=== PATIENT | male | born 1940 | race Caucasian/White ===

== ENCOUNTER → 2017-10-17 09:31 | Outpatient (CLI) | payer MEDICARE, SELFPAY ==
[2017-10-17 10:59] LABS: PSA,Total- Diagnostic < 0.01 ng/mL (0.0-4.0)
== END ==
PROVIDERS: Family Provider Family Medicine; PCP Family Medicine; Visit Provider Urology
DX: C61 Malignant neoplasm of prostate (principal)
CPT/HCPCS: 36415; 84153

== ENCOUNTER → 2018-04-24 07:38 | Outpatient (CLI) | payer MEDICARE, SELFPAY ==
[2018-04-24 09:30] LABS: AST(SGOT) 24 U/L (15-37); Alanine Aminotransfer ALT/SGPT 26 U/L (16-61); Albumin, Serum 3.5 g/dL (3.2-5.0); Alkaline Phosphatase 85 U/L (45-117); Anion Gap 9 (5-15); BUN 26 mg/dL (7-18); BUN/Creat Ratio 25.5 RATIO (10-20); Chloride 102 mmol/L (98-107); Cholesterol 161 mg/dL (200); Creatinine, Serum 1.02 mg/dL (0.70-1.30); EST Glomerular Filtration Rate 75 mL/min (>60); Est Glom Filt Rate - Afr Amer 91 mL/min (>60); Globulin 3.6 g/dL (2.2-4.2); Glucose 101 mg/dL (74-106); High Density Lipoprotein 37 mg/dL; PSA,Total- Diagnostic < 0.01 ng/mL (0.0-4.0); Potassium 3.7 mmol/L (3.5-5.1); Protein, Total 7.1 g/dL (6.4-8.2); Sodium Level 139 mmol/L (136-145); Triglycerides 134 mg/dL; Very Low Density Lipoprotein 27 mg/dL (5-40)
== END ==
PROVIDERS: Family Provider Family Medicine; PCP Family Medicine; Referring Provider Nurse Practitioner Adult Health; Visit Provider Nurse Practitioner Adult Health
DX: Z13.6 Encounter for screening for cardiovascular disorders (principal); Z13.220 Encounter for screening for lipoid disorders; I10 Essential (primary) hypertension; C61 Malignant neoplasm of prostate
CPT/HCPCS: 36415; 80053; 80061; 84153

== ENCOUNTER → 2018-10-31 09:01 | Outpatient (CLI) | payer MEDICARE, SELFPAY ==
[2017-07-24 00:41] VITALS: BMI 31.9
[2018-10-31 11:20] LABS: PSA,Total- Diagnostic < 0.01 ng/mL (0.0-4.0)
== END ==
PROVIDERS: Family Provider Family Medicine; PCP Family Medicine; Referring Provider Nurse Practitioner Adult Health; Visit Provider Nurse Practitioner Adult Health
DX: Z85.46 Personal history of malignant neoplasm of prostate (principal)
CPT/HCPCS: 36415; 84153

== ENCOUNTER → 2019-05-14 08:41 | Outpatient (CLI) | payer MEDICARE, SELFPAY ==
[2017-07-24 00:41] VITALS: BMI 31.9
[2019-05-14 09:33] LABS: PSA,Total- Diagnostic < 0.01 ng/mL (0.0-4.0)
== END ==
LOC: LAB.FUTURE 08:43 → LAB 08:49
PROVIDERS: Family Provider Family Medicine; PCP Family Medicine; Visit Provider Nurse Practitioner Adult Health
DX: Z85.46 Personal history of malignant neoplasm of prostate (principal)
CPT/HCPCS: 36415; 84153

== ENCOUNTER → 2019-12-17 07:39 | Outpatient (CLI) | payer MEDICARE, SELFPAY ==
[2017-07-24 00:41] VITALS: BMI 31.9
[2019-12-17 09:39] LABS: Vitamin B12 270 pg/mL (211-911)
[2019-12-17 09:41] LABS: AST(SGOT) 22 U/L (15-37); Alanine Aminotransfer ALT/SGPT 23 U/L (16-61); Albumin, Serum 3.5 g/dL (3.2-5.0); Alkaline Phosphatase 93 U/L (45-117); Anion Gap 7 (5-15); BUN 26 mg/dL (7-18); BUN/Creat Ratio 24.8 RATIO (10-20); Chloride 105 mmol/L (98-107); Cholesterol 177 mg/dL (200); Creatinine, Serum 1.05 mg/dL (0.70-1.30); EST Glomerular Filtration Rate 72 mL/min (>60); Est Glom Filt Rate - Afr Amer 88 mL/min (>60); Globulin 3.6 g/dL (2.2-4.2); Glucose 105 mg/dL (74-106); High Density Lipoprotein 40 mg/dL; PSA,Total- Diagnostic < 0.01 ng/mL (0.0-4.0); Potassium 3.6 mmol/L (3.5-5.1); Protein, Total 7.1 g/dL (6.4-8.2); Sodium Level 140 mmol/L (136-145); Triglycerides 180 mg/dL; Very Low Density Lipoprotein 36 mg/dL (5-40)
== END ==
PROVIDERS: PCP Family Medicine; Referring Provider Nurse Practitioner Adult Health; Visit Provider Nurse Practitioner Adult Health
DX: Z13.6 Encounter for screening for cardiovascular disorders (principal); I10 Essential (primary) hypertension; C61 Malignant neoplasm of prostate; Z79.899 Other long term (current) drug therapy
CPT/HCPCS: 36415; 80053; 80061; 82607; 84153

== ENCOUNTER → 2020-06-04 | Outpatient (CLI) | payer MEDICARE, SELFPAY ==
[2017-07-24 00:41] VITALS: BMI 31.9
== END | disposition home or self-care (01) ==
LOC: LABSPEC 10:46
PROVIDERS: PCP Family Medicine; Referring Provider Family Medicine; Visit Provider Family Medicine
DX: Z00.00 Encounter for general adult medical examination without abnormal findings (principal)
CPT/HCPCS: 80048

== ENCOUNTER → 2020-06-05 08:18 | Outpatient (CLI) | payer MEDICARE, SELFPAY ==
[2017-07-24 00:41] VITALS: BMI 31.9
[2020-06-05 09:31] LABS: Anion Gap 4 (5-15); BUN 21 mg/dL (7-18); BUN/Creat Ratio 18.8 RATIO (10-20); Calcium,Total 9.2 mg/dL (8.5-10.1); Chloride 106 mmol/L (98-107); Creatinine, Serum 1.12 mg/dL (0.70-1.30); EST Glomerular Filtration Rate 67 mL/min (>60); Est Glom Filt Rate - Afr Amer 81 mL/min (>60); Glucose 109 mg/dL (74-106); Sodium Level 139 mmol/L (136-145)
== END ==
PROVIDERS: PCP Family Medicine; Referring Provider Family Medicine; Visit Provider Family Medicine
DX: I10 Essential (primary) hypertension (principal)
CPT/HCPCS: 36415; 80048

== ENCOUNTER → 2020-12-14 08:41 | Outpatient (CLI) | payer MEDICARE, SELFPAY ==
[2020-12-14 09:45] LABS: ALB/GLOB Ratio 0.9 RATIO (0.9-2.4); AST(SGOT) 26 U/L (15-37); Alanine Aminotransfer ALT/SGPT 25 U/L (16-61); Albumin, Serum 3.4 g/dL (3.2-5.0); Alkaline Phosphatase 90 U/L (45-117); Anion Gap 8 (5-15); BUN 24 mg/dL (7-18); Calcium,Total 9.1 mg/dL (8.5-10.1); Chloride 104 mmol/L (98-107); Cholesterol 173 mg/dL (200); EST Glomerular Filtration Rate 62 mL/min (>60); Est Glom Filt Rate - Afr Amer 75 mL/min (>60); Globulin 3.8 g/dL (2.2-4.2); Glucose 117 mg/dL (74-106); High Density Lipoprotein 39 mg/dL; PSA,Total- Diagnostic < 0.01 ng/mL (0.0-4.0); Potassium 3.6 mmol/L (3.5-5.1); Protein, Total 7.2 g/dL (6.4-8.2); Sodium Level 137 mmol/L (136-145); Triglycerides 177 mg/dL; Very Low Density Lipoprotein 35 mg/dL (5-40)
== END ==
PROVIDERS: PCP Family Medicine; Referring Provider Family Medicine; Visit Provider Family Medicine
DX: Z13.6 Encounter for screening for cardiovascular disorders (principal); I10 Essential (primary) hypertension; C61 Malignant neoplasm of prostate
CPT/HCPCS: 36415; 80053; 80061; 84153

== ENCOUNTER → 2020-12-22 | Outpatient (CLI) | payer MEDICARE, SELFPAY ==
[2017-07-24 00:41] VITALS: BMI 31.9
[2020-12-22 10:59] LABS: Bacteria 0 SEEN /hpf (None Seen); Mucous, Urine 0 SEEN /hpf (<or=2+); Squamous Epithelial Cells - UA 0 SEEN /hpf (0-5); White Blood Cells 0 SEEN /hpf (0-5)
[2020-12-22 11:30] LABS: Color, Urine Yellow (Yellow); Glucose, Dipstick Normal (Normal); Ketone-Dipstick Negative (Negative); Leukocyte Esterase-Dipstick Negative /ul (Negative); Nitrite-Dipstick Negative (Negative); Occult Blood-Urine 10 /ul (Negative); Protein-Dipstick 15 mg/dl (Negative); Urine Bilirubin Dipstick Negative (Negative); Urine Clarity Clear (Clear); Urine Urobilinogen Normal (Normal)
[2020-12-22 11:44] LABS: Red Blood Cells-Urine 0-5 SEEN /hpf (0-5)
== END | disposition home or self-care (01) ==
LOC: LABSPEC 10:53
PROVIDERS: PCP Family Medicine
DX: R31.29 Other microscopic hematuria (principal)
CPT/HCPCS: 81001

== ENCOUNTER → 2021-05-05 08:46 | Outpatient (CLI) | payer MEDICARE, SELFPAY ==
[2021-05-05 10:12] LABS: ALB/GLOB Ratio 0.8 RATIO (0.9-2.4); AST(SGOT) 18 U/L (15-37); Alanine Aminotransfer ALT/SGPT 23 U/L (16-61); Albumin, Serum 3.2 g/dL (3.2-5.0); Alkaline Phosphatase 82 U/L (45-117); Anion Gap 9 (5-15); BUN 23 mg/dL (7-18); BUN/Creat Ratio 18.5 RATIO (10-20); Calcium,Total 9.1 mg/dL (8.5-10.1); Chloride 101 mmol/L (98-107); Cholesterol 179 mg/dL (200); Creatinine, Serum 1.24 mg/dL (0.70-1.30); EST Glomerular Filtration Rate 60 mL/min (>60); Est Glom Filt Rate - Afr Amer 72 mL/min (>60); Glucose 112 mg/dL (74-106); High Density Lipoprotein 38 mg/dL; Potassium 3.8 mmol/L (3.5-5.1); Protein, Total 7.2 g/dL (6.4-8.2); Sodium Level 138 mmol/L (136-145); Triglycerides 189 mg/dL; Very Low Density Lipoprotein 38 mg/dL (5-40)
[2021-05-05 10:13] LABS: Vitamin D,25 Hydroxy 44.7 ng/mL
== END ==
PROVIDERS: PCP Family Medicine; Referring Provider Family Medicine; Visit Provider Family Medicine
DX: I10 Essential (primary) hypertension (principal); E55.9 Vitamin D deficiency, unspecified
CPT/HCPCS: 36415; 80053; 80061; 82306

== ENCOUNTER 2021-05-17 09:48 | Inpatient (IN) | payer MEDICARE, SELFPAY ==
[2021-05-17] VITALS (12 sets, daily range): BP systolic 142–184; BP diastolic 70–87; PULSE 64–98; RESP 16–34; TEMP 36.4–36.8; O2SAT 95–96; BMI 33.1; BMI 32.7
--- NOTE | 2021-05-17 09:56 | EKG12_ITS ---
Test Reason : CP Blood Pressure : / mmHG Vent. Rate : 092 BPM Atrial Rate : 092 BPM P-R Int : 236 ms QRS Dur : 134 ms QT Int : 406 ms P-R-T Axes : 022 -52 051 degrees QTc Int : 502 ms Sinus rhythm with 1st degree A-V block Right bundle branch block Left anterior fascicular block Bifascicular block Consider Left ventricular hypertrophy with repolarization abnormality Abnormal ECG Confirmed by VENKATESH CARMONA, MILLIE ([id number]), art editor CHAYO HIGHTOWER ([id number]) on 05/19/2021 9:01:05 AM Referred By: ANH Confirmed By:MILLIE RIDDLE MD
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
[2021-05-17 10:11] LABS: Absolute Lymphocyte Count 0.97 X10^3/uL (0.83-4.51); Absolute Neutrophil Count 5.1 X10^3/uL (2.0-7.7); Basophil# 0.03 X10^3/uL; Basophil% 0.4 % (0-1); Eosinophil# 0.09 X10^3/uL; Eosinophils% 1.3 % (0-5); Hematocrit 40.1 % (40-54); Hemoglobin 13.4 g/dL (13.0-16.5); Lymphocyte # 0.97 X10^3/ul (0.83-4.51); Lymphocyte % 14.1 % (19-41); Mean Corp Hgb Conc 33.4 g/dL (32-36); Mean Corpuscular Hgb 33.6 pg (27.0-32.0); Mean Corpuscular Volume 100.5 fL (80-94); Mean Platelet Vol. 8.5 fl (6.2-12.0); Monocyte# 0.67 X10^3/uL; Monocyte% 9.7 % (0-10); NRBC Flagged by Analyzer 0 % (0-5); Neutrophil # 5.08 X10^3/uL (2.7-7.7); Neutrophil % 73.9 % (47-70); Platelet Count 229 K/mm3 (150-450); RBC Distribution Width SD 44.1 fl (35.1-43.9); Red Blood Count 3.99 M/mm3 (4.6-6.2); White Blood Count 6.9 K/mm3 (4.4-11.0)
--- NOTE | 2021-05-17 10:18 | RAD_ITS ---
STUDY: X-RAY CHEST REASON FOR EXAM: Male, 80 years old. Chest pain and back pain. TECHNIQUE: Single AP portable view of the chest. COMPARISON: Comparison is made with prior study dated 03/22/2017. FINDINGS: EKG electrodes are seen. The lungs are clear and expanded. There is no demonstrated pleural abnormality. There is borderline cardiomegaly. Normal mediastinum and david. Normal visualized pulmonary arteries. There is atherosclerotic calcification of the aortic arch with tortuosity. There are diffuse degenerative changes of the visualized thoracic spine. Normal visualized ribs, clavicles, and shoulders. There is no demonstrated abnormality of the visualized soft tissue structures of the upper abdomen. RAD/Chest 1 View (Portable) IMPRESSION: Borderline cardiomegaly. Electronically Signed: Rickie Sweet MD at 10:43 EDT , Service support ,
[2021-05-17] MEDS: Aspirin 81 MG TAB.CHEW 324 MG PO (10:28)
[2021-05-17 10:32] LABS: Anion Gap 7 (5-15); BUN 20 mg/dL (7-18); BUN/Creat Ratio 16.9 RATIO (10-20); Calcium,Total 9.4 mg/dL (8.5-10.1); Chloride 100 mmol/L (98-107); Creatinine, Serum 1.18 mg/dL (0.70-1.30); EST Glomerular Filtration Rate 63 mL/min (>60); Est Glom Filt Rate - Afr Amer 76 mL/min (>60); Estimated Creatinine Clearance 48.31 ml/min; Glucose 131 mg/dL (74-106); Potassium 3.9 mmol/L (3.5-5.1); Sodium Level 135 mmol/L (136-145); Troponin-I HS 2658 pg/mL (3.0-78.0)
[2021-05-17] MEDS: Nitroglycerin SL (ED/IMG/CATH) 0.4 MG TABLET SL ×2 (10:35→10:40)
--- NOTE | 2021-05-17 10:51 | HP.PCM.HOS_ITS ---
HPI - General General Date of Admission: 05/17/21 HPI Narrative Hilario BATISTA, is a 80 M with a PMH as outlined who presents via the ED on 05/17/2021 with a complaint of chest pain. Chest pain started 4 hours prior to admission, and was sharp, and radiated to his back. He had similar pain the day before admission and lasted ~ 1 hour. HE had no associated shortness of breath, palpitations, dizziness, nausea or vomiting. Review of systems is otherwise negative. Vitals were temp of 98F, with BP of 165/84, RR of 34 and he was saturating at 96% on room air. CBC showed Hb of 13.4, with wbc of 6.9 and platelets of 229. Chemistry showed sodium of 135, Cr of 1.18 and potassium of 3.9. Initial troponin was 2658. CXR showed borderline cardiomegaly. EKG showed some ST depressions in V2-V5. He is being admitted to be managed for nonstemi. [facility] Medical History Hypertension Home Medications cholecalciferol (vitamin D3) 5,000 unit PO DAILY 12/16/16 [History Last Taken 05/17/21 08:00] docusate sodium [Colace] 100 mg PO DAILY 12/16/16 [History Last Taken 05/17/21 08:00] esomeprazole magnesium [Nexium] 40 mg PO QHS 12/16/16 [History Last Taken 05/16/21 21:00] hydrochlorothiazide 12.5 mg PO DAILY 12/16/16 [History Last Taken Unknown] oxycodone-acetaminophen 1 - 2 tab PO Q6H PRN PRN 12/16/16 [History Last Taken 05/16/21 21:00] meloxicam 7.5 mg PO DAILY 05/17/21 [History Last Taken 05/17/21 08:00] Allergy/AdvReac Type Severity Reaction Status Date / Time amoxicillin [From Augmentin] Allergy Hives Verified 05/17/21 09:52 clavulanic acid Allergy Hives Verified 05/17/21 09:52 [From Augmentin] Social History Smoking Status: Never smoker ROS Constitutional Constitutional: Denies anorexia, chills, fatigue, fever(s) or weakness Eyes Eyes: Denies change in vision ENT HEENT: Reports headache(s); Denies ear pain Cardiovascular Cardiovascular: Reports chest pain; Denies dyspnea on exertion, edema, lightheadedness, orthopnea, palpitations, paroxysmal nocturnal dyspnea, rapid heart rate or syncope Respiratory/Chest Respiratory/Chest: Denies cough, dyspnea, productive cough, shortness of breath at rest or shortness of breath with exertion Gastrointestinal Gastrointestinal: Denies abdominal pain or constipation Musculoskeletal Musculoskeletal: Denies back pain Neurologic Neurologic: Denies confusion, dizziness or focal weakness Psychiatric Psychiatric: Denies anxiety Endocrine Endocrinology: Denies change in body appearance Hematologic/Lymphatic Hematologic/Lymphatic: Denies anemia Vital Signs Vital Signs Vital Signs: 05/17/21 09:49 05/17/21 09:54 05/17/21 10:07 Temperature 98.0 F Temperature Source Temporal Pulse Rate 98 Respiratory Rate 34 H Respiratory Effort Normal Non-Labored Blood Pressure 184/86 H Blood Pressure Mean 118 Pulse Ox 96 Oxygen Delivery Method Room Air Room Air 05/17/21 10:35 Temperature Temperature Source Pulse Rate 80 Respiratory Rate Respiratory Effort Blood Pressure 165/84 H Blood Pressure Mean Pulse Ox Oxygen Delivery Method Weight Weight: 218 lb Body Mass Index (BMI) 33.1 Physical Exam Const alert, oriented x3 and healthy appearing General Appearance: cooperative HEENT normocephalic, head/scalp atraumatic, hearing grossly normal bilaterally and mo ist oral mucous membranes Eyes PERRL, EOMs intact bilaterally and conjunctivae normal Neck no lymphadenopathy Resp normal respiratory effort, no retractions, no use of accessory muscles and clear to auscultation bilaterally Cardio regular rate, regular rhythm, S1 normal heart sound, S2 normal heart sound and no murmurs GI normal to inspection, nondistended, normoactive bowel sounds, soft to palpation, non-tender and non-distended Extremity normal to inspection, full ROM and no clubbing, cyanosis or edema Peripheral Pulses: Yes pulses 2+ throughout Skin no rashes or lesions noted Neuro oriented x3, CN's II-XII intact bilaterally and moves all extremities Sensorium / Orientation: alert Psych affect normal Results Lab / Micro Data Result Diagrams: 05/17/21 10:00 05/17/21 10:00 Labs: Laboratory Results - last 24 hr 05/17/21 10:00: WBC 6.9, RBC 3.99 L, Hgb 13.4, Hct 40.1, MCV 100.5 H, MCH 33.6 H , MCHC 33.4, RDW Std Deviation 44.1 H, RDW Coeff of Sinan 12.0, Plt Count 229, MPV 8.5, Immature Gran % (Auto) 0.600, Neut % (Auto) 73.9 H, Lymph % (Auto) 14.1 L, Clay % (Auto) 9.7, Eos % (Auto) 1.3, Baso % (Auto) 0.4, Absolute Neuts (auto) 5.1, Absolute Lymphs (auto) 0.97, Nucleated RBC % 0 05/17/21 10:00: Sodium 135 L, Potassium 3.9, Chloride 100, Carbon Dioxide 28.0, Anion Gap 7, BUN 20 H, Creatinine 1.18, Estim Creat Clear Calc 48.31, Est GFR (MDRD) Af Amer 76, Est GFR (MDRD) Non-Af 63, BUN/Creatinine Ratio 16.9, Glucose 131 H, Calcium 9.4, Troponin I High Sens 2658 H* Radiology Impression Chest X-Ray 05/17/21 10:18 IMPRESSION: Borderline cardiomegaly. Electronically Signed: Rickie Sweet MD at 10:43 EDT , Service support , Assessment & Plan Assessment/Plan (1) Non-STEMI (non-ST elevated myocardial infarction): PLAN: #Nonstemi * admit to PCU * initial troponin >2600 * cycle troponin * 2D echo * SL nitroglycerin prn, PO aspirin 81mg daily * start on therapeutic lovenox * consult cardiology * #History of prostate cancer; on bicalutamide. #Hypertension: on HCTZ DVT prophylaxis: lovenox Code status: full code * Patient and counseled extensively about different types of CODE STATUS including full code, DNR CCA and DNR CCA. Patient elects to be full code. * Total qizw-ht-tuoi time 16 minutes. Charges/Coding Visit Charges Inpatient E&M: 55720 Init Hosp L3 Procedures Hospitalists Procedures: 32555 Advncd Care Plan 30 Min
[2021-05-17 12:35] LABS: Troponin-I HS 3449 pg/mL (3.0-78.0)
--- NOTE | 2021-05-17 12:43 | ECHOCS_ITS ---
Reason For Study: Chest Pain Procedure This was a 2D Doppler, Color Flow transthoracic echocardiogram. The study was technically difficult. Contrast injection was performed. Exam performed portable in patient room. Left Ventricle Normal LV size. Left ventricular systolic function is normal. The estimated ejection fraction is 60 %. Stage 2 diastolic dysfunction. No regional wall motion abnormalities noted. Right Ventricle Normal RV size. Normal systolic function. Atria Normal left atrium. Normal right atrium. Mitral Valve Normal mitral valve. Tricuspid Valve Normal tricuspid valve. Mild (1+) tricuspid valve insufficiency. Pulmonary artery systolic pressure is 38 mmHg. Aortic Valve Trisinus/trileaflet aortic valve. Mild focal aortic valve calcification. Peak aortic valve gradient 31 mmHg. Mean aortic valve gradient 15 mmHg. Mild to moderate aortic stenosis. Mild (1+) eccentric aortic valve insufficiency. Pulmonic Valve Normal pulmonic valve. Great Vessels Normal aortic root. The pulmonary artery is normal size. Normal inferior vena cava. Pericardium/Pleural No pericardial effusion. Medication Diluted definity 2ml given slow IV push to enhance endocardial definition. MMode/2D Measurements & Calculations LVIDd: 5.2 cm IVSd: 1.3 cm LVOT diam: 2.1 cm LVIDs: 3.9 cm LVPWd: 1.1 cm FS: 25.5 % LVOT area: 3.4 cm2 LAV(MOD-bp): 65.5 ml LA A4 area: 19.2 cm2 RA A4 area: 18.3 cm2 LAV(MOD-bp) Indexed: 30.9 ml/m2 LAV(MOD-sp2): 63.3 ml LAV(MOD-sp4): 56.8 ml Time Measurements MV dec time: 0.24 sec Doppler Measurements & Calculations MV E max percy: 107.2 cm/sec Lat Peak E' Percy: 6.5 cm/sec Med Peak E' Percy: 4.1 cm/sec MV A max percy: 101.3 cm/sec E/E' lat: 16.6 E/E' med: 26.4 MV E/A: 1.1 MV V2 max: 119.4 cm/sec MV P1/2t max percy: 89.6 cm/sec Ao V2 max: 280.5 cm/sec MV max P.7 mmHg MV P1/2t: 79.2 msec Ao max P.5 mmHg MV V2 mean: 70.1 cm/sec MV dec slope: 331.4 cm/sec2 Ao V2 mean: 181.4 cm/sec MV mean P.2 mmHg Ao mean P.4 mmHg MV V2 VTI: 35.0 cm MVA(P1/2t): 2.8 cm2 Ao V2 VTI: 63.2 cm MVA(VTI): 1.8 cm2 YESENIA(I,D): 0.99 cm2 YESENIA(V,D): 1.1 cm2 AI max percy: 333.2 cm/sec LV V1 max: 87.0 cm/sec SV(LVOT): 62.6 ml AI max P.4 mmHg LV V1 max P.0 mmHg LV V1 mean P.4 mmHg AI dec slope: 175.2 cm/sec2 LV V1 mean: 53.9 cm/sec AI P1/2t: 557.1 msec LV V1 VTI: 18.3 cm PA V2 max: 84.7 cm/sec TR max percy: 289.4 cm/sec TR max P.5 mmHg ECHO/Echo Complete W/ Contrast Interpretation Summary Normal LV size. Left ventricular systolic function is normal. The estimated ejection fraction is 60 %. Mild to moderate aortic stenosis. Mild (1+) eccentric aortic valve insufficiency. Stage 2 diastolic dysfunction. Pulmonary artery systolic pressure is 38 mmHg. Ordering Physician: Radha Bellamy Referring Physician: Rodolfo Gamboa Performed By: Ab Ortiz RCS
[2021-05-17] MEDS: Enoxaparin 100 MG/ML Syringe SC ×2 (13:25→21:29)
[2021-05-17] MEDS: Clopidogrel Bisulfate 300 MG Tablet PO (13:25)
--- NOTE | 2021-05-17 14:57 | PCS.PANDOC ---
PANDEMIC DOCUMENTATION INITIATED: Date: 05/17/2021 Time: 1230
[2021-05-17] MEDS: Acetaminophen 325 MG Tablet 650 MG PO (15:35)
[2021-05-17 16:39] LABS: Troponin-I HS 6212 pg/mL (3.0-78.0)
--- NOTE | 2021-05-17 17:10 | CON.PCM.CA_ITS ---
Assessment & Plan Assessment/Plan (1) Non-STEMI (non-ST elevated myocardial infarction): PLAN: He presents with non-ST elevation myocardial infarction which is likely secondary to obstructive coronary disease. Would recommend aspirin We will start beta-anshul High intensity statin Lovenox 1 mg/kg twice daily We will schedule cardiac catheterization in a.m. The risk benefits alternatives have been explained to him he understands and agrees to proceed. (2) Hypertension: QUALIFIERS: Hypertension type: essential hypertension Qualified Code(s): I10 - Essential (primary) hypertension PLAN: His blood pressure at this time appears to be stable and I would not make any changes other than the addition of the beta-anshul. Depending on the findings from a.m. further recommendations will be made. Thank you for allowing me to participate in the care of your patient. Please don't hesitate to call if any issues arise. HPI Consult Data Date of Consult: 05/17/21 HPI Narrative HPI Narrative: Hilario BATISTA, is a 80 M who presents with chest discomfort as well as left arm heaviness and shoulder discomfort. He describes this as a pressure se nsation as well as some sharp discomfort. He said that this started approximately a day or 2 ago. There was no associated nausea diaphoresis dizziness near syncope or syncope. His brought him to the emergency room and he was noted to have some EKG changes as well as abnormal cardiac enzymes. [facility] Medical History Hypertension Home Medications cholecalciferol (vitamin D3) 5,000 unit PO DAILY 12/16/16 [History Last Taken 05/17/21 08:00] docusate sodium [Colace] 100 mg PO DAILY 12/16/16 [History Last Taken 05/17/21 08:00] esomeprazole magnesium [Nexium] 40 mg PO QHS 12/16/16 [History Last Taken 05/16/21 21:00] hydrochlorothiazide 12.5 mg PO DAILY 12/16/16 [History Last Taken Unknown] oxycodone-acetaminophen 1 - 2 tab PO Q6H PRN PRN 12/16/16 [History Last Taken 05/16/21 21:00] meloxicam 7.5 mg PO DAILY 05/17/21 [History Last Taken 05/17/21 08:00] Allergy/AdvReac Type Severity Reaction Status Date / Time amoxicillin [From Augmentin] Allergy Hives Verified 05/17/21 09:52 clavulanic acid Allergy Hives Verified 05/17/21 09:52 [From Augmentin] Social History Smoking Status: Never smoker ROS Constitutional Constitutional: Denies fever(s) or weight loss Eyes Eyes: Reports systems reviewed and no addt'l complaints, except as documented ENT HEENT: Reports systems reviewed and no addt'l complaints, except as documented Cardiovascular Cardiovascular: Reports chest pain at rest and chest pain with activity; Denies dyspnea at rest, dyspnea on exertion, edema, palpitations or paroxysmal nocturnal dyspnea Respiratory/Chest Respiratory/Chest: Denies dyspnea on exertion, productive cough, shortness of breath at rest or shortness of breath with exertion Gastrointestinal Gastrointestinal: Denies change in bowel habits, nausea, vomiting or weight changes Genitourinary Genitourinary: Denies difficulty urinating Musculoskeletal Musculoskeletal: Denies joint stiffness or muscle weakness Integumentary Integumentary: Denies lesions Neurologic Neurologic: Denies dizziness or syncope Psychiatric Psychiatric: Denies anxiety Endocrine Endocrinology: Denies excessive sweating or fatigue Hematologic/Lymphatic Hematologic/Lymphatic: Denies anemia Allergic/Immunologic Allergic/Immunologic: Denies seasonal rhinorrhea Physical Exam Const alert, oriented x3 and no apparent distress General Appearance: cooperative HEENT hearing grossly normal bilaterally Head and Scalp: atraumatic Eyes EOMs intact bilaterally Neck General: normal visual inspection Chest inspection of chest normal and palpation of chest normal Resp normal respiratory effort Auscultation: clear to auscultation bilaterally Cardio regular rate, regular rhythm, S1 normal heart sound and S2 normal heart sound Jugular Venous Distention: JVD GI normal to inspection, nondistended, normoactive bowel sounds Extremity normal capillary refill and no pedal edema Peripheral Pulses: Yes pulses 2+ throughout and femoral pulses present Skin no rashes or lesions noted Neuro oriented x3 and CN's II-XII intact bilaterally Psych Appearance: grossly normal and appropriate Risk Stratification Risk Stratification Applicable: Yes Age >/= 65: Yes >/= 3 CAD Risk Factors (HTN, HLD, DM, family hx of CAD, or current smoker): No Aspirin Use in the Past 7 Days: No Severe Angina (>/= episodes in 24 hours): Yes EKG ST Changes >/= 0.5mm: Yes Positive Cardiac Marker: Yes DOMINGA Risk Stratification Score: 4 DOMINGA % Risk: 20% Risk Objective Data Vital Signs: Vital Signs Temp Pulse Resp BP Pulse Ox 97.9 F 67 18 153/86 H 96 05/17/21 12:40 05/17/21 15:00 05/17/21 12:40 05/17/21 12:40 05/17/21 13:00 Oxygen Delivery Method Room Air Weight: 215 lb 2.738 oz Body Mass Index (BMI) 32.7 Lab / Micro Data Result Diagrams: 05/17/21 10:00 05/17/21 10:00 Labs: Laboratory Results - last 24 hr 05/17/21 10:00: WBC 6.9, RBC 3.99 L, Hgb 13.4, Hct 40.1, MCV 100.5 H, MCH 33.6 H , MCHC 33.4, RDW Std Deviation 44.1 H, RDW Coeff of Sinan 12.0, Plt Count 229, MPV 8.5, Immature Gran % (Auto) 0.600, Neut % (Auto) 73.9 H, Lymph % (Auto) 14.1 L, [place] % (Auto) 9.7, Eos % (Auto) 1.3, Baso % (Auto) 0.4, Absolute Neuts (auto) 5.1, Absolute Lymphs (auto) 0.97, Nucleated RBC % 0 05/17/21 10:00: Sodium 135 L, Potassium 3.9, Chloride 100, Carbon Dioxide 28.0, Anion Gap 7, BUN 20 H, Creatinine 1.18, Estim Creat Clear Calc 48.31, Est GFR (MDRD) Af Amer 76, Est GFR (MDRD) Non-Af 63, BUN/Creatinine Ratio 16.9, Glucose 131 H, Calcium 9.4, Troponin I High Sens 2658 H* 05/17/21 12:00: Troponin I High Sens 3449 H* 05/17/21 15:55: Troponin I High Sens 6212 H* Cardiology Labs/Tests 05/17/21 10:00: WBC 6.9, RBC 3.99 L, Hgb 13.4, Hct 40.1, MCV 100.5 H, MCH 33.6 H , MCHC 33.4, Plt Count 229, MPV 8.5, Immature Gran % (Auto) 0.600, Neut % (Auto) 73.9 H, Lymph % (Auto) 14.1 L, [place] % (Auto) 9.7, Eos % (Auto) 1.3, Baso % (Auto) 0.4, Absolute Neuts (auto) 5.1, Nucleated RBC % 0 05/17/21 10:00: Sodium 135 L, Potassium 3.9, Chloride 100, Carbon Dioxide 28.0, Anion Gap 7, BUN 20 H, Creatinine 1.18, Est GFR (MDRD) Af Amer 76, Est GFR (MDRD) Non-Af 63, BUN/Creatinine Ratio 16.9, Glucose 131 H, Calcium 9.4 Rhythm: EKG: ECHO: Stress Test: Cardiac Cath: PCI: CT Surgery: Holter monitor: EPS: PPM: CXR: Chest CT Scan: Radiography Diagnostic Testing: Radiology Impression Chest X-Ray 05/17/21 10:18 IMPRESSION: Borderline cardiomegaly. Electronically Signed: Rickie Sweet MD at 10:43 EDT , Service support , Echocardiogram 05/17/21 12:43 Interpretation Summary Normal LV size. Left ventricular systolic function is normal. The estimated ejection fraction is 60 %. Mild to moderate aortic stenosis. Mild (1+) eccentric aortic valve insufficiency. Stage 2 diastolic dysfunction. Pulmonary artery systolic pressure is 38 mmHg. Ordering Physician: Radha Bellamy Referring Physician: Rodolfo Gamboa Performed By: Ab Ortiz RCS
[2021-05-17] MEDS: Zolpidem Tartrate 5 MG Tablet PO (21:26)
[2021-05-17] MEDS: Pantoprazole Sodium 20 MG Tablet PO (21:29)
[2021-05-17] MEDS: Atorvastatin Calcium 80 MG Tablet PO (21:29)
[2021-05-17] MEDS: Metoprolol Tartrate 25 MG Tablet PO (21:29)
[2021-05-17] MEDS: 0.9% Normal Saline 1,000 ML 15 ML IV (21:30)
[2021-05-18] VITALS (16 sets, daily range): BP systolic 107–151; BP diastolic 45–95; PULSE 55–92; RESP 14–18; TEMP 36.5–37.2; O2SAT 94–99
[2021-05-18] MEDS: Metoprolol Tartrate 25 MG Tablet PO ×2 (04:55→21:00)
[2021-05-18] MEDS: Aspirin E.C. 81 MG Tablet PO (04:55)
[2021-05-18] MEDS: 0.9% Saline Lock 10 ML Syringe IV (04:55)
--- NOTE | 2021-05-18 05:55 | EKG12_ITS ---
Test Reason : AM Blood Pressure : / mmHG Vent. Rate : 060 BPM Atrial Rate : 060 BPM P-R Int : 204 ms QRS Dur : 136 ms QT Int : 462 ms P-R-T Axes : 011 -55 016 degrees QTc Int : 462 ms Normal sinus rhythm Right bundle branch block Left anterior fascicular block Bifascicular block Abnormal ECG Confirmed by VENKATESH CARMONA, MILLIE ([id number]), editor farm journal CHAYO HIGHTOWER ([id number]) on 05/19/2021 9:31:46 AM Referred By: DAVIDSON Confirmed By:MILLIE RIDDLE MD
[2021-05-18 06:54] LABS: Absolute Lymphocyte Count 1.51 X10^3/uL (0.83-4.51); Absolute Neutrophil Count 5.7 X10^3/uL (2.0-7.7); Basophil# 0.05 X10^3/uL; Basophil% 0.6 % (0-1); Eosinophil# 0.12 X10^3/uL; Eosinophils% 1.5 % (0-5); Hematocrit 37.7 % (40-54); Hemoglobin 13.2 g/dL (13.0-16.5); Lymphocyte # 1.51 X10^3/ul (0.83-4.51); Lymphocyte % 18.3 % (19-41); Mean Corpuscular Volume 97.2 fL (80-94); Mean Platelet Vol. 8.8 fl (6.2-12.0); Monocyte# 0.88 X10^3/uL; Monocyte% 10.6 % (0-10); NRBC Flagged by Analyzer 0 % (0-5); Neutrophil # 5.68 X10^3/uL (2.7-7.7); Neutrophil % 68.6 % (47-70); Platelet Count 237 K/mm3 (150-450); RBC Distribution Width CV 12.1 % (11.6-14.6); RBC Distribution Width SD 43.3 fl (35.1-43.9); Red Blood Count 3.88 M/mm3 (4.6-6.2); White Blood Count 8.3 K/mm3 (4.4-11.0)
[2021-05-18 07:19] LABS: Anion Gap 9 (5-15); BUN 24 mg/dL (7-18); BUN/Creat Ratio 18.5 RATIO (10-20); Calcium,Total 9.1 mg/dL (8.5-10.1); Chloride 100 mmol/L (98-107); Cholesterol 162 mg/dL (200); EST Glomerular Filtration Rate 56 mL/min (>60); Est Glom Filt Rate - Afr Amer 68 mL/min (>60); Estimated Creatinine Clearance 43.85 ml/min; Glucose 111 mg/dL (74-106); High Density Lipoprotein 37 mg/dL; Potassium 4.1 mmol/L (3.5-5.1); Sodium Level 136 mmol/L (136-145); Triglycerides 163 mg/dL; Very Low Density Lipoprotein 33 mg/dL (5-40)
--- NOTE | 2021-05-18 07:28 | NURSING ---
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
--- NOTE | 2021-05-18 08:32 | PCM.PN.CARD ---
Subjective Subjective Patient seen and evaluated. Underwent cardiac catheterization today Objective Data Vital Signs: Vital Signs Temp Pulse Resp BP Pulse Ox 97.7 F L 77 18 150/67 H 94 05/18/21 05:00 05/18/21 07:00 05/18/21 05:00 05/18/21 05:00 05/18/21 05:00 Oxygen Delivery Method Room Air Weight: 215 lb 2.738 oz Body Mass Index (BMI) 32.7 Intake & Output: Intake and Output for Last 24 Hours 05/16/21 05/17/21 05/18/21 23:59 23:59 23:59 Intake Total 770.25 / 770.25 0 / 0 Balance 770.25 / 770.25 0 / 0 Lab / Micro Data Result Diagrams: 05/18/21 06:38 05/18/21 06:38 Labs: Laboratory Results - last 24 hr 05/17/21 10:00: WBC 6.9, RBC 3.99 L, Hgb 13.4, Hct 40.1, MCV 100.5 H, MCH 33.6 H, MCHC 33.4, RDW Std Deviation 44.1 H, RDW Coeff of Sinan 12.0, Plt Count 229, MPV 8.5, Immature Gran % (Auto) 0.600, Neut % (Auto) 73.9 H, Lymph % (Auto) 14.1 L, [place] % (Auto) 9.7, Eos % (Auto) 1.3, Baso % (Auto) 0.4, Absolute Neuts (auto) 5.1, Absolute Lymphs (auto) 0.97, Nucleated RBC % 0 05/17/21 10:00: Sodium 135 L, Potassium 3.9, Chloride 100, Carbon Dioxide 28.0, Anion Gap 7, BUN 20 H, Creatinine 1.18, Estim Creat Clear Calc 48.31, Est GFR (MDRD) Af Amer 76, Est GFR (MDRD) Non-Af 63, BUN/Creatinine Ratio 16.9, Glucose 131 H, Calcium 9.4, Troponin I High Sens 2658 H* 05/17/21 12:00: Troponin I High Sens 3449 H* 05/17/21 15:55: Troponin I High Sens 6212 H* 05/18/21 06:38: WBC 8.3, RBC 3.88 L, Hgb 13.2, Hct 37.7 L, MCV 97.2 H, MCH 34.0 H, MCHC 35.0, RDW Std Deviation 43.3, RDW Coeff of Sinan 12.1, Plt Count 237, MPV 8.8, Immature Gran % (Auto) 0.400, Neut % (Auto) 68.6, Lymph % (Auto) 18.3 L, [place] % (Auto) 10.6 H, Eos % (Auto) 1.5, Baso % (Auto) 0.6, Absolute Neuts (auto) 5.7, Absolute Lymphs (auto) 1.51, Nucleated RBC % 0 05/18/21 06:38: Sodium 136, Potassium 4.1, Chloride 100, Carbon Dioxide 27.0, Anion Gap 9, BUN 24 H, Creatinine 1.30, Estim Creat Clear Calc 43.85, Est GFR (MDRD) Af Amer 68, Est GFR (MDRD) Non-Af 56 L, BUN/Creatinine Ratio 18.5, Glucose 111 H, Calcium 9.1, Triglycerides 163, Cholesterol 162, LDL Cholesterol 92, VLDL Cholesterol 33, HDL Cholesterol 37 L Cardiology Labs/Tests 05/17/21 10:00: WBC 6.9, RBC 3.99 L, Hgb 13.4, Hct 40.1, MCV 100.5 H, MCH 33.6 H, MCHC 33.4, Plt Count 229, MPV 8.5, Immature Gran % (Auto) 0.600, Neut % (Auto) 73.9 H, Lymph % (Auto) 14.1 L, [place] % (Auto) 9.7, Eos % (Auto) 1.3, Baso % (Auto) 0.4, Absolute Neuts (auto) 5.1, Nucleated RBC % 0 05/17/21 10:00: Sodium 135 L, Potassium 3.9, Chloride 100, Carbon Dioxide 28.0, Anion Gap 7, BUN 20 H, Creatinine 1.18, Est GFR (MDRD) Af Amer 76, Est GFR (MDRD) Non-Af 63, BUN/Creatinine Ratio 16.9, Glucose 131 H, Calcium 9.4 05/18/21 06:38: WBC 8.3, RBC 3.88 L, Hgb 13.2, Hct 37.7 L, MCV 97.2 H, MCH 34.0 H, MCHC 35.0, Plt Count 237, MPV 8.8, Immature Gran % (Auto) 0.400, Neut % (Auto) 68.6, Lymph % (Auto) 18.3 L, [place] % (Auto) 10.6 H, Eos % (Auto) 1.5, Baso % (Auto) 0.6, Absolute Neuts (auto) 5.7, Nucleated RBC % 0 05/18/21 06:38: Sodium 136, Potassium 4.1, Chloride 100, Carbon Dioxide 27.0, Anion Gap 9, BUN 24 H, Creatinine 1.30, Est GFR (MDRD) Af Amer 68, Est GFR (MDRD) Non-Af 56 L, BUN/Creatinine Ratio 18.5, Glucose 111 H, Calcium 9.1, Triglycerides 163, Cholesterol 162, LDL Cholesterol 92, VLDL Cholesterol 33, HDL Cholesterol 37 L Rhythm: EKG: ECHO: Stress Test: Cardiac Cath: PCI: CT Surgery: Holter monitor: EPS: PPM: CXR: Chest CT Scan: Radiography Diagnostic Testing: Radiology Impression Chest X-Ray 05/17/21 10:18 IMPRESSION: Borderline cardiomegaly. Electronically Signed: Rickie Sweet MD at 10:43 EDT , Service support , Echocardiogram 05/17/21 12:43 Interpretation Summary Normal LV size. Left ventricular systolic function is normal. The estimated ejection fraction is 60 %. Mild to moderate aortic stenosis. Mild (1+) eccentric aortic valve insufficiency. Stage 2 diastolic dysfunction. Pulmonary artery systolic pressure is 38 mmHg. Ordering Physician: Radha Bellamy Referring Physician: Rodolfo Gamboa Performed By: Ab Ortiz RCS Physical Exam Const alert, oriented x3 and no apparent distress General Appearance: cooperative HEENT hearing grossly normal bilaterally Head and Scalp: atraumatic Eyes EOMs intact bilaterally Neck General: normal visual inspection Chest inspection of chest normal and palpation of chest normal Resp normal respiratory effort Auscultation: clear to auscultation bilaterally Cardio regular rate, regular rhythm, S1 normal heart sound and S2 normal heart sound Jugular Venous Distention: JVD GI normal to inspection, nondistended, normoactive bowel sounds Extremity normal capillary refill and no pedal edema Peripheral Pulses: Yes pulses 2+ throughout and femoral pulses present Skin no rashes or lesions noted Neuro oriented x3 and CN's II-XII intact bilaterally Psych Appearance: grossly normal and appropriate Assessment & Plan Assessment/Plan (1) Non-STEMI (non-ST elevated myocardial infarction): PLAN: He presents with non-ST elevation myocardial infarction which is likely secondary to obstructive coronary disease. Would recommend aspirin We will start beta-anshul High intensity statin Cardiac catheterization demonstrated normal left main coronary artery, left anterior descending artery with moderate mid segment disease, left circumflex artery with mid segment 90% stenosis involving the second obtuse marginal branch as well; and dominant large right coronary artery with distal 90% stenosis. Will recommend multivessel PCI as a staged procedure. Discussed with interventionalist and patient were agreeable. (2) Hypertension: QUALIFIERS: Hypertension type: essential hypertension Qualified Code(s): I10 - Essential (primary) hypertension PLAN: His blood pressure at this time appears to be stable and I would not make any changes other than the addition of the beta-anshul. Depending on the findings from a.m. further recommendations will be made. Thank you for allowing me to participate in the care of your patient. Please don't hesitate to call if any issues arise.
--- NOTE | 2021-05-18 08:44 | CL.D_ITS ---
Patient Name: Hilario BATISTA Study Date: 05/18/2021 Performing: Hair Sinha MD Ht: 68.11 inches 173 cm : 1940 Wt: 216.05 lbs 98 kg Age: 80 Gender: male BSA: 2.11 PROCEDURE(S) PERFORMED BI99-FRH/COR/LV CLINICAL PROFILE AND INDICATIONS Indications: New Onset Angina <= 2 months Heart Failure: None Stress/Imaging Stress/Image Study Performed: No CAD Presentations: Unstable angina. CONCLUSIONS Diffuse triple-vessel disease with moderate disease noted in the left anterior descending artery Severe disease involving the mid circumflex artery Severe distal right coronary artery disease RECOMMENDATIONS Referred for immediate PCI DESCRIPTION OF PROCEDURE The patient arrived to the procedure lab. The risks and benefits of the procedure as well as a full d escription of our services here and current unavailability of surgical backup were fully explained to the patient and/or their significant other prior to the catheterization. The Timeout was completed, verifying the correct patient and procedure. The patient's procedural site was prepped and draped in the usual fashion. Local anesthetic was given subcutaneously to right radial region with Lidocaine 2% . Using a modified Seldinger technique, arterial access was obtained via the right radial artery, a 6 Fr sheath was inserted. Left Coronary Artery selective angiography was performed in multiple views u sing a 5 Fr. 4.0 Ovid catheter. Right Coronary Artery selective angiography was then performed in mu ltiple views using a 5 Fr. 4.0 Ovid catheter. Left Ventriculography was performed in HOLLIDAY projection using a 5 Fr. Pigtail catheter. LV to AO pullback pressures were then recorded. CORONARY ANGIOGRAPHY LEFT HEART ASSESSMENT Left Ventricular Ejection Fraction: by LV Gram 60 % Normal LV wall motion Normal Left Ventricular systolic function LEFT MAIN: Angiographically normal LEFT ANTERIOR DESCENDING ARTERY: MID LAD: Moderate mid segment disease of 60 to 70% CIRCUMFLEX ARTERY: Large vessel with ectatic proximal and mid segment and first obtuse marginal branc h with mild luminal irregularities, second obtuse marginal branch with 90% stenosis in the AV groove branch with 90% stenosis RIGHT CORONARY ARTERY: Moderate mid segment disease of 60 to 70% DISTAL RCA: long 80 % Stenosis COMPLICATIONS PROCEDURE MEDICATIONS Versed 1 mg IV Fentanyl 50 mcg IV Versed 1 mg IV Oxygen: 2 L/min via nasal cannula Brilinta 180 mg PO @ 05/18/2021 08:32:46 Heparin given IA 05/18/2021 08:04:14 Heparin 7000 unit(s) IV 05/18/2021 08:32:52 Verapamil 2.5mg, Ntg 100mcgs, 3000 units of Heparin given IA 05/18/2021 08:04:14 SUMMARY OF HEMODYNAMIC DATA Time AIR REST ECG 07:37:13 Art 171/82 (115) 08:01:17 AO 118/70 (91) SA 08:05:34 LV 124/11, 22 08:15:47 LV 127/12, 23 08:15:53 LV 123/15, 24 08:16:33 LV 120/14, 26 08:16:39 LVp 119/14, 24 08:16:42 AOp 101/50 (72) 08:16:48 Signed By Hair Sinha MD On 05/18/2021 08:43:03 Hair Sinha MD
--- NOTE | 2021-05-18 09:44 | PCI.CARDCATH ---
PCI Cardiac Cath Report PCI Report: 1. Successful PCI of proximal to mid LAD 80% stenosis with DOMINGA#3 flow With predilatation and placement of a drug-eluting stent 3 x 26 mm/Orsiro postdilated with 3.5 x 15 mm NC emerge With reduction of stenosis to 0% and maintenance of DOMINGA-3 flow. 2. Successful PCI of the proximal OM 3 with placement of drug-eluting stent 2.5 x 18 mmOrsiro, postdilated with 3 x 50 mm NC balloon Reduction of stenosis from 80% to 0% and improvement of DOMINGA flow from DOMINGA II to DOMINGA-3 3. PTCA of OM 2 high-grade subtotal 99% with predilatation using 2 x 20 mm Emerge balloon. 4. Placement of TR band to close the right radial artery arteriotomy site. Preprocedure diagnosis; 80-year-old patient presented with symptoms of chest pain with a clinical diagnosis of CAD/non-ST elevation DE He had a history of prostate cancer treated with radiation 4 years ago, no other significant medical history in particular no history of stroke no history of diabetes Patient was on medical therapy for non-ST elevation DE with anticoagulation and underwent cardiac catheterization today by his primary bullet assembly press operator Dr. Sinha Angiographic findings reviewed and discussed, patient has multivessel CAD including LAD, OM 2, OM 3 and intermediate lesion in the distal RCA and significant stenosis of the mid RPDA of around 80%. LV systolic function by echocardiogram and left ventriculogram within normal. Patient stable hemodynamically in the Boat Finisher and her cafeteria monitor showed normal sinus with PACs. Patient's complete blood count and renal function within normal. Consent; Risk and benefit of procedure explained detail to the patient elected to proceed informed consent obtained. Medication used in the Boat [employer]isher; 1. Heparin additional of 7000 was given IV 2. Brilinta 180 mg p.o. given 3. 2 bolus of Integrilin and Integrilin infusion. Interventional equipment and plan; 1. 6 Frisian 3.5 EBU guide catheter 2. 0.014 BMW universal straight 190 cm 3. 0.014 run-through extra floppy 180 cm strut 4. 0.035 to 60 cm angle exchange collide 5. 0.035 to 60 cm J exchange wire 6. 2 x 20 mm Emerge balloon 7. 3 x 26 drug-eluting stent/Orsiro 8. 2.5 x 18 mm drug-eluting stent/Orsiro 9. 3.5 x 50 mm NC image MR balloon 10. 3 x 50 mm NC image MR balloon. Procedure in detail; We will proceed with the 3.5 EBU guide catheter advanced ascending aorta cannulated the left main ostium without difficulty, then will proceed with the run-through wire across the lesion in the proximal to mid LAD Followed by balloon dilatation using 2 x 20 mm regular balloon, followed by placement of drug-eluting stent 3 x 26 Mm/orsiro, followed by postdilatation using 3.5 x 15 mm NC balloon and achievement of excellent result Then will proceed with 2 wires across OM2 with a run-through and then we used a BMW wire and across OM 3 Predilated OM2 with a 2 x 20 mm balloon and then we proceed with placement of drug-eluting stent 2.5 x 18 mm. No complication in the Boat [employer]isher Recommendation and plan 1. Continue on DAPT Brilinta/aspirin for 1 year 2. Cardiac rehab phase 1 3. Follow-up with the primary bullet assembly press operator Dr. Sinha for continuation of cardiac care 4. Consider PCI of the RPDA and IFR of the distal RCA. Rashad Garcia MD,FACC,[facility] [place] ACT level checked 213 and patient was given 2 bolus of Integrilin Integrilin infusion
--- NOTE | 2021-05-18 09:45 | EKG12_ITS ---
Test Reason : Blood Pressure : / mmHG Vent. Rate : 056 BPM Atrial Rate : 056 BPM P-R Int : 240 ms QRS Dur : 138 ms QT Int : 480 ms P-R-T Axes : 025 -55 016 degrees QTc Int : 463 ms Sinus bradycardia with 1st degree A-V block Right bundle branch block Left anterior fascicular block Bifascicular block Abnormal ECG Confirmed by VENKATESH CARMONA, MILLIE ([id number]), manager editorial CHAYO HIGHTOWER ([id number]) on 05/19/2021 9:34:16 AM Referred By: ODILIA Confirmed By:MILLIE RIDDLE MD
--- NOTE | 2021-05-18 09:50 | CASEMGMT ---
According to the [employer] website, the following are in-network tertiary facilities: [facility], [place], [place], [facility], [facility], and . Brandy MARSH CM
[2021-05-18 10:39] LABS: Hematocrit 38.6 % (40-54); Hemoglobin 13.1 g/dL (13.0-16.5); Mean Corp Hgb Conc 33.9 g/dL (32-36); Mean Corpuscular Hgb 33.4 pg (27.0-32.0); Mean Corpuscular Volume 98.5 fL (80-94); Mean Platelet Vol. 8.6 fl (6.2-12.0); Platelet Count 235 K/mm3 (150-450); RBC Distribution Width CV 12.1 % (11.6-14.6); RBC Distribution Width SD 43.8 fl (35.1-43.9); Red Blood Count 3.92 M/mm3 (4.6-6.2); White Blood Count 9.1 K/mm3 (4.4-11.0)
[2021-05-18] MEDS: Pantoprazole Sodium 20 MG Tablet PO ×2 (10:48→21:03)
--- NOTE | 2021-05-18 11:40 | CASEMGMT ---
MAXIMO SAMPSON assessment: Face to Face with patient for initial transition planning/care coordination assessment. MAXIMO SAMPSON introduced self and role at [facility], pt voices understanding and consents to assessment. Pt is sitting up in bed on room air in no distress. Pt is A/Ox4 and answers all questions appropriately. Care providers, pharmacy, and demographics verified. Presentation: Pt c/o chest pain Admitting dx: NSTEMI PCP: Rodolfo Gamboa Specialists: Roderick cardio; margarita Colon Preferred Pharmacy: [facility] Insurance: [employer] Prescription Benefit: Yes Living Will/HPOA: Pt has LW/HPOA and is aware that they are not on file at [facility]. Pt's , Jason Jean Baptiste, is HPOA. LNOK: Jason Jean Baptiste, Living Arrangements: Pt lives with on main level of 2 story home and states no concerns at home. Pt is independent with ADL's. Transportation: Pt states drives self and states no transportation concerns. DME/HHC: Pt states no current DME or need for any further DME. Pt states no hx of SNF but has had HHC in past 2 years ago. Pt states no concerns with going home at time of discharge. 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 Pt states does not smoke cigarettes or drink ETOH. Pt voices no further concerns/needs. CM to follow for any further discharge planning/needs. Advised pt to ask for CM if any further questions/concerns/needs arise, voices understanding. Pt Goal: Home Plan[place] MAXIMO SAMPSON
--- NOTE | 2021-05-18 12:41 | CRPHASE1 ---
Patient Communication PHII Cardiac Rehab Discussed with Patient:: Yes Guide to Cardiac Rehab Given to Patient:: Yes Cardiac Rehab Facility Choice List Given to Patient:: Yes Choice Program [facility] PHII:: Communication Given to CR Supervisor Capacitor Processing:: Rashad Garcia Phase II Cardiac Rehab:: Yes Sessions:: 36 sessions - 3 days/wk, 12 weeks Cardiac Rehabilitation Info Cardiac Rehabilitation Program Information: Cardiac Rehabilitation is important for patients like you who are recovering from a heart problem. Cardiac rehabilitation programs are recognized as integral to the continued care of the patient with coronary heart disease. The cardiac rehabilitation program is designed to optimize a patient's physical, psychological, and social functioning. Health transitional care liaison work in cardiac rehabilitation programs and assist you with getting the treatments you need to get stronger and healthier - like exercise, healthy eating habits, and medications. Cardiac rehabilitation has been show to help people with heart problems live longer and have better life enjoyment than people who do not go to cardiac rehabilitation. Please contact the Cardiac Rehabilitation Program at [facility] at in two weeks if you have not heard from them.
--- NOTE | 2021-05-18 12:41 | CRPH1.INSTRU ---
General Education CAD and cardiac anatomy and function:: Patient communicates acknowledgment, Family communicates acknowledgment, Needs reinforcement Explanation of diagnoses and procedures:: Patient communicates acknowledgment, Family communicates acknowledgment, Needs reinforcement Sign/Symptoms of CT:: Patient communicates acknowledgment, Family communicates acknowledgment, Needs reinforcement Antiplatelet therapy: Patient communicates acknowledgment, Family communicates acknowledgment, Needs reinforcement Proper use of NTG-SL: Patient communicates acknowledgment, Family communicates acknowledgment, Needs reinforcement Emergency procedures and activation of EMS: Patient communicates acknowledgment, Family communicates acknowledgment, Needs reinforcement Compliance of all prescribed medications: Patient communicates acknowledgment, Family communicates acknowledgment, Needs reinforcement Dyslipidemia Patient Dyslipidemia Risk Factors Are:: HDL Recommendations Include:: Lipid profile provided, Reviewed NCEP/ATP guidelines, Therapeutic Lifestyle Change dietary guidelines Dyslipidemia Response Code:: Patient communicates acknowledgment, Family communicates acknowledgment, Needs reinforcement Overweight/Obesity Patient Overweight/Obesity Risk Factors Are:: Obesity - > or = 30 Recommendations Include:: Weight loss of 5-10%, Reduced calorie diet, Exercise 5-7 times/week Overweight/Obesity:: Patient communicates acknowledgment, Family communicates acknowledgment, Needs reinforcement Hypertension Recommendations Include:: Maintain BP <130/85, Decrease/maintain normal body weight Hypertension:: Patient communicates acknowledgment, Family communicates acknowledgment, Needs reinforcement Sedentary Patient Sedentary Risk Factors Are:: Lack of regular exercise Recommendations Include:: Aerobic exercise 5-7 times/week for 20-30 minutes continuously, Benefits of regular exercise, Discussed home walking program, Monitored Outpatient Cardiac Rehab Sedentary Response Code:: Patient communicates acknowledgment, Family communicates acknowledgment
--- NOTE | 2021-05-18 18:05 | PCM.PN.HOSP ---
Subjective Subjective Patient was seen and Cobb today, he had to RODOLFO inserted, 1 in the LAD, another in the obtuse marginal branch, and also had a balloon angioplasty in an obtuse marginal branch. Patient also has occlusive coronary disease in the right coronary artery and this will have to be addressed in the near future as an outpatient. Patient has no complaints of any chest discomfort or shortness of breath at the time of my examination, his is in the room and I talked with her briefly about his care. Objective Data Objective Data Vital Signs: Vital Signs Temp Pulse Resp BP Pulse Ox 99.0 F 63 16 145/70 H 94 05/18/21 16:30 05/18/21 16:30 05/18/21 16:30 05/18/21 16:30 05/18/21 16:30 Oxygen Delivery Method Room Air Weight: 97.6 kg Body Mass Index (BMI) 32.7 Intake & Output: Intake and Output for Last 24 Hours 05/16/21 05/17/21 05/18/21 23:59 23:59 23:59 Intake Total 770.25 / 770.25 707 / 707 Output Total 325 / 325 Balance 770.25 / 770.25 382 / 382 Lab / Micro Data Result Diagrams: 05/18/21 10:30 05/18/21 06:38 Labs: Laboratory Results - last 24 hr 05/18/21 06:38: WBC 8.3, RBC 3.88 L, Hgb 13.2, Hct 37.7 L, MCV 97.2 H, MCH 34.0 H, MCHC 35.0, RDW Std Deviation 43.3, RDW Coeff of Sinan 12.1, Plt Count 237, MPV 8.8, Immature Gran % (Auto) 0.400, Neut % (Auto) 68.6, Lymph % (Auto) 18.3 L, [place] % (Auto) 10.6 H, Eos % (Auto) 1.5, Baso % (Auto) 0.6, Absolute Neuts (auto) 5.7, Absolute Lymphs (auto) 1.51, Nucleated RBC % 0 05/18/21 06:38: Sodium 136, Potassium 4.1, Chloride 100, Carbon Dioxide 27.0, Anion Gap 9, BUN 24 H, Creatinine 1.30, Estim Creat Clear Calc 43.85, Est GFR (MDRD) Af Amer 68, Est GFR (MDRD) Non-Af 56 L, BUN/Creatinine Ratio 18.5, Glucose 111 H, Calcium 9.1, Triglycerides 163, Cholesterol 162, LDL Cholesterol 92, VLDL Cholesterol 33, HDL Cholesterol 37 L 05/18/21 10:30: WBC 9.1, RBC 3.92 L, Hgb 13.1, Hct 38.6 L, MCV 98.5 H, MCH 33.4 H, MCHC 33.9, RDW Std Deviation 43.8, RDW Coeff of Sinan 12.1, Plt Count 235, MPV 8.6 Physical Exam Const alert, oriented x3, no apparent distress and healthy appearing General Appearance: cooperative, well kempt and well developed Orientation / Consciousness: awake, oriented to person, oriented to place and oriented to time HEENT normocephalic, head/scalp atraumatic and moist oral mucous membranes Head and Scalp: normocephalic Eyes PERRL, EOMs intact bilaterally and conjunctivae normal Neck nuchal rigidity, supple, no JVD, thyroid normal and no carotid bruits General: trachea midline Resp normal respiratory effort, no retractions, no use of accessory muscles and clear to auscultation bilaterally Auscultation: Negative for rales, rhonchi or wheezes Cardio regular rate, regular rhythm, S1 normal heart sound, S2 normal heart sound, no murmurs, no rub and no gallops GI normal to inspection, nondistended, normoactive bowel sounds, soft to palpation, non-tender and non-distended Extremity no clubbing, cyanosis or edema Skin no rashes or lesions noted General Skin Exam: no breakdown Neuro oriented x3, CN's II-XII intact bilaterally, no focal motor deficits and no sensory deficits noted Sensorium / Orientation: awake and alert Speech: speech normal Psych thought process normal and affect normal Assessment & Plan Assessment/Plan (1) Non-STEMI (non-ST elevated myocardial infarction): PLAN: 1. Type II myocardial infarction-again patient had 2 drug-eluting stents inserted today, he will need an intervention in the RCA as an outpatient. Again he also had a balloon angioplasty of the obtuse marginal branch. #2 essential hypertension #3 occlusive coronary disease #4 osteoarthritis- I talked briefly with the patient and his about the use of nonsteroidal anti-inflammatory agents, I told them that he was not able to take these while taking Brilinta and aspirin. He was taken meloxicam as an outpatient, I told him this was not advisable to continue on this medication. Patient was advised either to take Tylenol or get a prescription for a mild narcotic for arthritis pain. Charges/Coding Visit Charges Inpatient E&M: 55570 Subs Hosp L2
[2021-05-18] MEDS: Atorvastatin Calcium 80 MG Tablet PO (21:03)
[2021-05-18] MEDS: Enoxaparin 100 MG/ML Syringe SC (21:03)
[2021-05-19] VITALS (7 sets, daily range): BP systolic 123–151; BP diastolic 57–82; PULSE 63–86; RESP 14–16; TEMP 36.8–37.2; O2SAT 93–97
[2021-05-19 06:55] LABS: Absolute Lymphocyte Count 1.35 X10^3/uL (0.83-4.51); Absolute Neutrophil Count 5.4 X10^3/uL (2.0-7.7); Basophil# 0.05 X10^3/uL; Basophil% 0.6 % (0-1); Eosinophil# 0.11 X10^3/uL; Eosinophils% 1.4 % (0-5); Hemoglobin 12.6 g/dL (13.0-16.5); Lymphocyte # 1.35 X10^3/ul (0.83-4.51); Lymphocyte % 17.2 % (19-41); Mean Corp Hgb Conc 34.1 g/dL (32-36); Mean Corpuscular Hgb 33.5 pg (27.0-32.0); Mean Corpuscular Volume 98.4 fL (80-94); Monocyte# 0.88 X10^3/uL; Monocyte% 11.2 % (0-10); NRBC Flagged by Analyzer 0 % (0-5); Neutrophil # 5.44 X10^3/uL (2.7-7.7); Neutrophil % 69.3 % (47-70); Platelet Count 238 K/mm3 (150-450); RBC Distribution Width CV 12.3 % (11.6-14.6); RBC Distribution Width SD 44.4 fl (35.1-43.9); Red Blood Count 3.76 M/mm3 (4.6-6.2); White Blood Count 7.9 K/mm3 (4.4-11.0)
[2021-05-19 07:28] LABS: ALB/GLOB Ratio 0.8 RATIO (0.9-2.4); AST(SGOT) 44 U/L (15-37); Alanine Aminotransfer ALT/SGPT 29 U/L (16-61); Albumin, Serum 3.2 g/dL (3.2-5.0); Alkaline Phosphatase 82 U/L (45-117); Anion Gap 9 (5-15); BUN 26 mg/dL (7-18); BUN/Creat Ratio 20.3 RATIO (10-20); Calcium,Total 9.3 mg/dL (8.5-10.1); Chloride 99 mmol/L (98-107); Creatinine, Serum 1.28 mg/dL (0.70-1.30); EST Glomerular Filtration Rate 57 mL/min (>60); Est Glom Filt Rate - Afr Amer 69 mL/min (>60); Estimated Creatinine Clearance 44.53 ml/min; Glucose 105 mg/dL (74-106); Potassium 3.9 mmol/L (3.5-5.1); Protein, Total 7.2 g/dL (6.4-8.2); Sodium Level 134 mmol/L (136-145)
--- NOTE | 2021-05-19 08:10 | PCM.PN.CARD ---
Subjective Subjective Patient seen and evaluated. Appears to be doing well. Objective Data Vital Signs: Vital Signs Temp Pulse Resp BP Pulse Ox 98.9 F 65 14 123/57 H 93 05/19/21 01:00 05/19/21 07:20 05/19/21 01:00 05/19/21 01:00 05/19/21 01:00 Oxygen Delivery Method Room Air Weight: 215 lb 2.738 oz Body Mass Index (BMI) 32.7 Intake & Output: Intake and Output for Last 24 Hours 05/17/21 05/18/21 05/19/21 23:59 23:59 23:59 Intake Total 770.25 / 770.25 707 / 707 Output Total 325 / 325 Balance 770.25 / 770.25 382 / 382 Lab / Micro Data Result Diagrams: 05/19/21 06:15 05/19/21 06:15 Labs: Laboratory Results - last 24 hr 05/18/21 10:30: WBC 9.1, RBC 3.92 L, Hgb 13.1, Hct 38.6 L, MCV 98.5 H, MCH 33.4 H, MCHC 33.9, RDW Std Deviation 43.8, RDW Coeff of Sinan 12.1, Plt Count 235, MPV 8.6 05/19/21 06:15: WBC 7.9, RBC 3.76 L, Hgb 12.6 L, Hct 37.0 L, MCV 98.4 H, MCH 33.5 H, MCHC 34.1, RDW Std Deviation 44.4 H, RDW Coeff of Sinan 12.3, Plt Count 238, MPV 9.0, Immature Gran % (Auto) 0.300, Neut % (Auto) 69.3, Lymph % (Auto) 17.2 L, [place] % (Auto) 11.2 H, Eos % (Auto) 1.4, Baso % (Auto) 0.6, Absolute Neuts (auto) 5.4, Absolute Lymphs (auto) 1.35, Nucleated RBC % 0 05/19/21 06:15: Sodium 134 L, Potassium 3.9, Chloride 99, Carbon Dioxide 26.0, Anion Gap 9, BUN 26 H, Creatinine 1.28, Estim Creat Clear Calc 44.53, Est GFR (MDRD) Af Amer 69, Est GFR (MDRD) Non-Af 57 L, BUN/Creatinine Ratio 20.3 H, Glucose 105, Calcium 9.3, Total Bilirubin 0.70, AST 44 H, ALT 29, Alkaline Phosphatase 82, Total Protein 7.2, Albumin 3.2, Globulin 4.0, Albumin/Globulin Ratio 0.8 L Cardiology Labs/Tests 05/18/21 10:30: WBC 9.1, RBC 3.92 L, Hgb 13.1, Hct 38.6 L, MCV 98.5 H, MCH 33.4 H, MCHC 33.9, Plt Count 235, MPV 8.6 05/19/21 06:15: WBC 7.9, RBC 3.76 L, Hgb 12.6 L, Hct 37.0 L, MCV 98.4 H, MCH 33.5 H, MCHC 34.1, Plt Count 238, MPV 9.0, Immature Gran % (Auto) 0.300, Neut % (Auto) 69.3, Lymph % (Auto) 17.2 L, [place] % (Auto) 11.2 H, Eos % (Auto) 1.4, Baso % (Auto) 0.6, Absolute Neuts (auto) 5.4, Nucleated RBC % 0 05/19/21 06:15: Sodium 134 L, Potassium 3.9, Chloride 99, Carbon Dioxide 26.0, Anion Gap 9, BUN 26 H, Creatinine 1.28, Est GFR (MDRD) Af Amer 69, Est GFR (MDRD) Non-Af 57 L, BUN/Creatinine Ratio 20.3 H, Glucose 105, Calcium 9.3, Total Bilirubin 0.70 Rhythm: EKG: ECHO: Stress Test: Cardiac Cath: PCI: CT Surgery: Holter monitor: EPS: PPM: CXR: Chest CT Scan: Physical Exam Const alert, oriented x3 and no apparent distress General Appearance: cooperative HEENT hearing grossly normal bilaterally Head and Scalp: atraumatic Eyes EOMs intact bilaterally Neck General: normal visual inspection Chest inspection of chest normal and palpation of chest normal Resp normal respiratory effort Auscultation: clear to auscultation bilaterally Cardio regular rate, regular rhythm, S1 normal heart sound and S2 normal heart sound Jugular Venous Distention: JVD GI normal to inspection, nondistended, normoactive bowel sounds Extremity normal capillary refill and no pedal edema Peripheral Pulses: Yes pulses 2+ throughout and femoral pulses present Skin no rashes or lesions noted Neuro oriented x3 and CN's II-XII intact bilaterally Psych Appearance: grossly normal and appropriate Assessment & Plan Assessment/Plan (1) Non-STEMI (non-ST elevated myocardial infarction): PLAN: He presents with non-ST elevation myocardial infarction which is likely secondary to obstructive coronary disease. Would recommend aspirin We will start beta-anshul High intensity statin Cardiac catheterization demonstrated normal left main coronary artery, left anterior descending artery with moderate mid segment disease, left circumflex artery with mid segment 90% stenosis involving the second obtuse marginal branch as well; and dominant large right coronary artery with distal 90% stenosis. He underwent multivessel angioplasty with good results. He can be discharged for outpatient follow-up in my office in 2 to 4 weeks. The distal right coronary artery would be tackled as an outpatient. (2) Hypertension: QUALIFIERS: Hypertension type: essential hypertension Qualified Code(s): I10 - Essential (primary) hypertension PLAN: His blood pressure at this time appears to be stable and I would not make any changes other than the addition of the beta-anshul. Thank you for allowing me to participate in the care of your patient. Please don't hesitate to call if any issues arise.
[2021-05-19] MEDS: Metoprolol Tartrate 25 MG Tablet PO (08:55)
[2021-05-19] MEDS: Aspirin E.C. 81 MG Tablet PO (08:55)
[2021-05-19] MEDS: Pantoprazole Sodium 20 MG Tablet PO (08:55)
[2021-05-19] MEDS: TICAGRELOR 90 MG TABLET PO (08:55)
--- NOTE | 2021-05-19 09:45 | EKG12_ITS ---
Test Reason : AM Blood Pressure : / mmHG Vent. Rate : 081 BPM Atrial Rate : 081 BPM P-R Int : 246 ms QRS Dur : 134 ms QT Int : 416 ms P-R-T Axes : 003 -55 013 degrees QTc Int : 483 ms Sinus rhythm with 1st degree A-V block Right bundle branch block Left anterior fascicular block Bifascicular block Abnormal ECG When compared with ECG of 18-MAY-2021 11:01, MANUAL COMPARISON REQUIRED, DATA IS UNCONFIRMED Confirmed by PIPPA CARMONA, MARLENE ([id number]), writer editor CHAYO HIGHTOWER ([id number]) on 05/19/2021 1:54:01 PM Referred By: JIM Confirmed By:MARLENE DAS MD
--- NOTE | 2021-05-19 10:03 | PCM.DC ---
Discharge Instructions Diet Discharge Diet: No restrictions Activity Lifting Restrictions: no lifting above 10 lbs Follow Up Care Test Results: Test results from this visit will be discussed in further detail at your follow-up appointment, if applicable. Discharge Plan Admission Admit Date/Time: 05/17/21 11:03 Primary Reason for Your Visit: nstemi Attending Provider: Jaguar Pantoja Primary Care Provider: Rodolfo Gamboa Consulting Providers: Hair Sinha Instructions Additional Instructions / Restrictions: Take only Tylenol for pain or a narcotic Discharge Orders/Prescriptions Prescriptions: New atorvastatin 80 mg Tablet 80 mg PO QHS Qty: 30 RF: 0 metoprolol tartrate 25 mg Tablet 25 mg PO BID Qty: 60 RF: 0 Brilinta 90 mg Tablet 90 mg PO BID Qty: 60 RF: 0 lisinopril 5 mg tablet 5 mg PO DAILY Qty: 30 RF: 0 Continued oxycodone-acetaminophen 1 TABLET tablet 1 - 2 tab PO Q6H PRN PRN (Reason: Pain) RF: 0 esomeprazole magnesium [Nexium] 40 MG capsule 40 mg PO QHS RF: 0 docusate sodium [DOK] 100 MG capsule 100 mg PO DAILY RF: 0 hydrochlorothiazide 25 MG tablet 12.5 mg PO DAILY RF: 0 cholecalciferol (vitamin D3) 5,000 UNIT capsule 5,000 unit PO DAILY RF: 0 Discontinued meloxicam 7.5 mg tablet 7.5 mg PO DAILY RF: 0 Referrals / Follow Up: Hair Sinha MD [STAFF PHYSICIAN] - See Referral Note (as directed) Rodolfo Gamboa MD [Primary Care Provider] - Within 1 Month Disposition Disposition (needs filled in before D/C Order can be placed): Home, Self Care
--- NOTE | 2021-05-19 10:14 | PCM.DC.SUM ---
Providers Date of Admission: 05/17/21 Date of Discharge: 05/19/21 Primary Care Physician: Dr. Rodolfo Gamboa MD Consultations 05/17/21 12:43 Consult: Cardiology Routine Consulting Provider: Hair Sinha Reason for Consult: nonstemi EMERGENT Consult: No MD Notified: Yes Date Notified: 05/17/21 Time Notified: 11:28 Method of Notification: Text Reason For Visit: NONSTEMI Diagnosis Discharge Diagnosis (1) Non-STEMI (non-ST elevated myocardial infarction): Status: Acute Code(s): I21.4 - Non-ST elevation (NSTEMI) myocardial infarction Plan: 1. Type II myocardial infarction #2 essential hypertension #3 occlusive coronary disease #4 osteoarthritis Medications at Discharge Home Medications cholecalciferol (vitamin D3) 5,000 unit PO DAILY 12/16/16 docusate sodium [DOK] 100 mg PO DAILY 12/16/16 esomeprazole magnesium [Nexium] 40 mg PO QHS 12/16/16 hydrochlorothiazide 12.5 mg PO DAILY 12/16/16 oxycodone-acetaminophen 1 - 2 tab PO Q6H PRN PRN 12/16/16 aspirin 81 mg PO BREAKFAST #1 tab 05/19/21 atorvastatin 80 mg PO QHS #30 tab 05/19/21 lisinopril 5 mg PO DAILY #30 tab 05/19/21 metoprolol tartrate 25 mg PO BID #60 tab 05/19/21 ticagrelor [Brilinta] 90 mg PO BID #60 tab 05/19/21 Hospital Course Procedures 2-D Echocardiogram and Cardiac catheterization (With 2 drug-eluting stents inserted) Summary of Care Provided Minutes Spent on Discharge: 31 Hospital Course: This 80-year-old white male was seen in the emergency room at [facility] with a chief complaint of chest pain, he described the pain as being sharp radiating to his back. Work-up in the emergency room included an EKG which showed a right bundle branch block pattern and a left anterior fascicular block. Chest x-ray was unremarkable. Patient's high-sensitivity troponin was elevated at 2658. Patient was admitted to PCU with a diagnosis of non-STEMI, he was seen in consultation by cardiology, an echocardiogram was performed which showed a preserved ejection fraction at 60%. Patient underwent a cardiac catheterization with insertion of two RODOLFO, he also had occlusive coronary disease in the right coronary artery, this was to be addressed at a later time. On 05/19/2021, patient was seen and examined: On examination he appeared in good health and spirits. Vital signs as documented. Skin warm and dry and without overt rashes. Neck without JVD, neck was supple, trachea midline, thyroid was normal. Lungs clear bilaterally, normal air movement was noted. Heart exam notable for regular rhythm, normal sounds and absence of murmurs, rubs or gallops. Abdomen unremarkable and without evidence of organomegaly, masses, or abdominal aortic enlargement. Bowel sounds are present, abdomen is not distended. Extremities nonedematous, no cyanosis was noted, no clubbing was noted. Neuro: Cranial nerves II through XII are grossly intact, no focal motor deficits were noted, sensation to light touch and pinprick intact, motor exam 5/5 throughout. Psych: Patient is alert and oriented x3, he does not appear anxious or depressed, he does not appear agitated. Patient was discharged home in stable condition on 05/19/2021. Weight / BMI Weight Weight: 97.6 kg Body Mass Index (BMI) 32.7 ABG / Lab / Microbiology Data Result Diagrams: 05/19/21 06:15 05/19/21 06:15 Laboratory: Laboratory Results - last 24 hr 05/18/21 10:30: WBC 9.1, RBC 3.92 L, Hgb 13.1, Hct 38.6 L, MCV 98.5 H, MCH 33.4 H, MCHC 33.9, RDW Std Deviation 43.8, RDW Coeff of Sinan 12.1, Plt Count 235, MPV 8.6 05/19/21 06:15: WBC 7.9, RBC 3.76 L, Hgb 12.6 L, Hct 37.0 L, MCV 98.4 H, MCH 33.5 H, MCHC 34.1, RDW Std Deviation 44.4 H, RDW Coeff of Sinan 12.3, Plt Count 238, MPV 9.0, Immature Gran % (Auto) 0.300, Neut % (Auto) 69.3, Lymph % (Auto) 17.2 L, [place] % (Auto) 11.2 H, Eos % (Auto) 1.4, Baso % (Auto) 0.6, Absolute Neuts (auto) 5.4, Absolute Lymphs (auto) 1.35, Nucleated RBC % 0 05/19/21 06:15: Sodium 134 L, Potassium 3.9, Chloride 99, Carbon Dioxide 26.0, Anion Gap 9, BUN 26 H, Creatinine 1.28, Estim Creat Clear Calc 44.53, Est GFR (MDRD) Af Amer 69, Est GFR (MDRD) Non-Af 57 L, BUN/Creatinine Ratio 20.3 H, Glucose 105, Calcium 9.3, Total Bilirubin 0.70, AST 44 H, ALT 29, Alkaline Phosphatase 82, Total Protein 7.2, Albumin 3.2, Globulin 4.0, Albumin/Globulin Ratio 0.8 L D/C Instructions Discharge Diet: No restrictions Meaningful Use Info Meaningful Use Diagnoses (Choose all that apply): AMI AMI/Post PCI/Angioplasty Aspirin given w/in 24hrs of arrival?: Yes ASA at discharge?: Yes Antiplatelet Therapy at Discharge:: Yes Statins at discharge?: Yes Ashu/ARB at discharge?: Yes Beta Carmita at discharge?: Yes Done w/ Acute SC measure.: Yes Documented LVEF (%): 60 Discharge Plan Admission Admit Date/Time: 05/17/21 11:03 Primary Reason for Your Visit: nstemi Attending Provider: Jaguar Pantoja Primary Care Provider: Rodolfo Gamboa Consulting Providers: Hair Sinha Instructions Additional Instructions / Restrictions: Take only Tylenol for pain or a narcotic Discharge Orders/Prescriptions Prescriptions: New atorvastatin 80 mg Tablet 80 mg PO QHS Qty: 30 RF: 0 metoprolol tartrate 25 mg Tablet 25 mg PO BID Qty: 60 RF: 0 Brilinta 90 mg Tablet 90 mg PO BID Qty: 60 RF: 0 lisinopril 5 mg tablet 5 mg PO DAILY Qty: 30 RF: 0 aspirin 81 mg Tablet,Delayed Release (Dr/Ec) 81 mg PO BREAKFAST Qty: 1 RF: 0 Continued oxycodone-acetaminophen 1 TABLET tablet 1 - 2 tab PO Q6H PRN PRN (Reason: Pain) RF: 0 esomeprazole magnesium [Nexium] 40 MG capsule 40 mg PO QHS RF: 0 docusate sodium [DOK] 100 MG capsule 100 mg PO DAILY RF: 0 hydrochlorothiazide 25 MG tablet 12.5 mg PO DAILY RF: 0 cholecalciferol (vitamin D3) 5,000 UNIT capsule 5,000 unit PO DAILY RF: 0 Discontinued meloxicam 7.5 mg tablet 7.5 mg PO DAILY RF: 0 Referrals / Follow Up: Hair Sinha MD [STAFF PHYSICIAN] - See Referral Note (as directed) Rodolfo Gamboa MD [Primary Care Provider] - Within 1 Month Disposition Disposition (needs filled in before D/C Order can be placed): Home, Self Care Charges/Coding Visit Charges Inpatient E&M: 31908 Disch Hosp
--- NOTE | 2021-05-19 10:28 | CASEMGMT ---
Pt to be sent home on Brilinta at discharge and med e-scribed to [facility] retail pharmacy. Per pharmacy, co-pay is $200 but Brilinta one month free trial card applied. Pt to f/u with cardiology in 2 weeks. Pt voices no further questions/concerns/needs. SStkae MARSH CM
--- NOTE | 2021-05-19 11:38 | PHA.DC.MR ---
Pharmacy Service has performed discharge medication reconciliation for this patient. The patient's discharge medication list was reviewed for discrepancies and discrepancies were resolved. Medication education papers prepared but patient was already discharged when I want to industrial relations counselor. Home Medications cholecalciferol (vitamin D3) 5,000 unit PO DAILY 12/16/16 docusate sodium [DOK] 100 mg PO DAILY 12/16/16 esomeprazole magnesium [Nexium] 40 mg PO QHS 12/16/16 hydrochlorothiazide 12.5 mg PO DAILY 12/16/16 oxycodone-acetaminophen 1 - 2 tab PO Q6H PRN PRN 12/16/16 aspirin 81 mg PO BREAKFAST #1 tab 05/19/21 atorvastatin 80 mg PO QHS #30 tab 05/19/21 lisinopril 5 mg PO DAILY #30 tab 05/19/21 metoprolol tartrate 25 mg PO BID #60 tab 05/19/21 ticagrelor [Brilinta] 90 mg PO BID #60 tab 05/19/21
--- NOTE | 2021-05-20 15:02 | CASEMGMT ---
MAXIMO SAMPSON Discharge Follow-up Phone Call: JOLEEN: Jose Strata: 3 Call Date: 05/20/21 Discharge Date: 05/19/21 Time of Call: 1500 Duration: 3 min Admitting Diagnosis: NSTEMI MAXIMO SAMPSON completed follow-up phone call after recent hospitalization. Patient states he is doing well. Patient had no questions or concerns regarding discharge instructions. Patient states he was able to fill prescriptions without any issues. Patient is aware to schedule follow-up appts. Patient had no further questions or concerns at this time.
== END 2021-05-19 11:23 | disposition home or self-care (01) | DRG 246 ==
LOC: ED 10:50 → PCU 11:25
PROVIDERS: Internal Medicine Interventional Cardiology; Admitting Provider Student in an Organized Health Care Education/Training Program; Emergency Provider Emergency Medicine; PCP Family Medicine; Visit Provider Internal Medicine
DX: I25.110 Atherosclerotic heart disease of native coronary artery with unstable angina pectoris (principal); I21.A1 Myocardial infarction type 2; I45.2 Bifascicular block; I10 Essential (primary) hypertension; M19.90 Unspecified osteoarthritis, unspecified site; Z79.1 Long term (current) use of non-steroidal anti-inflammatories (NSAID); Z79.899 Other long term (current) drug therapy; Z85.46 Personal history of malignant neoplasm of prostate
CPT/HCPCS: 36415; 71045; 80048; 80053; 80061; 84484; 85025; 85027; 92920; 92928; 93005; 93306; 93458; 99152; 99153; 99285; C1874; J7030; Q9957; Q9967; A4216; C1725; C1769; C1887; C1894; C8929; C9600; J1327; J3490

== ENCOUNTER → 2021-06-04 09:02 | Outpatient (CLI) | payer MEDICARE, SELFPAY ==
--- NOTE | 2021-06-04 09:06 | PCM.CR.ITP ---
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 Personal Learning Style:: Audio/Visual, Written Barriers to Learning: Hearing Impairment, Vision Impairment Stage of change r/t lifestyle modifications:: Action Gave educational material for:: Treating Heart Disease, Emotions & Heart Disease, Stress Management & Relaxation, Sleep Disorders & Heart Disease, How The Heart Works, What it means to have Heart Disease, How Coronary Artery Disease is Diagnosed, Heart Procedures, What Heart Medications Do, Risk Factors & Modifications, Living an Active Life, Nutrition - Education/Goals Individual Counseling: Initial Assessment: Abnormal Cholesterol Levels, High Blood Pressure, Overweight/Obesity Cardiac Rehabilitation Goals: 1. Maintain the individual as the primary focus of care. 2. To improve the patient's quality of life. 3. Identification of cardiac risk factors and provide cardiac risk factor management. 4. Enhance the psychosocial status of the patient. 5. Reconditioning enough to allow the patient to resume customary activities. 6. Control symptoms of cardiac disease Personal Goals: Initial Assessment: Improve energy level, Participate in home exercise program, Improve knowledge of cardiac disease, Improve muscle strength and endurance, Control risk factors (learn risk factor modification) Scale for measuring improvement of personal goals: Enter appropriate number in Comments. 2 = Unchanged. 3 = Slightly Better. 4 = Moderate Improvement. 5 = Met my Goal - Diagnosis & Disease Process Outcomes/Goals: Pt IDs own risk factors & lifestyle modifications by Session 10, Verbalizes symptoms of angina & response by session 3., Pt independently manages Plan/Interventions: Assist Pt to ID & engage in lifestyle modification to reduce CVD risk, Instruct on individual risk factors, Review symptoms of angina & emergency actions, Review secondary diagnosis & identify educational needs. - Safety Referral to Physical Therapy: No Referral to [facility] Case Management: No Fall Risk Assessed:: Yes Assistive Devices:: None Exercise - Initial Assessment - Visit Date of Eval: 06/04/21 Session #:: 0 - pre-cardiac rehab evaluation Mets: Pre-: >5 METS for 30 minutes by discharge - Physician Prescribed Exercise Modalities: Treadmill, Airdyne, NuStep Frequency: 3x/week for 12 weeks [36 sessions] Intensity: 60-80% of age predicted maximum heart rate reserve - Outcomes & Goals Goals:: Verbalizes understanding of THR, RPE & goal METS by session 6, Documents in home exercise log/reports 30 min aerobic 5 day/wk by DC, Demonstrates accurate pulse taking by DC - Intervention & Plan Exercise Program Goals: Instruct on personal THR & RPE, Instruct on MET level & personal MET goal, Instruct on home exercise - Physical Activity Home Exercise Physical Activity - Home Exercise: Safe Exercise, Warm-up, Self-monitoring, Cool-Down, Home Exercise > 30 min Daily, Sitting Time <3 hours/daily - Outcomes & Goals Outcomes/Goals: Demonstrates correct Warm-up/exercise Cool-Down (S3) if = 2.5 METs, Verbalizes symptoms of exercise intolerance by Session 3 (S3), Demonstrate safe equipment use (S3) & follows exercise prescrition (6) - Intervention & Plan Plan/Intervention: Instruct warm-up & cool-down if exercising at > 2 METs, Instruct on symptoms of exercise intolerance & actions to take, Instruct & monitor on saf, Assess intial functional capacity & safety risk Nutrition - Initial Assessment - Program Goals Nutrition Program Goals: LDL <100 optimal. 100 - 129 Near optimal. 130 - 159 Borderline High. 160 - 189 High. Total Cholesterol <200 desirable. 200 - 239 Borderline High. >/= 240 High. HDL < 40 Low >/=60 High. Triglycerides <150 desirable. <199 optimal. VlDL 5 - 40. HgbA1C <7%. BMI <25 Patient has diagnosis of Hyperlipidemia (ICD E78)?: Yes - Visit Date of Assessment:: 06/04/21 Session #:: 0 - pre-cardiac rehab evaluation - Cholesterol/Lipids Triglycerides (mg/dL): 163 - 102/ Total Cholesterol (mg/dL): 162 LDL Cholesterol (mg/dL): 92 HDL Cholesterol (mg/dL): 37 Determine presence & major risk factors that modify LDL goal: Hypertension or hypertensive medication, Low HDL cholesterol <40 mg/dL*, Family history of premature CHD in Male < 55 years: female <65 yearsFa, Age men > 45 years; women >/= 55 years Outcomes/Goals: Pt IDs own risk factors & lifestyle modifications by Session 10, Verbalizes symptoms of angina & response by session 3., Pt independently manages Intervention/Plan: Instruct on personal lipid levels & lipid goals/NCEP guidelines, Instruct on cholesterol Referral to dietitian:: Yes - Diabetes (Other Core Measures) Diabetes Type: Not Applicable - Weight Mgt (Other Care) Not Applicable: No Height: 5 ft 8 in Weight:: 218 lb BMI: 33.1 Diagnosis Overweight/Obesity BMI> 30% ICD-10 E66: Yes Diagnosis High BMI/Morbid Obesity BMI> 35% ICD-10 Z68: No Outcomes/Goals: Pt sets, maintains & shows weight loss goal & trend during rehab Intervention/Plan: Instruct on ideal BMI & set weight loss goal w/patient, Assist pt to ID & incorporate diet changes for weight loss by S9, Refer to Structured Weight Loss program as appropriate, Encourage goal of using 250-300dcal per session for weight loss - Healthy Eating Habits Will attend diet classes:: Yes Outcomes/Goals:: Consume diet rich in vegs,fruits,whole grain/high fiber,fish,lean meat, Limit sat/trans fats,cholesterol & added salts & sugars Intervention/Plan:: Assess current eating habits - Education Gave educational materials for:: Healthy eating Nutrition - 30-Day Assessment Nutrition - 60-Day Assessment Nutrition - 90-Day Assessment Nutrition - Final Assessment Medical - Initial Assessment - Visit Date of Eval: 06/04/21 Session #:: 0 - pre-cardiac rehab evaluation - Medication Compliance Preventative Medication(s):: Aspirin, Ticagrelor/P2Y12 inhibitor, Statin/lipid, Beta anshul H/O mental health issues: depression, anxiety, or addiction?: No Doesn?t believe in the benefits of treatment?: No Believes medications are unnecessary or harmful?: No Has a concern about medication side effects?: No Expresses concern over the cost of medications?: No Outcomes/Goals: Verbalizes medications,desired effect & common side effects @ DC, Pt self-reports following medication regimen, Keeps card in wallet w/medications listed by DC Interventions/plans: Instruct on medication effects & side effects, Review medication list w/patient every two weeks, Instruct importance of taking meds as ordered & assist problem solving - Tobacco Use Tobacco Use: Non-smoker - Hypertension Hypertension Diagnosis:: Hypertension ICD-10 I10 Resting Blood Pressure:: 123/57 [place] [employer] Hypertension Guidelines: [place] [employer] Hypertension Guidelines. Normal BP Less than 120/80. Elevated BP 120/80. Hypertension Stage 1: BP 130-139/80-89. Hypertesnion Stage 2: BP 140 or higher/90 or higher. Hypertension Crisis: BP higher than 180/120 Outcomes/Goals: Able to verbalize/achieve optimal blood pressure <130/80, Incorporates diet changes & exercise for blood pressure control by DC Interventions/plan: Instruct on optimal blood pressure, hypertension & medications, Instruct on effects of sodium, alcohol, stress, exercise &hypertension - Tobacco Cessation Referral Smoking Cessation Referral:: No Individual Education/Counseling:: No Education Schedule Given:: Yes - Online resources and printed education manual given to patient Medical- 30-Day Assessment Medical- 60-Day Assessment Medical- 90-Day Assessment Medical - Final Assessment Psychosocial - Initial Assess - VIsit Date of Eval: 06/04/21 Session #:: 0 - pre-cardiac rehab evaluation Not Applicable: No History of previous Mental disease:: No - Psychosocial Test Tool Used:: Alli Chilel QOL Cardiac, PHQ-9 Questionnaire phq-9 Severity: Severity. 1-4 Minimal Depression. 5-9 Mild Depression. 10-14 Moderate Depression. 15-19 Moderately Sever Depression. 20-27 Severe Depression. Rule: - Referral to Behavioral Health PS - Interventions: Yes Attend Stress Management Classes, No Referral to Behavioral Health if PHQ-9 score >9:, No Referral to [facility], No Referral to Physician if PHQ-9 if score is 5-9: - Outcomes/Goals: See list Psychosocial Outcomes/Goals:: ID's personal stressors & 2 strategies to manage stress by discharge - Intervention/Plan: See List Interventions/Plan:: Assess stressors,coping strategies & signs of derpression on admission, Instruct/assist pt to develop coping & personal stress Mgt strategies, Instruct patient to recognize signs & symptoms of depression, Instruct patient to recog Psychosocial - 30-Day Assess Psychosocial - 60-Day Assess Psychosocial - 90-Day Assess Psychosocial - Final Assessmen Patient Health Questionnaire Initial Assessment 1. Little interest or pleasure in doing things: Not at all 2. Feeling down, depressed, or hopeless: Not at all 3. Trouble falling or staying asleep, or sleeping too much: Not at all 4. Feeling tired or having little energy: Not at all 5. Poor appetite or overeating: Not at all 6. Feeling bad about yourself -- or that you are a failure or have let yourself or your family down: Not at all 7. Trouble concentrating on things, such as reading the newspaper or watching television: Not at all 8. Moving or speaking so slowly that other people could have noticed. Or the opposite - being so fidgety or restless that you have been moving around a lot more than usual: Not at all 9. Thoughts that you would be better off , or of hurting yourself in some way: Not at all How difficult have these problems made it for you to do your work, take care of things at home, or get along with other people?: Not difficult at all Total Score: 0 DOMINGO-Q SV Test - Statements CAD is a disease of the arteries in the heart: False Examples of risk factors for heart disease: True Angina is chest pain or discomfort: I Don't Know The benefits of resistance training include: True Eating more meat and dairy products: False Anti-platelet medications such as aspirin are important: I Don't Know The only effective way to manage stress: False An exercise warm-up slowly increases heart rate: True Prepared, processed foods usually have high sodium: True Depression is common after a heart attack: False The statin medications lower cholesterol: I Don't Know To control blood pressure, lower the amount of sodium: True If someone gets chest discomfort during walking: False Transfats are partially hydrogenated vegetable oils: I Don't Know Sleep apnea that is not treated increases the risk: False To control cholesterol, one should become a vegetarian: False Someone knows if he/she is exercising at the right level: I Don't Know Diabetes cannot be prevented with exercise & health eating: False Stress is a large risk for heart attack: True A diet that can help lower blood pressure is rich in: True - Total Score Total Correct Responses: 14 Self-Efficacy Initial Assessment We would like to know how confident you are in doing certain activities. Please select your confidence level for:: Select your confidence level for the following using the scale 1-10 where 1 is not at all confident and 10 is totally confident. Your score is the average of all 6 responses. Fatigue: How confident are you that you can keep the fatigue caused by your disease from interfering with the things you want to do? Select Number: 5 Physical Discomfort or Pain: How confident are you that you can keep the physical discomfort or pain of your disease from interfering with the things you want to do? Select Number: 5 Emotional Distress: How confident are you that you can keep the emotional distress caused by your disease from interfering with the things you want to do? Select Number: 3 Other Symptoms or Health Problems: How confident are you that you can keep other symptoms or health problems from interfering with the things you want to do? Select Number: 5 Different Tasks and Activities: How confident are you that you can do the different tasks and activities needed to manage your health condition so as to reduce your need to see a doctor? Select Number: 10 Medication: How confident are you that you can do things other than just taking medication to reduce how much your illness affects your everyday life? Select Number: 5 Total Score:: 5 Nutrition Survey - Nutrition Survey Initial Have you lost >10 lbs over the past 2 months without trying?: No Are you following a special diet at home for diabetes, low fat, or low salt?: No Are you interested in meeting with a dietitian for help understanding your diet?: No Do you eat less than 3 meals a day?: No Do you eat fatty meats (funez, sausage, ribs, etc), fried foods, desserts, large amounts of salad dressings, margarine, butter, or cheese most days?: No Do you have food allergies? [Enter types in comment field]: No Do you eat in restaurants more than 3 times a week?: No Do you season food with salt, seasoning salt, or garlic salt?: Yes Do you used canned, boxed, frozen meals, or soups, seasoning packets?: No Total Score:: 1
--- NOTE | 2021-06-04 09:06 | PCM.CR.HP2 ---
CR - History & Physical - General Arrival date:: 06/04/21 Arrival time:: 09:00 Date of Referral:: 05/19/21 - Patient initially chose to go to [facility] then decided to come to [facility] instead. Date of CR Evaluation:: 06/04/21 Referring Physician: Dr. Hair Sinha Primary Diagnosis: NSTEMI, PCI w/coronary stenting - History of Present Cardiac Event Onset Date: Enter Onset Date of cardiac illnesses in Comment field below Acute Myocardial Infarction within 12 months:: Yes - NSTEMI 05/18/2021 PTCA or coronary stenting:: Yes - 05/18/2021 Type of Symptoms:: Presented to our emergency room on 05/18/2021 with chest pain. C/O sharp pain radiating ot his back. Interventions with present event:: Admitted and taken [facility] where he had stent placement. Were there any complications?: None - Sleep Disorder Evaluation Hx of Sleep Apnea: No Do you snore loudly (louder than talking or can be heard through closed doors)?: Yes Do you often feel tired/ fatigued/ sleepy during daytime?: Yes - Have to take a nap, at age 80 I've eraned it! Has anyone observed you stop breathing during sleep?: No History of Hypertension (for STOP score): Yes STOP Results: Positive - Medications Home Medications: Ambulatory Orders Medication Instructions Recorded cholecalciferol (vitamin D3) 5,000 unit PO DAILY 12/16/16 docusate sodium [DOK] 100 mg PO DAILY 12/16/16 esomeprazole magnesium [Nexium] 40 mg PO QHS 12/16/16 hydrochlorothiazide 12.5 mg PO DAILY 12/16/16 oxycodone-acetaminophen 1 - 2 tab PO Q6H PRN PRN 12/16/16 aspirin 81 mg PO BREAKFAST #1 tab 05/19/21 atorvastatin 80 mg PO QHS #30 tab 05/19/21 lisinopril 5 mg PO DAILY #30 tab 05/19/21 metoprolol tartrate 25 mg PO BID #60 tab 05/19/21 ticagrelor [Brilinta] 90 mg PO BID #60 tab 05/19/21 - Allergies Allergies/Adverse Reactions: Allergies amoxicillin [From Augmentin] Allergy (Verified 05/17/21 09:52) Hives clavulanic acid [From Augmentin] Allergy (Verified 05/17/21 09:52) Hives Advanced Directives - Advanced Directives Power of Swimming Instructor: Yes Living Will: Yes Advance Directives Information Provided: No Advance Directives on File: No DNR Order?:: No - MOLST See MOLST form: No Past Medical History - Covid-19 Screening Fever: No Unexplained muscle aches: No Current respiratory symptoms: No Upper respiratory infections symptoms: No Gastro-intestinal symptoms: No Uok-Bcvg-Jikrtg symptoms: No Has tested positive for COVID-19 in last 30 days: No Date of testin05/22/21 - Had both Moderna vaccine and the booster just two weeks ago. Had contact w/person w/symptoms or Covid-19 (+) last 14 days: No Has High Risk Exposures ID'd by Health dept/Inf Control team: No 65 years or older:: Yes Lives in Assisted Living facility:: No Has a chronic lung disease or moderate to severe asthma:: No Has a serious heart condition:: Yes Immunocompromised:: No Severely obese (Body Mass Index of 40 or higher):: No Diabetic:: No Has chronic kidney disease undergoing dialysis:: No - Past Medical Illness Medical History: Past Medical History (Last Updated 05/19/21 @ 08:36 by Aditi Becker) Atherosclerotic heart disease of cheesh-na coronary artery without angina pectoris I25.10 Essential hypertension I10 - Past Surgical History Surgical History: Past Surgical History (Last Updated 05/19/21 @ 08:36 by Aditi Becker) History of coronary artery stent placement Onset Date: 05/18/21 Z95.5 NCM-JVV-Mlau-Mid LAD w/ 3 x 26 mm Orsiro Stent and RODOLFO-OM2 w/ 2.5 x 18 mm Orsiro 05/18/21 Surgical History: - - Patient has a history of arthroscopic right knee surgery, bilateral inguinal hernia repair, left carpal tunnel release, left foot fusion, laparoscopic cholecystectomy, repair of a rectal fistula, and tonsillectomy. As discussed previously, he underwent transurethral resection of a bladder lesion with installation of mitomycin-C on December 23, 2016. 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 Social Environment - Status Marital Status: - Current Living Arrangements Living Environment:: Spouse - Children How many children do you have?: 4 Do any of your children live nearby?: Yes - Safety Do you feel safe in your surroundings?: Yes Review of Systems - Review of Systems Hints: Right click = Denies ([place]). 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 Denies: Angina, Dizziness/Lightheadedness, Appetite - Special Diet, Sexual Changes - Pain Is Patient Pain Free?: Yes Pain Location: none Pain Level: 0/10 Risk Factor Assessment - Chief Complaint Chief Complaint: Recent Non STEMI myocardial infarction resulting in PCI w/coronary stent placement - Vital Signs Temperature: 97.8 F Respiratory Rate: 14 Pulse Ox: 96 Blood Pressure: 123/57 - Pulse Pulse Rate: 65 Pulse Rhythm: Regular - Hypertension How long have you been treated?: 6 years perhaps. On medication(s)?: yes Blood Pressure Sitting - Left Arm: 123/57 - Blood Cholesterol/Lipids Total Cholesterol (mg/dL) Goal = less than 200 mg/dL: 162 - 05/18/2021 HDL Cholesterol (mg/dL) Goal = less than 40 mg/dL: 37 LDL Cholesterol (mg/dL) Goal = less than 70 mg/dL: 92 Triglycerides (mg/dL) Goal = less than 150 mg/dL: 163 - Diabetes Nutrition Referral for Diabetes: No - Obesity Height: 5 ft 8 in Weight:: 218 lb Weight in Pounds: 218.0 lbs Weight Source: Standing Scale Body Mass Index (BMI): 33.1 Nutritional Referral for Obesity: Yes - Structured weight loss program. 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 In other words, what do you hope to get out of participating in the program?: felling better more energy. Are there issues you are dealing with that will interfere with completing the program?: none Do you have a spouse or signficant other, family or friends who will help support you to complete the program?: Yes
[2021-06-04 09:28] VITALS: BP 123/57; BMI 33.1
[2021-06-04 09:46] VITALS: BP 123/57; PULSE 65; RESP 14; TEMP 36.6; O2SAT 96; BMI 33.1
== END ==
PROVIDERS: PCP Family Medicine; Visit Provider Internal Medicine Cardiovascular Disease
DX: I25.10 Atherosclerotic heart disease of native coronary artery without angina pectoris (principal); I10 Essential (primary) hypertension; I25.2 Old myocardial infarction; Z95.5 Presence of coronary angioplasty implant and graft

== ENCOUNTER 2021-06-21 09:30 | Outpatient (RCR) | payer MEDICARE, SELFPAY ==
[2021-06-04 09:28] VITALS: BMI 33.1
== END 2021-06-22 23:59 ==
LOC: CR 09:30
PROVIDERS: PCP Family Medicine; Visit Provider Internal Medicine Cardiovascular Disease
DX: I25.10 Atherosclerotic heart disease of native coronary artery without angina pectoris (principal); I10 Essential (primary) hypertension; I25.2 Old myocardial infarction; Z95.5 Presence of coronary angioplasty implant and graft
CPT/HCPCS: 93798

== ENCOUNTER → 2021-06-30 06:06 | Outpatient (CLI) | payer MEDICARE, SELFPAY ==
[2021-06-04 09:28] VITALS: BMI 33.1
--- NOTE | 2021-06-30 17:16 | STRESSREP ---
Stress Test Report Exercise myocardial perfusion stress test. 80-year-old man with a history of non-ST elevation myocardial infarction. Evaluate for right coronary artery stenosis. Medications vitamin D atorvastatin, aspirin, lisinopril, metoprolol. Stress protocol: Resting EKG demonstrates normal sinus rhythm with a rate of 73 bpm right bundle branch block is noted. Resting blood pressure is 110/70 mmHg. The patient exercised according to regular Landen protocol for total duration of 3 minutes. The maximum heart rate attained was 121 bpm which was 86% of max impact at heart rate the maximum workload was 4.6 metabolic equivalents. At rest no EKG changes were noted suggest ischemia right bundle branch block pattern was noted. Patient maintained sinus rhythm throughout the recording with right bundle branch block pattern noted. At peak exercise nonspecific ST changes were noted which did not meet the criteria for ischemia. The test was terminated due to dyspnea. This appeared to be moderate. The peak blood pressure was 180/68 mmHg with a rate-pressure product of 19,200. Cardial perfusion protocol. 14.5 mCi of technetium 99m sestamibi was injected at rest. The patient exercised according to regular Landen protocol for 3 minutes and at peak exercise 44.6 mCi of technetium 99m sestamibi was injected stress images were obtained stress and rest images were reconstructed and compared in the short axis vertical long horizontal long axis. Gated images were also obtained. Myocardial perfusion protocol. Review of the images demonstrated normal uptake of tracer noted in all areas of the myocardium. The inferior wall particularly appears to be well perfused on the stress images as well as the resting images. The rest of the dubose are all well perfused. No obvious areas of reversibility are noted to suggest ischemia. Gated SPECT analysis: The gated ejection fraction is 60%. Conclusion: Normal exercise myocardial perfusion stress test at a low workload. The low workload can affect sensitivity for detection of ischemia. No arrhythmias noted. Moderate functional aerobic impairment.
== END ==
PROVIDERS: PCP Family Medicine; Referring Provider Nurse Practitioner Family; Visit Provider Nurse Practitioner Family
DX: I25.10 Atherosclerotic heart disease of native coronary artery without angina pectoris (principal); I10 Essential (primary) hypertension; Z95.5 Presence of coronary angioplasty implant and graft
CPT/HCPCS: 78452; 93017; A9500; A4216

== ENCOUNTER 2021-07-21 09:30 | Outpatient (RCR) | payer MEDICARE, SELFPAY ==
[2021-06-04 09:28] VITALS: BMI 33.1
--- NOTE | 2021-07-05 11:07 | CR.ITP_ITS ---
Diagnosis Exercise - 30-day Assessment - Visit Date of Eval: 07/05/21 Session #:: 11 - Physician Prescribed Exercise Modalities: Treadmill, NuStep, SciFit Frequency: 3x/week for 12 weeks [36 sessions] Intensity: 60-80% of age predicted maximum heart rate reserve Current METSs:: 2.0 unchanged at this time Target Heart Rate:: 78-90 Current RPE:: 14 Maximum Excercise HR:: 100 Resting Blood Pressure: 122/80 Maximum Exercise Blood Pressure: 140/70 EKG Type: Sinus chacorta to sinus rhythm 1st degree AV block, rare PVCs Current Physical Activity or Exercising minutes: 38:20 - Outcomes & Goals Goals:: Verbalizes understanding of THR, RPE & goal METS by session 6, Documents in home exercise log/reports 30 min aerobic 5 day/wk by DC, Demonstrates accurate pulse taking by DC - Intervention & Plan Exercise Program Goals: Instruct on personal THR & RPE, Instruct on MET level & personal MET goal, Show patient to take own pulse /validate performance until accurate, Instruct on home exercise - 30-day Reassessments 30 day Reassessments:: Progressing - Physical Activity Home Exercise Physical Activity - Home Exercise: Safe Exercise, Warm-up, Self-monitoring, Cool-Down, Home Exercise > 30 min Daily, Sitting Time <3 hours/daily - Outcomes & Goals Outcomes/Goals: Demonstrates correct Warm-up/exercise Cool-Down (S3) if = 2.5 METs, Verbalizes symptoms of exercise intolerance by Session 3 (S3), Demonstrate safe equipment use (S3) & follows exercise prescrition (6) - Intervention & Plan Plan/Intervention: Instruct warm-up & cool-down if exercising at > 2 METs, Instruct on symptoms of exercise intolerance & actions to take, Instruct & monitor on saf, Assess intial functional capacity & safety risk - 30-day Reassessments 30 day Reassessments:: Progressing Nutrition - Initial Assessment Nutrition - 30-Day Assessment - Program Goals Nutrition Program Goals: LDL <100 optimal. 100 - 129 Near optimal. 130 - 159 Borderline High. 160 - 189 High. Total Cholesterol <200 desirable. 200 - 239 Borderline High. >/= 240 High. HDL < 40 Low >/=60 High. Triglycerides <150 desirable. <199 optimal. VlDL 5 - 40. HgbA1C <7%. BMI <25 Patient has diagnosis of Hyperlipidemia (ICD E78)?: Yes - Visit Date of Assessment:: 07/05/21 Session #:: 11 - Cholesterol/Lipids Triglycerides (mg/dL): 163 Total Cholesterol (mg/dL): 162 LDL Cholesterol (mg/dL): 92 HDL Cholesterol (mg/dL): 37 Determine presence & major risk factors that modify LDL goal: Hypertension or hypertensive medication, Low HDL cholesterol <40 mg/dL*, Family history of premature CHD in Male < 55 years: female <65 yearsFa, Age men > 45 years; women >/= 55 years Outcomes/Goals: Pt IDs own risk factors & lifestyle modifications by Session 10, Verbalizes symptoms of angina & response by session 3., Pt independently manages Intervention/Plan: Instruct on personal lipid levels & lipid goals/NCEP guidelines, Instruct on cholesterol Referral to dietitian:: Yes - Medical Nutrition Therapy 30-day Reassessments:: Progressing - Diabetes (Other Core Measures) Diabetes Type: Not Applicable - Weight Mgt (Other Care) Not Applicable: No Height: 5 ft 8 in Weight:: 223 lb BMI: 33.9 Diagnosis Overweight/Obesity BMI> 30% ICD-10 E66: Yes Diagnosis High BMI/Morbid Obesity BMI> 35% ICD-10 Z68: No Outcomes/Goals: Pt sets, maintains & shows weight loss goal & trend during rehab Intervention/Plan: Instruct on ideal BMI & set weight loss goal w/patient, Assist pt to ID & incorporate diet changes for weight loss by S9, Refer to Structured Weight Loss program as appropriate, Encourage goal of using 250- 300dcal per session for weight loss 30 day Reassessments:: Progressing - Healthy Eating Habits Will attend diet classes:: Yes Outcomes/Goals:: Consume diet rich in vegs,fruits,whole grain/high fiber,fish,lean meat, Limit sat/trans fats,cholesterol & added salts & sugars Intervention/Plan:: Assess current eating habits 30-day Reassessments:: Progressing Nutrition - 60-Day Assessment Nutrition - 90-Day Assessment Nutrition - Final Assessment Medical - Initial Assessment Medical- 30-Day Assessment - Visit Date of Eval: 07/05/21 Session #:: 11 - Medication Compliance Preventative Medication(s):: Aspirin, Ticagrelor/P2Y12 inhibitor, Statin/lipid, Beta anshul H/O mental health issues: depression, anxiety, or addiction?: Yes Doesn?t believe in the benefits of treatment?: No Believes medications are unnecessary or harmful?: No Has a concern about medication side effects?: No Expresses concern over the cost of medications?: No Outcomes/Goals: Verbalizes medications,desired effect & common side effects @ DC, Pt self-reports following medication regimen, Keeps card in wallet w/medications listed by DC Interventions/plans: Instruct on medication effects & side effects, Review medication list w/patient every two weeks, Instruct importance of taking meds as ordered & assist problem solving 30-day Reassessments:: Progressing - Tobacco Use Tobacco Use: Non-smoker - Hypertension Hypertension Diagnosis:: Hypertension ICD-10 I10 Resting Blood Pressure:: 122/80 [place] [employer] Hypertension Guidelines: [place] [employer] Hypertension Guidelines. Normal BP Less than 120/80. Elevated BP 120/80. Hypertension Stage 1: BP 130-139/80-89. Hypertesnion Stage 2: BP 140 or higher/90 or higher. Hypertension Crisis: BP higher than 180/120 Peak Exercise Blood Pressure:: 140/70 Outcomes/Goals: Able to verbalize/achieve optimal blood pressure <130/80, Incorporates diet changes & exercise for blood pressure control by DC Interventions/plan: Instruct on optimal blood pressure, hypertension & medications, Instruct on effects of sodium, alcohol, stress, exercise &hypertension 30 day Reassessments:: Progressing - Tobacco Cessation Referral Smoking Cessation Referral:: No Individual Education/Counseling:: No Education Schedule Given:: Yes Medical- 60-Day Assessment Medical- 90-Day Assessment Medical - Final Assessment Psychosocial - Initial Assess Psychosocial - 30-Day Assess - VIsit Date of Eval: 07/05/21 Session #:: 11 Not Applicable: No History of previous Mental disease:: Yes History of Emotional Disorders: Depression - Psychosocial Test Tool Used:: PHQ-9 Questionnaire phq-9 Severity: Severity. 1-4 Minimal Depression. 5-9 Mild Depression. 10-14 Moderate Depression. 15-19 Moderately Sever Depression. 20-27 Severe Depression. Rule: - Referral to Behavioral Health PS - Interventions: Yes Attend Stress Management Classes, No Referral to Behavioral Health if PHQ-9 score >9:, No Referral to [facility], No Referral to Physician if PHQ-9 if score is 5-9: - Outcomes/Goals: See list Psychosocial Outcomes/Goals:: ID's personal stressors & 2 strategies to manage stress by discharge - Intervention/Plan: See List Interventions/Plan:: Assess stressors,coping strategies & signs of derpression on admission, Instruct/assist pt to develop coping & personal stress Mgt strategies, Instruct patient to recognize signs & symptoms of depression, Instruct patient to recog - 30-day Reassessments: 30 day Reassessments:: Progressing Psychosocial - 60-Day Assess Psychosocial - 90-Day Assess Psychosocial - Final Assessmen Patient Health Questionnaire 30-Day Re-eval Assessment 1. Little interest or pleasure in doing things: Not at all 2. Feeling down, depressed, or hopeless: Not at all 3. Trouble falling or staying asleep, or sleeping too much: Not at all 4. Feeling tired or having little energy: Not at all 5. Poor appetite or overeating: Not at all 6. Feeling bad about yourself -- or that you are a failure or have let yourself or your family down: Not at all 7. Trouble concentrating on things, such as reading the newspaper or watching television: Not at all 8. Moving or speaking so slowly that other people could have noticed. Or the opposite - being so fidgety or restless that you have been moving around a lot more than usual: Not at all 9. Thoughts that you would be better off , or of hurting yourself in some way: Not at all How difficult have these problems made it for you to do your work, take care of things at home, or get along with other people?: Not difficult at all Total Score: 0 Self-Efficacy 30-Day Re-eval Assessment We would like to know how confident you are in doing certain activities. Please select your confidence level for:: Select your confidence level for the following using the scale 1-10 where 1 is not at all confident and 10 is totally confident. Your score is the average of all 6 responses. Fatigue: How confident are you that you can keep the fatigue caused by your disease from interfering with the things you want to do? Select Number: 5 Physical Discomfort or Pain: How confident are you that you can keep the physical discomfort or pain of your disease from interfering with the things you want to do? Select Number: 5 Emotional Distress: How confident are you that you can keep the emotional distress caused by your disease from interfering with the things you want to do? Select Number: 3 Other Symptoms or Health Problems: How confident are you that you can keep other symptoms or health problems from interfering with the things you want to do? Select Number: 5 Different Tasks and Activities: How confident are you that you can do the different tasks and activities needed to manage your health condition so as to reduce your need to see a doctor? Select Number: 9 Medication: How confident are you that you can do things other than just taking medication to reduce how much your illness affects your everyday life? Select Number: 5 Total Score:: 5 Nutrition Survey
[2021-07-05 11:14] VITALS: BP 122/80; BP 140/70; BMI 33.9
== END 2021-07-23 23:59 ==
LOC: CR 09:30
PROVIDERS: PCP Family Medicine; Visit Provider Internal Medicine Cardiovascular Disease
DX: I25.10 Atherosclerotic heart disease of native coronary artery without angina pectoris (principal); I21.4 Non-ST elevation (NSTEMI) myocardial infarction; Z95.5 Presence of coronary angioplasty implant and graft; I10 Essential (primary) hypertension
CPT/HCPCS: 93798

== ENCOUNTER 2021-08-13 09:30 | Outpatient (RCR) | payer MEDICARE, SELFPAY ==
[2021-07-05 11:14] VITALS: BMI 33.9
[2021-07-24 00:35] VITALS: BP 122/80; BP 140/70
--- NOTE | 2021-08-04 08:47 | PCM.CR.ITP ---
Diagnosis - General Information Gave educational material for:: Treating Heart Disease, Emotions & Heart Disease, Stress Management & Relaxation, Sleep Disorders & Heart Disease, How The Heart Works, What it means to have Heart Disease, How Coronary Artery Disease is Diagnosed, Heart Procedures, What Heart Medications Do, Risk Factors & Modifications, Living an Active Life, Nutrition - Education/Goals Cardiac Rehabilitation Goals: 1. Maintain the individual as the primary focus of care. 2. To improve the patient's quality of life. 3. Identification of cardiac risk factors and provide cardiac risk factor management. 4. Enhance the psychosocial status of the patient. 5. Reconditioning enough to allow the patient to resume customary activities. 6. Control symptoms of cardiac disease Personal Goals: Initial Assessment: Improve energy level - 4-5, Participate in home exercise program - 3-4, Improve knowledge of cardiac disease - 3-4, Improve muscle strength and endurance - 3-4, Control risk factors (learn risk factor modification) - 3-4, 30-day Re-assessment: Improve energy level, Participate in home exercise program, Improve knowledge of cardiac disease, Improve muscle strength and endurance, Control risk factors (learn risk factor modification), 60-day Re-assessment: Improve energy level, Participate in home exercise program, Improve knowledge of cardiac disease, Improve muscle strength and endurance, Control risk factors (learn risk factor modification) Scale for measuring improvement of personal goals: Enter appropriate number in Comments. 2 = Unchanged. 3 = Slightly Better. 4 = Moderate Improvement. 5 = Met my Goal - Diagnosis & Disease Process Outcomes/Goals: Pt IDs own risk factors & lifestyle modifications by Session 10, Verbalizes symptoms of angina & response by session 3., Pt independently manages Plan/Interventions: Assist Pt to ID & engage in lifestyle modification to reduce CVD risk, Instruct on individual risk factors, Review symptoms of angina & emergency actions, Review secondary diagnosis & identify educational needs. 30 day Reassessments:: Progressing 30 day Reassessments:: Progressing - Safety Referral to Physical Therapy: No Referral to [facility] Case Management: No Fall Risk Assessed:: Yes Assistive Devices:: None Exercise - 60-day Assessment - Visit Date of Eval: 08/04/21 Session #:: 22 - Physician Prescribed Exercise Modalities: NuStep, SciFit Frequency: 3x/week for 12 weeks [36 sessions] Intensity: 60-80% of age predicted maximum heart rate reserve Current METSs:: 2.5 Target Heart Rate:: 78-90 Current RPE:: 12-14 Maximum Excercise HR:: 89 Resting Blood Pressure: 120/54 Maximum Exercise Blood Pressure: 134/60 EKG Type: S. chacorta to S. rhythm, 1st degree block, bursts of PAT, ectopic atrial rhyt Current Physical Activity or Exercising minutes: 51:32 - Outcomes & Goals Goals:: Verbalizes understanding of THR, RPE & goal METS by session 6, Documents in home exercise log/reports 30 min aerobic 5 day/wk by DC, Demonstrates accurate pulse taking by DC - Intervention & Plan Exercise Program Goals: Instruct on personal THR & RPE, Instruct on MET level & personal MET goal, Show patient to take own pulse /validate performance until accurate, Instruct on home exercise - 30-day Reassessments 30 day Reassessments:: Progressing - Physical Activity Home Exercise Physical Activity - Home Exercise: Safe Exercise, Warm-up, Self-monitoring, Cool-Down, Home Exercise > 30 min Daily, Sitting Time <3 hours/daily - Outcomes & Goals Outcomes/Goals: Demonstrates correct Warm-up/exercise Cool-Down (S3) if = 2.5 METs, Verbalizes symptoms of exercise intolerance by Session 3 (S3), Demonstrate safe equipment use (S3) & follows exercise prescrition (6) - Intervention & Plan Plan/Intervention: Instruct warm-up & cool-down if exercising at > 2 METs, Instruct on symptoms of exercise intolerance & actions to take, Instruct & monitor on saf, Assess intial functional capacity & safety risk - 30-day Reassessments 30 day Reassessments:: Progressing Nutrition - Initial Assessment Nutrition - 30-Day Assessment Nutrition - 60-Day Assessment - Program Goals Nutrition Program Goals: LDL <100 optimal. 100 - 129 Near optimal. 130 - 159 Borderline High. 160 - 189 High. Total Cholesterol <200 desirable. 200 - 239 Borderline High. >/= 240 High. HDL < 40 Low >/=60 High. Triglycerides <150 desirable. <199 optimal. VlDL 5 - 40. HgbA1C <7%. BMI <25 Patient has diagnosis of Hyperlipidemia (ICD E78)?: Yes - Visit Date of Assessment:: 08/04/21 Session #:: 21 - Cholesterol/Lipids Triglycerides (mg/dL): 163 Total Cholesterol (mg/dL): 162 LDL Cholesterol (mg/dL): 92 HDL Cholesterol (mg/dL): 33 Determine presence & major risk factors that modify LDL goal: Hypertension or hypertensive medication, Low HDL cholesterol <40 mg/dL*, Family history of premature CHD in Male < 55 years: female <65 yearsFa, Age men > 45 years; women >/= 55 years Outcomes/Goals: Pt IDs own risk factors & lifestyle modifications by Session 10, Verbalizes symptoms of angina & response by session 3., Pt independently manages Intervention/Plan: Instruct on personal lipid levels & lipid goals/NCEP guidelines, Instruct on cholesterol Referral to dietitian:: Yes 30-day Reassessments:: Progressing - Diabetes (Other Core Measures) Diabetes Type: Not Applicable - Weight Mgt (Other Care) Not Applicable: No Height: 5 ft 8 in Weight:: 225 lb 8 oz BMI: 34.2 Diagnosis Overweight/Obesity BMI> 30% ICD-10 E66: Yes Diagnosis High BMI/Morbid Obesity BMI> 35% ICD-10 Z68: No Outcomes/Goals: Pt sets, maintains & shows weight loss goal & trend during rehab Intervention/Plan: Instruct on ideal BMI & set weight loss goal w/patient, Assist pt to ID & incorporate diet changes for weight loss by S9, Encourage goal of using 250-300dcal per session for weight loss 30 day Reassessments:: Progressing - Healthy Eating Habits Will attend diet classes:: Yes Outcomes/Goals:: Consume diet rich in vegs,fruits,whole grain/high fiber,fish,lean meat, Limit sat/trans fats,cholesterol & added salts & sugars Intervention/Plan:: Assess current eating habits 30-day Reassessments:: Progressing Nutrition - 90-Day Assessment Nutrition - Final Assessment Medical - Initial Assessment Medical- 30-Day Assessment Medical- 60-Day Assessment - Visit Date of Eval: 08/04/21 Session #:: 21 - Medication Compliance Preventative Medication(s):: Aspirin, Ticagrelor/P2Y12 inhibitor, Statin/lipid, Beta anshul H/O mental health issues: depression, anxiety, or addiction?: No Doesn?t believe in the benefits of treatment?: No Believes medications are unnecessary or harmful?: No Has a concern about medication side effects?: No Expresses concern over the cost of medications?: No Outcomes/Goals: Pt self-reports following medication regimen, Keeps card in wallet w/medications listed by DC Interventions/plans: Instruct on medication effects & side effects, Instruct importance of taking meds as ordered & assist problem solving 30-day Reassessments:: Progressing - Tobacco Use Tobacco Use: Non-smoker - Hypertension Hypertension Diagnosis:: Hypertension ICD-10 I10 Resting Blood Pressure:: 120/54 [place] [employer] Hypertension Guidelines: [place] [employer] Hypertension Guidelines. Normal BP Less than 120/80. Elevated BP 120/80. Hypertension Stage 1: BP 130-139/80-89. Hypertesnion Stage 2: BP 140 or higher/90 or higher. Hypertension Crisis: BP higher than 180/120 Peak Exercise Blood Pressure:: 134/60 Outcomes/Goals: Able to verbalize/achieve optimal blood pressure <130/80, Incorporates diet changes & exercise for blood pressure control by DC Interventions/plan: Instruct on optimal blood pressure, hypertension & medications, Instruct on effects of sodium, alcohol, stress, exercise &hypertension 30 day Reassessments:: Progressing - Tobacco Cessation Referral Smoking Cessation Referral:: No Individual Education/Counseling:: Yes Education Schedule Given:: Yes Medical- 90-Day Assessment Medical - Final Assessment Psychosocial - Initial Assess Psychosocial - 30-Day Assess Psychosocial - 60-Day Assess - VIsit Date of Eval: 08/04/21 Session #:: 21 Not Applicable: Yes History of previous Mental disease:: No - Psychosocial Test Tool Used:: PHQ-9 Questionnaire phq-9 Severity: Severity. 1-4 Minimal Depression. 5-9 Mild Depression. 10-14 Moderate Depression. 15-19 Moderately Sever Depression. 20-27 Severe Depression. Rule: - Referral to Behavioral Health PS - Interventions: Yes Attend Stress Management Classes, No Referral to Behavioral Health if PHQ-9 score >9:, No Referral to [facility], No Referral to Physician if PHQ-9 if score is 5-9: - Outcomes/Goals: See list Psychosocial Outcomes/Goals:: ID's personal stressors & 2 strategies to manage stress by discharge - Intervention/Plan: See List Interventions/Plan:: Assess stressors,coping strategies & signs of derpression on admission, Instruct/assist pt to develop coping & personal stress Mgt strategies, Instruct patient to recognize signs & symptoms of depression, Instruct patient to recog - 30-day Reassessments: 30 day Reassessments:: Progressing Psychosocial - 90-Day Assess Psychosocial - Final Assessmen Patient Health Questionnaire 60-Day Re-eval Assessment 1. Little interest or pleasure in doing things: Not at all 2. Feeling down, depressed, or hopeless: Not at all 3. Trouble falling or staying asleep, or sleeping too much: Not at all 4. Feeling tired or having little energy: Not at all 5. Poor appetite or overeating: Not at all 6. Feeling bad about yourself -- or that you are a failure or have let yourself or your family down: Not at all 7. Trouble concentrating on things, such as reading the newspaper or watching television: Not at all 8. Moving or speaking so slowly that other people could have noticed. Or the opposite - being so fidgety or restless that you have been moving around a lot more than usual: Not at all 9. Thoughts that you would be better off , or of hurting yourself in some way: Not at all How difficult have these problems made it for you to do your work, take care of things at home, or get along with other people?: Not difficult at all Total Score: 0 Self-Efficacy 60-Day Re-eval Assessment We would like to know how confident you are in doing certain activities. Please select your confidence level for:: Select your confidence level for the following using the scale 1-10 where 1 is not at all confident and 10 is totally confident. Your score is the average of all 6 responses. Fatigue: How confident are you that you can keep the fatigue caused by your disease from interfering with the things you want to do? Select Number: 6 Physical Discomfort or Pain: How confident are you that you can keep the physical discomfort or pain of your disease from interfering with the things you want to do? Select Number: 6 Emotional Distress: How confident are you that you can keep the emotional distress caused by your disease from interfering with the things you want to do? Select Number: 6 Other Symptoms or Health Problems: How confident are you that you can keep other symptoms or health problems from interfering with the things you want to do? Select Number: 6 Different Tasks and Activities: How confident are you that you can do the different tasks and activities needed to manage your health condition so as to reduce your need to see a doctor? Select Number: 9 Medication: How confident are you that you can do things other than just taking medication to reduce how much your illness affects your everyday life? Nutrition Survey
[2021-08-04 08:59] VITALS: BP 120/54; BP 134/60; BMI 34.2
== END 2021-08-23 23:59 ==
LOC: CR 09:30
PROVIDERS: PCP Family Medicine; Referring Provider Internal Medicine Cardiovascular Disease; Visit Provider Internal Medicine Cardiovascular Disease
DX: I25.10 Atherosclerotic heart disease of native coronary artery without angina pectoris (principal); I25.2 Old myocardial infarction; I10 Essential (primary) hypertension; Z95.5 Presence of coronary angioplasty implant and graft
CPT/HCPCS: 93798

== ENCOUNTER 2021-09-10 09:58 | Outpatient (CLI) | payer MEDICARE, SELFPAY ==
[2021-09-03 09:05] VITALS: BMI 33.9
[2021-09-10 10:25] LABS: Absolute Lymphocyte Count 1.15 X10^3/uL (0.83-4.51); Absolute Neutrophil Count 4.8 X10^3/uL (2.0-7.7); Basophil# 0.04 X10^3/uL; Basophil% 0.6 % (0-1); Eosinophil# 0.24 X10^3/uL; Eosinophils% 3.4 % (0-5); Hematocrit 36.4 % (40-54); Hemoglobin 12.5 g/dL (13.0-16.5); Lymphocyte # 1.15 X10^3/ul (0.83-4.51); Lymphocyte % 16.4 % (19-41); Mean Corp Hgb Conc 34.3 g/dL (32-36); Mean Corpuscular Hgb 35.2 pg (27.0-32.0); Mean Corpuscular Volume 102.5 fL (80-94); Mean Platelet Vol. 8.5 fl (6.2-12.0); Monocyte# 0.75 X10^3/uL; Monocyte% 10.7 % (0-10); NRBC Flagged by Analyzer 0 % (0-5); Neutrophil % 68.5 % (47-70); Platelet Count 217 K/mm3 (150-450); RBC Distribution Width CV 12.4 % (11.6-14.6); RBC Distribution Width SD 46.4 fl (35.1-43.9); Red Blood Count 3.55 M/mm3 (4.6-6.2)
== END 2021-09-10 23:59 | disposition home or self-care (01) ==
LOC: LAB 10:01
PROVIDERS: PCP Family Medicine; Referring Provider Family Medicine; Visit Provider Family Medicine
DX: D64.9 Anemia, unspecified (principal)
CPT/HCPCS: 36415; 85025

== ENCOUNTER 2021-09-20 09:30 | Outpatient (RCR) | payer MEDICARE, SELFPAY ==
[2021-08-04 08:59] VITALS: BMI 34.2
[2021-08-24 00:41] VITALS: BP 120/54; BP 134/60
--- NOTE | 2021-09-03 08:54 | PCM.CR.ITP ---
Diagnosis Exercise - 90-day Assessment - Visit Date of Eval: 09/03/21 Session #:: 28 - Physician Prescribed Exercise Modalities: NuStep Frequency: 3x/week for 12 weeks [36 sessions] Intensity: 60-80% of age predicted maximum heart rate reserve Current METSs:: 2.0 Target Heart Rate:: 78-90 Current RPE:: 12-14 Maximum Excercise HR:: 96 Resting Blood Pressure: 118/54 Maximum Exercise Blood Pressure: 124/70 EKG Type: SB to SR w/ frequent burst of PAT vs ectopic atrial rhythm, rare PVC Current Physical Activity or Exercising minutes: 42:36 - Outcomes & Goals Goals:: Verbalizes understanding of THR, RPE & goal METS by session 6, Documents in home exercise log/reports 30 min aerobic 5 day/wk by DC, Demonstrates accurate pulse taking by DC - Intervention & Plan Exercise Program Goals: Instruct on personal THR & RPE, Instruct on MET level & personal MET goal, Show patient to take own pulse /validate performance until accurate, Instruct on home exercise - 30-day Reassessments 30 day Reassessments:: Progressing - patient is more physically active at home - Physical Activity Home Exercise Physical Activity - Home Exercise: Safe Exercise, Warm-up, Self-monitoring, Cool-Down, Home Exercise > 30 min Daily, Sitting Time <3 hours/daily - Outcomes & Goals Outcomes/Goals: Demonstrates correct Warm-up/exercise Cool-Down (S3) if = 2.5 METs, Verbalizes symptoms of exercise intolerance by Session 3 (S3), Demonstrate safe equipment use (S3) & follows exercise prescrition (6) - Intervention & Plan Plan/Intervention: Instruct warm-up & cool-down if exercising at > 2 METs, Instruct on symptoms of exercise intolerance & actions to take, Instruct & monitor on saf, Assess intial functional capacity & safety risk - 30-day Reassessments 30 day Reassessments:: Progressing Nutrition - Initial Assessment Nutrition - 30-Day Assessment Nutrition - 60-Day Assessment Nutrition - 90-Day Assessment - Program Goals Nutrition Program Goals: LDL <100 optimal. 100 - 129 Near optimal. 130 - 159 Borderline High. 160 - 189 High. Total Cholesterol <200 desirable. 200 - 239 Borderline High. >/= 240 High. HDL < 40 Low >/=60 High. Triglycerides <150 desirable. <199 optimal. VlDL 5 - 40. HgbA1C <7%. BMI <25 Patient has diagnosis of Hyperlipidemia (ICD E78)?: Yes - Visit Date of Assessment:: 09/03/21 Session #:: 28 - Cholesterol/Lipids Triglycerides (mg/dL): 163 Total Cholesterol (mg/dL): 162 LDL Cholesterol (mg/dL): 92 HDL Cholesterol (mg/dL): 37 Determine presence & major risk factors that modify LDL goal: Hypertension or hypertensive medication, Low HDL cholesterol <40 mg/dL*, Family history of premature CHD in Male < 55 years: female <65 yearsFa, Age men > 45 years; women >/= 55 years Outcomes/Goals: Pt IDs own risk factors & lifestyle modifications by Session 10, Verbalizes symptoms of angina & response by session 3., Pt independently manages Intervention/Plan: Instruct on personal lipid levels & lipid goals/NCEP guidelines, Instruct on cholesterol Referral to dietitian:: Yes - Medical Nutrition & weight loss 30-day Reassessments:: Progressing - Diabetes (Other Core Measures) Diabetes Type: Not Applicable - Weight Mgt (Other Care) Height: 5 ft 8 in - Weight:: 223 lb - no weight loss BMI: 33.9 Diagnosis Overweight/Obesity BMI> 30% ICD-10 E66: Yes Diagnosis High BMI/Morbid Obesity BMI> 35% ICD-10 Z68: No Outcomes/Goals: Pt sets, maintains & shows weight loss goal & trend during rehab Intervention/Plan: Instruct on ideal BMI & set weight loss goal w/patient, Assist pt to ID & incorporate diet changes for weight loss by S9, Refer to Structured Weight Loss program as appropriate, Encourage goal of using 250-300dcal per session for weight loss 30 day Reassessments:: Not Met - Healthy Eating Habits Will attend diet classes:: Yes Outcomes/Goals:: Consume diet rich in vegs,fruits,whole grain/high fiber,fish,lean meat, Limit sat/trans fats,cholesterol & added salts & sugars Intervention/Plan:: Assess current eating habits 30-day Reassessments:: Progressing - Education Gave educational materials for:: Healthy eating Nutrition - Final Assessment Medical - Initial Assessment Medical- 30-Day Assessment Medical- 60-Day Assessment Medical- 90-Day Assessment - Visit Date of Eval: 09/03/21 Session #:: 28 - Medication Compliance Preventative Medication(s):: Aspirin, Ticagrelor/P2Y12 inhibitor, Statin/lipid, Beta anshul H/O mental health issues: depression, anxiety, or addiction?: No Doesn?t believe in the benefits of treatment?: No Believes medications are unnecessary or harmful?: No Has a concern about medication side effects?: No Expresses concern over the cost of medications?: No Outcomes/Goals: Verbalizes medications,desired effect & common side effects @ DC, Pt self-reports following medication regimen, Keeps card in wallet w/medications listed by DC Interventions/plans: Instruct on medication effects & side effects, Review medication list w/patient every two weeks, Instruct importance of taking meds as ordered & assist problem solving 30-day Reassessments:: Progressing - Tobacco Use Tobacco Use: Non-smoker - Hypertension Hypertension Diagnosis:: Hypertension ICD-10 I10 Resting Blood Pressure:: 118/54 [place] [employer] Hypertension Guidelines: [place] [employer] Hypertension Guidelines. Normal BP Less than 120/80. Elevated BP 120/80. Hypertension Stage 1: BP 130-139/80-89. Hypertesnion Stage 2: BP 140 or higher/90 or higher. Hypertension Crisis: BP higher than 180/120 Peak Exercise Blood Pressure:: 124/70 Outcomes/Goals: Able to verbalize/achieve optimal blood pressure <130/80, Incorporates diet changes & exercise for blood pressure control by DC Interventions/plan: Instruct on optimal blood pressure, hypertension & medications, Instruct on effects of sodium, alcohol, stress, exercise &hypertension 30 day Reassessments:: Met - Tobacco Cessation Referral Smoking Cessation Referral:: No Individual Education/Counseling:: No Education Schedule Given:: Yes Medical - Final Assessment Psychosocial - Initial Assess Psychosocial - 30-Day Assess Psychosocial - 60-Day Assess Psychosocial - 90-Day Assess - VIsit Date of Eval: 09/03/21 Session #:: 28 Not Applicable: No History of previous Mental disease:: Yes History of Emotional Disorders: Depression - Psychosocial Test Tool Used:: PHQ-9 Questionnaire phq-9 Severity: Severity. 1-4 Minimal Depression. 5-9 Mild Depression. 10-14 Moderate Depression. 15-19 Moderately Sever Depression. 20-27 Severe Depression. Rule: - Referral to Behavioral Health PS - Interventions: Yes Attend Stress Management Classes, No Referral to Behavioral Health if PHQ-9 score >9:, No Referral to [facility], No Referral to Physician if PHQ-9 if score is 5-9: - Outcomes/Goals: See list Psychosocial Outcomes/Goals:: ID's personal stressors & 2 strategies to manage stress by discharge - Intervention/Plan: See List Interventions/Plan:: Assess stressors,coping strategies & signs of derpression on admission, Instruct/assist pt to develop coping & personal stress Mgt strategies, Instruct patient to recognize signs & symptoms of depression, Instruct patient to recog Psychosocial - Final Assessmen Patient Health Questionnaire 90-Day Re-eval Assessment 1. Little interest or pleasure in doing things: Not at all 2. Feeling down, depressed, or hopeless: Not at all 3. Trouble falling or staying asleep, or sleeping too much: Not at all 4. Feeling tired or having little energy: Not at all 5. Poor appetite or overeating: Not at all 6. Feeling bad about yourself -- or that you are a failure or have let yourself or your family down: Not at all 7. Trouble concentrating on things, such as reading the newspaper or watching television: Not at all 8. Moving or speaking so slowly that other people could have noticed. Or the opposite - being so fidgety or restless that you have been moving around a lot more than usual: Not at all 9. Thoughts that you would be better off , or of hurting yourself in some way: Not at all How difficult have these problems made it for you to do your work, take care of things at home, or get along with other people?: Not difficult at all Total Score: 0 Self-Efficacy 90-Day Re-eval Assessment We would like to know how confident you are in doing certain activities. Please select your confidence level for:: Select your confidence level for the following using the scale 1-10 where 1 is not at all confident and 10 is totally confident. Your score is the average of all 6 responses. Fatigue: How confident are you that you can keep the fatigue caused by your disease from interfering with the things you want to do? Select Number: 6 Physical Discomfort or Pain: How confident are you that you can keep the physical discomfort or pain of your disease from interfering with the things you want to do? Select Number: 6 Emotional Distress: How confident are you that you can keep the emotional distress caused by your disease from interfering with the things you want to do? Select Number: 6 Other Symptoms or Health Problems: How confident are you that you can keep other symptoms or health problems from interfering with the things you want to do? Select Number: 6 Different Tasks and Activities: How confident are you that you can do the different tasks and activities needed to manage your health condition so as to reduce your need to see a doctor? Select Number: 9 Medication: How confident are you that you can do things other than just taking medication to reduce how much your illness affects your everyday life? Select Number: 7 Total Score:: 6 Nutrition Survey
[2021-09-03 09:05] VITALS: BP 118/54; BP 124/70; BMI 33.9
== END 2021-09-20 23:59 ==
LOC: CR 09:30
PROVIDERS: PCP Family Medicine; Referring Provider Internal Medicine Cardiovascular Disease; Visit Provider Internal Medicine Cardiovascular Disease
DX: I25.10 Atherosclerotic heart disease of native coronary artery without angina pectoris (principal); I25.2 Old myocardial infarction; I10 Essential (primary) hypertension; Z95.5 Presence of coronary angioplasty implant and graft
CPT/HCPCS: 93798

== ENCOUNTER 2021-09-22 09:30 | Outpatient (RCR) | payer MEDICARE, SELFPAY ==
[2021-09-03 09:05] VITALS: BMI 33.9
[2021-09-21 00:33] VITALS: BP 118/54; BP 124/70
== END 2021-10-21 23:59 | disposition home or self-care (01) ==
LOC: CR 09:30
PROVIDERS: PCP Family Medicine; Referring Provider Internal Medicine Cardiovascular Disease; Visit Provider Internal Medicine Cardiovascular Disease
DX: I25.10 Atherosclerotic heart disease of native coronary artery without angina pectoris (principal); I25.2 Old myocardial infarction; Z95.5 Presence of coronary angioplasty implant and graft; I10 Essential (primary) hypertension
CPT/HCPCS: 93798

== ENCOUNTER → 2021-11-16 | Outpatient (CLI) | payer MEDICARE, SELFPAY ==
[2021-09-03 09:05] VITALS: BMI 33.9
[2021-11-16 14:01] LABS: PSA,Total- Diagnostic < 0.01 ng/mL (0.0-4.0)
== END | disposition home or self-care (01) ==
LOC: LAB 11:59
PROVIDERS: PCP Family Medicine; Visit Provider Urology
DX: Z85.46 Personal history of malignant neoplasm of prostate (principal)
CPT/HCPCS: 36415; 84153

== ENCOUNTER → 2021-12-21 | Outpatient (CLI) | payer MEDICARE, SELFPAY ==
[2021-09-03 09:05] VITALS: BMI 33.9
[2021-12-21] VITALS (9 sets, daily range): BP systolic 106–153; BP diastolic 55–86; PULSE 53–76; RESP 14–20; TEMP 36.6; O2SAT 93–98; BMI 33.0
--- NOTE | 2021-12-21 | BMB_PTH ---
PATIENT: Hilario BATISTA LOC: CT U#:[id number] AGE/SX: 81/M ROOM: RE12/21/[address]: Dr. Jonathan Mendoza DO : 1940 BED: DIS: 12/21/2021 SPEC #: [id number] RECD: 12/21/21 10:33 STATUS: NADINE REGayathri #: [id number] REZA: 12/21/21 00:[address]: Jonathan Mendoza DEPT: BONE MARROW RECD BY: Cleopatra Kinney ENTERED: 12/21/21 10:33 SP TYPE: BMB OTHR DR: Dr. Rodolfo Gamboa MD Tissues: A - Bone marrow, NOS B - Bone marrow, NOS C - Bone marrow, NOS Procedures: Bone Marrow Aspiration Bone Marrow Core Biopsy Iron Stain Bone Marrow HEADER OPERATION: Bone marrow biopsy and aspiration PRE-OP DIAGNOSIS: Macrocytosis, mild thrombocytopenia TISSUE SUBMITTED: A - Core, B - Clot, C - Smears, and send outs (flow, cytogenetics and FISH) BONE MARROW DIAGNOSIS Bone marrow clot and aspiration: No evidence of myeloid, lymphoid or plasma cell neoplasm. No increased blast population identified. See comment. AM:justin 12/23/2021 COMMENT Flow cytometry analysis reveals no evidence of acute leukemia or increased blasts. No evidence of abnormal myeloid maturation, myelodysplasia or myeloproliferative neoplasm identified. No evidence of Bcell lymphoma or atypical T-cells noted. There is no evidence of monocytosis. The complete flow report is viewable in EMR. Immunohistochemistry ([id number]) supports the above diagnosis. BONE MARROW STUDY Slides are reviewed. CBC DATE: 12/21/2021 WBC 6.3; RBC 3.47; HGB 11.9; HCT 35.5; MCV 101.7; RDW 45.5; PLTS 209,000 SEGS 63%; LYMPHS 21.6%; MONOS 11.5%; EOS 2.9%; BASOS 0.8% PERIPHERAL SMEAR: Submitted. RBC: Macrocytic anemia WBC: Normomorphic PLTS: Normomorphic BONE MARROW ASPIRATE DIFFERENTIAL: Markedly hemodilute with occasional maturing bone marrow elements. ASPIRATE FINDINGS: Site: Not specified Aspicular Markedly hemodilute with occasional maturing bone marrow elements. CORE BIOPSY FINDINGS: Site: Not specified Cellularity %: Not applicable M/E ratio: Not applicable Only clotted blood present. No bone or marrow identified. ASPIRATE CLOT FINDINGS: Site: Not specified Cellularity %: Within normal limits M/E ratio: Within normal limits Megakaryocytes: Rare Granuloma(s): None seen Lymphoid aggregate(s): None seen Atypical infiltrate(s): None seen SPECIAL STAINS (with matched controls): Iron: Stainable iron present Reticulin: Within normal limits PAS: Highlights myeloid elements and megakaryocytes. BONE MARROW GROSS A - Received is a container labeled with the patient's name and designated bone marrow. The specimen consists of a blood clot measuring 2 x 2 x <0.1 cm. The specimen is totally submitted in one cassette. B - Received labeled with the patient's name and designated bone marrow is a specimen that consists of approximately 7 ml of reddish-das fluid that on filtration yields multiple irregular fragments of reddish-das soft tissue measuring in aggregate 2 x 2 x 0.2 cm. The specimen is totally submitted in one cassette. C - Also received are 16 unstained and 1 peripheral stained slides. The unstained slides are submitted for appropriate staining. Also received are two green top tubes which are sent to our reference lab for flow, cytogenetics and FISH. / AM:justin 12/21/2021 TC:5 CPT: 95576, 51944, 44316 x2, 43328 x3 ADDENDUM ADDENDUM ADDENDUM ADDENDUM ADDENDUM ADDENDUM ADDENDUM ADDENDUM ADDENDUM ADDENDUM ADDENDUM ADDENDUM ADDENDUM ADDENDUM ADDENDUM ADDENDUM ADDENDUM ADDENDUM ADDENDUM 01/03/2022 09:39 ADDENDUM 01/03/2022 09:39 ADDENDUM 01/03/2022 09:39 ADDENDUM 01/03/2022 09:39 ADDENDUM 01/03/2022 09:39 CYTOGENETICS REPORT FROM [facility] INTERPRETATION: Loss of the Y chromosome was found in three out of twenty cells. No other aberrations were identified and seventeen normal cells were found. Karyotype: 45,X,-Y[3]/46,XY[17] ONKOSIT NGS MYELOID DISORDER SEQUENCING REPORT FROM [facility] RESULT SUMMARY: Variant PERTINENT NEGATIVE RESULTS: The following genes are NEGATIVE for clinically relevant mutations. Mutational hotspots and surrounding exonic regions were interrogated for DNA level point mutations and indels (fusions not assayed). ABL1, ASXL1, BCOR, BCORL1, BRAF, CALR, CBL, CDKN2A, CSF3R, DNMT3A, EZH2, FBXW7, FLT3, GATA2, HRAS, IDH1, IDH2, JAK2, KIT, KRAS, MPL, MYD88, NPM1, NRAS, PHF6, PTEN, PTPN11, RUNX1, SETBP1, SF3B1, SRSF2, TET2, TP53, U2AF1, WT1, ZRSR2 Please see complete report in e-chart or EMR
--- NOTE | 2021-12-21 | IMM_PTH ---
PATIENT: Hilario BATISTA LOC: CT U#:[id number] AGE/SX: 81/M ROOM: RE12/21/[address]: Dr. Jonathan Mendoza DO : 1940 BED: DIS: 12/21/2021 SPEC #: [id number] RECD: 12/22/21 14:19 STATUS: NADINE REQ #: [id number] REZA: 12/21/21 00:[address]: Jonathan Mendoza DEPT: IMMUNOHISTOCHEMISTRY RECD BY: Samara Lee ENTERED: 12/22/21 14:20 SP TYPE: IMMUNO OTHR DR: Dr. Rodolfo Gamboa MD Tissues: B - Bone marrow of iliac crest Procedures: CD138 (add) CD20 (add) CD34 (add) CD45 (add) CD5 (add) CD56 (add) CD79A (add) KI-67 (add) MPO (add) P53 (add) CD3 (initial) PHYSICIAN & INSTITUTION [address] [address] SPECIMEN INFORMATION: Tissue Source: B ? Bone marrow clot Clinical Info: Macrocytosis, mild thrombocytopenia Specimen Number: [id number] CPT code: 43260, 52462 x10 METHODOLOGY: Deparaffinized sections of prefer/formalin-fixed tissue or PAP/DQ stained slides are incubated with monoclonal/polyclonal antibodies/oligonucleotide probes. Localization is made via biotin free immunoperoxidase method. Appropriate controls are performed and reacted as expected. Results on target cell population are indicated in the following table: RESULTS: ANTIBODY / CLONE RESULT Block B CD3 (PS1) positive, focal CD5 (SP10) positive, focal CD20 (L26) positive, focal CD45 (RP2/18) negative CD79a (11E3) negative CD138 (B-A38) negative MPO (polyclonal) negative CD34 (QBEnd-10) negative CD56 (123C3.D5) negative P53 (DO-7) negative Ki-67 (30-9) positive These tests were developed and their performance characteristics determined by [facility]. They may not have been cleared or approved by the U.S. Food and Drug Administration. The FDA has determined that such clearance or approval is not necessary. The above immunohistochemical/dualISH markers are ordered and reviewed by the Pathologist. INTERPRETATION: B. Bone marrow clot: No evidence of lymphoid, myeloid or plasma cell neoplasm. AM:justin 12/23/2021
--- NOTE | 2021-12-21 08:11 | CT_ITS ---
PROCEDURE: CT GUIDED BONE marrow biopsy and aspiration. DATE: 12/21/2021. INDICATION: Male, 81 years old. Macrocytosis. PHYSICIAN: Rickie Sweet M.D. RADIATION DOSAGE (If Supplied By Facility): CTDIvol = ( 18 ) mGy, DLP = ( 658.59 ) mGycm. Individualized dose optimization techniques were utilized. PROCEDURE: The risks, benefits, and alternatives to the procedure were explained to the patient. The specific risk of hemorrhage requiring further treatment or intervention was detailed and accepted. Follow-up instructions were discussed with the patient as well. Written informed consent was obtained. The patient was brought into the CT suite and placed in the prone position. . An appropriate entry site was identified. The overlying skin was prepped and draped in the usual sterile fashion. 1% lidocaine was administered subcutaneously for local anesthesia. Conscious sedation was performed. The patient received 2 mg of VERSED and 50 mcg of FENTANYL intravenously. Conscious sedation was started at 9:19 AM and terminated at 9:37 AM. The conscious sedation protocol was independently monitored by the department nurse. Under CT guidance, a bone marrow biopsy and aspiration of the posterior aspect of the right iliac bone were performed. The specimens were then placed in the appropriate fluid and transported to the laboratory for analysis. Hemostasis was obtained. The patient tolerated the procedure well without immediate complications. CT/Biopsy/Inj or Needle Placement IMPRESSION: Successful CT guided bone marrow biopsy and aspiration of the posterior right iliac bone, as described above. Electronically Signed: Rickie Sweet MD at 10:14 EDT ,
[2021-12-21 08:13] LABS: Absolute Lymphocyte Count 1.35 X10^3/uL (0.83-4.51); Basophil# 0.05 X10^3/uL; Basophil% 0.8 % (0-1); Eosinophil# 0.18 X10^3/uL; Eosinophils% 2.9 % (0-5); Hematocrit 35.3 % (40-54); Hemoglobin 11.9 g/dL (13.0-16.5); Lymphocyte # 1.35 X10^3/ul (0.83-4.51); Lymphocyte % 21.6 % (19-41); Mean Corp Hgb Conc 33.7 g/dL (32-36); Mean Corpuscular Hgb 34.3 pg (27.0-32.0); Mean Corpuscular Volume 101.7 fL (80-94); Mean Platelet Vol. 8.6 fl (6.2-12.0); Monocyte# 0.72 X10^3/uL; Monocyte% 11.5 % (0-10); NRBC Flagged by Analyzer 0 % (0-5); Neutrophil # 3.95 X10^3/uL (2.7-7.7); Platelet Count 209 K/mm3 (150-450); RBC Distribution Width CV 12.2 % (11.6-14.6); RBC Distribution Width SD 45.5 fl (35.1-43.9); Red Blood Count 3.47 M/mm3 (4.6-6.2); White Blood Count 6.3 K/mm3 (4.4-11.0)
[2021-12-21] MEDS: fentaNYL 100 MCG/2 ML Ampul IV (09:19)
[2021-12-21] MEDS: Midazolam 2 MG/2 ML Syringe IV (09:19)
[2021-12-21] MEDS: Lidocaine 2% (20 ml mdv) 20 ML Vial INFILT (09:25)
== END | disposition home or self-care (01) ==
PROVIDERS: PCP Family Medicine; Referring Provider Internal Medicine Hematology & Oncology; Visit Provider Internal Medicine Hematology & Oncology
DX: D53.9 Nutritional anemia, unspecified (principal); I25.2 Old myocardial infarction; M19.90 Unspecified osteoarthritis, unspecified site; I10 Essential (primary) hypertension; Z79.02 Long term (current) use of antithrombotics/antiplatelets; Z79.82 Long term (current) use of aspirin; Z79.899 Other long term (current) drug therapy
CPT/HCPCS: 38222; 36415; 77012; 85025; 88305; 88313; 88341; 88342; 99156; J7050; A4216

== ENCOUNTER → 2022-04-05 | Outpatient (CLI) | payer MEDICARE, SELFPAY ==
[2021-09-03 09:05] VITALS: BMI 33.9
[2022-04-05 11:01] LABS: ALB/GLOB Ratio 0.9 RATIO (0.9-2.4); AST(SGOT) 21 U/L (15-37); Alanine Aminotransfer ALT/SGPT 16 U/L (16-61); Albumin, Serum 3.4 g/dL (3.2-5.0); Alkaline Phosphatase 79 U/L (45-117); Anion Gap 7 (5-15); BUN 22 mg/dL (7-18); BUN/Creat Ratio 16.4 RATIO (10-20); Calcium,Total 9.2 mg/dL (8.5-10.1); Chloride 105 mmol/L (98-107); Cholesterol 119 mg/dL (200); Creatinine, Serum 1.34 mg/dL (0.70-1.30); EST Glomerular Filtration Rate 54 mL/min (>60); Est Glom Filt Rate - Afr Amer 66 mL/min (>60); Globulin 3.7 g/dL (2.2-4.2); Glucose 101 mg/dL (74-106); High Density Lipoprotein 42 mg/dL; PSA,Total - Annual Screen < 0.01 ng/mL (0.00-4.00); Potassium 4.6 mmol/L (3.5-5.1); Protein, Total 7.1 g/dL (6.4-8.2); Sodium Level 138 mmol/L (136-145); Triglycerides 126 mg/dL; Very Low Density Lipoprotein 25 mg/dL (5-40)
== END | disposition home or self-care (01) ==
PROVIDERS: PCP Family Medicine; Referring Provider Family Medicine; Visit Provider Family Medicine
DX: Z13.220 Encounter for screening for lipoid disorders (principal); Z12.5 Encounter for screening for malignant neoplasm of prostate; I10 Essential (primary) hypertension
CPT/HCPCS: 36415; 80053; 80061; 82248; 84153; G0103

== ENCOUNTER → 2022-11-03 | Outpatient (CLI) | payer MEDICARE, SELFPAY ==
[2021-09-03 09:05] VITALS: BMI 33.9
[2022-11-03 09:26] LABS: Absolute Lymphocyte Count 1.19 X10^3/uL (0.83-4.51); Absolute Neutrophil Count 3.3 X10^3/uL (2.0-7.7); Basophil# 0.03 X10^3/uL; Basophil% 0.5 % (0-1); Eosinophil# 0.16 X10^3/uL; Eosinophils% 2.9 % (0-5); Hematocrit 35.1 % (40-54); Hemoglobin 11.6 g/dL (13.0-16.5); Lymphocyte # 1.19 X10^3/ul (0.83-4.51); Lymphocyte % 21.8 % (19-41); Mean Corpuscular Hgb 34.7 pg (27.0-32.0); Mean Corpuscular Volume 105.1 fL (80-94); Mean Platelet Vol. 8.8 fl (6.2-12.0); Monocyte# 0.77 X10^3/uL; Monocyte% 14.1 % (0-10); NRBC Flagged by Analyzer 0 % (0-5); Neutrophil # 3.29 X10^3/uL (2.7-7.7); Neutrophil % 60.3 % (47-70); Platelet Count 234 K/mm3 (150-450); RBC Distribution Width CV 12.3 % (11.6-14.6); RBC Distribution Width SD 47.8 fl (35.1-43.9); Red Blood Count 3.34 M/mm3 (4.6-6.2); White Blood Count 5.5 K/mm3 (4.4-11.0)
[2022-11-03 09:58] LABS: PSA,Total- Diagnostic < 0.01 ng/mL (0.0-4.0)
== END | disposition home or self-care (01) ==
LOC: LAB 08:36
PROVIDERS: PCP Family Medicine; Referring Provider Urology; Visit Provider Urology
DX: R53.83 Other fatigue (principal); C61 Malignant neoplasm of prostate
CPT/HCPCS: 36415; 84153; 85025

== ENCOUNTER → 2023-05-23 | Outpatient (CLI) | payer MEDICARE, SELFPAY ==
[2021-09-03 09:05] VITALS: BMI 33.9
[2023-05-23 09:40] LABS: Absolute Lymphocyte Count 1.18 X10^3/uL (0.83-4.51); Absolute Neutrophil Count 3.9 X10^3/uL (2.0-7.7); Basophil# 0.03 X10^3/uL; Basophil% 0.5 % (0-1); Eosinophil# 0.19 X10^3/uL; Eosinophils% 3.1 % (0-5); Hematocrit 33.9 % (40-54); Lymphocyte # 1.18 X10^3/ul (0.83-4.51); Lymphocyte % 19.5 % (19-41); Mean Corp Hgb Conc 32.4 g/dL (32-36); Mean Corpuscular Hgb 33.7 pg (27.0-32.0); Mean Platelet Vol. 8.7 fl (6.2-12.0); Monocyte# 0.75 X10^3/uL; Monocyte% 12.4 % (0-10); NRBC Flagged by Analyzer 0 % (0-5); Neutrophil # 3.88 X10^3/uL (2.7-7.7); Neutrophil % 64.2 % (47-70); Platelet Count 231 K/mm3 (150-450); RBC Distribution Width CV 12.2 % (11.6-14.6); RBC Distribution Width SD 46.9 fl (35.1-43.9); Red Blood Count 3.26 M/mm3 (4.6-6.2); White Blood Count 6.1 K/mm3 (4.4-11.0)
[2023-05-23 10:05] LABS: ALB/GLOB Ratio 0.9 RATIO (0.9-2.4); AST(SGOT) 18 U/L (15-37); Alanine Aminotransfer ALT/SGPT 17 U/L (16-61); Albumin, Serum 3.2 g/dL (3.2-5.0); Alkaline Phosphatase 81 U/L (45-117); Anion Gap 4 (5-15); BUN 20 mg/dL (7-18); Calcium,Total 8.8 mg/dL (8.5-10.1); Chloride 109 mmol/L (98-107); Cholesterol 113 mg/dL (200); Creatinine, Serum 1.25 mg/dL (0.70-1.30); EST Glomerular Filtration Rate 59 mL/min (>60); Est Glom Filt Rate - Afr Amer 71 mL/min (>60); Globulin 3.4 g/dL (2.2-4.2); Glucose 109 mg/dL (74-106); High Density Lipoprotein 41 mg/dL; Potassium 4.6 mmol/L (3.5-5.1); Protein, Total 6.6 g/dL (6.4-8.2); Sodium Level 139 mmol/L (136-145); Triglycerides 119 mg/dL; Very Low Density Lipoprotein 24 mg/dL (5-40)
== END | disposition home or self-care (01) ==
LOC: LAB 08:16
PROVIDERS: PCP Family Medicine; Referring Provider Family Medicine; Visit Provider Family Medicine
DX: Z13.220 Encounter for screening for lipoid disorders (principal); I10 Essential (primary) hypertension; D53.9 Nutritional anemia, unspecified
CPT/HCPCS: 36415; 80053; 80061; 85025

== ENCOUNTER → 2023-07-31 | Outpatient (CLI) | payer MEDICARE, SELFPAY ==
[2021-09-03 09:05] VITALS: BMI 33.9
--- NOTE | 2023-07-31 06:52 | ECHOCS_ITS ---
Reason For Study: CAD/ASHD Procedure This was a 2D Doppler, Color Flow transthoracic echocardiogram. The study was technically difficult. Contrast injection was performed. Exam performed in department. Left Ventricle Normal LV size. Left ventricular systolic function is normal. The estimated ejection fraction is 55 %. Stage 1 diastolic dysfunction. No regional wall motion abnormalities noted. Right Ventricle Normal RV size. Normal systolic function. Atria The left atrium is mildly enlarged. The right atrium is mildly enlarged. Mitral Valve There is mild to moderate mitral annular calcification. Mild (1+) eccentric mitral valve insufficiency. Tricuspid Valve Normal tricuspid valve. Mild to moderate (1-2+) tricuspid valve insufficiency. Pulmonary artery systolic pressure is 40 mmHg. Aortic Valve Trisinus/trileaflet aortic valve. Mild focal aortic valve calcification. Peak aortic valve gradient 48 mmHg. Mean aortic valve gradient 28 mmHg. Moderate aortic stenosis. Mild (1+) aortic valve insufficiency. Pulmonic Valve The pulmonic valve is not well visualized. Great Vessels Normal aortic root. The pulmonary artery is normal size. Normal inferior vena cava. Pericardium/Pleural No pericardial effusion. Medication 22 gauge I.V. with prn adaptor inserted into right arm. Diluted definity 1.5ml given slow IV push to enhance endocardial definition. MMode/2D Measurements & Calculations LVIDd: 5.3 cm IVSd: 1.1 cm LVOT diam: 2.0 cm LVIDs: 3.6 cm LVPWd: 0.86 cm FS: 31.5 % LVOT area: 3.2 cm2 Ao root diam: 3.1 cm LAV(MOD-bp): 81.7 ml LVAd ap4: 39.7 cm2 LA dimension: 5.2 cm LAV(MOD-bp) Indexed: 38.8 ml/m2 LVLd ap4: 9.1 cm LAV(MOD-sp2): 82.1 ml EDV(MOD-sp4): 138.4 ml LAV(MOD-sp4): 80.4 ml EDV(sp4-el): 146.8 ml LVAs ap4: 22.4 cm2 LVLs ap4: 7.9 cm ESV(MOD-sp4): 54.9 ml ESV(sp4-el): 54.2 ml EF(MOD-sp4): 60.3 % EF(sp4-el): 63.0 % SV(MOD-sp4): 83.5 ml SV(sp4-el): 92.5 ml LA A4 area: 24.6 cm2 RA A4 area: 22.0 cm2 Time Measurements MV dec time: 0.24 sec Doppler Measurements & Calculations MV E max percy: 107.0 cm/sec Lat Peak E' Percy: 8.5 cm/sec Med Peak E' Percy: 5.0 cm/sec MV A max percy: 109.7 cm/sec E/E' lat: 12.6 E/E' med: 21.3 MV E/A: 0.98 MV V2 max: 122.4 cm/sec MV P1/2t max percy: 123.7 cm/sec Ao V2 max: 344.7 cm/sec MV max P.0 mmHg MV P1/2t: 91.7 msec Ao max P.6 mmHg MV V2 mean: 77.9 cm/sec MV dec slope: 395.2 cm/sec2 Ao V2 mean: 248.6 cm/sec MV mean P.8 mmHg MVA(P1/2t): 2.4 cm2 Ao mean P.9 mmHg MV V2 VTI: 44.4 cm Ao V2 VTI: 88.1 cm MVA(VTI): 1.7 cm2 AV (velocity ratio): 0.26 YESENIA(I,D): 0.83 cm2 YESENIA(V,D): 0.86 cm2 AI max percy: 407.1 cm/sec LV V1 max: 91.7 cm/sec SV(LVOT): 73.3 ml AI max P.3 mmHg LV V1 max P.4 mmHg LV V1 mean P.1 mmHg AI dec slope: 210.7 cm/sec2 LV V1 mean: 68.7 cm/sec AI P1/2t: 565.9 msec LV V1 VTI: 22.6 cm PA V2 max: 93.3 cm/sec TR max percy: 304.8 cm/sec PA V2 mean: 67.4 cm/sec TR max P.2 mmHg ECHO/Echo Complete W/ Contrast Interpretation Summary Normal LV size. Left ventricular systolic function is normal. The estimated ejection fraction is 55 %. Stage 1 diastolic dysfunction. Mild focal aortic valve calcification. Mean aortic valve gradient 28 mmHg. Moderate aortic stenosis. Mild (1+) aortic valve insufficiency. Contrast injection was performed. Ordering Physician: Simone Hallman Referring Physician: Rodolfo Gamboa Performed By: Ab Ortiz RCS
--- OUTSIDE RECORDS SUMMARY | 2023-07-31 06:56 | XMS RPT_ITS | CCD ---
Author Name Unknown Address [address] [place] [address] Organization [facility] Care Team Providers Care 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 Name Role Phone COOPER CARMONA, THOMAS Boyer Primary Care Physician [phone] Cooper CARMONA, Thomas Bunch Primary Care Provider THOMAS GAMBOA Admitting Unavailable THOMAS GAMBOA Attending Unavailable THOMAS GAMBOA Primary Care Unavailable NIXON VALLE Consulting Unavailable PROVIDER, UNKNOWN Consulting Unavailable PROVIDER, UNKNOWN Consulting Unavailable PROVIDER, UNKNOWN Consulting Unavailable THOMAS GAMBOA Admitting Unavailable THOMAS GAMBOA Attending Unavailable THOMAS GAMBOA Primary Care Unavailable THOMAS GAMBOA Consulting Unavailable PROVIDER, UNKNOWN Consulting Unavailable PROVIDER, UNKNOWN Consulting Unavailable PROVIDER, UNKNOWN Consulting Unavailable Cooper CARMONA, Thomas Bunch Primary Care Provider VICKY CARMONA, DR PAKO Roy Attending Unavail kodi GAMBOA MD, THOMAS Boyer Primary Care Unavailable COOPER CARMONA, THOMAS Boyer Primary Care Unavailable VICKY CARMONA, DR PAKO Roy Admitting Unavail able VICKY CARMONA, DR PAKO Roy Attending Unavail able [facility] Consulting Unavailable MELISSA CARMONA, SHEYLA Rich Consulting Unavailable JOSE ALBERTO CARMONA, RENA Olson Consulting Unavailable VICKY CARMONA, DR PAKO Roy Attending Unavail able COOPER CARMONA, THOMAS Boyer Primary Care Unavailable Allergies Allergy Classification Reported Allergen(s) Allergy Type Date of Onset Reaction(s) Facility (7 sources) Amoxicillin / Clavulanate; Translations: [amoxicillin-cla vulanate] Drug Allergy 01-18-2011 [facility] (1 source) Amoxicillin Drug Allergy [facility] Repository Medications Current Medications Medication Drug Class(es) Dates Sig (Normalized) Sig (Original) Aspirin (7 sources) Platelet Aggregation Inhibitor, Nonsteroidal Anti-inflammatory Drug Start: 08-14-2021 take 1 tablet by mouth at breakfast aspirin 81 mg oral delayed release tablet Dose : 81 mg =, Oral, with breakfast Start Date: 08/14/21 Status: Ordered Completed/Discontinued Medications Medication Drug Class(es) Dates Sig (Normalized) Sig (Original) acetaminophen 325 mg / oxyCODONE hydrochloride 2.5 mg oral tablet (7 sources) Opioid Agonist Start: 08-14-2021 acetaminophen-oxyc odone 325 mg-2.5 mg oral tablet 1-2 tabs, Oral, q6h, PRN Pain, 0 Refill(s), 109.3 Start Date: 08/14/21 Status: Ordered Problems Active Problems Problem Classification Problem Date Documented Da te Episodic/Chronic Deficiency and other anemia (1 source) Anemia; Translations: [Anemia, unspecified] Episodic Deficiency and other anemia (2 sources) Macrocytic anemia; Translations: [Nutritional anemia, unspecified] Episodic Past or Other Problems Problem Classification Problem Date Documented Da te Episodic/Chronic Abdominal hernia (6 sources) Inguinal hernia; Translations: [Unilateral inguinal hernia, without obstruction or gangrene, not specified as recurrent] Onset: 01-18-2011 01-18-2011 Episodic Results Test Name Value Interpretation Reference Range Facil ity Vital Signs Date Time Vital Sign Value Performing Clinician Facility 12-13-2021 09:55-0400 Body temperature 98.01 [degF] Jonathan Vtap Work Phone: [facility] 12-13-2021 09:55-0400 Body weight 98.66 kg Jonathan Vtap Work Phone: [facility] 12-13-2021 09:55-0400 Diastolic blood pressure 53 mm[Hg] Jonathan Vtap Work Phone: [facility] 12-13-2021 09:55-0400 Heart rate 65 /min Jonathan Vtap Work Phone: [facility] 12-13-2021 09:55-0400 SaO2% (BldA) [Mass fraction] 96 % Jonathan Vtap Work Phone: [facility] 12-13-2021 09:55-0400 Systolic blood pressure 109 mm[Hg] Jonathan Vtap Work Phone: [facility] 08-16-2021 10:29-0500 Body temperature 98.06 [degF] RENA ABRAMS MD [facility] 08-16-2021 10:29-0500 Diastolic blood pressure 71 mm[Hg] RENA ABRAMS MD [facility] 08-16-2021 10:29-0500 Heart rate 64 /min RENA ABRAMS MD [facility] 08-16-2021 10:29-0500 Mean blood pressure 91 mm[Hg] RENA ABRAMS MD [address] [place] [address] 08-16-2021 10:29-0500 Reason For Taking VItal Signs RENA ABRAMS MD [facility] 08-16-2021 10:29-0500 Respiratory rate 20 /min RENA ABRAMS MD [facility] 08-16-2021 10:29-0500 Systolic blood pressure 130 mm[Hg] RENA ABRAMS MD [facility] 08-16-2021 09:13-0500 Heart rate 66 /min RENA ABRAMS MD [facility] 08-16-2021 07:07-0500 Body temperature 97.7 [degF] RENA ABRAMS MD [facility] 08-16-2021 07:07-0500 Diastolic blood pressure 77 mm[Hg] RENA ABRAMS MD [facility] 08-16-2021 07:07-0500 Heart rate 65 /min RENA ABRAMS MD [facility] 08-16-2021 07:07-0500 Mean blood pressure 104 mm[Hg] RENA ABRAMS MD [facility] 08-16-2021 07:07-0500 Reason For Taking VItal Signs RENA ABRAMS MD [facility] 08-16-2021 07:07-0500 Respiratory rate 20 /min RENA ABRAMS MD [facility] 08-16-2021 07:07-0500 Systolic blood pressure 158 mm[Hg] RENA ABRAMS MD [facility] 08-16-2021 04:03-0500 Body temperature 98.06 [degF] RENA ABRAMS MD [facility] 08-16-2021 04:03-0500 Diastolic blood pressure 64 mm[Hg] RENA ABRAMS MD [facility] 08-16-2021 04:03-0500 Heart rate 66 /min RENA ABRAMS MD [facility] 08-16-2021 04:03-0500 Mean blood pressure 90 mm[Hg] RENA ABRAMS MD [facility] 08-16-2021 04:03-0500 Reason For Taking VItal Signs RENA ABRAMS MD [facility] 08-16-2021 04:03-0500 Respiratory rate 20 /min RENA ABRAMS MD [facility] 08-16-2021 04:03-0500 Systolic blood pressure 142 mm[Hg] RENA ABRAMS MD [facility] 08-15-2021 23:45-0500 Heart rate 61 /min RENA ABRAMS MD [facility] 08-15-2021 18:52-0500 Heart rate 61 /min RENA ABRAMS MD [facility] 08-15-2021 17:11-0500 Heart rate 69 /min RENA ABRAMS MD [facility] 08-15-2021 08:15-0500 Heart rate 65 /min RENA ABRAMS MD [facility] 08-15-2021 06:41-0500 Heart rate 65 /min RENA ABRAMS MD [facility] 08-14-2021 21:24-0500 Body height 172.7 cm RENA ABRAMS MD [facility] 08-14-2021 21:24-0500 Body weight 109.3 kg RENA ABRAMS MD [facility] 08-14-2021 21:24-0500 Body weight 36.65 kg/m2 RENA ABRAMS MD [facility] Encounters Encounter Date Encounter Type Care Provider Facility Start: 03-25-2022 Orders Only Jonathan Steven Work Phone: Hematology/Oncology Plan of Treatment Date Care Activity Detail Author Start: 03-29-2022 End: 05-29-2022 CBC W Auto Differential panel - Blood CBC + DIFF Lab STAT Macrocytic anemia Expected: 03/29/2022, Expires: 05/29/2022 [facility] Work Phone: Immunizations Immunization Date Immunization Notes Care Provider Gerson romero 05-25-2021 SARS-CoV-2 (COVID-19 ) mRNA-1273 vaccine RENA ABRAMS MD [facility] Payers Date Payer Category Payer Medicare [id number] 2022 Unknown [id number] 2021 Unknown [employer]IM[employer]IME [employer] HMO POS [id number] 2021-Present [phone] [address] [place] [address] HMO [id number] 2021 Unknown [id number] 1940 Unknown [id number] 1940 Unknown [id number] 1940 Unknown [id number] 1940 Unknown [id number] Social History Date Type Detail Facility Start: 12-18-2018 End: 09-29-2021 Never smoked tobacco (finding) [facility] Sex Assigned At [facility] Start: 01-18-2011 End: 09-29-2021 Tobacco use and exposure Smokeless tobacco non-user [facility] Start: 09-29-2021 End: 12-13-2021 Alcohol intake Lifetime non-drinker (finding) [facility] Start: 09-29-2021 History SDOH Alcohol Frequency 1 [facility] Start: 1940 Sex Assigned At Not on file [facility] Start: 08-30-2021 End: 12-13-2021 Exposure to SARS-CoV-2 (event) Not sure [facility] Medical Equipment Procedure Code Equipment Code Equipment Origin al Text Equipment Identifier Dates FDA Start: 12-18-2018 FDA Start: 12-18-2018 FDA Start: 12-18-2018 FDA Start: 12-18-2018 FDA Start: 12-18-2018 FDA Start: 12-18-2018 Clinical Notes 08-14-2021 to 12-27-2021 Telephone Encounter - Lakshmi Mcknight - 12/27/2021 8:53 AM EDTTelephone Encounter - Carlie Gaspar LPN - 12/27/2021 8:44 AM EDTTelephone Encounter - Christina Medrano LPN - 12/27/2021 8:25 AM EDT Note Date & Type Note Facility 12-27-2021 Miscellaneous Notes Patient scheduled, aware of time and date. Lakshmi Mcknight Patient is aware of all information. Please schedule as directed. Carlie Gaspar LPN Attempted to contact pt, unable to leave message, voicemail is full. Christina Medrano LPN Can let him know the bone marrow biopsy done at [facility] yielded a suboptimal specimen but there was enough to run molecular diagnostics on it and there was no evidence of lymphoma, leukemia or other obvious bone marrow disorder. At this time, we will just continue to watch his blood counts and perhaps have bone marrow repeated at a [facility] location in a couple months if needed. Schedule him for OV/CBC in about 2 to 3 months. Jonathan Mendoza DO documented in this encounter [facility] 12-15-2021 Miscellaneous Notes Patient is aware okay to hold ASA along with Plavix. Carlie Gaspar LPN Thank you. Is patient aware? Jonathan Mendoza DO Patient is scheduled for BMBX 12/21/2021 @ 9:30. Patient to hold ASA/blood thinners 5-7 days prior to the procedure. Carlie Gaspar LPN Pts called. She stated Dr. Sinha has okay'd pt stopping Plavix for the procedure but they suggested checking with Dr. Mendoza about stopping the Aspirin. He would need to do that as of tomorrow if Dr Mendoza wants him to stop that. Please let her know. documented in this encounter [facility] 12-13-2021 Note HNO ID: [id number] Author: Jonathan Mendoza DO Service: ? Author Type: Physician Type: Progress Notes Filed: 12/13/2021 10:31 AM Note Text: Hematologic problem(s): 1) Macrocytic anemia. HPI: The patient is an 81-year-old male who has a past medical history significant for prostate cancer treated with external beam radiation, non-ST elevation NE in April 2021 (2 stents) osteoarthritis, GERD, hypertension and insomnia. Recent CBC from 09/10/2021 revealed a total white count of 7000. Differential was normal. Hemoglobin was 12.5 g/dL with a hematocrit of 36.4% and an MCV of 102.5. Platelet count was 217,000. Review of CBCs available through [facility] reveal that the patient has had mild macrocytosis dating to November 2016. At that time the MCV was 99.7. In April 2021 it was 100.5. Hemoglobin was 12.3 g/dL in November 2016 and more recently in April 2021 it was 13.4 grams per deciliter on presentation with his NE 05/17/2021. He is fatigued but feels well otherwise. He was treated for radiation cystitis in the past. No recent gross hematuria. He feels like he can void to completion although stream is slower. He has regular checks of his PSA and has not had evidence of recurrent disease. Presents for ongoing hematologic management. Interim history: No complaints today. Fatigues easily. Can walk a couple 100 feet before he has to stop due to dyspnea. Denies exertional chest pain and pressure. He is participating in an exercise class for the elderly through his local hospital in [place]. No acute illnesses since last seen. PMH, medications and allergies personally reviewed by me today. Any changes documented in appropriate section. ROS: Constitutional: Denies episodes of fever and night sweats. Normal appetite. Neuro: Denies LUIS. Recent orthostasis/imbalance. HEENT: No recent change in voice, vision or hearing. Resp: Denies cough, wheeze and hemoptysis. Denies shortness of breath at rest. Denies MURILLO. CVS: Denies exertional chest pain, PND, orthopnea and LE edema. GI: Denies dysgeusia. Denies symptoms of stomatitis. Denies dysphagia and odynophagia. Denies reflux, n/v, change in bowel habits and abdominal pain. : See above. Endo: Denies hot flashes. Denies polyuria and polydipsia. Denies heat and cold intolerance. Musculoskeletal: Denies bone, back, joint and muscular pain. Derm: Denies rash. Denies jaundice and diffuse pruritis. Heme: Denies unusual bleeding and unexplained bruising. Psych: Normal mood. PHYSICAL EXAM: Vitals: Blood pressure 109/53, pulse 65, temperature 36.7 ?C (98 ?F), weight 98.7 kg (217 lb 8 oz), SpO2 96 %. Well-appearing and in no acute distress. EYES: Sclerae are anicteric bilaterally. LYMPHATIC: There is no palpable cervical or supraclavicular adenopathy. RESPIRATORY: Inspiratory breath sounds are of normal intensity in all noel. No rales, wheezes or rhonchi. CARDIOVASCULAR: Rhythm is regular. ABDOMEN: The abdomen is nondistended. No organomegaly. No tenderness. Extremities: No swelling or edema. SKIN: No jaundice or rash. NEUROLOGIC: tomb maker helper II-XII are grossly intact. LABS: Component Latest Ref Rng AND Units 09/29/2021 12/13/2021 WBC 3.70 - 11.00 k/uL 6.85 6.08 RBC 4.20 - 6.00 m/uL 3.56 (L) 3.45 (L) Hemoglobin 13.0 - 17.0 g/dL 12.3 (L) 11.9 (L) Hematocrit 39.0 - 51.0 % 36.3 (L) 35.1 (L) MCV 80.0 - 100.0 fL 102.0 (H) 101.7 (H) MCH 26.0 - 34.0 pg 34.6 (H) 34.5 (H) MCHC 30.5 - 36.0 g/dL 33.9 33.9 RDW-CV 11.5 - 15.0 % 12.0 12.2 Platelet Count 150 - 400 k/uL 242 190 MPV 9.0 - 12.7 fL 8.8 (L) 8.0 (L) Neut% % 68.1 65.9 Abs Neut (ANC) 1.45 - 7.50 k/uL 4.66 4.01 Lymph% % 17.8 18.3 Abs Lymph 1.00 - 4.00 k/uL 1.22 1.11 [place]% % 11.5 11.0 Abs [place] <0.87 k/uL 0.79 0.67 Eosin% % 1.9 3.5 Abs Eosin <0.46 k/uL 0.13 0.21 Baso% % 0.6 1.0 Abs Baso <0.11 k/uL 0.04 0.06 Immature Gran % % 0.1 0.3 IMMATURE GRANS (ABS) <0.10 k/uL <0.03 <0.03 NRBC /100 WBC 0.0 0.0 Absolute nRBC <0.01 k/uL <0.01 <0.01 DTYPE Auto Auto ASSESSMENT/PLAN: (D64.9) Anemia, unspecified type (primary encounter diagnosis) Assessment: -The patient is an 80-year-old male who has a several year history of mild macrocytosis and more recently the development of very mild anemia. -Laboratory work-up unrevealing. -Hemoglobin stable to slightly lower. Platelet count decreased. Not thrombocytopenic. No bleeding issues. He is on aspirin and Plavix. He requires bone marrow biopsy for more definitive diagnosis. Due to weight and body habitus, this will have to be done under CT guidance. Answered all his and his 's questions to their satisfaction. Plan: -Schedule for bone marrow biopsy under CT guidance at [facility]. -I will discuss if able to hold antiplatelet therapy for biopsy with his imagery intelligence. -Check serum erythropoietin today. -OV after biopsy. Portions of this documentation were copied and pasted from p (more content not included)... [facility] 12-13-2021 History of Presen t illness Narrative Hematologic problem(s): 1) Macrocytic anemia. HPI: The patient is an 81-year-old male who has a past medical history significant for prostate cancer treated with external beam radiation, non-ST elevation NE in April 2021 (2 stents) osteoarthritis, GERD, hypertension and insomnia. Recent CBC from 09/10/2021 revealed a total white count of 7000. Differential was normal. Hemoglobin was 12.5 g/dL with a hematocrit of 36.4% and an MCV of 102.5. Platelet count was 217,000. Review of CBCs available through [facility] reveal that the patient has had mild macrocytosis dating to November 2016. At that time the MCV was 99.7. In April 2021 it was 100.5. Hemoglobin was 12.3 g/dL in November 2016 and more recently in April 2021 it was 13.4 grams per deciliter on presentation with his NE 05/17/2021. He is fatigued but feels well otherwise. He was treated for radiation cystitis in the past. No recent gross hematuria. He feels like he can void to completion although stream is slower. He has regular checks of his PSA and has not had evidence of recurrent disease. Presents for ongoing hematologic management. Interim history: No complaints today. Fatigues easily. Can walk a couple 100 feet before he has to stop due to dyspnea. Denies exertional chest pain and pressure. He is participating in an exercise class for the elderly through his local hospital in [place]. No acute illnesses since last seen. PMH, medications and allergies personally reviewed by me today. Any changes documented in appropriate section. ROS: Constitutional: Denies episodes of fever and night sweats. Normal appetite. Neuro: Denies LUIS. Recent orthostasis/imbalance. HEENT: No recent change in voice, vision or hearing. Resp: Denies cough, wheeze and hemoptysis. Denies shortness of breath at rest. Denies MURILLO. CVS: Denies exertional chest pain, PND, orthopnea and LE edema. GI: Denies dysgeusia. Denies symptoms of stomatitis. Denies dysphagia and odynophagia. Denies reflux, n/v, change in bowel habits and abdominal pain. : See above. Endo: Denies hot flashes. Denies polyuria and polydipsia. Denies heat and cold intolerance. Musculoskeletal: Denies bone, back, joint and muscular pain. Derm: Denies rash. Denies jaundice and diffuse pruritis. Heme: Denies unusual bleeding and unexplained bruising. Psych: Normal mood. PHYSICAL EXAM: Vitals: Blood pressure 109/53, pulse 65, temperature 36.7 C (98 F), weight 98.7 kg (217 lb 8 oz), SpO2 96 %. Well-appearing and in no acute distress. EYES: Sclerae are anicteric bilaterally. LYMPHATIC: There is no palpable cervical or supraclavicular adenopathy. RESPIRATORY: Inspiratory breath sounds are of normal intensity in all noel. No rales, wheezes or rhonchi. CARDIOVASCULAR: Rhythm is regular. ABDOMEN: The abdomen is nondistended. No organomegaly. No tenderness. Extremities: No swelling or edema. SKIN: No jaundice or rash. NEUROLOGIC: tomb maker helper II-XII are grossly intact. LABS: Component Latest Ref Rng & Units 09/29/2021 12/13/2021 WBC 3.70 - 11.00 k/uL 6.85 6.08 RBC 4.20 - 6.00 m/uL 3.56 (L) 3.45 (L) Hemoglobin 13.0 - 17.0 g/dL 12.3 (L) 11.9 (L) Hematocrit 39.0 - 51.0 % 36.3 (L) 35.1 (L) MCV 80.0 - 100.0 fL 102.0 (H) 101.7 (H) MCH 26.0 - 34.0 pg 34.6 (H) 34.5 (H) MCHC 30.5 - 36.0 g/dL 33.9 33.9 RDW-CV 11.5 - 15.0 % 12.0 12.2 Platelet Count 150 - 400 k/uL 242 190 MPV 9.0 - 12.7 fL 8.8 (L) 8.0 (L) Neut% % 68.1 65.9 Abs Neut (ANC) 1.45 - 7.50 k/uL 4.66 4.01 Lymph% % 17.8 18.3 Abs Lymph 1.00 - 4.00 k/uL 1.22 1.11 [place]% % 11.5 11.0 Abs [place] <0.87 k/uL 0.79 0.67 Eosin% % 1.9 3.5 Abs Eosin <0.46 k/uL 0.13 0.21 Baso% % 0.6 1.0 Abs Baso <0.11 k/uL 0.04 0.06 Immature Gran % % 0.1 0.3 IMMATURE GRANS (ABS) <0.10 k/uL <0.03 <0.03 NRBC /100 WBC 0.0 0.0 Absolute nRBC <0.01 k/uL <0.01 <0.01 DTYPE Auto Auto ASSESSMENT/PLAN: (D64.9) Anemia, unspecified type (primary encounter diagnosis) Assessment: -The patient is an 80-year-old male who has a several year history of mild macrocytosis and more recently the development of very mild anemia. -Laboratory work-up unrevealing. -Hemoglobin stable to slightly lower. Platelet count decreased. Not thrombocytopenic. No bleeding issues. He is on aspirin and Plavix. He requires bone marrow biopsy for more definitive diagnosis. Due to weight and body habitus, this will have to be done under CT guidance. Answered all his and his 's questions to their satisfaction. Plan: -Schedule for bone marrow biopsy under CT guidance at [facility]. -I will discuss if able to hold antiplatelet therapy for biopsy with his imagery intelligence. -Check serum erythropoietin today. -OV after biopsy. Portions of this documentation were copied and pasted from previous office visit notes in order to provide a cohesive continuity of the history. The note has been reviewed and edited and updated as necessary. During this patient visit I have spent approximately 15 minutes out of 20 in counseling regarding test results, rationale and technique for bone marrow biopsy and coordinating care. Jonathan Mendoza DO documented in this encounter [facility] 10-19-2021 Miscellaneous Notes Scheduled, confirmed appt. Called pt's . Went to , left a message for her to return our call. If so please schedule patient for a follow up appointment with and a lab appointment for a CBC (mid-november), close this message when scheduled. Thank you. Lakshmi Mcknight PSS I spoke with his and explained all the lab work came back normal with the exception of the CBC demonstrating the mild anemia with the mild increase in size of red blood cells. My plan is to monitor this for now and perform bone marrow biopsy if he has further decline in hemoglobin. For the time being he is on dual antiplatelet therapy for an NE he had in April 2021 and I do not want to disrupt that therapy to perform a bone marrow biopsy at this juncture. So please call her tomorrow to arrange OV/CBC with me in mid November. Jonathan Mendoza DO Pts spouse is calling to get lab results for the 09/29/21 labs. documented in this encounter [facility] 09-30-2021 Note HNO ID: [id number] Author: Jonathan Mendoza, DO Service: ? Author Type: Physician Type: Progress Notes Filed: 09/30/2021 4:38 PM Note Text: Patient referred by Cooper for macrocytic anemia. The impression and plan will be communicated by way of the shared electronic record or faxed under separate cover letter. HPI: The patient is an 80-year-old male who has a past medical history significant for prostate cancer treated with external beam radiation, non-ST elevation NE in April 2021 (2 stents) osteoarthritis, GERD, hypertension and insomnia. Recent CBC from 09/10/2021 revealed a total white count of 7000. Differential was normal. Hemoglobin was 12.5 g/dL with a hematocrit of 36.4% and an MCV of 102.5. Platelet count was 217,000. Review of CBCs available through [facility] reveal that the patient has had mild macrocytosis dating to November 2016. At that time the MCV was 99.7. In April 2021 it was 100.5. Hemoglobin was 12.3 g/dL in November 2016 and more recently in April 2021 it was 13.4 grams per deciliter on presentation with his NE 05/17/2021. He is fatigued but feels well otherwise. He was treated for radiation cystitis in the past. No recent gross hematuria. He feels like he can void to completion although stream is slower. He has regular checks of his PSA and has not had evidence of recurrent disease. PMH, medications and allergies personally reviewed by me today. Any changes documented in appropriate section. ROS: Constitutional: Denies episodes of fever and night sweats. Normal appetite. Neuro: Denies LUIS. Recent orthostasis/imbalance. HEENT: No recent change in voice, vision or hearing. Resp: Denies cough, wheeze and hemoptysis. Denies shortness of breath at rest. Denies MURILLO. CVS: Denies exertional chest pain, PND, orthopnea and LE edema. GI: Denies dysgeusia. Denies symptoms of stomatitis. Denies dysphagia and odynophagia. Denies reflux, n/v, change in bowel habits and abdominal pain. : See above. Endo: Denies hot flashes. Denies polyuria and polydipsia. Denies heat and cold intolerance. Musculoskeletal: Denies bone, back, joint and muscular pain. Derm: Denies rash. Denies jaundice and diffuse pruritis. Heme: Denies unusual bleeding and unexplained bruising. Psych: Normal mood. PHYSICAL EXAM: Vitals: Blood pressure 118/64, pulse 63, temperature 36.6 ?C (97.9 ?F), height 168 cm (5' 6.14 ), weight 103 kg (227 lb), SpO2 94 %. Well-appearing and in no acute distress. EYES: Sclerae are anicteric bilaterally. ENT: Oral mucosa is unremarkable. LYMPHATIC: There is no palpable cervical, supraclavicular, axillary or inguinal adenopathy. RESPIRATORY: Inspiratory breath sounds are of normal intensity in all noel. No rales, wheezes or rhonchi. CARDIOVASCULAR: Rhythm is regular. ABDOMEN: The abdomen is nondistended. No organomegaly. No tenderness. Extremities: No swelling or edema. SKIN: No jaundice or rash. NEUROLOGIC: tomb maker helper II-XII are grossly intact. ASSESSMENT/PLAN: (D64.9) Anemia, unspecified type (primary encounter diagnosis) Assessment: -The patient is an 80-year-old male who has a several year history of mild macrocytosis and more recently the development of very mild anemia. -I reviewed the patient's lab work with him and his and discussed that at this point the differential is rather broad. Explained stepwise approach to working this up. Plan: -Labs today. -He will be contacted when results are available with any further work-up that is indicated. I spent a total of 45 minutes on the date of the service which included preparing to see the patient, [id number] patient care, obtaining and/or reviewing separately obtained history, performing a medically appropriate examination, counseling and educating the patient/family/caregiver, ordering medications, tests, or procedures and communicating results to the patient/family/caregiver. Jonathan Mendoza, [facility] 08-15-2021 Hospital Discharg e instructions Patient Education 08/14/2021 22:50:17 Syncope Syncope Syncope refers to a condition in which a person temporarily loses consciousness. Syncope may also be called fainting or passing out. It is caused by a sudden decrease in blood flow to the brain. Even though most causes of syncope are not dangerous, syncope can be a sign of a serious medical problem. Your health care provider may do tests to find the reason why you are having syncope. Signs that you may be about to faint include: Feeling dizzy or light-headed. Feeling nauseous. Seeing all white or all black in your field of vision. Having cold, clammy skin. If you faint, get medical help right away. Call your local emergency services (731 in the [place] Do not drive yourself to the hospital. Follow these instructions at home: Pay attention to any changes in your symptoms. Take these actions to stay safe and to help relieve your symptoms: Lifestyle Do not drive, use machinery, or play sports until your health care provider says it is okay. Do not drink alcohol. Do not use any products that contain nicotine or tobacco, such as cigarettes and e-cigarettes. If you need help quitting, ask your health care provider. Drink enough fluid to keep your urine pale yellow. General instructions Take [id number] and prescription medicines only as told by your health care provider. If you are taking blood pressure or heart medicine, get up slowly and take several minutes to sit and then stand. This can reduce dizziness or light-headedness. Have someone stay with you until you feel stable. If you start to feel like you might faint, lie down right away and raise (elevate) your feet above the level of your heart. Breathe deeply and steadily. Wait until all the symptoms have passed. Keep all follow-up visits as told by your health care provider. This is important. Get help right away if you: Have a severe headache. Faint once or repeatedly. Have pain in your chest, abdomen, or back. Have a very fast or irregular heartbeat (palpitations). Have pain when you breathe. Are bleeding from your mouth or rectum, or you have black or tarry stool. Have a seizure. Are confused. Have trouble walking. Have severe weakness. Have vision problems. These symptoms may represent a serious problem that is an emergency. Do not wait to see if your symptoms will go away. Get medical help right away. Call your local emergency services ([phone] in the [place] Do not drive yourself to the hospital. Summary Syncope refers to a condition in which a person temporarily loses consciousness. It is caused by a sudden decrease in blood flow to the brain. Signs that you may be about to faint include dizziness, feeling light-headed, feeling nauseous, sudden vision changes, or cold, clammy skin. Although most causes of syncope are not dangerous, syncope can be a sign of a serious medical problem. If you faint, get medical help right away. This information is not intended to replace advice given to you by your health care provider. Make sure you discuss any questions you have with your health care provider. Document Released: 07/10/2006 Document Revised: 06/22/2018 Document Reviewed: 06/18/2018 [employer] Patient Education 2019 [employer] Follow Up Care 08/14/2021 15:57:00 With:THOMAS GAMBOA MD Address: [address] [place] [address] [place] [address]- When:08/23/2021 09:10:00 Comments:Follow up [facility] 1. Syncope 2. Mechanical fall 3. Left shoulder pain 4. PVCs 5. History of coronary heart disease status post PCI with 2 stents placement on May 20, 2021 6. History of hypertension, hyperlipidemia, GERD, prostate cancer [status post radiation 2016 and radiation-induced cystitis treated hyperbaric oxygen. Patient is an 80-year-old male presenting with mechanical fall and subsequent syncope. On admission patient's vitals were within normal limits and imaging was largely unimpressive. However patient did have syncopal episode and initial EKG showed PVCs so cardiac etiology of syncope to be ruled out. Medical records from patient's imagery intelligence last office visit was requested. During H&P interview patient's telemetry did not show any PVCs. Patient's initial troponin was negative. Given patient's recent PCI with stent placements will need to observe patient overnight for any cardiac etiology of his syncope. However it seems that patient's fall and hitting his head was the reason for his syncope. Patient is not complaining of any headaches, and on physical exam there is no cuts, abrasions, and pain with palpation on patient's head. Patient has a chronic left shoulder pain due to rotator cuff. He is taking OxyContin before he goes to sleep every night for pain control. Start patient on Percocet for pain control. Patient's BUN was slightly elevated at 31 and patient's creatinine was elevated 1.32. This could be due to dehydration. Per patient he has not been consuming any water all day. We will start patient on 125ml/hr LR and encouraged him to drink fluids. Patient's hemoglobin was 12.5 and hematocrit 36.9 patient has no active bleeding. Will repeat CBC in the morning. Patient's glucose was elevated at 136. Patient has no history of diabetes. We will check A1c, TSH, lipid profile for risk stratification. Will resume patient's medication as appropriate. DVT prophylaxis: 5000 units heparin every 12 hour CODE STATUS: Full code Addendum by SAM CAREY MD on August 15, 2021 23:36:03 [facility] ATTENDING PHYSICIAN NOTE This note was transcribed via voice recognition software and may contain typographical errors. I was present for, and personally supervised, the pickett components of the patient's evaluation and management by the [facility] house staff today. I have examined the patient and reviewed all diagnostic data. I have reviewed the note of the resident documenting the interval history obtained, examination performed, and diagnostic testing results compiled by him/her. Additional comments, if any: Thank you for above documentation and care. I have personally seen and examined the patient today. Agree with above. [facility] Evaluation note* Diagnosis Anemia, unspecified type- Primary documented in this encounter [facility] note* Diagnosis Macrocytic anemia- Primary Unspecified deficiency anemia documented in this encounter [facility] note* Diagnosis Macrocytic anemia- Primary Unspecified deficiency anemia documented in this encounter [facility] course Narrative No data available for this section [facility] Summary Purpose Family History No Family History Records FoundNo Family History Records FoundNo Family History Records FoundNo Family History Records Found Advance Directives No Advanced Directives Records FoundNo Advanced Directives Records FoundNo Advanced Directives Records FoundNo Advanced Directives Records Found Additional Source Comments (unrecognized sect ion and content) No Status Records FoundNo Status Records FoundNo Status Records FoundNo Status Records Found INFORMATION SOURCE (unrecogn ized section and content) DATE CREATED AUTHOR AUTHOR'S ORGANIZ ATION [facility]02[facility]2022 [facility] DATE CREATED AUTHOR AUTHOR'S ORGANIZ ATION 03/06/2022 [facility] DATE CREATED AUTHOR AUTHOR'S ORGANIZ ATION 10/04/2022 [facility] ([place]) Source Comments (unrecognize d section and content) In the event this informatio n is protected by the Federal Confidentiality of Alcohol and Drug Abuse Patient Records regulations: The Federal rules restrict any use of the information to criminally investigate or prosecute any alcohol or drug abuse patient.[facility] the event this information is protected by the Federal Confidentiality of Alcohol and Drug Abuse Patient Records regulations: The Federal rules restrict any use of the information to criminally investigate or prosecute any alcohol or drug abuse patient.[facility] the event this information is protected by the Federal Confidentiality of Alcohol and Drug Abuse Patient Records regulations: The Federal rules restrict any use of the information to criminally investigate or prosecute any alcohol or drug abuse patient.[facility] the event this information is protected by the Federal Confidentiality of Alcohol and Drug Abuse Patient Records regulations: The Federal rules restrict any use of the information to criminally investigate or prosecute any alcohol or drug abuse patient.[facility] System[facility] the event this information is protected by the Federal Confidentiality of Alcohol and Drug Abuse Patient Records regulations: The Federal rules restrict any use of the information to criminally investigate or prosecute any alcohol or drug abuse patient.[facility] System[facility] the event this information is protected by the Federal Confidentiality of Alcohol and Drug Abuse Patient Records regulations: The Federal rules restrict any use of the information to criminally investigate or prosecute any alcohol or drug abuse patient.[facility] Reason for Visit (unrecogniz ed section and content) Reason Comments Established Patient Reason Comments Patient Question Reason Comments Results Bone marrow biopsy d one at [facility] Care Teams (unrecognized sec tion and content) 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 Relationship Specialty Start Date End Date Thomas Gamboa MD [address] [place] [address] PCP - General Family Practice 09/29/21 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 Relationship Specialty Start Date End Date Thomas Gamboa MD [address] [place] [address] PCP - General Family Practice 09/29/21 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 Relationship Specialty Start Date End Date Thomas Gamboa MD [address] [place] [address] PCP - General Family Practice 09/29/21 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 This clinical summary was aggregated from multiple sources. Caution should be exercised in using it in the provision of clinical care. This summary normalizes information from multiple sources, and as a consequence, information in this document may materially change the coding, format and clinical context of patient data. In addition, data may be omitted in some cases. CLINICAL DECISIONS SHOULD BE BASED ON THE PRIMARY CLINICAL RECORDS. [facility]. provides no warranty or guarantee of the accuracy or completeness of information in this document.
--- NOTE | 2023-07-31 10:02 | STRESSREP_ITS ---
Stress Test Report Pharmacologic myocardial perfusion stress test. 82-year-old man with a history of coronary artery disease presenting with shortness of breath Resting EKG demonstrates sinus rhythm with a rate of 61 bpm. Resting blood pressure is 138/82 mmHg. 0.4 mg of regadenoson was infused per usual protocol followed by rapid intravenous saline flush injection. Continuous EKG monitoring was performed. The maximum heart rate was 74 bpm which was 53% of max impacted heart rate the maximum workload was 1 metabolic equivalent. At rest there were no ST or T wave changes noted to suggest ischemia and at peak infusion nonspecific ST changes were noted which did not meet the criteria for ischemia. No clinical angina is noted. The final blood pressure was 124/64 mmHg. Myocardial perfusion protocol. 14.2 mCi of technetium 99m sestamibi was injected at rest. 0.4 mg of regadenoson was infused per usual protocol. At peak infusion 44.6 mCi of te chnetium 99m sestamibi was injected stress images were obtained stress and rest images were reconstructed and compared in the short axis vertical long and horizontal long axis. Gated images were also obtained. Perfusion SPECT analysis: Review of the stress images demonstrate normal uptake of tracer noted in all areas of the myocardium with a medium sized perfusion defect noted in the mid to distal inferior wall. The resting images similar demonstrated normal uptake of tracer noted in all areas of the myocardium. The above is suggestive of a mid to distal inferior wall ischemic zone. Gated SPECT analysis: The gated ejection fraction is 63%. Conclusion: Abnormal pharmacologic myocardial perfusion stress test. Mid to distal inferior wall ischemia and a moderate size zone. Preserved ejection fraction.
== END | disposition home or self-care (01) ==
PROVIDERS: PCP Family Medicine; Referring Provider Nurse Practitioner Family; Visit Provider Nurse Practitioner Family
DX: I35.0 Nonrheumatic aortic (valve) stenosis (principal); Z95.5 Presence of coronary angioplasty implant and graft
CPT/HCPCS: 78452; 93017; 93306; A9500; Q9957; A4216; C8929; J2785

== ENCOUNTER 2023-08-15 06:52 | Day surgery (SDC) | payer MEDICARE, SELFPAY ==
[2021-09-03 09:05] VITALS: BMI 33.9
--- NOTE | 2023-08-03 09:20 | RAD_ITS ---
INDICATION: pre-procedure: [facility] EXAMINATION/TECHNIQUE: X-RAY - XR Chest 2 Views COMPARISON: 05/17/2021. FINDINGS: The lungs are clear. Tortuous and calcified thoracic aorta. The heart is not enlarged. No pleural effusion or pneumothorax. Degenerative changes of the thoracic spine. RAD/Chest PA and Lateral IMPRESSION: No acute radiographic abnormalities. Electronically Signed: Jasiel Boyec MD at 16:55 EST ,
--- OUTSIDE RECORDS SUMMARY | 2023-08-03 09:24 | XMS RPT_ITS | CCD ---
Author Name Unknown Address [address] [place] [address] Organization [facility] Care Team Providers Care Shingle Trimmer Name Role Phone COOPER CARMONA, THOMAS Boyer Primary Care Physician [phone] Cooper CARMONA, Thomas Bunch Primary Care Provider [phone]( [phone] THOMAS GAMBOA Admitting Unavailable THOMAS GAMBOA Attending [...] CARMONA, DR PAKO Roy Attending Unavail kodi GMABOA MD, THOMAS Boyer Primary Care Unavailable COOPER CARMONA, THOMAS Boyer Primary Care Unavailable VICKY CARMONA, DR PAKO Roy Admitting Unavail able VICKY CARMONA, DR PAKO Roy Attending Unavail able [facility] Consulting Unavailable MELISSA CARMONA, SHEYLA Rich Consulting Unavailable JOSE ALBERTO CARMONA, RENA Olson Consulting Unavailable VICKY CARMONA, DR PAKO Roy Attending Unavail able COOPER CARMONA, THOMAS Boyer Primary Care Unavailable Allergies Allergy Classification Reported Allergen(s) Allergy Type Date of Onset Reaction(s) Facility (7 sources) Amoxicillin / Clavulanate; Translations: [amoxicillin-cla vulanate] Drug Allergy 01-18-2011 [facility] (1 source) Amoxicillin Drug Allergy [facility] Repository Medications Current Medications Medication Drug Class(es) [...] 12-13-2021 09:55-0400 Body temperature 98.01 [degF] Jonathan LawnStarter Work Phone: [facility] 12-13-2021 09:55-0400 Body weight 98.66 kg Jonathan LawnStarter Work Phone: [facility] 12-13-2021 09:55-0400 Diastolic blood pressure 53 mm[Hg] Jonathan LawnStarter Work Phone: [facility] 12-13-2021 09:55-0400 Heart rate 65 /min Jonathan LawnStarter Work Phone: [facility] 12-13-2021 09:55-0400 SaO2% (BldA) [Mass fraction] 96 % Jonathan LawnStarter Work Phone: [facility] 12-13-2021 09:55-0400 Systolic blood pressure 109 mm[Hg] Jonathan LawnStarter Work Phone: [facility] 08-16-2021 10:29-0500 Body temperature 98.06 [degF] RENA ABRAMS MD [facility] 08-16-2021 10:29-0500 Diastolic blood pressure 71 mm[Hg] RENA ABRAMS MD [facility] 08-16-2021 10:29-0500 Heart rate 64 /min RENA ABRAMS MD [facility] 08-16-2021 10:29-0500 Mean blood pressure 91 mm[Hg] RENA ABRAMS MD [address] [place] [address] 08-16-2021 10:29-0500 Reason For Taking VItal Signs RENA ABRASM MD [facility] 08-16-2021 10:29-0500 Respiratory rate 20 /min RENA ABRAMS MD [facility] 08-16-2021 10:29-0500 Systolic blood pressure 130 mm[Hg] RENA ABRAMS MD [facility] 08-16-2021 09:13-0500 Heart rate 66 /min RENA ABRAMS MD [facility] 08-16-2021 07:07-0500 Body temperature 97.7 [degF] RENA ABRAMS MD [facility] 08-16-2021 07:07-0500 Diastolic blood pressure 77 mm[Hg] RENA ABRAMS MD [facility] 08-16-2021 07:07-0500 Heart rate 65 /min RENA ABRAMS MD [facility] 08-16-2021 07:07-0500 Mean blood pressure 104 mm[Hg] RENA ABRAMS MD [facility] 08-16-2021 07:07-0500 Reason For Taking VItal Signs RENA ABRAMS MD [facility] 08-16-2021 07:07-0500 Respiratory rate 20 /min RENA ABRAMS MD [facility] 08-16-2021 07:07-0500 Systolic blood pressure 158 mm[Hg] RENA ABRAMS MD [facility] 08-16-2021 04:03-0500 Body temperature 98.06 [degF] RENA ABRAMS MD [facility] 08-16-2021 04:03-0500 Diastolic blood pressure 64 mm[Hg] RENA ABRAMS MD [facility] 08-16-2021 04:03-0500 Heart rate 66 /min RENA ABRAMS MD [facility] 08-16-2021 04:03-0500 Mean blood pressure 90 mm[Hg] RENA ABRAMS MD [facility] 08-16-2021 04:03-0500 Reason For Taking VItal Signs RENA ABRAMS MD [facility] 08-16-2021 04:03-0500 Respiratory rate 20 /min RENA ABRAMS MD [facility] 08-16-2021 04:03-0500 Systolic blood pressure 142 mm[Hg] RENA ABRAMS MD [facility] 08-15-2021 23:45-0500 Heart rate 61 /min RENA ABRAMS MD [facility] 08-15-2021 18:52-0500 Heart rate 61 /min RENA ABRAMS MD [facility] 08-15-2021 17:11-0500 Heart rate 69 /min RENA ABRAMS MD [facility] 08-15-2021 08:15-0500 Heart rate 65 /min RENA ABRAMS MD [facility] 08-15-2021 06:41-0500 Heart rate 65 /min RENA ABRAMS MD [facility] 08-14-2021 21:24-0500 Body height 172.7 cm RENA ABRAMS MD [facility] 08-14-2021 21:24-0500 Body weight 109.3 kg RENA ABRAMS MD [facility] 08-14-2021 21:24-0500 Body weight 36.65 kg/m2 RENA ABRAMS MD [facility] Encounters Encounter Date Encounter Type Care Provider Facility Start: 03-25-2022 Orders Only Jonathan Steven Work Phone: Hematology/Oncology Plan of Treatment Date Care Activity Detail Author Start: 03-29-2022 End: 05-29-2022 CBC W Auto Differential panel - Blood CBC + DIFF Lab STAT Macrocytic anemia Expected: 03/29/2022, Expires: 05/29/2022 [facility] Work Phone: Immunizations Immunization Date Immunization Notes Care Provider Gerson romero 05-25-2021 SARS-CoV-2 (COVID-19 ) mRNA-1273 vaccine RENA ABRAMS MD [facility] Payers Date Payer Category Payer Medicare [id number] 2022 Unknown [id number] 2021 Unknown [employer] H[employer] POS [id number] 2021-Present [phone] [address] [place] [address] HMO [id number] 2021 Unknown [id number] 1940 Unknown [id number] 1940 Unknown [id number] 1940 Unknown [id number] 1940 Unknown [id number] Social History Date Type Detail Facility Start: 12-18-2018 End: 09-29-2021 Never smoked tobacco (finding) [facility] Sex Assigned At [facility] Start: 01-18-2011 End: 09-29-2021 Tobacco use and exposure Smokeless tobacco non-user [facility] Start: 09-29-2021 End: 12-13-2021 Alcohol intake Lifetime non-drinker (finding) [facility] Start: 09-29-2021 History SDOH Alcohol Frequency 1 [facility] Start: 1940 Sex Assigned At Not on file C [facility] Start: 08-30-2021 End: 12-13-2021 Exposure to SARS-CoV-2 (event) Not sure [facility] Medical Equipment Procedure Code Equipment Code Equipment [...] know the bone marrow biopsy done at [facility] yielded a suboptimal specimen but there was [...] Jonathan Mendoza DO documented in this encounter [facility] 12-15-2021 Miscellaneous Notes Patient is aware okay [...] let her know. documented in this encounter [facility] 12-13-2021 Note HNO ID: [id number] Author: Jonathan Mendoza DO Service: ? Author Type: Physician Type: Progress Notes Filed: 12/13/2021 10:31 AM Note Text: Hematologic problem(s): 1) Macrocytic anemia. HPI: The patient is an 81-year-old male who has a past medical history significant for prostate cancer treated with external beam radiation, non-ST elevation [place] in April 2021 (2 stents) osteoarthritis, GERD, hypertension and insomnia. Recent CBC from 09/10/2021 revealed a total white count of 7000. Differential was normal. Hemoglobin was 12.5 g/dL with a hematocrit of 36.4% and an MCV of 102.5. Platelet count was 217,000. Review of CBCs available through [facility] reveal that the patient has had mild macrocytosis dating to November 2016. At that time the MCV was 99.7. In April 2021 it was 100.5. Hemoglobin was 12.3 g/dL in November 2016 and more recently in April 2021 it was 13.4 grams per deciliter on presentation with his [place] 05/17/2021. He is fatigued but feels well [...] the elderly through his local hospital in [place]. No acute illnesses since last seen. PMH, [...] edema. SKIN: No jaundice or rash. NEUROLOGIC: guest relations manager II-XII are grossly intact. LABS: Component Latest [...] Lymph 1.00 - 4.00 k/uL 1.22 1.11 Franklin% % 11.5 11.0 Abs Franklin <0.87 k/uL 0.79 0.67 Eosin% % 1.9 [...] bone marrow biopsy under CT guidance at [facility]. -I will discuss if able to hold antiplatelet therapy for biopsy with his sample prep technician. -Check serum erythropoietin today. -OV after biopsy. Portions of this documentation were copied and pasted from p (more content not included)... [facility] 12-13-2021 History of Presen t illness Narrative Hematologic problem(s): 1) Macrocytic anemia. HPI: The patient is an 81-year-old male who has a past medical history significant for prostate cancer treated with external beam radiation, non-ST elevation [place] in April 2021 (2 stents) osteoarthritis, GERD, hypertension and insomnia. Recent CBC from 09/10/2021 revealed a total white count of 7000. Differential was normal. Hemoglobin was 12.5 g/dL with a hematocrit of 36.4% and an MCV of 102.5. Platelet count was 217,000. Review of CBCs available through [facility] reveal that the patient has had mild macrocytosis dating to November 2016. At that time the MCV was 99.7. In April 2021 it was 100.5. Hemoglobin was 12.3 g/dL in November 2016 and more recently in April 2021 it was 13.4 grams per deciliter on presentation with his [place] 05/17/2021. He is fatigued but feels well [...] the elderly through his local hospital in [place]. No acute illnesses since last seen. PMH, [...] edema. SKIN: No jaundice or rash. NEUROLOGIC: guest relations manager II-XII are grossly intact. LABS: Component Latest [...] Lymph 1.00 - 4.00 k/uL 1.22 1.11 Franklin% % 11.5 11.0 Abs Franklin <0.87 k/uL 0.79 0.67 Eosin% % 1.9 [...] bone marrow biopsy under CT guidance at [facility]. -I will discuss if able to hold antiplatelet therapy for biopsy with his sample prep technician. -Check serum erythropoietin today. -OV after biopsy. [...] Jonathan Mendoza DO documented in this encounter [facility] 10-19-2021 Miscellaneous Notes Scheduled, confirmed appt. Called [...] is on dual antiplatelet therapy for an [place] he had in April 2021 and I do not want to disrupt that therapy to perform a bone marrow biopsy at this juncture. So please call her tomorrow to arrange OV/CBC with me in mid November. Jonathan Mendoza DO Pts spouse is calling to get lab results for the 09/29/21 labs. documented in this encounter [facility] 09-30-2021 Note HNO ID: [id number] Author: Jonathan Mendoza, DO Service: ? Author [...] treated with external beam radiation, non-ST elevation [place] in April 2021 (2 stents) osteoarthritis, GERD, hypertension and insomnia. Recent CBC from 09/10/2021 revealed a total white count of 7000. Differential was normal. Hemoglobin was 12.5 g/dL with a hematocrit of 36.4% and an MCV of 102.5. Platelet count was 217,000. Review of CBCs available through [facility] reveal that the patient has had mild macrocytosis dating to November 2016. At that time the MCV was 99.7. In April 2021 it was 100.5. Hemoglobin was 12.3 g/dL in November 2016 and more recently in April 2021 it was 13.4 grams per deciliter on presentation with his [place] 05/17/2021. He is fatigued but feels well [...] edema. SKIN: No jaundice or rash. NEUROLOGIC: guest relations manager II-XII are grossly intact. ASSESSMENT/PLAN: (D64.9) Anemia, [...] which included preparing to see the patient, [id number] patient care, obtaining and/or reviewing separately obtained history, performing a medically appropriate examination, counseling and educating the patient/family/caregiver, ordering medications, tests, or procedures and communicating results to the patient/family/caregiver. Jonathan Mendoza, [facility] 08-15-2021 Hospital Discharg e instructions Patient Education [...] right away. Call your local emergency services (351 in the [place] Do not drive yourself [...] your urine pale yellow. General instructions Take npla-prr-[id number] and prescription medicines only as told by [...] right away. Call your local emergency services (831 in the [place] Do not drive yourself [...] 07/10/2006 Document Revised: 06/22/2018 Document Reviewed: 06/18/2018 [employer] Patient Education 2019 [employer] Follow Up Care 08/14/2021 15:57:00 With:THOMAS GAMBOA MD Address: [address] [place] [address] [place] [address]- When:08/23/2021 09:10:00 Comments:Follow up [facility] 1. Syncope 2. Mechanical fall 3. Left [...] be ruled out. Medical records from patient's sample prep technician last office visit was requested. During H&P [...] CAREY MD on August 15, 2021 23:36:03 [facility] ATTENDING PHYSICIAN NOTE This note was transcribed via voice recognition software and may contain typographical errors. I was present for, and personally supervised, the pickett components of the patient's evaluation and management by the [facility] house staff today. I have examined the patient and reviewed all diagnostic data. I have reviewed the note of the resident documenting the interval history obtained, examination performed, and diagnostic testing results compiled by him/her. Additional comments, if any: Thank you for above documentation and care. I have personally seen and examined the patient today. Agree with above. [facility] Evaluation note* Diagnosis Anemia, unspecified type- Primary documented in this encounter [facility] note* Diagnosis Macrocytic anemia- Primary Unspecified deficiency anemia documented in this encounter [facility] note* Diagnosis Macrocytic anemia- Primary Unspecified deficiency anemia documented in this encounter [facility] course Narrative No data available for this section [facility] Summary Purpose Family History No Family History [...] CREATED AUTHOR AUTHOR'S ORGANIZ ATION [facility]02[facility]2022 [facility] DATE CREATED AUTHOR AUTHOR'S ORGANIZ ATION 03/06/2022 [facility] DATE CREATED AUTHOR AUTHOR'S ORGANIZ ATION 10/04/2022 [facility] ([place]) Source Comments (unrecognize d section and content) In the event this informatio n is protected by the Federal Confidentiality of Alcohol and Drug Abuse Patient Records regulations: The Federal rules restrict any use of the information to criminally investigate or prosecute any alcohol or drug abuse patient.[facility] the event this information is protected by the Federal Confidentiality of Alcohol and Drug Abuse Patient Records regulations: The Federal rules restrict any use of the information to criminally investigate or prosecute any alcohol or drug abuse patient.[facility] the event this information is protected by the Federal Confidentiality of Alcohol and Drug Abuse Patient Records regulations: The Federal rules restrict any use of the information to criminally investigate or prosecute any alcohol or drug abuse patient.[facility] the event this information is protected by the Federal Confidentiality of Alcohol and Drug Abuse Patient Records regulations: The Federal rules restrict any use of the information to criminally investigate or prosecute any alcohol or drug abuse patient.[facility] the event this information is protected by the Federal Confidentiality of Alcohol and Drug Abuse Patient Records regulations: The Federal rules restrict any use of the information to criminally investigate or prosecute any alcohol or drug abuse patient.[facility] the event this information is protected by the Federal Confidentiality of Alcohol and Drug Abuse Patient Records regulations: The Federal rules restrict any use of the information to criminally investigate or prosecute any alcohol or drug abuse patient.[facility] Reason for Visit (unrecogniz ed section and content) Reason Comments Established Patient Reason Comments Patient Question Reason Comments Results Bone marrow biopsy d one at [facility] Care Teams (unrecognized sec tion and content) Shingle Trimmer Relationship Specialty Start Date End Date Thomas Gamboa MD [address] [place] [address] PCP - General Family Practice 09/29/21 Shingle Trimmer Relationship Specialty Start Date End Date Thomas Gamboa MD [address] [place] [place] [address] PCP - General Family Practice 09/29/21 Shingle Trimmer Relationship Specialty Start Date End Date Thomas Gamboa MD [address] [place] [address] PCP - General Family Practice 09/29/21 Shingle Trimmer Relationship Specialty Start Date End Date Thomas Gamboa MD [address] [place], [place] [id number] PCP - [facility] Practice 09/29/21 Shingle Trimmer Relationship Specialty Start Date End Date Thomas Gamboa MD [address] [place], [place] [id number] PCP - [facility] Practice 09/29/21 FOR RECORDS PERTAINING TO [...] BE BASED ON THE PRIMARY CLINICAL RECORDS. [facility] [employer] [facility]. provides no warranty or guarantee of the accuracy or completeness of information in this document.
[2023-08-03 09:28] LABS: Absolute Lymphocyte Count 1.29 X10^3/uL (0.83-4.51); Absolute Neutrophil Count 3.3 X10^3/uL (2.0-7.7); Basophil# 0.03 X10^3/uL; Basophil% 0.5 % (0-1); Eosinophil# 0.18 X10^3/uL; Eosinophils% 3.3 % (0-5); Hematocrit 35.1 % (40-54); Hemoglobin 11.6 g/dL (13.0-16.5); Lymphocyte # 1.29 X10^3/ul (0.83-4.51); Lymphocyte % 23.5 % (19-41); Mean Corpuscular Hgb 33.8 pg (27.0-32.0); Mean Corpuscular Volume 102.3 fL (80-94); Mean Platelet Vol. 8.4 fl (6.2-12.0); Monocyte# 0.71 X10^3/uL; NRBC Flagged by Analyzer 0 % (0-5); Neutrophil # 3.25 X10^3/uL (2.7-7.7); Neutrophil % 59.3 % (47-70); Platelet Count 225 K/mm3 (150-450); RBC Distribution Width CV 12.1 % (11.6-14.6); RBC Distribution Width SD 45.8 fl (35.1-43.9); Red Blood Count 3.43 M/mm3 (4.6-6.2); White Blood Count 5.5 K/mm3 (4.4-11.0)
[2023-08-03 10:09] LABS: Anion Gap 7 (5-15); BUN 25 mg/dL (7-18); BUN/Creat Ratio 18.4 RATIO (10-20); Calcium,Total 9.7 mg/dL (8.5-10.1); Chloride 106 mmol/L (98-107); Creatinine, Serum 1.36 mg/dL (0.70-1.30); EST Glomerular Filtration Rate 53 mL/min (>60); Est Glom Filt Rate - Afr Amer 64 mL/min (>60); Glucose 110 mg/dL (74-106); Potassium 4.5 mmol/L (3.5-5.1); Sodium Level 138 mmol/L (136-145)
--- NOTE | 2023-08-07 10:44 | HP.PCM_ITS ---
History and Physical Date of Admission: 08/15/23 This is a 82-year-old male presents the [facility] [employer] today for a left heart catheterization. He was first seen in consultation at [facility] April 2021 for non-ST elevated myocardial infarction. He underwent echocardiogram on 05/17/2021 that showed ejection fraction of 60%, stage II diastolic dysfunction, mild to moderate aortic valve stenosis, and mild aortic valve insufficiency. He had a heart catheterization on 05/18/2021 that showed moderate disease of the LAD, severe disease of the mid LCx, and severe disease of the RCA. He underwent drug-eluting stent to mid LAD, drug-eluting stent to OM 3, and PTCA to OM 2. It was recommended to address RPDA and distal RCA di sease on an outpatient basis. Stress test on 06/30/2021 was a normal exercise myocardial perfusion stress test at a low workload. No arrhythmia was noted. Moderate functional aerobic impairment was noted. He also has a history of hypertension. He was admitted to [facility] in July 2021 after being kicked by a cow. His echocardiogram showed ejection fraction of 55?5%. His initial EKG showed PVCs. His telemetry during admission did not reveal significant PVCs. His carotid ultrasound showed mild bilateral carotid artery disease. Upon discharge, he underwent a Holter monitor that showed an average heart rate of 68 bpm of sinus arrhythmia and first-degree AV block and under branch block. Ventricular ectopy was less than 1%. He denies chest, arm, jaw, or neck discomfort. He states shortness of breath with activity such as walking long distance including to our office. He denies shortness of breath at rest, orthopnea, PND, sudden weight gain, or bilateral lower extremity edema. He denies chronic cough. He denies palpitations, lightheadedness, dizziness, near syncope, or syncopal episodes. He denies claudication issues. He denies fever or chills. He denies blood in urine, blood in stool, or epistaxis. He denies myalgia. He continues with fatigue that is more noticed as the day progresses. His exercise tolerance is stable. Intake Vital Signs: See EMR Intake Visit Reasons: [facility] Allergies amoxicillin [From Augmentin] Allergy (Verified 06/29/23 10:43) Hives clavulanic acid [From Augmentin] Allergy (Verified 06/29/23 10:43) Hives Medications See EMR [facility] Medical History Accident due to mechanical fall without injury (07/2021) Atherosclerotic heart disease of [place] coronary artery without angina pectoris Essential hypertension Femur fracture, left Hyperlipidemia Macrocytic anemia Nonrheumatic aortic (valve) stenosis Prostate cancer Right bundle branch block (RBBB) Surgical History History of ankle surgery History of carpal tunnel surgery of right wrist History of cholecystectomy History of coronary artery stent placement (05/18/21) History of open reduction and internal fixation (ORIF) procedure History of surgery on lower extremity (12/2021) History of tonsillectomy Social History Smoking Status: Never smoker alcohol intake: never substance use type: does not use caffeine: Yes Type: coffee Number of servings: 2 ROS Const Const: Positive for fatigue (Unchanged from previous); Negative for weakness, headache(s), frequent falls, difficulty sleeping or excessive sweating Eyes Eyes: Negative for loss of peripheral vision, transient loss of vision, blurry vision, double vision or tunnel vision ENT ENT: Negative for headache(s), dizziness, Nosebleed/epistaxis or balance problems Cardio Chest Pain: No Palpitations: No Edema: None Muscle aches with walking: None Resp Respiratory: Positive for SOB with activity (When walking increased distance. Had to stop to rest on the way into office); Negative for SOB at rest, SOB orthopnea\SOB lying down, Cough or paroxysmal nocturnal dyspnea GI GI: Negative nausea, vomiting, heartburn or black,tarry stools : Negative for hematuria Musc Musc: Negative for muscle aches/ myalgia, muscle weakness, joint pain or balance problems Skin Skin: Negative non-healing lesions, rash or unusual bruising Neuro Neuro: Negative for dizziness, lightheadedness, near syncope, syncope, frequent falls, headache(s), weakness, blurry vision, double vision or lack of coordination Shahab Hematologic/Lymphatic: Negative for easy bleeding or easy bruising Endo Endo: Positive for fatigue (Unchanged from previous); Negative for excessive sweating or increased thirst/drinking Psych Psych: Negative for anxiety or depression Allergy Allergy/Immunology: Negative for hives and Negative for rash Cardiology Exam Const Appearance: cooperative, healthy appearing, comfortable and no acute distress Nutritional Appearance: well nourished and obese Orientation: alert, awake and oriented x3 Head Head: normal to inspection Ears: hearing grossly normal bilaterally Nose: external nose normal Face and Sinus: face symmetric Mouth: moist mucous membranes Eyes General: appearance normal, both eyes and all related structures Eyelids: eyelids normal EOM: EOM intact bilaterally Neck Neck: normal visual inspection and no JVD Carotids: normal carotid upstroke Chest Chest inspection: normal inspection of the chest, symmetric chest movement and normal respiratory effort; Negative cough Auscultation: Bilateral: Clear to Auscultation Cardio Rate: regular rate Rhythm: regular rhythm Heart sounds: S1 normal, S2 normal and murmur; Negative rub or gallop Murmur: Grade 2/6 and ALEJANDRO loudest LLSB GI GI: normal to inspection and obese Neuro General: patient alert, patient awake, patient oriented x3 and CN's II-XI intact bilaterally Skin Skin: no rashes or lesions noted Extremities Pulses: Normal: Right Posterior Tibial Pulse, Left Posterior Tibial Pulse, Right Radial Pulse and Left Radial Pulse Lower Extremity Edema: None: Bilateral Psych Psychological: normal affect Supplemental Info Supplemental Information Echocardiogram from 07/31/2023: Interpretation Summary Normal LV size. Left ventricular systolic function is normal. The estimated ejection fraction is 55 %. Stage 1 diastolic dysfunction. Mild focal aortic valve calcification. Mean aortic valve gradient 28 mmHg. Moderate aortic stenosis. Mild (1+) aortic valve insufficiency. Contrast injection was performed. ECHOCARDIOGRAM 08/16/2021: Summary: 1. Left ventricle: The cavity size is normal. Wall thickness is mildly increased. Systolic function is normal. The estimate ejection fraction is 55?5%. Regional wall motion abnormalities cannot be excluded at the inferior and inferolateral dubose. Diastolic dysfunction present but unable to assess severity. 2. Ventricular septum: Thickness is increased. 3. Aortic valve: There is moderate stenosis. There is mild regurgitation. The mean systolic gradient is 24 mmHg. The valve area is 1.2 cm?. 4. Mitral valve: The annulus is mildly to moderately calcified. 5. Right ventricle: Systolic pressure is mildly increased. The RV systolic pressure by Doppler is 45 mmHg. 6. Right atrium: The estimated right atrial pressure is 3 mmHg. CAROTID DUPLEX 08/16/2021: Conclusion Summary: 1. Mild 1-39% stenosis of right internal carotid artery. 2. Mild 1-39% stenosis of left internal carotid artery. Stress test from 07/31/2023: Conclusion: Abnormal pharmacologic myocardial perfusion stress test. Mid to distal inferior wall ischemia and a moderate size zone. Preserved ejection fraction. CARDIAC CATHETERIZATION/INTERVENTION 05/18/2021: CONCLUSIONS Diffuse triple-vessel disease with moderate disease noted in the left anterior descending artery Severe disease involving the mid circumflex artery Severe distal right coronary artery disease RECOMMENDATIONS Referred for immediate PCI CORONARY ANGIOGRAPHY LEFT HEART ASSESSMENT Left Ventricular Ejection Fraction: by LV Gram 60 % Normal LV wall motion Normal Left Ventricular systolic function LEFT MAIN: Angiographically normal LEFT ANTERIOR DESCENDING ARTERY: MID LAD: Moderate mid segment disease of 60 to 70% CIRCUMFLEX ARTERY: Large vessel with ectatic proximal and mid segment and first obtuse marginal branch with mild luminal irregularities, second obtuse marginal branch with 90% stenosis in the AV groove branch with 90% stenosis RIGHT CORONARY ARTERY: Moderate mid segment disease of 60 to 70% DISTAL RCA: long 80 % Stenosis PCI REPORT PCI Report: 1. Successful PCI of proximal to mid LAD 80% stenosis with DOMINGA#3 flow With predilatation and placement of a drug-eluting stent 3 x 26 mm/Orsiro postdilated with 3.5 x 15 mm NC emerge With reduction of stenosis to 0% and maintenance of DOMINGA-3 flow. 2. Successful PCI of the proximal OM 3 with placement of drug-eluting stent 2.5 x 18 mmOrsiro, postdilated with 3 x 50 mm NC balloon Reduction of stenosis from 80% to 0% and improvement of DOMINGA flow from DOMINGA II to DOMINGA-3 3. PTCA of OM 2 high-grade subtotal 99% with predilatation using 2 x 20 mm Emerge balloon. 4. Placement of TR band to close the right radial artery arteriotomy site. Procedure in detail; We will proceed with the 3.5 EBU guide catheter advanced ascending aorta cannulated the left main ostium without difficulty, then will proceed with the run-through wire across the lesion in the proximal to mid LAD Followed by balloon dilatation using 2 x 20 mm regular balloon, followed by placement of drug-eluting stent 3 x 26 Mm/orsiro, followed by postdilatation using 3.5 x 15 mm NC balloon and achievement of excellent result Then will proceed with 2 wires across OM2 with a run-through and then we used a BMW wire and across OM 3 Predilated OM2 with a 2 x 20 mm balloon and then we proceed with placement of drug-eluting stent 2.5 x 18 mm. No complication in the [employer] Recommendation and plan 1. Continue on DAPT Brilinta/aspirin for 1 year 2. Cardiac rehab phase 1 3. Follow-up with the primary entry level programmer Dr. Sinha for continuation of cardiac care 4. Consider PCI of the RPDA and IFR of the distal RCA. Assessment and Plan Assessment and Plan (1) Nonrheumatic aortic (valve) stenosis: Status: Chronic Plan: Echocardiogram 07/31/2023 showed moderate aortic valve stenosis with a peak aortic valve gradient 48 mmHg and a mean aortic valve gradient of 28 mmHg aortic valve area was noted to be 0.83 and 0.86 cm?. We will continue to follow. (2) Essential hypertension: Status: Chronic Plan: Patient's blood pressure is well-controlled. We will continue to monitor. We will not make any medication regimen changes. (3) Hyperlipidemia: Status: Chronic Qualifiers: Hyperlipidemia type: mixed hyperlipidemia Qualified Code(s): E78.2 - Mixed hyperlipidemia Plan: Lipid panel from 05/23/2023 showed Total Cholesterol: 113, HDL: 41, LDL: 48, and Triglycerides: 119. Is reminded of LDL goal of 70 and below. He will continue atorvastatin 20 mg p.o. daily. (4) History of coronary artery stent placement: Status: Chronic Comment: [id number] LAD w/ 3 x 26 mm Orsiro Stent and RODOLFO-OM2 w/ 2.5 x 18 mm Orsiro 05/18/21; Plan: On account of ongoing fatigue and shortness of breath, he was asked undergo stress test to ensure not an anginal equivalent. Stress test on 07/31/2023 was abnormal for mid to distal inferior wall ischemia and a moderate size zone. Ejection fraction was preserved. On account of symptoms, stress test results, and previous heart catheterization results, he will proceed with heart catheterization. Depending on results, further recommendation will be made.
[2023-08-14 09:11] VITALS: BMI 32.6
--- OUTSIDE RECORDS SUMMARY | 2023-08-15 06:56 | XMS RPT_ITS | CCD ---
Author Name Unknown Address [address] [place] [address] Organization [facility] Care Team Providers Care [employer] Name Role Phone COOPER CARMONA, THOMAS Boyer Primary Care Physician [phone] Cooper CARMONA, Thomas Bunch Primary Care Provider [...] CARMONA, Thomas Bunch Primary Care Provider [phone]( [phone] VICKY CARMONA, DR PAKO Roy Attending Unavail kodi GAMBOA MD, THOMAS Boyer Primary Care Unavailable COOPER CARMONA, THOMAS Boyer Primary Care Unavailable VICKY CARMONA, DR PAKO Roy Admitting Unavail able VICKY CARMONA, DR PAKO Roy Attending Unavail able [facility] [employer] Consulting Unavailable MELISSA CARMONA, SHEYLA Rich Consulting Unavailable JOSE ALBERTO CARMONA, RENA Olson Consulting Unavailable VICKY CARMONA, DR PAKO Roy Attending Unavail able COOPER CARMONA, THOMAS Boyer Primary Care Unavailable Allergies Allergy Classification Reported Allergen(s) Allergy Type Date of Onset Reaction(s) Facility (7 sources) Amoxicillin / Clavulanate; Translations: [amoxicillin-cla vulanate] Drug Allergy 01-18-2011 [facility] (1 source) Amoxicillin Drug Allergy [facility] Repository Medications Current Medications Medication Drug [...] 12-13-2021 09:55-0400 Body temperature 98.01 [degF] Jonathan Cloudsnap Work Phone: [facility] 12-13-2021 09:55-0400 Body weight 98.66 kg Jonathan Cloudsnap Work Phone: [facility] 12-13-2021 09:55-0400 Diastolic blood pressure 53 mm[Hg] Jonathan Cloudsnap Work Phone: [facility] 12-13-2021 09:55-0400 Heart rate 65 /min Jonathan Cloudsnap Work Phone: [facility] 12-13-2021 09:55-0400 SaO2% (BldA) [Mass fraction] 96 % Jonathan Cloudsnap Work Phone: [facility] 12-13-2021 09:55-0400 Systolic blood pressure 109 mm[Hg] Jonathan Cloudsnap Work Phone: [facility] 08-16-2021 10:29-0500 Body temperature 98.06 [degF] RENA ABRAMS MD [facility] 08-16-2021 10:29-0500 Diastolic blood pressure 71 mm[Hg] RENA ABRAMS MD [facility] 08-16-2021 10:29-0500 Heart rate 64 /min RENA ABRAMS MD [facility] 08-16-2021 10:29-0500 Mean blood pressure 91 mm[Hg] RENA ABRAMS MD [address] [place] [address] 08-16-2021 10:29-0500 Reason For Taking VItal Signs RENA ABRAMS MD [facility] 08-16-2021 10:29-0500 Respiratory rate 20 /min RENA ABRAMS MD [facility] 08-16-2021 10:29-0500 Systolic blood pressure 130 mm[Hg] RENA ABRAMS MD [facility] 08-16-2021 09:13-0500 Heart rate 66 /min RENA ABRAMS MD [facility] 08-16-2021 07:07-0500 Body temperature 97.7 [degF] RENA ABRAMS MD [facility] 08-16-2021 07:07-0500 Diastolic blood pressure 77 mm[Hg] RENA ABRAMS MD [facility] 08-16-2021 07:07-0500 Heart rate 65 /min RENA ABRAMS MD [facility] 08-16-2021 07:07-0500 Mean blood pressure 104 mm[Hg] RENA ABRAMS MD [facility] 08-16-2021 07:07-0500 Reason For Taking VItal Signs RENA ABRAMS MD [facility] 08-16-2021 07:07-0500 Respiratory rate 20 /min RENA ABRAMS MD [facility] 08-16-2021 07:07-0500 Systolic blood pressure 158 mm[Hg] RENA ABRAMS MD [facility] 08-16-2021 04:03-0500 Body temperature 98.06 [degF] RENA ABRAMS MD [facility] 08-16-2021 04:03-0500 Diastolic blood pressure 64 mm[Hg] RENA ABRAMS MD [facility] 08-16-2021 04:03-0500 Heart rate 66 /min RENA ABRAMS MD [facility] 08-16-2021 04:03-0500 Mean blood pressure 90 mm[Hg] RENA ABRAMS MD [facility] 08-16-2021 04:03-0500 Reason For Taking VItal Signs RENA ABRAMS MD [facility] 08-16-2021 04:03-0500 Respiratory rate 20 /min RENA ABRAMS MD [facility] 08-16-2021 04:03-0500 Systolic blood pressure 142 mm[Hg] RENA ABRAMS MD [facility] 08-15-2021 23:45-0500 Heart rate 61 /min RENA ABRAMS MD [facility] 08-15-2021 18:52-0500 Heart rate 61 /min RENA ABRAMS MD [facility] 08-15-2021 17:11-0500 Heart rate 69 /min RENA ABRAMS MD [facility] 08-15-2021 08:15-0500 Heart rate 65 /min RENA ABRAMS MD [facility] 08-15-2021 06:41-0500 Heart rate 65 /min RENA ABRAMS MD [facility] 08-14-2021 21:24-0500 Body height 172.7 cm RENA ABRAMS MD [facility] 08-14-2021 21:24-0500 Body weight 109.3 kg RENA ABRAMS MD [facility] 08-14-2021 21:24-0500 Body weight 36.65 kg/m2 RENA ABRAMS MD [facility] Encounters Encounter Date Encounter Type Care Provider Facility Start: 03-25-2022 Orders Only Jonathan Steven Work Phone: Hematology/Oncology Plan of Treatment Date Care Activity Detail Author Start: 03-29-2022 End: 05-29-2022 CBC W Auto Differential panel - Blood CBC + DIFF Lab STAT Macrocytic anemia Expected: 03/29/2022, Expires: 05/29/2022 [facility] Work Phone: Immunizations Immunization Date Immunization Notes Care Provider Gerson romero 05-25-2021 SARS-CoV-2 (COVID-19 ) mRNA-1273 vaccine RENA ABRAMS MD [facility] Payers Date Payer Category Payer Medicare [id number] 2022 Unknown [id number] 2021 Unknown PRIMETIME [employer] HMO POS [id number] 2021-Present [phone] [address] [place] [address] HMO [id number] 2021 Unknown [id number] 1940 Unknown [id number] 1940 Unknown [id number] 1940 Unknown [id number] 1940 Unknown [id number] Social History Date Type Detail Facility Start: 12-18-2018 End: 09-29-2021 Never smoked tobacco (finding) [facility] Sex Assigned At [facility] Start: 01-18-2011 End: 09-29-2021 Tobacco use and exposure Smokeless tobacco non-user [facility] Start: 09-29-2021 End: 12-13-2021 Alcohol intake Lifetime non-drinker (finding) [facility] Start: 09-29-2021 History SDOH Alcohol Frequency 1 [facility] Start: 1940 Sex Assigned At Not on file [facility] Start: 08-30-2021 End: 12-13-2021 Exposure to SARS-CoV-2 (event) Not sure [facility] Medical Equipment Procedure Code Equipment Code Equipment [...] know the bone marrow biopsy done at [facility] yielded a suboptimal specimen but there [...] Jonathan Mendoza DO documented in this encounter [facility] 12-15-2021 Miscellaneous Notes Patient is aware okay [...] let her know. documented in this encounter [facility] 12-13-2021 Note HNO ID: [id number] Author: Jonathan Mendoza DO Service: ? Author Type: Physician Type: Progress Notes Filed: 12/13/2021 10:31 AM Note Text: Hematologic problem(s): 1) Macrocytic anemia. 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 Recent CBC from 09/10/2021 revealed a total white count of 7000. Differential was normal. Hemoglobin was 12.5 g/dL with a hematocrit of 36.4% and an MCV of 102.5. Platelet count was 217,000. Review of CBCs available through [facility] reveal that the patient has had mild macrocytosis dating to November 2016. At that time the MCV was 99.7. In April 2021 it was 100.5. Hemoglobin was 12.3 g/dL in November 2016 and more recently in April 2021 it was 13.4 grams per deciliter on presentation with his KS 05/17/2021. He is fatigued but feels well [...] the elderly through his local hospital in [place]. No acute illnesses since last seen. PMH, [...] edema. SKIN: No jaundice or rash. NEUROLOGIC: template maker II-XII are grossly intact. LABS: Component Latest [...] Lymph 1.00 - 4.00 k/uL 1.22 1.11 Wetzel% % 11.5 11.0 Abs Wetzel <0.87 k/uL 0.79 0.67 Eosin% % 1.9 [...] bone marrow biopsy under CT guidance at [facility]. -I will discuss if able to hold antiplatelet therapy for biopsy with his tool sharpener. -Check serum erythropoietin today. -OV after biopsy. Portions of this documentation were copied and pasted from p (more content not included)... [facility] 12-13-2021 History of Presen t illness Narrative Hematologic problem(s): 1) Macrocytic anemia. 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 Recent CBC from 09/10/2021 revealed a total white count of 7000. Differential was normal. Hemoglobin was 12.5 g/dL with a hematocrit of 36.4% and an MCV of 102.5. Platelet count was 217,000. Review of CBCs available through [facility] reveal that the patient has had mild macrocytosis dating to November 2016. At that time the MCV was 99.7. In April 2021 it was 100.5. Hemoglobin was 12.3 g/dL in November 2016 and more recently in April 2021 it was 13.4 grams per deciliter on presentation with his KS 05/17/2021. He is fatigued but feels well [...] the elderly through his local hospital in [place]. No acute illnesses since last seen. PMH, [...] edema. SKIN: No jaundice or rash. NEUROLOGIC: template maker II-XII are grossly intact. LABS: Component Latest [...] Lymph 1.00 - 4.00 k/uL 1.22 1.11 Wetzel% % 11.5 11.0 Abs Wetzel <0.87 k/uL 0.79 0.67 Eosin% % 1.9 [...] bone marrow biopsy under CT guidance at [facility]. -I will discuss if able to hold antiplatelet therapy for biopsy with his tool sharpener. -Check serum erythropoietin today. -OV after biopsy. [...] Jonathan Mendoza DO documented in this encounter [facility] 10-19-2021 Miscellaneous Notes Scheduled, confirmed appt. Called [...] is on dual antiplatelet therapy for an KS he had in April 2021 and I do not want to disrupt that therapy to perform a bone marrow biopsy at this juncture. So please call her tomorrow to arrange OV/CBC with me in mid November. Jonathan Mendoza DO Pts spouse is calling to get lab results for the 09/29/21 labs. documented in this encounter [facility] 09-30-2021 Note HNO ID: [id number] Author: Jonathan Mendoza, DO Service: ? 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 Recent CBC from 09/10/2021 revealed a total white count of 7000. Differential was normal. Hemoglobin was 12.5 g/dL with a hematocrit of 36.4% and an MCV of 102.5. Platelet count was 217,000. Review of CBCs available through [facility] reveal that the patient has had mild macrocytosis dating to November 2016. At that time the MCV was 99.7. In April 2021 it was 100.5. Hemoglobin was 12.3 g/dL in November 2016 and more recently in April 2021 it was 13.4 grams per deciliter on presentation with his KS 05/17/2021. He is fatigued but feels well [...] edema. SKIN: No jaundice or rash. NEUROLOGIC: template maker II-XII are grossly intact. ASSESSMENT/PLAN: (D64.9) Anemia, [...] which included preparing to see the patient, [id number] patient care, obtaining and/or reviewing separately obtained history, performing a medically appropriate examination, counseling and educating the patient/family/caregiver, ordering medications, tests, or procedures and communicating results to the patient/family/caregiver. Jonathan Mendoza, [facility] 08-15-2021 Hospital Discharg e instructions Patient [...] right away. Call your local emergency services (771 in the [place] Do not drive yourself [...] your urine pale yellow. General instructions Take [id number] and prescription medicines only as told by [...] right away. Call your local emergency services (701 in the [place] Do not drive yourself [...] 07/10/2006 Document Revised: 06/22/2018 Document Reviewed: 06/18/2018 Project Playlist Patient Education 2019 [facility] Follow Up Care 08/14/2021 15:57:00 With:THOMAS GAMBOA MD Address: [address] [place] [address] [place] [address]- When:08/23/2021 09:10:00 Comments:Follow up [facility] 1. Syncope 2. Mechanical fall 3. [...] be ruled out. Medical records from patient's tool sharpener last office visit was requested. During H&P [...] CAREY MD on August 15, 2021 23:36:03 [facility] ATTENDING PHYSICIAN NOTE This note was transcribed via voice recognition software and may contain typographical errors. I was present for, and personally supervised, the pickett components of the patient's evaluation and management by the [facility] house staff today. I have examined the patient and reviewed all diagnostic data. I have reviewed the note of the resident documenting the interval history obtained, examination performed, and diagnostic testing results compiled by him/her. Additional comments, if any: Thank you for above documentation and care. I have personally seen and examined the patient today. Agree with above. [facility] Evaluation note* Diagnosis Anemia, unspecified type- Primary documented in this encounter [facility] note* Diagnosis Macrocytic anemia- Primary Unspecified deficiency anemia documented in this encounter [facility] note* Diagnosis Macrocytic anemia- Primary Unspecified deficiency anemia documented in this encounter [facility] course Narrative No data available for this section [facility] Summary Purpose Family History No Family [...] CREATED AUTHOR AUTHOR'S ORGANIZ ATION 03/02/2022 [facility] DATE CREATED AUTHOR AUTHOR'S ORGANIZ ATION 03/06/2022 [facility] DATE CREATED AUTHOR AUTHOR'S ORGANIZ ATION 10/04/2022 [facility] ([place]) Source Comments (unrecognize d section and content) In the event this informatio n is protected by the Federal Confidentiality of Alcohol and Drug Abuse Patient Records regulations: The Federal rules restrict any use of the information to criminally investigate or prosecute any alcohol or drug abuse patient.[facility] the event this information is protected by the Federal Confidentiality of Alcohol and Drug Abuse Patient Records regulations: The Federal rules restrict any use of the information to criminally investigate or prosecute any alcohol or drug abuse patient.[facility] the event this information is protected by the Federal Confidentiality of Alcohol and Drug Abuse Patient Records regulations: The Federal rules restrict any use of the information to criminally investigate or prosecute any alcohol or drug abuse patient.[facility] the event this information is protected by the Federal Confidentiality of Alcohol and Drug Abuse Patient Records regulations: The Federal rules restrict any use of the information to criminally investigate or prosecute any alcohol or drug abuse patient.[facility] the event this information is protected by the Federal Confidentiality of Alcohol and Drug Abuse Patient Records regulations: The Federal rules restrict any use of the information to criminally investigate or prosecute any alcohol or drug abuse patient.[facility] the event this information is protected by the Federal Confidentiality of Alcohol and Drug Abuse Patient Records regulations: The Federal rules restrict any use of the information to criminally investigate or prosecute any alcohol or drug abuse patient.[facility] Reason for Visit (unrecogniz ed section and content) Reason Comments Established Patient Reason Comments Patient Question Reason Comments Results Bone marrow biopsy d one at [facility] Care Teams (unrecognized sec tion and content) [employer] Relationship Specialty Start Date End Date Thomas Gamboa MD [address] [place] [place] [address] PCP - General Family Practice 09/29/21 [employer] Relationship Specialty Start Date End Date Thomas Gamboa MD [address] [place] [place] [address] PCP - General Family Practice 09/29/21 [employer] Relationship Specialty Start Date End Date Thomas Gamboa MD [address] [place] [address] PCP - General Family Practice 09/29/21 [employer] Relationship Specialty Start Date End Date Thomas Gamboa MD [address] [place], [place] [id number] PCP - [facility] Practice 09/29/21 [employer] Relationship Specialty Start Date End Date Thomas Gamboa MD [address] [place], [place] [id number] PCP - [facility] Practice 09/29/21 FOR RECORDS PERTAINING TO [...] BE BASED ON THE PRIMARY CLINICAL RECORDS. [facility]. provides no warranty or guarantee of the accuracy or completeness of information in this document.
--- NOTE | 2023-08-15 08:28 | CL.D_ITS ---
Patient Name: Hilario BATISTA Study Date: 08/15/2023 Performing: Hair Sinah MD Ht: 68 inches 172.72 cm : 1940 Wt: 214.99 lbs 97.52 kg Age: 82 Gender: male BSA: 2.11 PROCEDURE(S) PERFORMED DC02-([id number])[facility] CLINICAL PROFILE AND INDICATIONS Indications: Suspected CAD, Valvular Disease Heart Failure: None Stress/Imaging Date: 07/27/23Stress Test with SPECT MPI: Positive Intermediate Risk CAD Presentations: No Sxs, no angina. CONCLUSIONS Moderate diffuse coronary disease especially involving the distal right coronary artery and the second obtuse marginal branch with previously placed stents in the circumflex artery in the LAD noted to be patent and moderate aortic stenosis with preserved ejection fraction. RECOMMENDATIONS Recommend maximization of medical therapy. DESCRIPTION OF PROCEDURE The patient arrived to the procedure lab. The risks and benefits of the procedure as well as a full description of our services here and current unavailability of surgical backup were fully explained to the patient and/or their significant other prior to the catheterization. The Timeout was completed, verifying the correct patient and procedure. The patient's procedural site was prepped and draped in the usual fashion. Local anesthetic was given subcutaneously to right radial region with Lidocaine 2%. Using a modified Seldinger technique, arterial access was obtained via the right radial artery, a 6Fr sheath was inserted. Left Coronary Artery selective angiography was performed in multiple views using a 5 Fr. 4.0 [place] catheter. Right Coronary Artery selective angiography was then performed in multiple views using a 5 Fr. 4.0 [place] catheter. LV to AO pullback pressures were then recorded.The arterial sheath was pulled and a TR Band was applied for hemostasis CORONARY ANGIOGRAPHY DOMINANCE: Right Dominant LEFT HEART ASSESSMENT Left Ventricular Ejection Fraction: by Echo 55 % Normal LV wall motion Normal Left Ventricular systolic function LEFT MAIN: Angiographically normal LEFT ANTERIOR DESCENDING ARTERY: This vessel was previously stented. It is noted to be patent with mild luminal irregularities. CIRCUMFLEX ARTERY: This vessel was noted to be stented in the mid circumflex region with a stent to be patent with 20% in-stent stenosis in the second obtuse marginal branch with an ostial 80% stenosis and mild diffuse distal disease RIGHT CORONARY ARTERY: There is a dominant vessel with mild disease noted in the proximal and mid segments in the distal right coronary artery with 60 to 70% stenosis VALVE FINDINGS: Aortic Valve Calcification - moderate Aortic Valve Stenosis - moderate COMPLICATIONS No Complications PROCEDURE MEDICATIONS Fentanyl 50 mcg IV Versed 1 mg IV Oxygen: 2 L/min via nasal cannula Heparin given IA 08/15/2023 08:10:34 Verapamil 2.5mg, Ntg 100mcgs, 3000 units of Heparin given IA 08/15/2023 08:10:34 IV Bolus: .9 NaCl 150 ml total 08/15/2023 08:26:35 SUMMARY OF HEMODYNAMIC DATA Time AIR REST ECG 07:18:47 Art 133/61 (85) 08:02:29 AO 127/43 (83) SA 08:13:47 LV 152/10, 25 08:21:14 LV 151/10, 23 08:21:27 LVp 150/9, 27 08:21:32 AOp 126/59 (83) 08:21:39 Signed By Hair Sinha MD On 08/15/2023 08:28:23 Hair Sinha MD
== END 2023-08-15 10:25 | disposition home or self-care (01) ==
PROVIDERS: Nurse Practitioner Family; PCP Family Medicine; Referring Provider Internal Medicine Cardiovascular Disease; Visit Provider Internal Medicine Cardiovascular Disease
DX: I25.10 Atherosclerotic heart disease of native coronary artery without angina pectoris (principal); I35.0 Nonrheumatic aortic (valve) stenosis; E78.2 Mixed hyperlipidemia; I10 Essential (primary) hypertension; I25.2 Old myocardial infarction; E66.9 Obesity, unspecified; Z79.82 Long term (current) use of aspirin; Z79.899 Other long term (current) drug therapy; Z95.5 Presence of coronary angioplasty implant and graft
CPT/HCPCS: 36415; 71046; 80048; 85025; 93454; 99152; 99153; J7040; Q9967; C1769; C1894

== ENCOUNTER → 2023-11-30 | Outpatient (CLI) | payer MEDICARE, SELFPAY ==
[2021-09-03 09:05] VITALS: BMI 33.9
[2023-11-30 08:12] LABS: PSA,Total- Diagnostic < 0.01 ng/mL (0.0-4.0)
== END | disposition home or self-care (01) ==
PROVIDERS: PCP Family Medicine; Referring Provider Urology; Visit Provider Urology
DX: C61 Malignant neoplasm of prostate (principal)
CPT/HCPCS: 36415; 84153

== ENCOUNTER → 2024-05-10 | Outpatient (CLI) | payer MEDICARE, SELFPAY ==
[2021-09-03 09:05] VITALS: BMI 33.9
[2024-05-10 08:51] LABS: Absolute Lymphocyte Count 1.15 X10^3/uL (0.83-4.51); Absolute Neutrophil Count 4.7 X10^3/uL (2.0-7.7); Basophil# 0.04 X10^3/uL; Basophil% 0.6 % (0-1); Eosinophil# 0.14 X10^3/uL; Hematocrit 34.1 % (40-54); Hemoglobin 11.1 g/dL (13.0-16.5); Lymphocyte # 1.15 X10^3/ul (0.83-4.51); Lymphocyte % 16.8 % (19-41); Mean Corp Hgb Conc 32.6 g/dL (32-36); Mean Corpuscular Hgb 34.2 pg (27.0-32.0); Mean Corpuscular Volume 104.9 fL (80-94); Mean Platelet Vol. 8.8 fl (6.2-12.0); Monocyte# 0.82 X10^3/uL; NRBC Flagged by Analyzer 0 % (0-5); Neutrophil # 4.65 X10^3/uL (2.7-7.7); Neutrophil % 68.2 % (47-70); Platelet Count 223 K/mm3 (150-450); RBC Distribution Width CV 12.5 % (11.6-14.6); RBC Distribution Width SD 48.4 fl (35.1-43.9); Red Blood Count 3.25 M/mm3 (4.6-6.2); White Blood Count 6.8 K/mm3 (4.4-11.0)
[2024-05-10 09:40] LABS: AST(SGOT) 20 U/L (15-37); Alanine Aminotransfer ALT/SGPT 16 U/L (16-61); Albumin, Serum 3.5 g/dL (3.2-5.0); Alkaline Phosphatase 81 U/L (45-117); Anion Gap 6 (5-15); BUN 20 mg/dL (7-18); BUN/Creat Ratio 14.7 RATIO (10-20); Calcium,Total 9.2 mg/dL (8.5-10.1); Chloride 108 mmol/L (98-107); Cholesterol 106 mg/dL (200); Creatinine, Serum 1.36 mg/dL (0.70-1.30); EST Glomerular Filtration Rate 53 mL/min (>60); Est Glom Filt Rate - Afr Amer 64 mL/min (>60); Globulin 3.4 g/dL (2.2-4.2); Glucose 102 mg/dL (74-106); High Density Lipoprotein 42 mg/dL; PSA,Total - Annual Screen < 0.01 ng/mL (0.00-4.00); Potassium 4.7 mmol/L (3.5-5.1); Protein, Total 6.9 g/dL (6.4-8.2); Sodium Level 138 mmol/L (136-145); Triglycerides 92 mg/dL; Very Low Density Lipoprotein 18 mg/dL (5-40)
[2024-05-10 10:24] LABS: Vitamin B12 671 pg/mL (211-911)
== END | disposition home or self-care (01) ==
PROVIDERS: PCP Family Medicine; Referring Provider Family Medicine; Visit Provider Family Medicine
DX: N18.30 Chronic kidney disease, stage 3 unspecified (principal); D53.9 Nutritional anemia, unspecified; Z13.220 Encounter for screening for lipoid disorders; Z12.5 Encounter for screening for malignant neoplasm of prostate
CPT/HCPCS: 36415; 80053; 80061; 82607; 84153; 85025; G0103

== ENCOUNTER 2024-05-19 14:40 | Emergency (ER) | payer MEDICARE, SELFPAY ==
[2021-09-03 09:05] VITALS: BMI 33.9
[2024-05-19] VITALS (23 sets, daily range): BP systolic 107–137; BP diastolic 54–86; PULSE 72–86; RESP 16–28; TEMP 36.6–36.9; O2SAT 88–98; BMI 32.1
--- NOTE | 2024-05-19 14:52 | CT_ITS ---
INDICATION: pleuritic chest/epigastric pain EXAMINATION: CTA CHEST, ABDOMEN AND PELVIS WITH CONTRAST - TECHNIQUE: A CTA of the chest, abdomen, and pelvis is obtained with sagittal and coronal reconstructed MIP views. Three-dimensional surface rendered sequence of the thoracic and abdominal aorta was obtained. The protocol utilizes one or more of the following dose reduction techniques: automated exposure control, adjustment of mA and/or kV according to patient size,and/or use of iterative reconstruction technique. mL of Isovue-370. Oral contrast: None. RADIATION DOSAGE (If Supplied By Facility): CTDIvol = ( 17.48 ) mGy, DLP = ( 1436.50 ) mGycm COMPARISON: FINDINGS: CT CHEST: THORACIC AORTA: No atheromatous disease, no aneurysmal changes or dissection. ABDOMINAL AORTA: No aneurysm or dissection. Mildly calcified aorta and iliac arteries. 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 LUNGS: The lungs are well-expanded without acute or chronic changes. Right pulmonary calcified granulomas. Pleural based calcifications bilaterally. No effusions or pneumothorax. MEDIASTINUM: The thyroid gland is normal. No mediastinal or hilar adenopathy. HEART: Heart is normal size. No pericardial effusion. No CAD. CT ABDOMEN AND PELVIS: LIVER: The liver enhances homogeneously. No masses identified. GALLBLADDER: The CBD is normal. Status post cholecystectomy. SPLEEN: Normal. PANCREAS: No masses or inflammation. ADRENAL GLANDS: Normal. KIDNEYS AND URETERS: The kidneys both enhance appropriately. There are normal size and shape. No hydronephrosis or nephrolithiasis. No renal masses or cysts. STOMACH: Normal. SMALL BOWEL: No abnormal distention of the small bowel. MESENTERY: No mesenteric inflammation. No ascites. COLON: No significant diverticulosis, masses or inflammation. The colon otherwise is normal. There is a large fatty ileocecal valve. APPENDIX: The appendix is visualized and normal. IVC: Normal. RETROPERITONEUM: No retroperitoneal lymphadenopathy. PELVIC STRUCTURES: Normal bladder. SOFT TISSUES ABDOMEN: The anterior abdominal wall is normal. SOFT TISSUE CHEST: The extrathoracic soft tissues are normal. BONES: No fractures or significant degenerative disease. CT/CTA Chst, Abd, Pel W and/or WO IMPRESSION: No aneurysm or dissection of the abdominal aorta. 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 Pleural-based calcifications bilaterally. Electronically Signed: Adam Cano DO at 17:08 EDT ,
--- NOTE | 2024-05-19 14:55 | EKG12_ITS ---
Test Reason : CP/SOB Blood Pressure : / mmHG Vent. Rate : 072 BPM Atrial Rate : 072 BPM P-R Int : 292 ms QRS Dur : 126 ms QT Int : 412 ms P-R-T Axes : 066 -45 -13 degrees QTc Int : 451 ms Sinus rhythm with sinus arrhythmia with 1st degree A-V block Right bundle branch block Left anterior fascicular block Bifascicular block Minimal voltage criteria for LVH, may be normal variant ( R in aVL ) Abnormal ECG Confirmed by PIPPA CARMONA, MARLENE ([id number]), dictionary editor YESENIA HOUSER ([id number]) on 05/21/2024 7:51:21 AM Referred By: BB Confirmed By:MARLENE DAS MD
--- NOTE | 2024-05-19 14:56 | EDS_ITS ---
HPI History of Present Illness Chief Complaint: Chest Pain Informant: patient, spouse/S.O. and family Onset/Context/Timing Onset: Hours (4-5) Activity at onset: sudden, onset, activity on onset and rest (Sitting in chair) Timing: Continuous Quality: Positive for Sharp Location: - (Lower substernal/epigastric) Current Severity: Moderate Maximum Severity: Severe Worsened By: Movement of Torso and Breathing Relieved By: Nothing (Took Tums earlier for what felt like indigestion, then later and nitroglycerin, as well as his usual medications) Associated Symptoms: Positive for Nausea (Brief, gone and no vomiting), Dyspnea ( A little ) and Acid Reflux ([place] like he had some indigestion earlier this morning before this starting. Had toast for breakfast.); Negative for Diaphoresis, Cough, Fever, Lightheadedness or Palpitations Narrative Narrative: Patient states pain has been waxing and waning is little better here as well as his breathing which was a little off earlier, he states the pain is not completely gone away since it started for 5 hours ago, states he had a heart attack 2 years ago but this feels different. Initially complained of chest discomfort now/today. Does not radiate into his back or arm or jaw. [facility] Medical History Right bundle branch block (RBBB) Macrocytic anemia Femur fracture, left Nonrheumatic aortic (valve) stenosis Accident due to mechanical fall without injury (07/2021) Hyperlipidemia Essential hypertension Atherosclerotic heart disease of [place] coronary artery without angina pectoris Prostate cancer Home Medications ?Medication ?Instructions ?Recorded ?Last Taken ?Type aspirin 81 mg tablet,delayed 81 mg PO BREAKFAST #1 TAB 05/19/21 08/15/23 Rx release nitroglycerin 0.4 mg sublingual 0.4 mg sublingual Q5-15M PRN Chest 06/16/21 Unknown History tablet Pain esomeprazole magnesium 40 mg 40 mg PO DAILY OK to take Nexium 06/23/21 Unknown Rx capsule,delayed release (Nexium) with Plavix per Dr. Sinha #1 cap biotin 5 mg tablet 5 mg PO DAILY 09/15/21 Unknown History cholecalciferol (vitamin D3) 50 50 mcg PO DAILY 09/15/21 Unknown History mcg (2,000 unit) tablet multivitamin 1 tab PO DAILY 09/15/21 Unknown History melatonin 3 mg capsule 3 mg PO HS PRN sleep 09/28/22 Unknown History atorvastatin 20 mg tablet 20 mg PO QHS #90 tabs 05/15/23 Unknown Rx docusate sodium 100 mg tablet 100 mg PO DAILY 06/29/23 Unknown History gabapentin 300 mg capsule 300 mg PO TID 06/29/23 Unknown History oxycodone-acetaminophen 5 mg-325 1 tab PO ONCE PRN pain 06/29/23 Unknown History mg tablet lisinopril 5 mg tablet 5 mg PO DAILY #90 tabs 04/16/24 Unknown Rx metoprolol tartrate 25 mg tablet 25 mg PO BID #180 tabs 04/16/24 Unknown Rx Allergy/AdvReac Type Severity Reaction Status Date / Time amoxicillin (From Augmentin) Allergy Hives Verified 05/19/24 14:40 clavulanic acid (From Allergy Hives Verified 05/19/24 14:40 Augmentin) Surgical History History of surgery on lower extremity (12/2021) History of carpal tunnel surgery of right wrist History of ankle surgery History of open reduction and internal fixation (ORIF) procedure History of cholecystectomy History of tonsillectomy History of coronary artery stent placement (05/18/21) Social History Smoking Status: Never smoker alcohol intake: never substance use type: does not use caffeine: Yes Type: coffee Number of servings: 2 ROS ROS ED Constitutional Constitutional ED: Denies chills or fever(s) Eyes Eyes: Denies change in vision or diplopia ENT ENT ED: Denies rhinorrhea or sore throat Cardiovascular Cardiovascular: Reports as per HPI and chest pain; Denies palpitations Respiratory/Chest Respiratory/Chest: Reports dyspnea; Denies cough Gastrointestinal Gastrointestinal: Reports abdominal pain and nausea; Denies diarrhea or vomiting Genitourinary Genitourinary ED: Denies dysuria or hematuria Musculoskeletal Musculoskeletal: Denies back pain or neck pain Integumentary Denies abscess or rash Neurologic Neurologic: Denies headache(s), paresthesias or weakness Psychiatric Psychiatric: Denies anxiety or suicidal thoughts EXAM Physical Exam Const Vital Signs: 05/19/24 14:40 05/19/24 15:40 05/19/24 15:43 Temperature 98.5 F Temperature Source Oral Pulse Rate 74 73 75 Respiratory Rate 16 18 23 H Blood Pressure 137/66 H 134/86 H Blood Pressure Mean 89 102 Pulse Ox 98 91 92 Oxygen Delivery Method Room Air Room Air Oxygen Flow Rate (L/min) 05/19/24 15:45 05/19/24 16:00 05/19/24 16:00 Temperature Temperature Source Pulse Rate 72 77 80 Respiratory Rate 22 H 23 H 20 H Blood Pressure 137/65 H 124/66 H 124/66 H Blood Pressure Mean 87 85 84 Pulse Ox 95 Oxygen Delivery Method Oxygen Flow Rate (L/min) 05/19/24 16:15 05/19/24 16:30 05/19/24 16:31 Temperature Temperature Source Pulse Rate 86 Respiratory Rate 22 H Blood Pressure 116/61 130/82 H Blood Pressure Mean 76 98 Pulse Ox Oxygen Delivery Method Oxygen Flow Rate (L/min) 05/19/24 16:45 05/19/24 16:49 05/19/24 16:50 Temperature Temperature Source Pulse Rate 78 Respiratory Rate 19 H Blood Pressure Blood Pressure Mean Pulse Ox 89 88 94 Oxygen Delivery Method Room Air Nasal Cannula Oxygen Flow Rate (L/min) 2 05/19/24 17:00 05/19/24 17:15 05/19/24 17:30 Temperature Temperature Source Pulse Rate 79 77 78 Respiratory Rate 22 H 24 H 28 H Blood Pressure 134/64 H 123/76 H 111/77 Blood Pressure Mean 83 91 90 Pulse Ox 97 97 95 Oxygen Delivery Method Oxygen Flow Rate (L/min) 05/19/24 17:41 05/19/24 17:45 05/19/24 18:00 Temperature Temperature Source Pulse Rate 80 78 Respiratory Rate 20 H 22 H Blood Pressure 131/60 H 134/69 H Blood Pressure Mean 76 87 Pulse Ox 92 92 92 Oxygen Delivery Method Room Air Oxygen Flow Rate (L/min) 05/19/24 18:15 05/19/24 18:15 05/19/24 18:30 Temperature Temperature Source Pulse Rate 83 83 82 Respiratory Rate 22 H 22 H 18 Blood Pressure 131/54 H 129/79 H Blood Pressure Mean 75 87 Pulse Ox 92 92 95 Oxygen Delivery Method Oxygen Flow Rate (L/min) 05/19/24 18:45 05/19/24 18:46 05/19/24 19:00 Temperature Temperature Source Pulse Rate 82 81 83 Respiratory Rate 22 H 24 H 20 H Blood Pressure 118/62 133/75 H Blood Pressure Mean 81 93 Pulse Ox 92 92 96 Oxygen Delivery Method Oxygen Flow Rate (L/min) Positive well nourished, well developed and obese General Appearance ED: well developed and NAD Nutritional Appearance: obese HEENT Reports moist mucous membranes normocephalic and atraumatic Eyes PERRL and EOMs intact bilaterally Neck full ROM and supple Chest Wall inspection of chest normal and palpation of chest normal Chest: tenderness xiphoid process Resp normal respiratory effort and clear to auscultation bilaterally Cardio regular rate, regular rhythm and no murmurs GI non-distended GI Narrative: Tender epigastrium, no other areas of tenderness. No pulsatile mass. No Bruce sign. No distention. No guarding or rebound. Auscultation: normoactive bowel sounds Palpation: soft Back/Spine no CVA tenderness General Back: other FROM Extremity normal to inspection General Extremety ED: Negative for edema, pulses abnormal or tenderness General Extremity: Negative for edema or pulses abnormal Neuro oriented x3, CN's II-XII intact bilaterally and no sensory deficits noted Sensorium / Orientation: awake and alert Motor Exam: strength 5/5 throughout Skin no rashes or lesions noted and no wounds MDM MDM MDM Narrative Medical decision making narrative: I had the patient reach across the bed with his contralateral upper extremity and grabbed the rail which exacerbated the pain. He does not have Weaver sign or [place] sign, but the majority of his tenderness is in the epigastrium, in addition to the xiphoid process. Since it started all of a sudden the rest he has done no exertional activities lately does not make sense that this is just a chest wall strain. Therefore, to evaluate him for emergent etiologies, performing CTA of the chest to rule out PE and a CTA of the abdomen/pelvis in order to rule out dissection. In addition to this, obtained an EKG which shows nothing acute, labs, and plan to do a troponin with a 2-hour delta if first is negative, while treating his pain w/ morphine. This was all done. 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 I reviewed the CT a of the chest/abdomen/pelvis, and I agree with the radiology results. It is negative for any acute including aneurysm or dissection. On reevaluation patient is feeling better but still has discomfort. We treated him with a GI cocktail in case this was intraluminal, and he states that really helped to resolve all of the symptoms quickly, suggesting intraluminal etiology. Additionally, patient was getting up out of bed to urinate, and he was dyspneic with little exertion, transiently hypoxemic in the mid-high 80s, with quick recovery within 1-1.5 minutes with regards to symptoms and pulse oximetry without the need for oxygen. When discussing this with the patient and family, this has been chronic. He has been dyspneic with little exertion for a long time. 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 Given all of this I do not think he needs to be emergently admitted to sound like a chronic issue that we are measuring with regards to his oxygen levels. He needs to follow-up closely may be have some pulmonary function test but the CTA of the chest does not show the reason for his hypoxemia, suggesting maybe he has some type of interstitial restrictive lung disease. Discussed all this with patient and family they are comfortable with that plan. Lab Data Attestation: I reviewed the patient's lab results. Labs: Laboratory Results - last 24 hr 05/19/24 05/19/24 15:00 17:11 WBC 10.2 RBC 3.44 L Hgb 11.7 L Hct 36.0 L MCV 104.7 H MCH 34.0 H MCHC 32.5 RDW Std Deviation 47.1 H RDW Coeff of Sinan 12.2 Plt Count 207 MPV 8.4 Immature Gran % (Auto) 0.600 Neut % (Auto) 75.8 H Lymph % (Auto) 9.9 L [place] % (Auto) 12.6 H Eos % (Auto) 0.7 Baso % (Auto) 0.4 Absolute Neuts (auto) 7.7 Absolute Lymphs (auto) 1.01 Nucleated RBC % 0 Sodium 136 Potassium 4.5 Chloride 106 Carbon Dioxide 25.0 Anion Gap 4 L BUN 20 H Creatinine 1.16 Estim Creat Clear Calc 54.14 Est GFR (MDRD) Af Amer 77 Est GFR (MDRD) Non-Af 64 BUN/Creatinine Ratio 17.2 Glucose 110 H Calcium 8.9 Total Bilirubin 0.50 AST 13 L ALT 16 Alkaline Phosphatase 78 Troponin I High Sens 33 26 Total Protein 7.2 Albumin 3.5 Globulin 3.7 Albumin/Globulin Ratio 0.9 Lipase 12 L Radiography Diagnostic Testing: Clinical Impression(s) from Imaging Studies Chest/Abdomen/Pelvis CTA 05/19/24 14:52 IMPRESSION: No aneurysm or dissection of the abdominal aorta. 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 Pleural-based calcifications bilaterally. Electronically Signed: Adam Cano DO at 17:08 EDT Reading Location ID and State: [facility] / [place] Tel [phone], Service support , Rhythm Strip Rhythm Strip: Sinus Rhythm Rate: 72 Ectopy: None EKG Initial EKG: Attestation: I personally reviewed and interpreted this EKG as follows: Interpretation: Sinus Rhythm, No Acute Injury Pattern, RBBB and LAFB Prior EKG tracings: available for review Prior: Unchanged Discharge Plan Triage Chief Complaint: Chest Pain ED Provider: Ab Rodriguez Dx/Rx/DC Orders Clinical Impression: Chest pain, non-cardiac, Acute epigastric pain, Dyspnea on exertion Instructions: ED Chest Pain, Noncardiac, ED Dyspnea, ED GERD (Adult) Prescriptions: No Action nitroglycerin 0.4 mg tablet, sublingual 0.4 mg sublingual Q5-15M PRN (Reason: Chest Pain) Rx Instructions: do not exceed 3 doses per episode multivitamin Tablet 1 tab PO DAILY cholecalciferol (vitamin D3) 50 mcg (2,000 unit) tablet 50 mcg PO DAILY biotin 5 mg tablet 5 mg PO DAILY gabapentin 300 mg capsule 300 mg PO TID melatonin 3 mg capsule 3 mg PO HS PRN (Reason: sleep) docusate sodium 100 mg tablet 100 mg PO DAILY oxycodone-acetaminophen 5-325 mg tablet 1 tab PO ONCE PRN (Reason: pain) lisinopril 5 mg tablet 5 mg PO DAILY Qty: 90 3RF metoprolol tartrate 25 mg tablet 25 mg PO BID Qty: 180 3RF aspirin 81 mg Tablet,Delayed Release (Dr/Ec) 81 mg PO BREAKFAST Qty: 1 0RF esomeprazole magnesium [Nexium] 40 mg capsule,delayed release(DR/EC) 40 mg PO DAILY Qty: 1 0RF atorvastatin 20 mg tablet 20 mg PO QHS Qty: 90 3RF Primary Care Provider: Rodolfo Gamboa Referrals: Rodolfo Gamboa MD [Primary Care Provider] - As soon as possible Activity Restrictions/Additional Instructions: If you are feeling short of breath with activities, rest until it gets better and do not continue to push yourself. If you have recurrent symptoms you may try Maalox or Mylanta initially for the chest/upper abdominal discomfort. If it does not help you were in severe pain return to the ER. You did NOT have a hiatal hernia on your imaging. Print Language: [place] Disposition Disposition: Home, Self Care
[2024-05-19] MEDS: Morphine 2 MG/ML Syringe IV (15:02)
[2024-05-19] MEDS: Ondansetron 4 MG/2 ML Vial IV (15:02)
[2024-05-19 15:07] LABS: Absolute Lymphocyte Count 1.01 X10^3/uL (0.83-4.51); Absolute Neutrophil Count 7.7 X10^3/uL (2.0-7.7); Basophil# 0.04 X10^3/uL; Basophil% 0.4 % (0-1); Eosinophil# 0.07 X10^3/uL; Eosinophils% 0.7 % (0-5); Hemoglobin 11.7 g/dL (13.0-16.5); Lymphocyte # 1.01 X10^3/ul (0.83-4.51); Lymphocyte % 9.9 % (19-41); Mean Corp Hgb Conc 32.5 g/dL (32-36); Mean Corpuscular Volume 104.7 fL (80-94); Mean Platelet Vol. 8.4 fl (6.2-12.0); Monocyte# 1.28 X10^3/uL; Monocyte% 12.6 % (0-10); NRBC Flagged by Analyzer 0 % (0-5); Neutrophil # 7.71 X10^3/uL (2.7-7.7); Neutrophil % 75.8 % (47-70); Platelet Count 207 K/mm3 (150-450); RBC Distribution Width CV 12.2 % (11.6-14.6); RBC Distribution Width SD 47.1 fl (35.1-43.9); Red Blood Count 3.44 M/mm3 (4.6-6.2); White Blood Count 10.2 K/mm3 (4.4-11.0)
--- OUTSIDE RECORDS SUMMARY | 2024-05-19 15:09 | XMS RPT_ITS | CCD ---
Author Organization [facility] Care Team Providers Care Director Patient Financial Services Name Role Phone THALIA CARMONA, RODOLFO Boyer Primary Care Physician [phone] Rodolfo Gamboa MD Primary Care Provider RODOLFO GAMBOA Admitting Unavailable RODOLFO GAMBOA Attending Unavailable RODOLFO GAMBOA Primary Care Unavailable NIXON VALLE Consulting Unavailable PROVIDER, UNKNOWN Consulting Unavailable PROVIDER, UNKNOWN Consulting Unavailable PROVIDER, UNKNOWN Consulting Unavailable RODOLFO GAMBOA Admitting Unavailable RODOLFO GAMBOA Attending Unavailable RODOLFO GAMBOA Primary Care Unavailable RODOLFO GAMBOA Consulting Unavailable PROVIDER, UNKNOWN Consulting Unavailable PROVIDER, UNKNOWN Consulting Unavailable PROVIDER, UNKNOWN Consulting Unavailable Thalia CARMONA, Rodolfo Bunch Primary Care Provider VICKY CARMONA, DR PAKO Roy Attending Unavail kodi GAMBOA MD, RODOLFO Boyer Primary Care Unavailable THALIA CARMONA, RODOLFO Boyer Primary Care Unavailable VICKY CARMONA, DR PAKO Roy Admitting Unavail kodi PERRY MD, DR PAKO Roy Attending Unavail able HOSPIT[facility]IA VILLALTA Consulting Unavailable MELISSA CARMONA, SHEYLA Rich Consulting Unavailable JOSE ALBERTO CARMONA, RENA Olson Consulting Unavailable VICKY CARMONA, DR PAKO Roy Attending Unavail kodi GAMBOA MD, RODOLFO Boyer Primary Care Unavailable Allergies Allergy Classification Reported Allergen(s) Allergy Type Date of Onset Reaction(s) Facility (7 sources) Amoxicillin / Clavulanate; Translations: [amoxicillin-cla vulanate] Drug Allergy 01-18-2011 [facility] (1 source) Amoxicillin Drug Allergy [facility] Repository Medications Current Medications Medication Drug Class(es) Dates Sig (Normalized) Sig (Original) Aspirin (7 sources) Platelet Aggregation Inhibitor, Nonsteroidal Anti-inflammatory Drug Start: 08-14-2021 take 1 tablet by mouth at breakfast aspirin 81 mg oral delayed release tablet Dose : 81 mg =, Oral, with breakfast Start Date: 08/14/21 Status: Ordered Start: 05-19-2021 aspirin, enter ic coated (ASPIRIN, ENTERIC COATED) 81 mg EC tablet 81 mg once daily. 0 05/19/2021 Active Comment on above: 81 mg once daily. atorvastatin 40 mg oral tablet (7 sources) HMG-CoA Reductase Inhibitor Start: 08-14-19 take 1 tablet by mouth once daily at bedtime atorvastatin 40 mg oral tablet Dose : 40 mg =, Oral, qHS Start Date: 08/14/21 Status: Ordered Comment on above: Take 40 mg by mouth once daily. Cholecalciferol (1 source) Vitamin D Start: 08-14-19 cholecalciferol 125 mcg (5000 intl units) oral capsule Dose : 125 mcg = 1 cap(s), Oral, qDay Start Date: 08/14/21 Status: Ordered clopidogrel 75 mg oral tablet (7 sources) P2Y12 Platelet Inhibitor Start: 08-14-19 take 1 tablet by mouth once daily Plavix 75 mg oral tablet Dose : 75 mg =, Oral, qDay Start Date: 08/14/21 Status: Ordered Comment on above: Take 75 mg by mouth once daily. docusate sodium 100 mg oral capsule (7 sources) Start: 08-14-19 take 1 capsule by mouth once daily docusate sodium 100 mg oral capsule Dose : 100 mg =, Oral, qDay, 0 Refill(s) Start Date: 08/14/21 Status: Ordered docusate sodium (STOOL SOFTENER ORAL) Take by mouth once daily. 0 Active Comment on above: Take by mouth once d aily. famotidine 40 mg oral tablet (4 sources) Histamine-2 Receptor Antagonist Start: 2021 End: 2021 take 1 tablet by mouth once daily famotidine 40 mg oral tablet Dose : 40 mg =, Oral, qDay Start Date: 08/14/21 Status: Ordered Comment on above: Take 40 mg by mouth once daily. hydroCHLOROthiazide 25 mg oral tablet (7 sources) Thiazide Diuretic Start: 2021 hydroCHLOROthiazide 25 mg oral tablet Dose : 12.5 mg = 0.5 tab(s), Oral, qDay, 0 Refill(s) Start Date: 08/14/21 Status: Ordered Start: 01-18-2011 hydrochlorothi azide 25 mg ORAL tablet Take 12.5 mg by mouth once daily. 0 01/18/2011 Active Comment on above: Take 12.5 mg by mout h once daily. lisinopril 5 mg oral tablet (7 sources) Angiotensin Converting Enzyme Inhibitor Start: 08-14-19 take 1 tablet by mouth once daily lisinopril 5 mg oral tablet Dose : 5 mg =, Oral, qDay Start Date: 08/14/21 Status: Ordered Comment on above: Take 5 mg by mouth o nce daily. metoprolol tartrate 25 mg oral tablet (7 sources) beta-Adrenergic Carmita Start: 08-14-19 metoprolol tartrate 25 mg oral tablet Dose : 25 mg = 1 tab(s), Oral, BID Start Date: 08/14/21 Status: Ordered Comment on above: Take 25 mg by mouth twice daily. NexIUM 40 mg oral delayed release capsule (1 source) Start: 08-14-19 take 1 capsule by mouth once daily at bedtime NexIUM 40 mg oral delayed release capsule Dose : 40 mg =, Oral, qHS Start Date: 08/14/21 Status: Ordered nitroglycerin 0.4 mg sublingual tablet (1 source) Start: 08-14-19 nitroglycerin 0.4 mg sublingual tablet 0.4 mg Dose = 1 tab(s), Sublingual, q5min, PRN as needed for chest pain, No more than 3 doses, 0 Refill(s) Start Date: 08/14/21 Status: Ordered oxyCODONE hydrochloride 5 mg oral tablet (1 source) Opioid Agonist Start: 08-16-19 End: 08-19-19 oxyCODONE 5 mg oral tablet ( IMMEDIATE release ) Dose : 5 mg = 1 tab(s), Oral, q8hr, PRN for pain, X 3 day(s), # 7 tab(s), 0 Refill(s), 08/19/21 11:25:00 EST, Pharmacy: [facility], Pain, 172.7, cm, 08/14/21 21:24:00 EST, Height, 109.3, kg, 08/14/21 21:24:00 EST, Dosing Weight Start Date: 08/16/21 Stop Date: 08/19/21 Status: Ordered Completed/Discontinued Medications Medication Drug Class(es) Dates Sig (Normalized) Sig (Original) acetaminophen 325 mg / oxyCODONE hydrochloride 2.5 mg oral tablet (7 sources) Opioid Agonist Start: 08-14-2021 acetaminophen-oxyc odone 325 mg-2.5 mg oral tablet 1-2 tabs, Oral, q6h, PRN Pain, 0 Refill(s), 109.3 Start Date: 08/14/21 Status: Ordered take 1 tablet by samaria th every eight hours as needed oxyCODONE-acetaminophen (PERCOCET) 5-325 mg tablet Take 1 tablet by mouth every 8 hours as needed for pain. 0 Active Comment on above: Take 1 tablet by samaria th every 8 hours as needed for pain. atropine sulfate 0.0194 mg / hyoscyamine sulfate 0.1037 mg / PHENobarbital 16.2 mg / scopolamine hydrobromide 0.0065 mg oral tablet (3 sources) Anticholinergic, Cholinergic Muscarinic Antagonist Start: End: take 1 tablet by mouth every six hours as needed uyejgfhsl-pnmene-lyua pine-scop () 16.2-0.1037 -0.0194 mg ORAL per tablet Take 1 tablet by mouth every 6 hours as needed. 0 01/18/2011 12/13/2021 Discontinued Comment on above: Take 1 tablet by samaria th every 6 hours as needed. biotin 5 mg oral capsule (6 sources) take 5 mg by mouth once daily biotin 5 mg caspule Take 5 mg by mouth once daily. 0 Active Comment on above: Take 5 mg by mouth o nce daily. cholecalciferol, vitamin D3, (VITAMIN D3 ORAL) (6 sources) cholecalciferol, vitamin D3, (VITAMIN D3 ORAL) Take by mouth once daily. 0 Active Comment on above: Take by mouth once d aily. esomeprazole 40 mg delayed release oral capsule (6 sources) Proton Pump Inhibitor Start: 011 take 1 capsule by mouth once daily esomeprazole (NEXIUM) 40 mg ORAL capsule Take 1 capsule by mouth once daily. 0 01/18/2011 Active Comment on above: Take 1 capsule by mo [facility] once daily. methscopolamine bromide 5 mg oral tablet (3 sources) Anticholinergic Start: End: take 1 tablet by mouth once daily at bedtime Methscopolamine [place] (PAMINE FORTE) 5 mg ORAL tablet Take 1 tablet by mouth daily at bedtime. 0 01/18/2011 12/13/2021 Discontinued Comment on above: Take 1 tablet by samaria th daily at bedtime. Multivitamin capsule (6 sources) Start: Multivitamin capsule Take by mouth once daily. 0 09/15/2021 Active Comment on above: Take by mouth once d aily. nitroglycerin 0.4 mg sublingual tablet (6 sources) Nitrate Vasodilator nitroglyceri n sublingual (NITROSTAT) 0.4 mg SL tablet Dissolve 0.4 mg under the tongue every 5 minutes as needed. 0 Active Comment on above: Dissolve 0.4 mg unde r the tongue every 5 minutes as needed. tamsulosin hydrochloride 0.4 mg oral capsule (3 sources) alpha-Adrenergic Carmita Start: End: take 1 capsule by mouth once daily at bedtime tamsulosin (FLOMAX) 0.4 mg ORAL Cp24 Take 1 capsule by mouth daily at bedtime. 30 capsule 0 01/18/2011 12/13/2021 Discontinued Comment on above: Take 1 capsule by mo uth daily at bedtime. ticagrelor 90 mg oral tablet (3 sources) End: ticagrelor (BRILINTA) 90 mg tablet Take 90 mg by mouth. 0 12/13/2021 Discontinued Comment on above: Take 90 mg by mouth. zolpidem tartrate 10 mg oral tablet (3 sources) gamma-Aminobutyric Acid-ergic Agonist Start: End: take 1 tablet by mouth every twenty-four hours as needed zolpidem (AMBIEN) 10 mg ORAL Tab Take 1 tablet by mouth at bedtime as needed. FOR INSOMNIA 0 01/18/2011 12/13/2021 Discontinued Comment on above: Take 1 tablet by samaria th at bedtime as needed. FOR INSOMNIA Problems Active Problems Problem Classification Problem Date [...] Results Test Name Value Interpretation Reference Range Facility BONE DENSITY STUDYon 022 Bone density scan [address] [address] Patient: Hilario BATISTA Phone#: : [phone] Age: 81 Gender: M Pt. Type: Out Account: [id number] Location: 052 Ordering: NIXON VALLE Exam Date: 03/01/2022/11:22 Family Phys: RODOLFO GAMBOA Charge Code: 008209 Physician: [place] Order #: [id number] DLP Dose#: PROCEDURE: BONE DENSITY STUDY TECHNIQUE: Lumbar vertebral and wrist dual-energy X-ray absorptiometry (DXA) was performed on a central [email or web address] device. SPINE ANALYSIS RESULTS: Average lumbar bone mineral density (BMD) (g/cm2): 1.272 Lumbar T-score (standard deviation relative to young adult mean BMD): 0.8 Lumbar Z-score (standard deviation relative to age matched control group): 0.4 SPINE CLASSIFICATION: Normal (T-score > -1.0). WRIST ANALYSIS RESULTS: Average wrist bone mineral density (BMD) (g/cm2): 0.481 Wrist T-score (standard deviation relative to young adult mean BMD): (Wrist) -3.2 Wrist Z-score (standard deviation relative to age matched control group): (Wrist) -2.8 WRIST CLASSIFICATION OSTEOPENIA. Note: The 2007 International Society for Clinical Densitometry (ISCD) Official Positions state that osteoporosis in fatuma-menopausal and post-menopausal women and in men age 50 and older may be diagnosed if the T-score of the lumbar spine, total hip, or femoral neck is -2.5 or less. Hip BMD is reported from the femoral neck or total proximal femur whichever is lowest. In pre-menopausal women and in men younger than age 50, T-scores may be used but Z-scores are preferred. In this patient group, a Z-score of -2.0 or lower is defined as below the expected range for age. FRAX is a computer-based algorithm which uses easily obtained clinical risk factors combined with femoral neck BMD or T-score to estimate an individual 10-year fracture probability. FRAX with BMD predicts fracture risk better than clinical risk factors or BMD alone. It is not appropriate to use FRAX to monitor treatment response. ADDITIONAL FINDINGS: No significant additional findings. Continued Report - Page 2 of 2 Patient: Hilario BATISTA Phone#: : [phone] Age: 81 Gender: M Pt. Type: Out Account: [id number] Location: 052 Ordering: NIXON VALLE Exam Date: 03/01/2022/11:22 Family Phys: RODOLFO GAMBOA Charge Code: 875047 Physician: [place] Order #: [id number] DLP Dose#: Dictated by: Larisa Wheeler MD on 03/01/2022 at 11:52 Approved by: Larisa Wheeler MD on 03/01/2022 at 11:57 Normal [facility] .Auto Diffon 01-21-2022 Basophil, Absolute 0.0 10 3/mcL Normal 0.0-0.3 [facility] ([place]) Comment on above: Performed By: #### B MP, GFR #### [address] [address] Basophils/100 WBC (Bld) 0.2 % Normal 0.0-2.5 [facility] ([place]) Comment on above: Performed By: #### B MP, GFR #### [address] [address] Eosinophil, Absolute 0.0 10 3/mcL Normal 0.0-0.7 [facility] ([place]) Comment on above: Performed By: #### B MP, GFR #### [address] [address] Eosinophils/100 WBC (Bld) 0.2 % Normal 0.0-6.0 [facility] ([place]) Comment on above: Performed By: #### B MP, GFR #### [address] [address] Lymphocyte, Absolute 1.1 10 3/mcL Normal 0.9-4.3 [facility] ([place]) Comment on above: Performed By: #### B MP, GFR #### [address] [address] Lymphocytes/100 WBC (Bld) 10.0 % Low 20.0-40.0 [facility] ([place]) Comment on above: Performed By: #### B MP, GFR #### [address] [address] Monocyte, Absolute 1.5 10 3/mcL High 0.1-1.4 [facility] ([place]) Comment on above: Performed By: #### B MP, GFR #### [address] [address] Monocytes/100 WBC (Bld) 13.4 % High 2.0-13.0 [facility] ([place]) Comment on above: Performed By: #### B MP, GFR #### [address] [address] Neutrophils/100 WBC (Bld) 76.2 % High 50.0-75.0 [facility] ([place]) Comment on above: Performed By: #### B MP, GFR #### [address] [address] .GFRon 01-21-2022 GFR Non- 54 ml/min/1.73sqm Normal [facility] ([place]) Comment on above: Result Comment: GFR Population mean for , Non- Americans Ages 20-29 = 116 mL/min/1.73 sq.m. Ages 30-39 = 107 mL/min/1.73 sq.m. Ages 40-49 = 99 mL/min/1.73 sq.m. Ages 50-59 = 93 mL/min/1.73 sq.m. Ages 60-69 = 85 mL/min/1.73 sq.m. Ages 70+ = 75 mL/min/1.73 sq.m. Chronic Kidney Disease: Less than 60 mL/min/1.73 square meters End Stage Renal Disease: Less than 15 mL/min/1.73 square meters Performed By: #### B MP, GFR #### [address] [address] GFR >60 Normal [facility] ([place]) Comment on above: Result Comment: GFR Population mean for , Non- Americans Ages 20-29 = 116 mL/min/1.73 sq.m. Ages 30-39 = 107 mL/min/1.73 sq.m. Ages 40-49 = 99 mL/min/1.73 sq.m. Ages 50-59 = 93 mL/min/1.73 sq.m. Ages 60-69 = 85 mL/min/1.73 sq.m. Ages 70+ = 75 mL/min/1.73 sq.m. Chronic Kidney Disease: Less than 60 mL/min/1.73 square meters End Stage Renal Disease: Less than 15 mL/min/1.73 square meters Performed By: #### B MP, GFR #### [address] [address] .MDWon 01-21-2022 Monocyte Distribution Width Not performed Normal 0.00-20.00 [facility] ([place]) Comment on above: Result Comment: MDW testing performed only on adult ER patients between the ages of 18-89 years. Performed By: #### B MP, GFR #### [address] [address] .NEUABSon 01-21-2022 Neutrophil, Absolute 8.5 10 3/mcL High 2.3-8.1 [facility] ([place]) Comment on above: Performed By: #### B MP, GFR #### [address] [address] BMPon 01-21-2022 BUN/Creatinine Ratio 21.9 ratio Normal 10.0-22.0 [facility] ([place]) Comment on above: Performed By: #### B MP, GFR #### [address] [address] Calcium [Mass/Vol] 8.4 mg/dL Low 8.7-10.4 [facility] ([place]) Comment on above: Performed By: #### B MP, GFR #### [address] [address] Chloride [Moles/Vol] 100 mmol/L Normal 98-110 [facility] ([place]) Comment on above: Performed By: #### B MP, GFR #### [address] [address] CO2 [Moles/Vol] 26 mmol/L Normal 22-32 [facility] ([place]) Comment on above: Performed By: #### B MP, GFR #### [address] [address] Creatinine [Mass/Vol] 1.28 mg/dL Normal 0.60-1.40 [facility] ([place]) Comment on above: Performed By: #### B MP, GFR #### [address] [address] Electrolyte Balance 7.0 mEq/L Normal 4.0-15.0 [facility] ([place]) Comment on above: Performed By: #### B MP, GFR #### [address] [address] Glucose [Mass/Vol] 116 mg/dL High 82-115 [facility] ([place]) Comment on above: Performed By: #### B MP, GFR #### [address] [address] Potassium [Moles/Vol] 4.2 mmol/L Normal 3.5-5.0 [facility] ([place]) Comment on above: Performed By: #### B MP, GFR #### [address] [address] Sodium [Moles/Vol] 133 mmol/L Low 136-145 [facility] ([place]) Comment on above: Performed By: #### B MP, GFR #### [address] [address] Urea nitrogen [Mass/Vol] 28.0 mg/dL High 8.0-22.0 [facility] ([place]) Comment on above: Performed By: #### B MP, GFR #### [address] [address] CBCon 01-21-2022 Erythrocyte distribution width (RBC) [Ratio] 12.9 % Normal 11.5-15.5 [facility] ([place]) Comment on above: Performed By: #### B MP, GFR #### [place] [address] Hematocrit (Bld) [Volume fraction] 23.3 % Low 40.0-52.0 [facility] ([place]) Comment on above: Performed By: #### B MP, GFR #### [place] [address] Hgb 8.1 G/dL Low 13.0-17.5 [facility] ([place]) Comment on above: Performed By: #### B MP, GFR #### [place] [address] MCH (RBC) [Entitic mass] 35.0 pg High 27.0-33.0 [facility] ([place]) Comment on above: Performed By: #### B MP, GFR #### [place] [address] MCHC 34.7 G/dL Normal 32.0-36.0 [facility] ([place]) Comment on above: Performed By: #### B MP, GFR #### [place] [address] MCV (RBC) [Entitic vol] 100.8 fL High 81.0-100.0 [facility] ([place]) Comment on above: Performed By: #### B MP, GFR #### [place] [address] Platelet 159 10 3/mcL Normal 150-450 [facility] ([place]) Comment on above: Performed By: #### B MP, GFR #### [place] [address] Platelet mean volume (Bld) [Entitic vol] 6.4 fL Normal 6.4-10.5 [facility] ([place]) Comment on above: Performed By: #### B MP, GFR #### [place] [address] RBC 2.31 10 6/mcL Low 4.50-6.00 [facility] ([place]) Comment on above: Performed By: #### B MP, GFR #### [place] [address] WBC 11.1 10 3/mcL High 4.5-10.8 [facility] ([place]) Comment on above: Performed By: #### B JUAN, GFR #### [place] [address] Final Surgical Pathology Rep stephanie 01-21-2022 Final Surgical Pathology Report . Pathology Reports Accession: Collected Date/Time: Received Date/Time: Pathologist: [id number] 01/19/2022 22:01 EDT 01/20/2022 09:12 EDT ROMA TOPETE MD Final Surgical Pathology Report DIAGNOSIS: BONE MARROW FROM LEFT FEMUR FRACTURE - PREDOMINATELY BLOOD CLOT AND A FEW FRAGMENTS OF UNREMARKABLE HYALINE CARTILAGE. NO EVIDENCE OF METASTATIC CARCINOMA OR MYELOMA. CLINICAL INFORMATION: Procedure: LEFT FEMUR RETROGRADE NAIL Preoperative diagnosis: LEFT FEMUR FRACTURE Postoperative diagnosis: LEFT FEMUR FRACTURE SPECIMEN: A BONE MARROW, LEFT FEMUR GROSS DESCRIPTION: A. Received in formalin, labeled with the patients name, Case #[id number], and left femur bone marrow is a portion of red-brown blood clots aggregating to 2 x 1.8 x 0.6 cm. TS -1 Dictated by NIXON AKHTAR MICROSCOPIC DESCRIPTION: Slides reviewed. Electronically Signed by Pathology Report verified by [facility] Electronically signed by ROMA TPOETE Sign out Date: 01/21/2022 15:13 Performing Lab: [address] Normal [facility] ([place]) .Auto Diffon 01-20-2022 Basophil, Absolute 0.0 10 3/mcL Normal 0.0-0.3 [facility] ([place]) Comment on above: Performed By: #### B JUAN, GFR #### [place] [id number] Basophils/100 WBC (Bld) 0.3 % Normal 0.0-2.5 [facility] ([place]) Comment on above: Performed By: #### Lanette MARTINEZ, GFR #### [place] [id number] Eosinophil, Absolute 0.0 10 3/mcL Normal 0.0-0.7 [facility] ([place]) Comment on above: Performed By: #### B JUAN, GFR #### [facility] [address] [place], [place] [address] Eosinophils/100 WBC (Bld) 0.4 % Normal 0.0-6.0 [facility] ([place]) Comment on above: Performed By: #### B MP, GFR #### [address] [address] Lymphocyte, Absolute 0.7 10 3/mcL Low 0.9-4.3 [facility] ([place]) Comment on above: Performed By: #### B MP, GFR #### [address] [address] Lymphocytes/100 WBC (Bld) 6.3 % Low 20.0-40.0 [facility] ([place]) Comment on above: Performed By: #### B MP, GFR #### [address] [address] Monocyte, Absolute 1.4 10 3/mcL Normal 0.1-1.4 [facility] ([place]) Comment on above: Performed By: #### B MP, GFR #### [address] [address] Monocytes/100 WBC (Bld) 13.1 % High 2.0-13.0 [facility] ([place]) Comment on above: Performed By: #### B MP, GFR #### [address] [address] Neutrophils/100 WBC (Bld) 79.9 % High 50.0-75.0 [facility] ([place]) Comment on above: Performed By: #### B MP, GFR #### [address] [address] .GFRon 01-20-2022 GFR Non- >60 Normal [facility] ([place]) Comment on above: Result Comment: GFR Population mean for , Non- Americans Ages 20-29 = 116 mL/min/1.73 sq.m. Ages 30-39 = 107 mL/min/1.73 sq.m. Ages 40-49 = 99 mL/min/1.73 sq.m. Ages 50-59 = 93 mL/min/1.73 sq.m. Ages 60-69 = 85 mL/min/1.73 sq.m. Ages 70+ = 75 mL/min/1.73 sq.m. Chronic Kidney Disease: Less than 60 mL/min/1.73 square meters End Stage Renal Disease: Less than 15 mL/min/1.73 square meters Performed By: #### B MP, GFR #### [address] [address] GFR >60 Normal [facility] ([place]) Comment on above: Result Comment: GFR Population mean for , Non- Americans Ages 20-29 = 116 mL/min/1.73 sq.m. Ages 30-39 = 107 mL/min/1.73 sq.m. Ages 40-49 = 99 mL/min/1.73 sq.m. Ages 50-59 = 93 mL/min/1.73 sq.m. Ages 60-69 = 85 mL/min/1.73 sq.m. Ages 70+ = 75 mL/min/1.73 sq.m. Chronic Kidney Disease: Less than 60 mL/min/1.73 square meters End Stage Renal Disease: Less than 15 mL/min/1.73 square meters Performed By: #### B MP, GFR #### [address] [address] .MDWon 01-20-2022 Monocyte Distribution Width Not performed Normal 0.00-20.00 [facility] ([place]) Comment on above: Result Comment: MDW testing performed only on adult ER patients between the ages of 18-89 years. Performed By: #### B MP, GFR #### [address] [address] .NEUABSon 01-20-2022 Neutrophil, Absolute 8.4 10 3/mcL High 2.3-8.1 [facility] ([place]) Comment on above: Performed By: #### B MP, GFR #### [address] [address] CBCon 01-20-2022 Erythrocyte distribution width (RBC) [Ratio] 12.8 % Normal 11.5-15.5 [facility] ([place]) Comment on above: Performed By: #### B MP, GFR #### [address] [address] Hematocrit (Bld) [Volume fraction] 26.9 % Low 40.0-52.0 [facility] ([place]) Comment on above: Performed By: #### B MP, GFR #### [place] [address] Hgb 9.4 G/dL Low 13.0-17.5 [facility] ([place]) Comment on above: Performed By: #### B MP, GFR #### [place] [address] MCH (RBC) [Entitic mass] 35.5 pg High 27.0-33.0 [facility] ([place]) Comment on above: Performed By: #### B MP, GFR #### [place] [address] MCHC 34.9 G/dL Normal 32.0-36.0 [facility] ([place]) Comment on above: Performed By: #### B MP, GFR #### [place] [address] MCV (RBC) [Entitic vol] 101.6 fL High 81.0-100.0 [facility] ([place]) Comment on above: Performed By: #### B MP, GFR #### [place] [id number] Platelet 190 10 3/mcL Normal 150-450 [facility] ([place]) Comment on above: Performed By: #### B MP, GFR #### [place] [address] Platelet mean volume (Bld) [Entitic vol] 6.7 fL Normal 6.4-10.5 [facility] ([place]) Comment on above: Performed By: #### B MP, GFR #### [place] [id number] RBC 2.65 10 6/mcL Low 4.50-6.00 [facility] ([place]) Comment on above: Performed By: #### B MP, GFR #### [place] [id number] WBC 10.6 10 3/mcL Normal 4.5-10.8 [facility] ([place]) Comment on above: Performed By: #### B MP, GFR #### [address] [address] CMPon 01-20-2022 Albumin Level 2.6 G/dL Low 3.2-4.8 [facility] ([place]) Comment on above: Performed By: #### B MP, GFR #### [place] [id number] Albumin/Globulin [Mass ratio] 1.0 {ratio} Normal 0.9-1.6 [facility] ([place]) Comment on above: Performed By: #### B MP, GFR #### [address] [address] ALP [Catalytic activity/Vol] 49 U/L Normal 38-126 [facility] ([place]) Comment on above: Performed By: #### B MP, GFR #### [place] [id number] ALT [Catalytic activity/Vol] 10 U/L Low 12-55 [facility] ([place]) Comment on above: Performed By: #### B MP, GFR #### [place] [id number] AST [Catalytic activity/Vol] 27 U/L Normal 8-34 [facility] ([place]) Comment on above: Performed By: #### B MP, GFR #### [place] [id number] Bili Total 0.40 mg/dL Normal 0.20-1.20 [facility] ([place]) Comment on above: Result Comment: Use of this assay is not recommended for patients undergoing treatment with eltrombopag due to the potential for falsely elevated results. Performed By: #### B MP, GFR #### [place] [id number] BUN/Creatinine Ratio 17.8 ratio Normal 10.0-22.0 [facility] ([place]) Comment on above: Performed By: #### B MP, GFR #### [place] [id number] Calcium [Mass/Vol] 8.2 mg/dL Low 8.7-10.4 [facility] ([place]) Comment on above: Performed By: #### B MP, GFR #### [address] [address] Chloride [Moles/Vol] 105 mmol/L Normal 98-110 [facility] ([place]) Comment on above: Performed By: #### B MP, GFR #### [address] [address] CO2 [Moles/Vol] 22 mmol/L Normal 22-32 [facility] ([place]) Comment on above: Performed By: #### B MP, GFR #### [address] [address] Creatinine [Mass/Vol] 1.07 mg/dL Normal 0.60-1.40 [facility] ([place]) Comment on above: Performed By: #### B MP, GFR #### [place] [address] Electrolyte Balance 7.0 mEq/L Normal 4.0-15.0 [facility] ([place]) Comment on above: Performed By: #### B MP, GFR #### [place] [id number] Globulin 2.6 G/dL Normal 1.5-3.8 [facility] ([place]) Comment on above: Performed By: #### B MP, GFR #### [address] [address] Glucose [Mass/Vol] 159 mg/dL High 82-115 [facility] ([place]) Comment on above: Performed By: #### B MP, GFR #### [address] [address] Potassium [Moles/Vol] 4.7 mmol/L Normal 3.5-5.0 [facility] ([place]) Comment on above: Result Comment: Spec imen slightly hemolyzed. Performed By: #### B MP, GFR #### [address] [address] Sodium [Moles/Vol] 134 mmol/L Low 136-145 [facility] ([place]) Comment on above: Performed By: #### B MP, GFR #### [address] [address] Total Protein 5.2 G/dL Low 5.7-8.2 [facility] ([place]) Comment on above: Result Comment: No te - New Reference Range in effect 20 Performed By: #### B MP, GFR #### [address] [address] Urea nitrogen [Mass/Vol] 19.0 mg/dL Normal 8.0-22.0 [facility] ([place]) Comment on above: Performed By: #### B MP, GFR #### [address] [address] XR FLUORO 1-2 HRS TECH TIMEo n 01-20-2022 XR FLUORO 1-2 HRS TECH TIME ORIGINAL EXAMINATION: SPOT FLUOROSCOPIC IMAGES 01/19/2022 9:26 pm TECHNIQUE: Fluoroscopy was provided by the radiology department for procedure. Radiologist was not present during examination. FLUOROSCOPY DOSE AND TYPE OR TIME AND EXPOSURES: Fluoro time: 2 minutes 52 seconds. Radiation dose: 70.97 mGy COMPARISON: Left femur x-ray on 01/18/2022 HISTORY: ORDERING SYSTEM PROVIDED HISTORY: Reason for Exam: LT FEMUR FX Intraprocedural imaging. FINDINGS: 8 spot images of the left femur were obtained. Fluoroscopic guidance was provided for placement of intramedullary collin across the midshaft fracture of the left femur. IMPRESSION: Intraprocedural fluoroscopic spot images as above. See separate procedure report for more information. Interpreted by: Matthias Hennessy MD Preliminary Report By: Matthias Hennessy MD Electronically signed By Matthias Hennessy MD Dictated Date: 01/20/2022 2:25:20 AM Prelim Date: 01/20/2022 2:26:25 AM Sign Date: 01/20/2022 2:26:25 AM Ordering Provider: PAKO Lozano [facility] ([place]) .Auto Diffon 01-19-2022 Basophil, Absolute 0.0 10 3/mcL Normal 0.0-0.3 [facility] ([place]) Comment on above: Performed By: #### B MP, GFR #### [address] [address] Basophils/100 WBC (Bld) 0.2 % Normal 0.0-2.5 [facility] ([place]) Comment on above: Performed By: #### B MP, GFR #### [address] [address] Eosinophil, Absolute 0.0 10 3/mcL Normal 0.0-0.7 [facility] ([place]) Comment on above: Performed By: #### B MP, GFR #### [address] [address] Eosinophils/100 WBC (Bld) 0.3 % Normal 0.0-6.0 [facility] ([place]) Comment on above: Performed By: #### B MP, GFR #### [address] [address] Lymphocyte, Absolute 0.8 10 3/mcL Low 0.9-4.3 [facility] ([place]) Comment on above: Performed By: #### B MP, GFR #### [address] [address] Lymphocytes/100 WBC (Bld) 8.2 % Low 20.0-40.0 [facility] ([place]) Comment on above: Performed By: #### B MP, GFR #### [address] [address] Monocyte, Absolute 1.0 10 3/mcL Normal 0.1-1.4 [facility] ([place]) Comment on above: Performed By: #### B MP, GFR #### [address] [address] Monocytes/100 WBC (Bld) 9.8 % Normal 2.0-13.0 [facility] ([place]) Comment on above: Performed By: #### B MP, GFR #### [address] [address] Neutrophils/100 WBC (Bld) 81.5 % High 50.0-75.0 [facility] ([place]) Comment on above: Performed By: #### B MP, GFR #### [address] [address] Basophil, Absolute 0.0 10 3/mcL Normal 0.0-0.3 [facility] ([place]) Comment on above: Performed By: #### B MP, GFR #### [address] [address] Basophils/100 WBC (Bld) 0.3 % Normal 0.0-2.5 [facility] ([place]) Comment on above: Performed By: #### B MP, GFR #### [address] [address] Eosinophil, Absolute 0.0 10 3/mcL Normal 0.0-0.7 [facility] ([place]) Comment on above: Performed By: #### B MP, GFR #### [address] [address] Eosinophils/100 WBC (Bld) 0.4 % Normal 0.0-6.0 [facility] ([place]) Comment on above: Performed By: #### B MP, GFR #### [address] [address] Lymphocyte, Absolute 1.1 10 3/mcL Normal 0.9-4.3 [facility] ([place]) Comment on above: Performed By: #### B MP, GFR #### [address] [address] Lymphocytes/100 WBC (Bld) 10.7 % Low 20.0-40.0 [facility] ([place]) Comment on above: Performed By: #### B MP, GFR #### [address] [address] Monocyte, Absolute 0.9 10 3/mcL Normal 0.1-1.4 [facility] ([place]) Comment on above: Performed By: #### B MP, GFR #### [address] [address] Monocytes/100 WBC (Bld) 8.2 % Normal 2.0-13.0 [facility] ([place]) Comment on above: Performed By: #### B MP, GFR #### [address] [address] Neutrophils/100 WBC (Bld) 80.4 % High 50.0-75.0 [facility] ([place]) Comment on above: Performed By: #### B MP, GFR #### [address] [address] .GFRon 01-19-2022 GFR >60 Normal [facility] ([place]) Comment on above: Result Comment: GFR Population mean for , Non- Americans Ages 20-29 = 116 mL/min/1.73 sq.m. Ages 30-39 = 107 mL/min/1.73 sq.m. Ages 40-49 = 99 mL/min/1.73 sq.m. Ages 50-59 = 93 mL/min/1.73 sq.m. Ages 60-69 = 85 mL/min/1.73 sq.m. Ages 70+ = 75 mL/min/1.73 sq.m. Chronic Kidney Disease: Less than 60 mL/min/1.73 square meters End Stage Renal Disease: Less than 15 mL/min/1.73 square meters Performed By: #### B MP, GFR #### [address] [address] GFR Non- >60 Normal [facility] ([place]) Comment on above: Result Comment: GFR Population mean for , Non- Americans Ages 20-29 = 116 mL/min/1.73 sq.m. Ages 30-39 = 107 mL/min/1.73 sq.m. Ages 40-49 = 99 mL/min/1.73 sq.m. Ages 50-59 = 93 mL/min/1.73 sq.m. Ages 60-69 = 85 mL/min/1.73 sq.m. Ages 70+ = 75 mL/min/1.73 sq.m. Chronic Kidney Disease: Less than 60 mL/min/1.73 square meters End Stage Renal Disease: Less than 15 mL/min/1.73 square meters Performed By: #### B MP, GFR #### [address] [address] .MDWon 01-19-2022 Monocyte Distribution Width Not performed Normal 0.00-20.00 [facility] ([place]) Comment on above: Result Comment: MDW testing performed only on adult ER patients between the ages of 18-89 years. Performed By: #### B MP, GFR #### [address] [address] Monocyte Distribution Width 18.21 Normal 0.00-20.00 [facility] ([place]) Comment on above: Result Comment: For ED adult patients suspected of sepsis, MDW<=20.0 does not rule out sepsis or risk of sepsis Performed By: #### B MP, GFR #### [address] [address] .NEUABSon 01-19-2022 Neutrophil, Absolute 8.0 10 3/mcL Normal 2.3-8.1 [facility] ([place]) Comment on above: Performed By: #### B MP, GFR #### [address] [address] Neutrophil, Absolute 8.4 10 3/mcL High 2.3-8.1 [facility] ([place]) Comment on above: Performed By: #### B MP, GFR #### [address] [address] ABO/Rh (Gel)on 01-19-2022 ABO/Rh Interp Positive Invalid Interpretation Code [facility] ([place]) Comment on above: Performed By: #### B MP, GFR #### [address] [address] ABS (Gel)on 01-19-2022 ABSC Interp (Gel) Negative Normal [facility] ([place]) Comment on above: Performed By: #### B MP, GFR #### [address] [address] BMPon 01-19-2022 BUN/Creatinine Ratio 20.0 ratio Normal 10.0-22.0 [facility] ([place]) Comment on above: Order Comment: Need results prior to surgery at 4pm! Performed By: #### B MP, GFR #### [address] [address] Calcium [Mass/Vol] 9.4 mg/dL Normal 8.7-10.4 [facility] ([place]) Comment on above: Order Comment: Need results prior to surgery at 4pm! Performed By: #### B MP, GFR #### [address] [address] Chloride [Moles/Vol] 106 mmol/L Normal 98-110 [facility] ([place]) Comment on above: Order Comment: Need results prior to surgery at 4pm! Performed By: #### B MP, GFR #### [address] [address] CO2 [Moles/Vol] 26 mmol/L Normal 22-32 [facility] ([place]) Comment on above: Order Comment: Need results prior to surgery at 4pm! Performed By: #### B MP, GFR #### [address] [address] Creatinine [Mass/Vol] 1.10 mg/dL Normal 0.60-1.40 [facility] ([place]) Comment on above: Order Comment: Need results prior to surgery at 4pm! Performed By: #### B MP, GFR #### [place] [id number] Electrolyte Balance 5.0 mEq/L Normal 4.0-15.0 [facility] ([place]) Comment on above: Order Comment: Need results prior to surgery at 4pm! Performed By: #### B MP, GFR #### [address] [address] Glucose [Mass/Vol] 105 mg/dL Normal 82-115 [facility] ([place]) Comment on above: Order Comment: Need results prior to surgery at 4pm! Performed By: #### B MP, GFR #### [address] [address] Potassium [Moles/Vol] 4.4 mmol/L Normal 3.5-5.0 [facility] ([place]) Comment on above: Order Comment: Need results prior to surgery at 4pm! Performed By: #### B MP, GFR #### [address] [address] Sodium [Moles/Vol] 137 mmol/L Normal 136-145 [facility] ([place]) Comment on above: Order Comment: Need results prior to surgery at 4pm! Performed By: #### B MP, GFR #### [place] [id number] Urea nitrogen [Mass/Vol] 22.0 mg/dL Normal 8.0-22.0 [facility] ([place]) Comment on above: Order Comment: Need results prior to surgery at 4pm! Performed By: #### B MP, GFR #### [place] [id number] CBCon 01-19-2022 Erythrocyte distribution width (RBC) [Ratio] 13.0 % Normal 11.5-15.5 [facility] ([place]) Comment on above: Order Comment: Need results prior to surgery at 4pm! Performed By: #### B MP, GFR #### [place] [address] Hematocrit (Bld) [Volume fraction] 35.5 % Low 40.0-52.0 [facility] ([place]) Comment on above: Order Comment: Need results prior to surgery at 4pm! Performed By: #### B MP, GFR #### [place] [address] Hgb 12.0 G/dL Low 13.0-17.5 [facility] ([place]) Comment on above: Order Comment: Need results prior to surgery at 4pm! Performed By: #### B MP, GFR #### [place] [address] MCH (RBC) [Entitic mass] 34.3 pg High 27.0-33.0 [facility] ([place]) Comment on above: Order Comment: Need results prior to surgery at 4pm! Performed By: #### B MP, GFR #### [place] [id number] MCHC 33.7 G/dL Normal 32.0-36.0 [facility] ([place] Comment on above: Order Comment: Need results prior to surgery at 4pm! Performed By: #### B MP, GFR #### [place] [id number] MCV (RBC) [Entitic vol] 101.8 fL High 81.0-100.0 [facility] ([place]) Comment on above: Order Comment: Need results prior to surgery at 4pm! Performed By: #### B MP, GFR #### [place] [id number] Platelet 229 10 3/mcL Normal 150-450 [facility] ([place]) Comment on above: Order Comment: Need results prior to surgery at 4pm! Performed By: #### B MP, GFR #### [place] [id number] Platelet mean volume (Bld) [Entitic vol] 6.3 fL Low 6.4-10.5 [facility] ([place]) Comment on above: Order Comment: Need results prior to surgery at 4pm! Performed By: #### B MP, GFR #### [place] [address] RBC 3.49 10 6/mcL Low 4.50-6.00 [facility] ([place]) Comment on above: Order Comment: Need results prior to surgery at 4pm! Performed By: #### B MP, GFR #### [place] [id number] WBC 9.8 10 3/mcL Normal 4.5-10.8 [facility] ([place]) Comment on above: Order Comment: Need results prior to surgery at 4pm! Performed By: #### B MP, GFR #### [place] [id number] Erythrocyte distribution width (RBC) [Ratio] 13.2 % Normal 11.5-15.5 [facility] ([place]) Comment on above: Order Comment: Recol lect purple top x2, specimen clotted x2, notified Kareen RN Performed By: #### B MP, GFR #### [place] [id number] Hematocrit (Bld) [Volume fraction] 33.6 % Low 40.0-52.0 [facility] ([place]) Comment on above: Order Comment: Recol lect purple top x2, specimen clotted x2, notified Kareen RN Performed By: #### B MP, GFR #### [place] [id number] Hgb 11.2 G/dL Low 13.0-17.5 [facility] ([place]) Comment on above: Order Comment: Recol lect purple top x2, specimen clotted x2, notified Kareen RN Performed By: #### B MP, GFR #### [place] [address] MCH (RBC) [Entitic mass] 34.1 pg High 27.0-33.0 [facility] ([place]) Comment on above: Order Comment: Recol lect purple top x2, specimen clotted x2, notified Kareen RN Performed By: #### B MP, GFR #### [place] [address] MCHC 33.4 G/dL Normal 32.0-36.0 [facility] ([place]) Comment on above: Order Comment: Recol lect purple top x2, specimen clotted x2, notified Kareen RN Performed By: #### B MP, GFR #### [place] [address] MCV (RBC) [Entitic vol] 102.2 fL High 81.0-100.0 [facility] ([place]) Comment on above: Order Comment: Recol lect purple top x2, specimen clotted x2, notified Kareen RN Performed By: #### B MP, GFR #### [place] [address] Platelet 236 10 3/mcL Normal 150-450 [facility] ([place]) Comment on above: Order Comment: Recol lect purple top x2, specimen clotted x2, notified Kareen RN Performed By: #### B MP, GFR #### [place] [address] Platelet mean volume (Bld) [Entitic vol] 6.4 fL Normal 6.4-10.5 [facility] ([place]) Comment on above: Order Comment: Recol lect purple top x2, specimen clotted x2, notified Kareen RN Performed By: #### B MP, GFR #### [place] [address] RBC 3.29 10 6/mcL Low 4.50-6.00 [facility] ([place]) Comment on above: Order Comment: Recol lect purple top x2, specimen clotted x2, notified Kareen RN Performed By: #### B MP, GFR #### [address] [address] WBC 10.5 10 3/mcL Normal 4.5-10.8 [facility] ([place]) Comment on above: Order Comment: Recol lect purple top x2, specimen clotted x2, notified Kareen RN Performed By: #### B MP, GFR #### [facility] [address] [place] [id number] HIP W/O CONTRAST LEFTon 0 01-19-2022 CT HIP W/O CONTRAST LEFT ORIGINAL EXAMINATION: CT OF THE LEFT HIP WITHOUT CONTRAST 01/19/2022 12:45 am TECHNIQUE: CT of the left hip was performed without the administration of intravenous contrast. Multiplanar reformatted images are provided for review. Automated exposure control, iterative reconstruction, and/or weight based adjustment of the mA/kV was utilized to reduce the radiation dose to as low as reasonably achievable. COMPARISON: Left femur x-ray on 01/18/2022. CT abdomen and pelvis on 08/14/2021 HISTORY ORDERING SYSTEM PROVIDED HISTORY: Reason for Exam: left femur fracture FINDINGS: Bones: No evidence of acute fracture or dislocation. No aggressive appearing osseous abnormality or periostitis. The [id number] does not include the midshaft fracture in the left femur seen on previous x-rays. In the left iliac bone there is a 1.6 cm in diameter lytic lesion with sclerotic border. There is some marginal calcification also in the lesion. The lesion is not expansile. The finding is stable since 08/14/2021. Soft Tissue: No significant soft tissue edema or fluid collections. Joint: There is moderate arthritic narrowing of the joint space in the left hip. There is mild marginal acetabular spur formation. The left femoral head is normal in contour. IMPRESSION: No fracture or dislocation of the left hip. Moderate osteoarthrosis of the left hip. 1.6 cm sclerotic bordered lesion in left iliac bone consistent with an enchondroma, appears incidental. Interpreted by: Matthias Hennessy MD Preliminary Report By: Matthias Hennessy MD Electronically signed By Matthias Hennessy MD Dictated Date: 01/19/2022 12:48:49 AM Prelim Date: 01/19/2022 1:02:11 AM Sign Date: 01/19/2022 1:02:11 AM Ordering Provider: THOMAS HERNANDEZ Normal [facility] ([place]) PSAon 01-19-2022 Prostate Specific Antigen <0.04 Normal 0.02-4.00 [facility] ([place]) Comment on above: Result Comment: Maggie ent results determined by assays using different manufacturers for methods may not be comparable. Performed By: #### B MP, GFR #### [place] [address] XR CHEST 1 VIEWon 01-19-2022 XR CHEST 1 VIEW ORIGINAL EXAMINATION: ONE XRAY VIEW OF THE CHEST01/18/2022 10:40 pm COMPARISON: 08/14/2021 HISTORY: ORDERING SYSTEM PROVIDED HISTORY: Reason for Exam: fall FINDINGS: Limited examination due to body habitus. The cardiomediastinal silhouette is unchanged. No definite focal pulmonary consolidation, pneumothorax, or large pleural effusion visualized. No acute osseous abnormalities identified. There are probable calcified pleural plaques. IMPRESSION: Limited examination. No obvious acute radiographic abnormality identified. I have personally reviewed the images of this examination and agree with the resident's findings and interpretation. Interpreted by: Prashanth Barrett MD Preliminary Report By: Ricky Barrientos Electronically signed By Prashanth Barrett MD Dictated Date: 01/18/2022 10:44:50 PM Prelim Date: 01/18/2022 10:46:45 PM Sign Date: 01/18/2022 10:54:07 PM Ordering Provider: LEILANI CHIU [facility] ([place]) XR FEMUR AND HIP 4 VIEWS LEF Ton 01-19-2022 XR FEMUR AND HIP 4 VIEWS LEFT ORIGINAL EXAMINATION: 4 XRAY VIEWS OF THE LEFT LOWER EXTREMITY01/18/2022 10:37 PM COMPARISON: None available. HISTORY: ORDERING SYSTEM PROVIDED HISTORY: Reason for Exam: fall FINDINGS: There is a transverse fracture of the midshaft of the femur with moderate displacement. The distal fracture fragment is displaced medially 0.6 cm and posteriorly approximately 1.7 cm. No additional fractures visualized. No hip joint dislocation. IMPRESSION: Displaced left femur midshaft fracture. Distal fragment is displaced medially and posteriorly. I have personally reviewed the images of this examination and agree with the resident's findings and interpretation. Interpreted by: Prashanth Barrett MD Preliminary Report By: Ricky Barrientos Electronically signed By Prashanth Barrett MD Dictated Date: 01/18/2022 10:39:45 PM Prelim Date: 01/18/2022 10:44:34 PM Sign Date: 01/18/2022 10:53:17 PM Ordering Provider: LEILANI CHIU [facility] ([place]) .GFRon 01-18-2022 GFR >60 [facility] ([place]) Comment on above: Result Comment: GFR Population mean for , Non- Americans Ages 20-29 = 116 mL/min/1.73 sq.m. Ages 30-39 = 107 mL/min/1.73 sq.m. Ages 40-49 = 99 mL/min/1.73 sq.m. Ages 50-59 = 93 mL/min/1.73 sq.m. Ages 60-69 = 85 mL/min/1.73 sq.m. Ages 70+ = 75 mL/min/1.73 sq.m. Chronic Kidney Disease: Less than 60 mL/min/1.73 square meters End Stage Renal Disease: Less than 15 mL/min/1.73 square meters Performed By: #### B MP, GFR #### [place] [address] GFR Non- 52 ml/min/1.73sqm [facility] ([place]) Comment on above: Result Comment: GFR Population mean for , Non- Americans Ages 20-29 = 116 mL/min/1.73 sq.m. Ages 30-39 = 107 mL/min/1.73 sq.m. Ages 40-49 = 99 mL/min/1.73 sq.m. Ages 50-59 = 93 mL/min/1.73 sq.m. Ages 60-69 = 85 mL/min/1.73 sq.m. Ages 70+ = 75 mL/min/1.73 sq.m. Chronic Kidney Disease: Less than 60 mL/min/1.73 square meters End Stage Renal Disease: Less than 15 mL/min/1.73 square meters Performed By: #### B MP, GFR #### [address] [address] BMPon 01-18-2022 BUN/Creatinine Ratio 15.9 ratio Normal 10.0-22.0 [facility] ([place]) Comment on above: Performed By: #### B MP, GFR #### [address] [address] Calcium [Mass/Vol] 9.3 mg/dL Normal 8.7-10.4 [facility] ([place]) Comment on above: Performed By: #### B MP, GFR #### [address] [address] Chloride [Moles/Vol] 111 mmol/L High 98-110 [facility] ([place]) Comment on above: Performed By: #### B MP, GFR #### [address] [address] CO2 [Moles/Vol] 19 mmol/L Low 22-32 [facility] ([place]) Comment on above: Performed By: #### B MP, GFR #### [address] [address] Creatinine [Mass/Vol] 1.32 mg/dL Normal 0.60-1.40 [facility] ([place]) Comment on above: Performed By: #### B MP, GFR #### [address] [address] Electrolyte Balance 9.0 mEq/L Normal 4.0-15.0 [facility] ([place]) Comment on above: Performed By: #### B MP, GFR #### [address] [address] Glucose [Mass/Vol] 109 mg/dL Normal 82-115 [facility] ([place]) Comment on above: Performed By: #### B MP, GFR #### [address] [address] Potassium [Moles/Vol] 4.7 mmol/L Normal 3.5-5.0 [facility] ([place]) Comment on above: Result Comment: Spec imen slightly hemolyzed. Performed By: #### B MP, GFR #### [place] [address] Sodium [Moles/Vol] 139 mmol/L Normal 136-145 [facility] ([place]) Comment on above: Performed By: #### B MP, GFR #### [place] [address] Urea nitrogen [Mass/Vol] 21.0 mg/dL Normal 8.0-22.0 [facility] ([place]) Comment on above: Performed By: #### B MP, GFR #### [place] [address] ERDSon 01-18-2022 Acetaminophen [Mass/Vol] ug/mL Low 10.0-20.0 [facility] ([place]) Comment on above: Performed By: #### Lanette MP, GFR #### [place] [address] ER Drug Screen (s) Negative Normal [facility] ([place]) Comment on above: Performed By: #### Lanette MP, GFR #### [place] [address] ER Drug Screen Interp Serum shows no evidence of drugs routinely screened Invalid Interpretation Code [facility] ([place]) Comment on above: Performed By: #### B MP, GFR #### [place] [address] ER Serum Drugs Screened: See Below Normal [facility] ([place]) Comment on above: Result Comment: This drug screen is a presumptive screening only. No confirmation will be performed unless requested. Drugs included in the ER serum drug screen are: Threshold Ethanol 10.0 mg/dL Salicylate 2.0 mg/dL Acetaminophen 2.0 mcg/mL Tricyclic Antidepressants 300 ng/mL Testing has been performed FOR MEDICAL PURPOSES ONLY. Performed By: #### B MP, GFR #### [place] [address] Ethanol Level <10.0 Normal [facility] ([place]) Comment on above: Performed By: #### B MP, GFR #### [place] [address] Salicylate Lvl (ds) <3.0 Low 10.0-25.0 [facility] ([place]) Comment on above: Performed By: #### B MP, GFR #### [facility] [address] [place] [address]83 TCA (s) Negative Normal [facility] ([place]) Comment on above: Performed By: #### B MP, GFR #### [facility] [address] [place] [address] U RAMSEYSon 01-18-2022 ER U Drug Screen Negative Normal [facility] ([place]) Comment on above: Performed By: #### U ERDS #### [facility] [address] [place] [address]266 ER U Drug Screen Interp Urine shows no evidence of drugs routinely screened. Invalid Interpretation Code [facility] ([place]) Comment on above: Performed By: #### U ERDS #### [facility] [address] [place] [address] U ER Drugs Screened: See Below Normal [facility] ([place]) Comment on above: Result Comment: This drug screen is a presumptive screening only. No confirmation will be performed unless requested. Drugs included in the ER urine drug screen are: Threshold Amphetamine/Methamphetamine 1000 ng/mL Barbiturates 200 ng/mL Benzodiazepine metabolites 200 ng/mL Cannabinoids (THC metabolites) 50 ng/mL Benzoylecognine (cocaine met) 300 ng/mL Opiates 300 ng/mL Phencyclidine (PCP) 25 ng/mL Testing has been performed FOR MEDICAL PURPOSES ONLY. Performed By: #### U ERDS #### [place] [address] Denis 12-27-2021 ISAI Telephone (ALEX) Hilario BATISTA ([id number]) 1940 M Date Time Provider Department 12/27/21 JONATHAN MENDOZA During your visit today, we recorded the following information about you: Jonathan Mendoza DO 12/27/2021 8:05 AM Signed Can let him know the bone marrow biopsy done at [facility] yielded a suboptimal specimen but there [...] OV/CBC in about 2 to 3 months. DO Christina Hernandez LPN 12/27/2021 8:26 AM Signed Attempted to contact pt, unable to leave message, voicemail is full. DESTIN Chapman LPN 12/27/2021 8:44 AM Signed Patient is aware of all information. Please schedule as directed. Carlie Mcknight 12/27/2021 8:53 AM Signed Patient scheduled, aware of time and date. Margie Mcknight Allergies As of Date: 12/27/2021 Noted Allergy Reaction AUGMENTIN (AMOXICILLIN-POT CLAVUL*01/18/2011 2 - Rash Date Reviewed: 12/13/2021 Reviewed by: Jonathan Mendoza DO - Fully Assessed Reason for Visit: Results [95] Cmt: Bone marrow biopsy done at [facility] Prescriptions as of 03/05/2022 - Multivitamin capsule Take by mouth once daily. - aspirin, enteric coated (ASPIRIN, ENTERIC COATED) 81 mg EC tablet 81 mg once daily. - cholecalciferol, vitamin D3, (VITAMIN D3 ORAL) Take by mouth once daily. - docusate sodium (STOOL SOFTENER ORAL) Take by mouth once daily. - biotin 5 mg caspule Take 5 mg by mouth once daily. - atorvastatin (LIPITOR) 40 mg tablet Take 40 mg by mouth once daily. - oxyCODONE-acetaminophe n (PERCOCET) 5-325 mg tablet Take 1 tablet by mouth every 8 hours as needed for pain. - nitroglycerin sublingual (NITROSTAT) 0.4 mg SL tablet Dissolve 0.4 mg under the tongue every 5 minutes as needed. - METOPROLOL TARTRATE ORAL Take 25 mg by mouth twice daily. - lisinopril (ZESTRIL, PRINIVIL) 5 mg tablet Take 5 mg by mouth once daily. - clopidogrel (PLAVIX) 75 mg tablet Take 75 mg by mouth once daily. - esomeprazole (NEXIUM) 40 mg ORAL capsule Take 1 capsule by mouth once daily. - hydrochlorothiazide 25 mg ORAL tablet Take 12.5 mg by mouth once daily. Problem List As Of Date 12/27/2021 Noted Resolved Inguinal hernia [K40.90] 01/18/2011 Encounter Status:Closed by JONATHAN MENDOZA on 03/05/22 [facility] 12-15-2021 [facility] Telephone (HEMTOMMY) Hilario BATISTA ([id number]) 1940 M Date Time Provider Department 12/15/21 JONATHAN MENDOZA HEMAWS During your visit today, we recorded the following information about you: Rena Velázquez 12/15/2021 9:56 AM Signed Pts called. She stated Dr. Sinha has okay'd pt stopping Plavix for the procedure but they suggested checking with Dr. Mendoza about stopping the Aspirin. He would need to do that as of tomorrow if Dr Mendoza wants him to stop that. Please let her know. Carlie Gaspar LPN 12/15/2021 10:55 AM Addendum Patient is scheduled for BMBX 12/21/2021 @ 9:30. Patient to hold ASA/blood thinners 5-7 days prior to the procedure. Carlie Mendoza DO 12/15/2021 3:56 PM Signed Thank you. Is patient aware? DO Carlie Hernandez LPN 12/15/2021 4:09 PM Signed Patient is aware okay to hold ASA along with Plavix. Carlie Gaspar LPN Allergies As of Date: 12/15/2021 Noted Allergy Reaction AUGMENTIN (AMOXICILLIN-POT CLAVUL*01/18/2011 2 - Rash Date Reviewed: 12/13/2021 Reviewed by: Jonathan Mendoza DO - Fully Assessed Reason for Visit: Patient Question [1477] Prescriptions as of 12/15/2021 - Multivitamin capsule Take by mouth once daily. - aspirin, enteric coated (ASPIRIN, ENTERIC COATED) 81 mg EC tablet 81 mg once daily. - cholecalciferol, vitamin D3, (VITAMIN D3 ORAL) Take by mouth once daily. - docusate sodium (STOOL SOFTENER ORAL) Take by mouth once daily. - biotin 5 mg caspule Take 5 mg by mouth once daily. - atorvastatin (LIPITOR) 40 mg tablet Take 40 mg by mouth once daily. - oxyCODONE-acetaminophe n (PERCOCET) 5-325 mg tablet Take 1 tablet by mouth every 8 hours as needed for pain. - nitroglycerin sublingual (NITROSTAT) 0.4 mg SL tablet Dissolve 0.4 mg under the tongue every 5 minutes as needed. - METOPROLOL TARTRATE ORAL Take 25 mg by mouth twice daily. - lisinopril (ZESTRIL, PRINIVIL) 5 mg tablet Take 5 mg by mouth once daily. - clopidogrel (PLAVIX) 75 mg tablet Take 75 mg by mouth once daily. - esomeprazole (NEXIUM) 40 mg ORAL capsule Take 1 capsule by mouth once daily. - hydrochlorothiazide 25 mg ORAL tablet Take 12.5 mg by mouth once daily. Problem List As Of Date 12/15/2021 Noted Resolved Inguinal hernia [K40.90] 01/18/2011 Encounter Status:Closed by CARLIE GASPAR LPN on 12/15/21 Normal [facility] CBC W Auto Differential pane l (Bld)on 12-13-2021 Basophils (Bld) [#/Vol] 0.06 10*3/uL Normal <0.11 [facility] Comment on above: Order Comment: Speci men Type: BLOOD SPECIMENOrdering Facility: [facility] Address: [address] [place] [id number] Performed By: #### 5 7021-8 ####[facility] JAQUAN RHODESNEW BLOOMINGTONCHARIS [id number] [place] [id number] [place] Basophils/100 WBC (Bld) 1.0 % Normal [facility] Comment on above: Order Comment: Speci men Type: BLOOD SPECIMENOrdering Facility: [facility] Address: [address] [place] [address] Performed By: #### 5 7021-8 ####[facility] CARMELOWNCLIA [id number] [place] [address] [place] Differential cell count method Nom (Bld) Auto Normal [facility] Comment on above: Order Comment: Speci men Type: BLOOD SPECIMENOrdering Facility: [facility] Address: [address] [place] [address] Performed By: #### 5 7021-8 ####[facility] CARMELOWLISALIA [id number] [place] [address] [place] Eosinophils (Bld) [#/Vol] 0.21 10*3/uL Normal <0.46 [facility] Comment on above: Order Comment: Speci men Type: BLOOD SPECIMENOrdering Facility: [facility] Address: [address] [place] [address] Performed By: #### 5 7021-8 ####[facility] HOSPITALLISALIA [id number] [place] [address] [place] Eosinophils/100 WBC (Bld) 3.5 % Normal [facility] Comment on above: Order Comment: Speci men Type: BLOOD SPECIMENOrdering Facility: [facility] Address: [address] [place] [address] Performed By: #### 5 7021-8 ####[facility] CARMELOWNCLIA [id number] [place] [address] [place] Erythrocyte distribution width (RBC) [Ratio] 12.2 % Normal 11.5-15.0 [facility] Comment on above: Order Comment: Speci men Type: BLOOD SPECIMENOrdering Facility: [facility] Address: [address] [place] [address] Performed By: #### 5 7021-8 ####[facility] HOSPITALLISALIA [id number] [place] [address] [place] Hematocrit (Bld) [Volume fraction] 35.1 % Low 39.0-51.0 [facility] Comment on above: Order Comment: Speci men Type: BLOOD SPECIMENOrdering Facility: [facility] Address: [address] [place] [address] Performed By: #### 5 7021-8 ####[facility] HOSPITALBENJAMINA [id number] [place] [address] [place] Hemoglobin (Bld) [Mass/Vol] 11.9 g/dL Low 13.0-17.0 [facility] Comment on above: Order Comment: Speci men Type: BLOOD SPECIMENOrdering Facility: [facility] Address: [address] [place] [address] Performed By: #### 5 7021-8 ####[facility] [id number] [address] OF [facility] IMMATURE GRAN % 0.3 % Normal [facility] Comment on above: Order Comment: Speci men Type: BLOOD SPECIMENOrdering Facility: [facility] Address: [address] [place] [address] Performed By: #### 5 7021-8 ####[facility] HOSPITALA [id number] [place] [address] [place] IMMATURE GRAN ABS <0.03 Normal <0.10 [facility] Comment on above: Order Comment: Speci men Type: BLOOD SPECIMENOrdering Facility: [facility] Address: [address] [place] [address] Performed By: #### 5 7021-8 ####[facility] HOSPITALNCLIA [id number] [place] [address] [place] Lymphocytes (Bld) [#/Vol] 1.11 10*3/uL Normal 1.00-4.00 [facility] Comment on above: Order Comment: Speci men Type: BLOOD SPECIMENOrdering Facility: [facility] Address: [address] [place] [address] Performed By: #### 5 7021-8 ####[facility] HOSPITALNCLIFEPOINT HOSPITALS [id number] [place] [address] [place] Lymphocytes/100 WBC (Bld) 18.3 % Normal [facility] Comment on above: Order Comment: Speci men Type: BLOOD SPECIMENOrdering Facility: [facility] Address: [address] [place] [address] Performed By: #### 5 7021-8 ####[facility] [id number] [place] [address] [place] MCH (RBC) [Entitic mass] 34.5 pg High 26.0-34.0 [facility] Comment on above: Order Comment: Speci men Type: BLOOD SPECIMENOrdering Facility: [facility] Address: [address] [place] [address] Performed By: #### 5 7021-8 ####[facility]OSPITALNCLIFEPOINT HOSPITALS [id number] [place] [address] [place] MCHC (RBC) [Mass/Vol] 33.9 g/dL Normal 30.5-36.0 [facility] Comment on above: Order Comment: Speci men Type: BLOOD SPECIMENOrdering Facility: [facility] Address: [address] [place] [address] Performed By: #### 5 7021-8 ####[facility]ITALNCLIFEPOINT [facility]ALS [id number] [place] [address] [place] MCV (RBC) [Entitic vol] 101.7 fL High 80.0-100.0 [facility] Comment on above: Order Comment: Speci men Type: BLOOD SPECIMENOrdering Facility: [facility] Address: [address] [place] [address] Performed By: #### 5 7021-8 ####[facility] CARMELOADRRINA [id number] [place] [address] [place] Monocytes (Bld) [#/Vol] 0.67 10*3/uL Normal <0.87 [facility] Comment on above: Order Comment: Speci men Type: BLOOD SPECIMENOrdering Facility: [facility] Address: [address] [place] [address] Performed By: #### 5 7021-8 ####[facility] HOSPITALNCA [id number] [place] [address] [place] Monocytes/100 WBC (Bld) 11.0 % Normal [facility] Comment on above: Order Comment: Speci men Type: BLOOD SPECIMENOrdering Facility: [facility] Address: [address] [place] [address] Performed By: #### 5 7021-8 ####[facility] HOSPITALNCA [id number] [place] [address] [place] Neutrophils (Bld) [#/Vol] 4.01 10*3/uL Normal 1.45-7.50 [facility] Comment on above: Order Comment: Speci men Type: BLOOD SPECIMENOrdering Facility: [facility] Address: [address] [place] [address] Performed By: #### 5 7021-8 ####[facility] HOSPITALNCLIA [id number] [place] [address] [place] Neutrophils/100 WBC (Bld) 65.9 % Normal [facility] Comment on above: Order Comment: Speci men Type: BLOOD SPECIMENOrdering Facility: [facility] Address: [address] [place] [address] Performed By: #### 5 7021-8 ####[facility] BRANDYLIA [id number] [place] [address] [place] Nucleated RBC (Bld) [#/Vol] 10*3/uL Normal <0.01 [facility] Comment on above: Order Comment: Speci men Type: BLOOD SPECIMENOrdering Facility: [facility] Address: [address] [place] [address] Performed By: #### 5 7021-8 ####[facility] HOSPITALBENJAMINA [id number] [place] [address] [place] Nucleated RBC/100 WBC (Bld) [Ratio] 0.0 /100 WBC Normal [facility] Comment on above: Order Comment: Speci men Type: BLOOD SPECIMENOrdering Facility: [facility] Address: [address] [place] [address] Performed By: #### 5 7021-8 ####[facility] HOSPITALLISALIA [id number] [place] [address] [place] Platelet mean volume (Bld) [Entitic vol] 8.0 fL Low 9.0-12.7 [facility] Comment on above: Order Comment: Speci men Type: BLOOD SPECIMENOrdering Facility: [facility] Address: [address] [place] [address] Performed By: #### 5 7021-8 ####[facility] CENTERJAMA [id number] [place] [address] [place] Platelets (Bld) [#/Vol] 190 10*3/uL Normal 150-400 [facility] Comment on above: Order Comment: Speci men Type: BLOOD SPECIMENOrdering Facility: [facility] Address: [address] [place] [address] Performed By: #### 5 7021-8 ####[facility] HOSPITALNCJMA [id number] [place] [address] [place] RBC (Bld) [#/Vol] 3.45 10*6/uL Low 4.20-6.[address] [facility] Comment on above: Order Comment: Speci men Type: BLOOD SPECIMENOrdering Facility: [facility] Address: [address] [place] [address] Performed By: #### 5 7021-8 ####[facility] JAQUAN CARMELONEW BLOOMINGTONCHARIS [id number] [place] [address] [place] WBC (Bld) [#/Vol] 6.08 10*3/uL Normal 3.70-11.[address] [facility] Comment on above: Order Comment: Speci men Type: BLOOD SPECIMENOrdering Facility: [facility] Address: [address] [place] [address] Performed By: #### 5 7021-8 ####[facility] CENTERYADIRA [id number] [place] [address] [place] CNOVSPon 12-13-2021 CNOVSP Visit (SP) Office (HEMAWS) Hilario BATISTA ([id number]) 1940 M Date Time Provider Department 12/13/21 9:50 AM JONATHAN MENDOZA During your visit today, we recorded the following information about you: Temperature Pulse Blood pressure Weight 98 degrees 65/minute 109/53 98.7 kg Jonathan Mendoza DO 12/13/2021 10:31 AM Signed Hematologic problem(s): 1) Macrocytic anemia. 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 Recent CBC from 09/10/2021 revealed a total white count of 7000. Differential was normal. Hemoglobin was 12.5 g/dL with a hematocrit of 36.4% and an MCV of 102.5. Platelet count was 217,000. Review of CBCs available through [facility] reveal that the patient has had mild macrocytosis dating to November 2016. At that time the MCV was 99.7. In April 2021 it was 100.5. Hemoglobin was 12.3 g/dL in November 2016 and more recently in April 2021 it was 13.4 grams per deciliter on presentation with his ID 05/17/2021. He is fatigued but feels well [...] the elderly through his local hospital in [place]. No acute illnesses since last seen. PMH, [...] edema. SKIN: No jaundice or rash. 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 LABS: Component [...] Lymph 1.00 - 4.00 k/uL 1.22 1.11 [place]% % 11.5 11.0 Abs [place] <0.87 k/uL 0.79 0.67 Eosin% % 1.9 [...] their satisfaction. Plan: -Schedule for bone marrow (more content not included)... Normal [facility] EPO SerPl-aCncon 12-13-2021 Erythropoietin (EPO) Qn 16.3 mIU/mL Normal 2.6-18.5 [facility] Comment on above: Order Comment: Idalmis rivera Type: BLOOD SPECIMENOrdering Facility: [facility] Address: [address] [place] [address] Performed By: #### 1 5061-5 ####[facility] LABCLIA [id number] [address] [place] [facility] Denis 10-13-2021 MARLYSN Telephone (ALEX) Hilario BATISTA ([id number]) 1940 M Date Time Provider Department 10/13/21 JONATHAN MENDOZA During your visit today, we recorded the following information about you: Rena Velázquez Admin Sec 10/13/2021 1:48 PM Signed Pts spouse is calling to get lab results for the 09/29/21 labs. Jonathan Mendoza DO 10/13/2021 4:45 PM Signed I spoke with his and explained all [...] is on dual antiplatelet therapy for an ID he had in April 2021 and I do not want to disrupt that therapy to perform a bone marrow biopsy at this juncture. So please call her tomorrow to arrange OV/CBC with me in mid November. Jonathan Iverson DO Margie Mendoza 10/14/2021 8:17 AM Signed Called pt's . Went to , left a message for her to return our call. If so please schedule patient for a follow up appointment with and a lab appointment for a CBC (), close this message when scheduled. Thank you. Margie Mcknight PSS Tatiana Smith Pss 10/19/2021 2:18 PM Signed Scheduled, confirmed appt. Allergies As of Date: 10/13/2021 Noted Allergy Reaction AUGMENTIN (AMOXICILLIN-POT CLAVUL*01/18/2011 2 - Rash Date Reviewed: 09/29/2021 Reviewed by: Joe Mcgee Ma - Fully Assessed Reason for Visit: Results [95] Prescriptions as of 10/19/2021 - Multivitamin capsule Take by mouth once daily. - aspirin, enteric coated (ASPIRIN, ENTERIC COATED) 81 mg EC tablet 81 mg once daily. - cholecalciferol, vitamin D3, (VITAMIN D3 ORAL) Take by mouth once daily. - docusate sodium (STOOL SOFTENER ORAL) Take by mouth once daily. - biotin 5 mg caspule Take 5 mg by mouth once daily. - atorvastatin (LIPITOR) 40 mg tablet Take 40 mg by mouth once daily. - oxyCODONE-acetaminophe n (PERCOCET) 5-325 mg tablet Take 1 tablet by mouth every 8 hours as needed for pain. - nitroglycerin sublingual (NITROSTAT) 0.4 mg SL tablet Dissolve 0.4 mg under the tongue every 5 minutes as needed. - METOPROLOL TARTRATE ORAL Take 25 mg by mouth twice daily. - lisinopril (ZESTRIL, PRINIVIL) 5 mg tablet Take 5 mg by mouth once daily. - famotidine (PEPCID) 40 mg tablet Take 40 mg by mouth once daily. - clopidogrel (PLAVIX) 75 mg tablet Take 75 mg by mouth once daily. - ticagrelor (BRILINTA) 90 mg tablet Take 90 mg by mouth. - zolpidem (AMBIEN) 10 mg ORAL Tab Take 1 tablet by mouth at bedtime as needed. FOR INSOMNIA - esomeprazole (NEXIUM) 40 mg ORAL capsule Take 1 capsule by mouth once daily. - hydrochlorothiazide 25 mg ORAL tablet Take 12.5 mg by mouth once daily. - Methscopolamine [place] (PAMINE FORTE) 5 mg ORAL tablet Take 1 tablet by mouth daily at bedtime. - nbmdcrddj-xsqfde-ajuac ine-scop () 16.2-0.1037 -0.0194 mg ORAL per tablet Take 1 tablet by mouth every 6 hours as needed. - tamsulosin (FLOMAX) 0.4 mg ORAL Cp24 Take 1 capsule by mouth daily at bedtime. Problem List As Of Date 10/13/2021 Noted Resolved Inguinal hernia [K40.90] 01/18/2011 Encounter Status:Closed by BENCHOFF TATIANA DYE on 10/19/21 Normal [facility] CBC W Ordered Manual Differe ntial panel (Bld)on 09-29-2021 Basophils (Bld) [#/Vol] 0.04 10*3/uL Normal <0.11 [facility] Comment on above: Order Comment: Speci men Type: BLOOD SPECIMENOrdering Facility: [facility] Address: [address] [place], [place] [id number] Performed By: #### 5 7782-5, 92817-8 ####[facility] [id number] [place] [address] [place]#### STFREV ####[facility] LABCLIA [id number] [address] [address] [place] Basophils/100 WBC (Bld) 0.6 % Normal [facility] Comment on above: Order Comment: Speci men Type: BLOOD SPECIMENOrdering Facility: [facility] Address: [address] [place] [address] Performed By: #### 5 7782-5, 98342-1 ####[facility] JACKSONVILLEWNCLIA [id number] [place] [address] [place]#### STFREV ####[facility] LABCLIA [id number] [place] [address] [place] Differential cell count method Nom (Bld) Auto Normal [facility] Comment on above: Order Comment: Speci men Type: BLOOD SPECIMENOrdering Facility: [facility] Address: [address] [place] [address] Performed By: #### 5 7782-5, 03395-0 ####[facility] CENTERLIA [id number] [place] [address] [place]#### STFREV ####[facility] LABCLIA [id number] [place] [address] [place] Eosinophils (Bld) [#/Vol] 0.13 10*3/uL Normal <0.46 [facility] Comment on above: Order Comment: Speci men Type: BLOOD SPECIMENOrdering Facility: [facility] Address: [address] [place], [place] [address] Performed By: #### 5 7782-5, 42180-4 ####[facility] JACKSONVILLEWNCLIA [id number] [place] [address] [place]#### STFREV ####[facility] LABCLIA [id number] [place] [address] [place] Eosinophils/100 WBC (Bld) 1.9 % Normal [facility] Comment on above: Order Comment: Speci men Type: BLOOD SPECIMENOrdering Facility: [facility] Address: [address] [place], [place] [address] Performed By: #### 5 7782-5, 68778-1 ####[facility] CENTERLIA [id number] [place] [address] [place]#### STFREV ####[facility] LABCLIA [id number] [place] [address] [place] Erythrocyte distribution width (RBC) [Ratio] 12.0 % Normal 11.5-15.0 [facility] Comment on above: Order Comment: Speci men Type: BLOOD SPECIMENOrdering Facility: [facility] Address: [address] [place], [place] [address] Performed By: #### 5 7782-5, 52299-7 ####[facility] HOSPITALA [id number] [address] [place]#### STFREV ####[facility] LABCLIA [id number] [place] [address] [place] Hematocrit (Bld) [Volume fraction] 36.3 % Low 39.0-51.0 [facility] Comment on above: Order Comment: Speci men Type: BLOOD SPECIMENOrdering Facility: [facility] Address: [address] [place], [place] [address] Performed By: #### 5 7782-5, 37907-2 ####[facility] CENTERLIA [id number] [place] [address] [place]#### STFREV ####[facility] LABCLIA [id number] [place] [address] [place] Hemoglobin (Bld) [Mass/Vol] 12.3 g/dL Low 13.0-17.0 [facility] Comment on above: Order Comment: Speci men Type: BLOOD SPECIMENOrdering Facility: [facility] Address: [address] [place] [address] Performed By: #### 5 7782-5, 57846-2 ####[facility]ENTER[facility]IA [id number] [place] [address] [place]#### STFREV ####[facility] LABCLIA [id number] [place] [address] [place] IMMATURE GRAN % 0.1 % Normal [facility] Comment on above: Order Comment: Speci men Type: BLOOD SPECIMENOrdering Facility: [facility] Address: [address] [place] [address] Performed By: #### 5 7782-5, 44277-5 ####[facility] [id number] [place] [address] [place]#### STFREV ####[facility] LABCLIA [id number] [place] [address] [place] IMMATURE GRAN ABS <0.03 Normal <0.10 [facility] Comment on above: Order Comment: Speci men Type: BLOOD SPECIMENOrdering Facility: [facility] Address: [address] [place] [address] Performed By: #### 5 7782-5, 85096-6 ####[facility] [id number] [place] [address] [place]#### STFREV ####[facility] LABIA [id number] [place] [address] [place] Lymphocytes (Bld) [#/Vol] 1.22 10*3/uL Normal 1.00-4.00 [facility] Comment on above: Order Comment: Speci men Type: BLOOD SPECIMENOrdering Facility: [facility] Address: [address] [place] [address] Performed By: #### 5 7782-5, 14121-5 ####[facility] [id number] [place] [address] [place]#### STFREV ####[facility] LABCLIA [id number] [address] [place] Lymphocytes/100 WBC (Bld) 17.8 % Normal [facility] Comment on above: Order Comment: Speci men Type: BLOOD SPECIMENOrdering Facility: [facility] Address: [address] [place], [place] [address] Performed By: #### 5 7782-5, 91194-6 ####[facility] [id number] [place] [address] [place]#### STFREV ####[facility] LABCLIA [id number] [place] [address] [place] MCH (RBC) [Entitic mass] 34.6 pg High 26.0-34.0 [facility] Comment on above: Order Comment: Speci men Type: BLOOD SPECIMENOrdering Facility: [facility] Address: [address] [place] [address] Performed By: #### 5 7782-5, 51624-1 ####[facility] [id number] [place] [address] [place]#### STFREV ####[facility] LABCLIA [id number] [place] [address] [place] MCHC (RBC) [Mass/Vol] 33.9 g/dL Normal 30.5-36.0 [facility] Comment on above: Order Comment: Speci men Type: BLOOD SPECIMENOrdering Facility: [facility] Address: [address] [place], [place] [address] Performed By: #### 5 7782-5, 65554-3 ####[facility]ENTERLIA [id number] [place] [address] [place]#### STFREV ####[facility] LABCLIA [id number] [place] [address] [place] MCV (RBC) [Entitic vol] 102.0 fL High 80.0-100.0 [facility] Comment on above: Order Comment: Speci men Type: BLOOD SPECIMENOrdering Facility: [facility] Address: [address] Performed By: #### 5 7782-5, 07476-6 ####[facility] [id number] [place] [address] [place]#### STFREV ####[facility] LABCLIA [id number] [place] [address] [place] Monocytes (Bld) [#/Vol] 0.79 10*3/uL Normal <0.87 [facility] Comment on above: Order Comment: Speci men Type: BLOOD SPECIMENOrdering Facility: [facility] Address: [address] [id number] Performed By: #### 5 7782-5, 56476-0 ####[facility]ITAL[facility]CL[facility] [id number] [place] [address] [place]#### STFREV ####[facility] LABCLIA [id number] [place] [address] [place] Monocytes/100 WBC (Bld) 11.5 % Normal [facility] Comment on above: Order Comment: Speci men Type: BLOOD SPECIMENOrdering Facility: [facility] Address: [address] [id number] Performed By: #### 5 7782-5, 27904-8 ####[facility] JACKSONVILLEWNCLIA [id number] [place] [address] [place]#### STFREV ####[facility] LABCLIA [id number] [place] [address] [place] Neutrophils (Bld) [#/Vol] 4.66 10*3/uL Normal 1.45-7.50 [facility] Comment on above: Order Comment: Speci men Type: BLOOD SPECIMENOrdering Facility: [facility] Address: [address] [place], [place] [address] Performed By: #### 5 7782-5, 34952-5 ####[facility] [id number] [place] [address] [place]#### STFREV ####[facility] LABCLIA [id number] [place] [address] [place] Neutrophils/100 WBC (Bld) 68.1 % Normal [facility] Comment on above: Order Comment: Speci men Type: BLOOD SPECIMENOrdering Facility: [facility] Address: [address] [place], [place] [address] Performed By: #### 5 7782-5, 06186-4 ####[facility] JACKSONVILLEWNCLIA [id number] [place] [address] [place]#### STFREV ####[facility] LABCLIA [id number] [place] [address] [place] Nucleated RBC (Bld) [#/Vol] 10*3/uL Normal <0.01 [facility] Comment on above: Order Comment: Speci men Type: BLOOD SPECIMENOrdering Facility: [facility] Address: [address] [place], [place] [address] Performed By: #### 5 7782-5, 78945-8 ####[facility]ENTER[facility]IA [id number] [place] [address] [place]#### STFREV ####[facility] LABCLIA [id number] [place] [address] [place] Nucleated RBC/100 WBC (Bld) [Ratio] 0.0 /100 WBC Normal [facility] Comment on above: Order Comment: Speci men Type: BLOOD SPECIMENOrdering Facility: [facility] Address: [address] [place], [place] [address] Performed By: #### 5 7782-5, 13851-4 ####[facility] [id number] [place] [address] [place]#### STFREV ####[facility] LABCLIA [id number] [place] [address] [place] Platelet mean volume (Bld) [Entitic vol] 8.8 fL Low 9.0-12.7 [facility] Comment on above: Order Comment: Speci men Type: BLOOD SPECIMENOrdering Facility: [facility] Address: [address] [place], [place] [address] Performed By: #### 5 7782-5, 04265-9 ####[facility] [id number] [place] [address] [place]#### STFREV ####[facility] LABCLIA [id number] [place] [address] [place] Platelets (Bld) [#/Vol] 242 10*3/uL Normal 150-400 [facility] Comment on above: Order Comment: Speci men Type: BLOOD SPECIMENOrdering Facility: [facility] Address: [address] [place] [address] Performed By: #### 5 7782-5, 39787-0 ####[facility]ENTERLIA [id number] [place] [address] [place]#### STFREV ####[facility] LABCLIA [id number] [place] [address] [place] RBC (Bld) [#/Vol] 3.56 10*6/uL Low 4.20-6.[address] [facility] Comment on above: Order Comment: Speci men Type: BLOOD SPECIMENOrdering Facility: [facility] Address: [address] [place], [place] [address] Performed By: #### 5 7782-5, 48776-3 ####[facility] [id number] [place] [address] [place]#### STFREV ####[facility] LABCLIA [id number] [place] [address] [place] WBC (Bld) [#/Vol] 6.85 10*3/uL Normal 3.70-11.[address] [facility] Comment on above: Order Comment: Speci men Type: BLOOD SPECIMENOrdering Facility: [facility] Address: [address] [place], [place] [address] Performed By: #### 5 7782-5, 44380-2 ####[facility]ENTER[facility]IA [id number] [place] [address] [place]#### STFREV ####[facility] LABCLIA [id number] [address] [place] CNOVSPon 09-29-2021 CNOVSP Visit (SP) Office (HEMAWS) Hilario BATISTA ([id number]) 1940 M Date Time Provider Department 09/29/21 3:00 PM JONATHAN MENDOZA During your visit today, we recorded the following information about you: Temperature Pulse Blood pressure Weight 97.9 degrees 63/minute 118/64 103 kg Height 1.68 m Jonathan Mendoza DO 09/30/2021 4:38 PM Signed Patient referred by Thalia for macrocytic anemia. The impression and plan will be communicated by way of the shared electronic record or faxed under separate cover letter. HPI: The patient is an 80-year-old male who has a past medical history significant for prostate cancer treated with external beam radiation, non-ST elevation ID in April 2021 (2 stents) osteoarthritis, GERD, hypertension and insomnia. Recent CBC from 09/10/2021 revealed a total white count of 7000. Differential was normal. Hemoglobin was 12.5 g/dL with a hematocrit of 36.4% and an MCV of 102.5. Platelet count was 217,000. Review of CBCs available through [facility] reveal that the patient has had mild macrocytosis dating to November 2016. At that time the MCV was 99.7. In April 2021 it was 100.5. Hemoglobin was 12.3 g/dL in November 2016 and more recently in April 2021 it was 13.4 grams per deciliter on presentation with his ID 05/17/2021. He is fatigued but feels well [...] edema. SKIN: No jaundice or rash. 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 ASSESSMENT/PLAN: (D64.9) [...] which included preparing to see the patient, [id number]-vnhf patient care, obtaining and/or reviewing separately obtained history, performing a medically appropriate examination, counseling and educating the patient/family/caregiv er, ordering medications, tests, or procedures and communicating results to the patient/family/caregiv er. Jonathan Mendoza, Referring Provider: JONATHAN MENDOZA [[id number]] Allergies As of Date: 09/29/2021 Noted Allergy Reaction AUGMENTIN (AMOXICILLIN-POT CLAVUL*01/18/2011 2 - Rash Date Reviewed: 09/29/2021 Reviewed by: Joe Mcgee Ma - Fully Assessed Reason for Visit: New Patient [172] Primary Visit Diagnosis:Anemia, unspecified type [D64.9] Order(s):PATHOLOGIST INTERPRETATION WITH CBC AND DIFF [SQSTREV] Order #: [id number] FUTURE VITAMIN B12 BLOOD [SQB12] Order #: [id number] FUTURE TSH BLD [SQTSH] Order #: [id number] FUTURE RBC FOLATE [SQRBCFLP] Order #: [id number] FUTURE COPPER BLOOD [SQCOPPER] Order #: [id number] FUTURE RETIC COUNT [SQRETIC] Order #: [id number] FUTURE LD LACTATE DEHYDRO [SQLD6] Order # (more content not included)... Normal [facility] NANCY DIRECTon 09-29-2021 DAGT, POLYSPECIFIC AHG Negative Normal [facility] Comment on above: Order Comment: Idalmis rivera Type: BLOOD SPECIMENOrdering Facility: [facility] Address: [address] [place] [address] Performed By: #### D AGT ####[facility] BLOOD BANKCLIA [id number] [place] [address] [place] COPPER BLOODon 09-29-2021 Copper [Mass/Vol] 77 ug/dL Normal 70-140 [facility] Comment on above: Order Comment: Idalmis rivera Type: BLOOD SPECIMENOrdering Facility: [facility] Address: [address] [place] [address] Result Comment: This test was developed and its performance characteristics determined by [facility]'s [facility] Pathology and Laboratory Medicine [place] (-[facility]). It has not been cleared or approved by the FDA. RT-[facility] is regulated under CLIA as qualified to perform high-complexity testing. This test is used for clinical purposes. It should not be regarded as investigational or for research. Performed By: #### C OPPER ####[facility] LABCLIA [id number] [place] [id number] [place] FERRITIN BLDon 09-29-2021 Ferritin [Mass/Vol] 186.0 ng/mL Normal 30.3-565.7 [facility] Comment on above: Order Comment: Speci men Type: BLOOD SPECIMENOrdering Facility: [facility] Address: [address] [place] [address] Performed By: #### 2 885-2, FERR, IRON ####[facility] LABCLIA [id number] [place] [address] [place] FOLIC ACID RBCon 09-29-2021 RBC FOLATE 1130 ng/mL Normal >=366 [facility] Comment on above: Order Comment: Speci men Type: BLOOD SPECIMENOrdering Facility: [facility] Address: [address] [place] [address] Result Comment: Perf ormed By: [facility] [address] [place] [address] Bush Hog Operator: Vivian Love MD Performed By: #### [facility] ####[facility]ITAL[facility] [id number] [place] [address] Haptoglob SerPl-mCncon 09-29 Haptoglobin [Mass/Vol] 186 mg/dL Normal 31-238 [facility] Comment on above: Order Comment: Speci men Type: BLOOD SPECIMENOrdering Facility: [facility] Address: [address] [place] [address] Performed By: #### 4 542-7, B12, 3016-3 ####[facility] LABCLIA [id number] [place] [address] [place] [facility] [place] IMMUNOFIXATION SCREEN, SERUM on 09-29-2021 MPA RESULT No M protein is identified. Normal No M protein is identified. [facility] Comment on above: Order Comment: Speci men Type: BLOOD SPECIMENOrdering Facility: [facility] Address: [address] [place] [address] Performed By: #### I DAYA, 2885-2, [id number] ####[facility] LABCLIA [id number] [address] [place] STAFF REVIEW (MPA) Reviewed by Tatiana Richardson MD Normal [facility] Comment on above: Order Comment: Speci men Type: BLOOD SPECIMENOrdering Facility: [facility] Address: [address] [place] [address] Performed By: #### I FES, 2885-2, [id number] ####[facility] LABCLIA [id number] [place] [address] [place] IMMUNOGLOBULINS GAMon 2021 IgA [Mass/Vol] 343 mg/dL Normal 70-400 [facility] Comment on above: Order Comment: Speci men Type: BLOOD SPECIMEN [facility]: [facility] Address: [address] [place], [place] [address] Performed By: #### S ERIMM #### [facility] CLIA [id number] [address] [place] [address] [place] IgG [Mass/Vol] 912 mg/dL Normal 700-1,600 [facility] Comment on above: Order Comment: Speci men Type: BLOOD SPECIMEN [facility]: [facility] Address: [address] [place], [place] [address] Performed By: #### S ERIMM #### [facility] CLIA [id number] [address] [place] [address] [place] IgM [Mass/Vol] 109 mg/dL Normal 40-230 [facility] Comment on above: Order Comment: Speci men Type: BLOOD SPECIMEN [facility]ing [facility]: [facility] Address: [address] [place] [address] Performed By: #### S ERIMM #### [facility] CLIA [id number] [address] [place], [place] [address] [place] IRON + TIBCon 09-29-2021 Iron [Mass/Vol] 60 ug/dL Normal 41-186 [facility] Comment on above: Order Comment: Speci men Type: BLOOD SPECIMEN [facility] Address: [address] [place] [address] Performed By: #### 2 885-2, FERR, IRON #### [facility] CLIA [id number] [address] [place] [address] [place] Iron binding capacity [Mass/Vol] 246 ug/dL Normal 232-386 [facility] Comment on above: Order Comment: Speci men Type: BLOOD SPECIMEN [facility]: [facility] Address: [address] [place] [address] Performed By: #### 2 885-2, FERR, IRON #### [facility] CLIA [id number] [address] [place] [address] Iron/TIBC [Molar ratio] 24 % Normal 15-57 [facility] Comment on above: Order Comment: Speci men Type: BLOOD SPECIMEN [facility]: [facility] Address: [address] [place] [address] Performed By: #### 2 885-2, FERR, IRON #### [facility] CLIA [id number] [address] [place] [address] [place] LDH SerPl-cCncon 09-29-2021 LDH [Catalytic activity/Vol] 187 U/L Normal 135-225 [facility] Comment on above: Order Comment: Speci men Type: BLOOD SPECIMENOrdering Facility: [facility] Address: [address] [place] [address] Performed By: #### 2 532-0 ####[facility] JAQUANCLERM[facility] COUNTY HOSPITALKishor [id number] [place] [address] [place] PATHOLOGIST INTERPRETATION C BC/DIFFon 09-29-2021 Education Faculty Member review Kyle (Unsp spec) [Interp] No review performed. Normal [facility] Comment on above: Order Comment: Speci men Type: BLOOD SPECIMENOrdering Facility: [facility] Address: [address] [place] [address] Performed By: #### 5 7782-5, 24141-9 ####[facility] [id number] [place] [address] [place]#### STFREV ####[facility] LABCLIA [id number] [address] OF [facility] STAFF REVIEW, CBCDIF Normal [facility] Comment on above: Order Comment: Speci men Type: BLOOD SPECIMENOrdering Facility: [facility] Address: [address] [place] [address] Result Comment: The Pathologist Interpretation on this sample was cancelled because the hematology analyzer did not flag any parameters as requiring manual review. If there is a specific clinical concern for which you would like a pathologist to review the blood smear, please call Lab Client Services within 28 days. Performed By: #### 5 7782-5, 22586-8 ####[facility] [id number] [place] [address] [place]#### STFREV ####[facility] LABCLIA [id number] [address] [place] PROTEIN ELECTROPHORESIS SERU M (P)on 09-29-2021 Albumin [Mass/Vol] 3.65 g/dL Normal 3.37-4.23 [facility] Comment on above: Order Comment: Speci men Type: BLOOD SPECIMENOrdering Facility: [facility] Address: [address] [place] [address] Performed By: #### I FESC, 2885-2, [id number] ####[facility] LABCLIA [id number] [place] [address] [place] Alpha 1 globulin Elph [Mass/Vol] 0.26 g/dL Normal 0.18-0.31 [facility] Comment on above: Order Comment: Speci men Type: BLOOD SPECIMENOrdering Facility: [facility] Address: [address] [place] [address] Performed By: #### I DAYAC, 2885-2, [id number] ####[facility] LABCLIA [id number] [place] [address] [place] Alpha 2 globulin Elph [Mass/Vol] 0.70 g/dL Normal 0.52-0.97 [facility] Comment on above: Order Comment: Speci men Type: BLOOD SPECIMENOrdering Facility: [facility] Address: [address] [place] [address] Performed By: #### I RADHA, 2884-2, [id number] ####[facility] LABCLIA [id number] [address] [place] Beta globulin Elph [Mass/Vol] 0.94 g/dL Normal 0.84-1.36 [facility] Comment on above: Order Comment: Speci men Type: BLOOD SPECIMENOrdering Facility: [facility] Address: [address] [place] [address] Performed By: #### I DAYAC, 288-2, [id number] ####[facility] LABCLIA [id number] [place] [address] [place] Gamma globulin Elph (Body fld) [Mass fraction] 0.93 g/dL Normal 0.70-1.44 [facility] Comment on above: Order Comment: Speci men Type: BLOOD SPECIMENOrdering Facility: [facility] Address: [address] [place] [address] Performed By: #### I DAYAC, 288-2, [id number] ####[facility] LABCLIA [id number] [address] [place] M-PROTEIN LOCATION Normal [facility] Comment on above: Order Comment: Speci men Type: BLOOD SPECIMENOrdering Facility: [facility] Address: [address] [place], [place] [address] Result Comment: Not Applicable. Performed By: #### I RADHA, 2884-2, [id number] ####[facility] LABCLIA [id number] [address] Protein Fractions [Interp] No definitive M protein is identified on protein electrophoresis. Normal No definitive M protein is identified on protein electrophores is. [facility] Comment on above: Order Comment: Speci men Type: BLOOD SPECIMENOrdering Facility: [facility] Address: [address] [place] [address] Performed By: #### I RADHA, 2884-08, [id number] ####[facility] LABCLIA [id number] [address] Protein.monoclonal Elph [Mass/Vol] 0.00 g/dL Normal <=0.00 [facility] Comment on above: Order Comment: Speci men Type: BLOOD SPECIMENOrdering Facility: [facility] Address: [address] [place], [place] [address] Performed By: #### I RADHA, 2884-08, [id number] ####[facility] LABCLIA [id number] [address] [place] SPE STAFF REVIEW Reviewed by Tatiana Richardson MD Normal [facility] Comment on above: Order Comment: Speci men Type: BLOOD SPECIMENOrdering Facility: [facility] Address: [address] [place], [place] [address] Performed By: #### I RADHA, 2884-08, [id number] ####[facility] LABCLIA [id number] [place] [id number] [place] Prot SerPl-mCncon 09-29-2021 Protein [Mass/Vol] 6.5 g/dL Normal 6.3-8.0 [facility] Comment on above: Order Comment: Speci men Type: BLOOD SPECIMENOrdering Facility: [facility] Address: [address] [place] [address] Performed By: #### I FESC, 2885-2, [id number] ####[facility] LABCLIA [id number] [place] [address] [place] Protein [Mass/Vol] 6.8 g/dL Normal 6.3-8.0 [facility] Comment on above: Order Comment: Speci men Type: BLOOD SPECIMENOrdering Facility: [facility] Address: [address] [place] [address] Performed By: #### 2 885-2, FERR, IRON ####[facility] LABCLIA [id number] [place] [address] [place] Retics #on 09-29-2021 Reticulocytes (Bld) [#/Vol] 0.61640 10*3/uL Normal 0.018-0.100 [facility] Comment on above: Order Comment: Speci men Type: BLOOD SPECIMENOrdering Facility: [facility] Address: [address] [place] [address] Performed By: #### 5 7782-5, 97272-9 ####[facility] [id number] [place] [address] [place]#### STFREV ####[facility] LABCLIA [id number] [place] [address] [place] Reticulocytes (Bld) [#/Vol]o n 09-29-2021 Reticulocytes/100 RBC (Bld) 1.7 % Normal 0.4-2.0 [facility] Comment on above: Order Comment: Speci men Type: BLOOD SPECIMENOrdering Facility: [facility] Address: [address] [address] Performed By: #### 5 7782-5, 86694-2 ####[facility] [id number] [place] [address] [place]#### STFREV ####[facility] LABCLIA [id number] [address] [place] [facility]Pl-aCncon 09-29-2021 TSH Qn 1.840 m[IU]/L Normal 0.270-4.200 [facility] Comment on above: Order Comment: Specjared men Type: BLOOD SPECIMENOrdering Facility: [facility] Address: [address] [place] [address] Performed By: #### 4 542-7, B12, 3016-3 ####[facility] LABIA [id number] [address] [place] VITAMIN B12 BLOODon 09-30-19 Cobalamin (Vitamin B12) [Mass/Vol] 451 pg/mL Normal 232-1,245 [facility] Comment on above: Order Comment: Idalmis men Type: BLOOD SPECIMENOrdering Facility: [facility] Address: [address] [place] [address] Performed By: #### 4 542-7, B12, 3016-3 ####[facility] LABIA [id number] [address] [place] CNPJuly 09-22-2021 CNPN Telephone (ALEX) Hilario BATISTA ([id number]) 1940 M Date Time Provider Department 09/22/21 JONATHAN MENDOZA During your visit today, we recorded the following information about you: Audrey Arreola Pss 09/22/2021 9:57 AM Signed Briseida with Dr. Rodolfo Gamboa's office calling asking when patient can be seen by Dr. Mendoza? Paperwork given to Dr. Hamm on 09/14/21 didn't indicate which doctor patient needs to seen by. Please advise and call Briseida. Also, please call patient's for scheduling. Her phone number has been verified in patient's account. Margie Mcknight 09/22/2021 10:32 AM Signed Spoke with Briseida, referral given to . Margie Mcknight Allergies As of Date: 09/22/2021 Noted Allergy Reaction AUGMENTIN (AMOXICILLIN-POT CLAVUL*01/18/2011 2 - Rash Date Reviewed: 04/12/2011 Reviewed by: Amber Beck Rn - Fully Assessed Reason for Visit: Patient Update [1234] Prescriptions as of 09/22/2021 - zolpidem (AMBIEN) 10 mg ORAL Tab Take 1 tablet by mouth at bedtime as needed. FOR INSOMNIA - esomeprazole (NEXIUM) 40 mg ORAL capsule Take 1 capsule by mouth once daily. - hydrochlorothiazide 25 mg ORAL tablet Take 1 tablet by mouth once daily. - Methscopolamine [place] (PAMINE FORTE) 5 mg ORAL tablet Take 1 tablet by mouth daily at bedtime. - nfvadzlwh-itthao-cqkvy ine-scop () 16.2-0.1037 -0.0194 mg ORAL per tablet Take 1 tablet by mouth every 6 hours as needed. - tamsulosin (FLOMAX) 0.4 mg ORAL Cp24 Take 1 capsule by mouth daily at bedtime. Problem List As Of Date 09/22/2021 Noted Resolved Inguinal hernia [K40.90] 01/18/2011 Encounter Status:Closed by MARGIE MCKNIGHT on 09/22/21 [facility] Denis 09-14-2021 ISAI Telephone (ALEX) Hilario BATISTA CROW ([id number]) 1940 M Date Time Provider Department 09/14/21 GABRIEL HAMM During your visit today, we recorded the following information about you: Tatiana Smith Pss 09/14/2021 8:43 AM Signed New patient referral sent to Dr. Hamm for review. DX: Macrocytic Anemia Referred by: Dr. Rodolfo Gamboa. Margie Mcknight 09/23/2021 1:55 PM Signed Pt scheduled with per pt's request, pt aware of time and date. Margie Mcknight Allergies As of Date: 09/14/2021 Noted Allergy Reaction AUGMENTIN (AMOXICILLIN-POT CLAVUL*01/18/2011 2 - Rash Date Reviewed: 04/12/2011 Reviewed by: Amber Beck Rn - Fully Assessed Reason for Visit: New Patient [172] Prescriptions as of 09/23/2021 - zolpidem (AMBIEN) 10 mg ORAL Tab Take 1 tablet by mouth at bedtime as needed. FOR INSOMNIA - esomeprazole (NEXIUM) 40 mg ORAL capsule Take 1 capsule by mouth once daily. - hydrochlorothiazide 25 mg ORAL tablet Take 1 tablet by mouth once daily. - Methscopolamine [place] (PAMINE FORTE) 5 mg ORAL tablet Take 1 tablet by mouth daily at bedtime. - afhxjngkb-vbsgjy-qmbpe ine-scop () 16.2-0.1037 -0.0194 mg ORAL per tablet Take 1 tablet by mouth every 6 hours as needed. - tamsulosin (FLOMAX) 0.4 mg ORAL Cp24 Take 1 capsule by mouth daily at bedtime. Problem List As Of Date 09/14/2021 Noted Resolved Inguinal hernia [K40.90] 01/18/2011 Encounter Status:Closed by MARGIE MCKNIGHT on 09/23/21 [facility] LABORATORYOrdered By: SYSTEM SYSTEM on 08-16-2021 Basophils (Bld) [#/Vol] 0.00 103/mcL Invalid Interpretation Code 0.00 - 0.27 10^3/mcL AH Remisol SS Basophils/100 WBC (Bld) 0.5 % Invalid Interpretation Code 0.0 - 2.5 % AH Remisol SS Calcium [Mass/Vol] 9.2 mg/dL Invalid Interpretation Code 8.7 - 10.4 mg/dL AH ADM SS Chloride [Moles/Vol] 104 mmol/L Invalid Interpretation Code 98 - 110 mEq/L AH ADM SS CO2 [Moles/Vol] 25 mmol/L Invalid Interpretation Code 22 - 32 mEq/L AH ADM SS Creatinine [Mass/Vol] 1.15 mg/dL Invalid Interpretation Code 0.60 - 1.40 mg/dL AH ADM SS Electrolyte Balance 9.0 mEq/L Invalid Interpretation Code 4.0 - 15.0 mEq/L AH ADM SS Eosinophils (Bld) [#/Vol] 0.10 103/mcL Invalid Interpretation Code 0.00 - 0.65 10^3/mcL AH Remisol SS Eosinophils/100 WBC (Bld) 1.2 % Invalid Interpretation Code 0.0 - 6.0 % AH Remisol SS Erythrocyte distribution width (RBC) [Ratio] 13.2 % Invalid Interpretation Code 11.5 - 15.5 % AH Remisol SS GFR/1.73 sq M.predicted among blacks MDRD (S/P/Bld) [Vol rate/Area] ml/min/1.73sqm Invalid Interpretation Code AH Chemistry S GFR/1.73 sq M.predicted among non-blacks MDRD (S/P/Bld) [Vol rate/Area] ml/min/1.73sqm Invalid Interpretation Code Chemistry S Glucose [Mass/Vol] 99 mg/dL Invalid Interpretation Code 82 - 115 mg/dL AH ADM SS Hematocrit (Bld) [Volume fraction] 31.6 % Invalid Interpretation Code 40.0 - 52.0 % AH Remisol SS Hemoglobin (Bld) [Mass/Vol] 10.9 G/dL Invalid Interpretation Code 13.0 - 17.5 G/dL AH Remisol SS Lymphocytes (Bld) [#/Vol] 1.40 103/mcL Invalid Interpretation Code 0.90 - 4.32 10^3/mcL AH Remisol SS Lymphocytes/100 WBC (Bld) 17.9 % Invalid Interpretation Code 20.0 - 40.0 % AH Remisol SS Magnesium [Mass/Vol] 1.6 mg/dL Invalid Interpretation Code 1.6 - 2.4 mg/dL AH ADM SS MCH (RBC) [Entitic mass] 34.5 pg Invalid Interpretation Code 27.0 - 33.0 pg AH Remisol SS MCHC (RBC) [Mass/Vol] 34.4 G/dL Invalid Interpretation Code 32.0 - 36.0 G/dL AH Remisol SS MCV (RBC) [Entitic vol] 100.4 fL Invalid Interpretation Code 81.0 - 100.0 fL AH Remisol SS Monocytes (Bld) [#/Vol] 0.90 103/mcL Invalid Interpretation Code 0.09 - 1.40 10^3/mcL AH Remisol SS Monocytes/100 WBC (Bld) 10.9 % Invalid Interpretation Code 2.0 - 13.0 % AH Remisol SS Neutrophils (Bld) [#/Vol] 5.40 103/mcL Invalid Interpretation Code 2.25 - 8.10 10^3/mcL AH Remisol SS Neutrophils/100 WBC (Bld) 69.5 % Invalid Interpretation Code 50.0 - 75.0 % AH Remisol SS Platelet mean volume (Bld) [Entitic vol] 6.8 fL Invalid Interpretation Code 6.4 - 10.5 fL AH Remisol SS Platelets (Bld) [#/Vol] 191 103/mcL Invalid Interpretation Code 150 - 450 10^3/mcL AH Remisol SS Potassium [Moles/Vol] 4.3 mmol/L Invalid Interpretation Code 3.5 - 5.0 mEq/L AH ADM SS RBC (Bld) [#/Vol] 3.15 106/mcL Invalid Interpretation Code 4.50 - 6.00 10^6/mcL AH Remisol SS Sodium [Moles/Vol] 138 mmol/L Invalid Interpretation Code 136 - 145 mEq/L AH ADM SS Urea nitrogen [Mass/Vol] 20.0 mg/dL Invalid Interpretation Code 8.0 - 22.0 mg/dL AH ADM SS Urea nitrogen/Creatinine [Mass ratio] 17.4 ratio Invalid Interpretation Code 10.0 - 22.0 ratio AH ADM SS WBC (Bld) [#/Vol] 7.80 103/mcL Invalid Interpretation Code 4.50 - 10.80 10^3/mcL AH Remisol SS LABORATORYOrdered By: SYSTEM SYSTEM on 08-15-2021 Albumin BCP dye [Mass/Vol] 3.1 G/dL Invalid Interpretation Code 3.2 - 4.8 G/dL AH ADM SS Albumin/Globulin [Mass ratio] 1.2 {ratio} Invalid Interpretation Code 0.9 - 1.6 ratio AH ADM SS ALP [Catalytic activity/Vol] 64 U/L Invalid Interpretation Code 38 - 126 U/L AH ADM SS ALT No additional P-5'-P [Catalytic activity/Vol] 13 U/L Invalid Interpretation Code 12 - 55 U/L AH ADM SS AST [Catalytic activity/Vol] 19 U/L Invalid Interpretation Code 8 - 34 U/L AH ADM SS Basophils (Bld) [#/Vol] 0.00 103/mcL Invalid Interpretation Code 0.00 - 0.27 10^3/mcL AH Remisol SS Basophils/100 WBC (Bld) 0.3 % Invalid Interpretation Code 0.0 - 2.5 % AH Remisol SS Bilirubin [Mass/Vol] 0.40 mg/dL Invalid Interpretation Code 0.20 - 1.20 mg/dL AH ADM SS Calcium [Mass/Vol] 8.8 mg/dL Invalid Interpretation Code 8.7 - 10.4 mg/dL AH ADM SS Chloride [Moles/Vol] 107 mmol/L Invalid Interpretation Code 98 - 110 mEq/L AH ADM SS CO2 [Moles/Vol] 26 mmol/L Invalid Interpretation Code 22 - 32 mEq/L AH ADM SS Creatinine [Mass/Vol] 1.25 mg/dL Invalid Interpretation Code 0.60 - 1.40 mg/dL AH ADM SS Electrolyte Balance 5.0 mEq/L Invalid Interpretation Code 4.0 - 15.0 mEq/L AH ADM SS Eosinophils (Bld) [#/Vol] 0.10 103/mcL Invalid Interpretation Code 0.00 - 0.65 10^3/mcL AH Remisol SS Eosinophils/100 WBC (Bld) 0.7 % Invalid Interpretation Code 0.0 - 6.0 % AH Remisol SS Erythrocyte distribution width (RBC) [Ratio] 13.6 % Invalid Interpretation Code 11.5 - 15.5 % AH Remisol SS GFR/1.73 sq M.predicted among blacks MDRD (S/P/Bld) [Vol rate/Area] ml/min/1.73sqm Invalid Interpretation Code AH Chemistry S GFR/1.73 sq M.predicted among non-blacks MDRD (S/P/Bld) [Vol rate/Area] 56 ml/min/1.73sqm Invalid Interpretation Code Chemistry S Globulin 2.5 G/dL Invalid Interpretation Code 1.5 - 3.8 G/dL AH ADM SS Glucose [Mass/Vol] 130 mg/dL Invalid Interpretation Code 82 - 115 mg/dL AH ADM SS HbA1c (Bld) [Mass fraction] 6.1 % Invalid Interpretation Code 4.0 - 6.0 % AH Auto Chem SS Hematocrit (Bld) [Volume fraction] 31.1 % Invalid Interpretation Code 40.0 - 52.0 % AH Remisol SS Hemoglobin (Bld) [Mass/Vol] 10.7 G/dL Invalid Interpretation Code 13.0 - 17.5 G/dL AH Remisol SS Lymphocytes (Bld) [#/Vol] 1.30 103/mcL Invalid Interpretation Code 0.90 - 4.32 10^3/mcL AH Remisol SS Lymphocytes/100 WBC (Bld) 16.8 % Invalid Interpretation Code 20.0 - 40.0 % AH Remisol SS Magnesium [Mass/Vol] 1.6 mg/dL Invalid Interpretation Code 1.6 - 2.4 mg/dL AH ADM SS MCH (RBC) [Entitic mass] 34.4 pg Invalid Interpretation Code 27.0 - 33.0 pg AH Remisol SS MCHC (RBC) [Mass/Vol] 34.5 G/dL Invalid Interpretation Code 32.0 - 36.0 G/dL AH Remisol SS MCV (RBC) [Entitic vol] 99.7 fL Invalid Interpretation Code 81.0 - 100.0 fL AH Remisol SS Monocytes (Bld) [#/Vol] 0.90 103/mcL Invalid Interpretation Code 0.09 - 1.40 10^3/mcL AH Remisol SS Monocytes/100 WBC (Bld) 11.5 % Invalid Interpretation Code 2.0 - 13.0 % AH Remisol SS Neutrophils (Bld) [#/Vol] 5.60 103/mcL Invalid Interpretation Code 2.25 - 8.10 10^3/mcL AH Remisol SS Neutrophils/100 WBC (Bld) 70.7 % Invalid Interpretation Code 50.0 - 75.0 % AH Remisol SS Platelet mean volume (Bld) [Entitic vol] 6.7 fL Invalid Interpretation Code 6.4 - 10.5 fL AH Remisol SS Platelets (Bld) [#/Vol] 223 103/mcL Invalid Interpretation Code 150 - 450 10^3/mcL AH Remisol SS Potassium [Moles/Vol] 4.3 mmol/L Invalid Interpretation Code 3.5 - 5.0 mEq/L AH ADM SS Protein [Mass/Vol] 5.6 G/dL Invalid Interpretation Code 5.7 - 8.2 G/dL AH ADM SS RBC (Bld) [#/Vol] 3.12 106/mcL Invalid Interpretation Code 4.50 - 6.00 10^6/mcL AH Remisol SS Sodium [Moles/Vol] 138 mmol/L Invalid Interpretation Code 136 - 145 mEq/L ADM SS TSH Qn 1.462 mIU/mL Invalid Interpretation Code 0.550 - 4.780 mIU/mL ADM SS Urea nitrogen [Mass/Vol] 27.0 mg/dL Invalid Interpretation Code 8.0 - 22.0 mg/dL ADM SS Urea nitrogen/Creatinine [Mass ratio] 21.6 ratio Invalid Interpretation Code 10.0 - 22.0 ratio AH ADM SS WBC (Bld) [#/Vol] 7.90 103/mcL Invalid Interpretation Code 4.50 - 10.80 10^3/mcL Remisol SS LABORATORYOrdered By: Maribel Barrera on 08-15-2021 Cholesterol [Mass/Vol] 102 mg/dL Invalid Interpretation Code 50 - 199 mg/dL ADM SS Cholesterol in HDL [Mass/Vol] 34 mg/dL Invalid Interpretation Code 40 - 59 mg/dL ADM SS Cholesterol in LDL [Mass/Vol] 48 mg/dL Invalid Interpretation Code 0 - 129 mg/dL AH ADM SS Triglyceride [Mass/Vol] 100 mg/dL Invalid Interpretation Code 3 - 149 mg/dL AH ADM SS LABORATORYOrdered By: Radu Blanc on 08-14-2021 ABO and Rh group Nom (Bld) Blood group A Rh(D) positive Invalid Interpretation Code BB Auto SS Blood group antibody screen Ql NEG (08/14/21 4:20 PM) Invalid Interpretation Code AH BB Auto SS LABORATORYOrdered By: Anu Catsro on 08-14-2021 Acetaminophen [Mass/Vol] mcg/mL Invalid Interpretation Code 10.0 - 20.0 mcg/mL AH ADM SS ER Drug Screen (s) Negative (08/14/21 4:20 PM) Invalid Interpretation Code Chemistry S ER Drug Screen Interp Serum shows no evidence of drugs routinely screened Invalid Interpretation Code Chemistry S ER Serum Drugs Screened: See Below (08/14/21 4:20 PM) Invalid Interpretation Code AH Chemistry S ER U Drug Screen Negative (08/14/21 4:20 PM) Invalid Interpretation Code AH Chemistry S ER U Drug Screen Interp Urine shows no evidence of drugs routinely screened. Invalid Interpretation Code Chemistry S Ethanol [Mass/Vol] mg/dL Invalid Interpretation Code ADM SS Salicylates [Mass/Vol] mg/dL Invalid Interpretation Code 10.0 - 25.0 mg/dL AH ADM SS Tricyclic antidepressants Screen Ql Negative Invalid Interpretation Code AH ADM SS U ER Drugs Screened: See Below (08/14/21 4:20 PM) Invalid Interpretation Code Chemistry S LABORATORYOrdered By: PumpUp SYSTEM on 08-14-2021 Albumin [Mass/Vol] 3.7 G/dL Invalid Interpretation Code 3.2 - 4.8 G/dL ADM SS Albumin/Globulin [Mass ratio] 1.1 {ratio} Invalid Interpretation Code 0.9 - 1.6 ratio ADM SS ALP [Catalytic activity/Vol] 69 U/L Invalid Interpretation Code 38 - 126 U/L ADM SS ALT [Catalytic activity/Vol] 22 U/L Invalid Interpretation Code 12 - 55 U/L ADM SS AST [Catalytic activity/Vol] 17 U/L Invalid Interpretation Code 8 - 34 U/L ADM SS Base excess Calc (BldMV) [Moles/Vol] 7.0 mEq/L Invalid Interpretation Code 4.0 - 15.0 mEq/L ADM SS Basophils (Bld) [#/Vol] 0.00 103/mcL Invalid Interpretation Code 0.00 - 0.27 10^3/mcL Remisol SS Basophils/100 WBC (Bld) 0.4 % Invalid Interpretation Code 0.0 - 2.5 % Remisol SS Bilirubin [Mass/Vol] 0.3 mg/dL Invalid Interpretation Code 0.2 - 1.2 mg/dL AH ADM SS Calcium [Mass/Vol] 9.1 mg/dL Invalid Interpretation Code 8.4 - 10.1 mg/dL AH ADM SS Chloride [Moles/Vol] 105 mmol/L Invalid Interpretation Code 98 - 110 mEq/L ADM SS CO2 [Moles/Vol] 25 mmol/L Invalid Interpretation Code 22 - 32 mEq/L ADM SS Creatinine [Mass/Vol] 1.32 mg/dL Invalid Interpretation Code 0.60 - 1.40 mg/dL AH ADM SS Eosinophils (Bld) [#/Vol] 0.10 103/mcL Invalid Interpretation Code 0.00 - 0.65 10^3/mcL AH Remisol SS Eosinophils/100 WBC (Bld) 1.5 % Invalid Interpretation Code 0.0 - 6.0 % AH Remisol SS Erythrocyte distribution width (RBC) [Ratio] 13.7 % Invalid Interpretation Code 11.5 - 15.5 % AH Remisol SS GFR/1.73 sq M.predicted among blacks MDRD (S/P/Bld) [Vol rate/Area] ml/min/1.73sqm Invalid Interpretation Code AH ADM SS GFR/1.73 sq M.predicted among non-blacks MDRD (S/P/Bld) [Vol rate/Area] 52 ml/min/1.73sqm Invalid Interpretation Code ADM SS Globulin (S) [Mass/Vol] 3.5 G/dL Invalid Interpretation Code 1.5 - 3.8 G/dL ADM SS Glucose [Mass/Vol] 136 mg/dL Invalid Interpretation Code 82 - 115 mg/dL AH ADM SS Hematocrit (Bld) [Volume fraction] 36.9 % Invalid Interpretation Code 40.0 - 52.0 % AH Remisol SS Hemoglobin (Bld) [Mass/Vol] 12.5 G/dL Invalid Interpretation Code 13.0 - 17.5 G/dL AH Remisol SS Lipase [Catalytic activity/Vol] 27 U/L Invalid Interpretation Code 12 - 53 U/L AH ADM SS Lymphocytes (Bld) [#/Vol] 0.80 103/mcL Invalid Interpretation Code 0.90 - 4.32 10^3/mcL AH Remisol SS Lymphocytes/100 WBC (Bld) 10.6 % Invalid Interpretation Code 20.0 - 40.0 % AH Remisol SS MCH (RBC) [Entitic mass] 34.4 pg Invalid Interpretation Code 27.0 - 33.0 pg AH Remisol SS MCHC (RBC) [Mass/Vol] 33.9 G/dL Invalid Interpretation Code 32.0 - 36.0 G/dL AH Remisol SS MCV (RBC) [Entitic vol] 101.6 fL Invalid Interpretation Code 81.0 - 100.0 fL Remisol SS Monocytes (Bld) [#/Vol] 0.60 103/mcL Invalid Interpretation Code 0.09 - 1.40 10^3/mcL AH Remisol SS Monocytes/100 WBC (Bld) 7.4 % Invalid Interpretation Code 2.0 - 13.0 % AH Remisol SS Neutrophils (Bld) [#/Vol] 5.90 103/mcL Invalid Interpretation Code 2.25 - 8.10 10^3/mcL AH Remisol SS Neutrophils/100 WBC (Bld) 80.1 % Invalid Interpretation Code 50.0 - 75.0 % AH Remisol SS Platelet mean volume (Bld) [Entitic vol] 6.5 fL Invalid Interpretation Code 6.4 - 10.5 fL AH Remisol SS Platelets (Bld) [#/Vol] 229 103/mcL Invalid Interpretation Code 150 - 450 10^3/mcL AH Remisol SS Potassium [Moles/Vol] 4.6 mmol/L Invalid Interpretation Code 3.5 - 5.0 mEq/L AH ADM SS Protein [Mass/Vol] 7.2 G/dL Invalid Interpretation Code 6.0 - 8.5 G/dL AH ADM SS RBC (Bld) [#/Vol] 3.63 106/mcL Invalid Interpretation Code 4.50 - 6.00 10^6/mcL AH Remisol SS Sodium [Moles/Vol] 137 mmol/L Invalid Interpretation Code 136 - 145 mEq/L AH ADM SS Troponin I.cardiac DL <= 0.01 ng/mL [Mass/Vol] 14.95 ng/L Invalid Interpretation Code 0.00 - 54.00 ng/L AH ADM SS Urea nitrogen [Mass/Vol] 31.0 mg/dL Invalid Interpretation Code 8.0 - 22.0 mg/dL AH ADM SS Urea nitrogen/Creatinine [Mass ratio] 23.5 ratio Invalid Interpretation Code 10.0 - 22.0 ratio AH ADM SS WBC (Bld) [#/Vol] 7.40 103/mcL Invalid Interpretation Code 4.50 - 10.80 10^3/mcL AH Remisol SS LABORATORYOrdered By: Cookie Davila on 08-14-2021 Appearance (U) Clear (08/14/21 4:20 PM) Invalid Interpretation Code AH Auto Urine SS Bilirubin Ql (U) Negative (08/14/21 4:20 PM) Invalid Interpretation Code Neg-Trace AH Auto Urine SS Color (U) Yellow (08/14/21 4:20 PM) Invalid Interpretation Code Auto Urine SS Glucose Test strip (U) [Mass/Vol] Negative Invalid Interpretation Code Negativemg/dL AH Auto Urine SS Hemoglobin Auto test strip (U) [Mass/Vol] Negative (08/14/21 4:20 PM) Invalid Interpretation Code Neg-Trace AH Auto Urine SS Ketones Ql (U) Negative Invalid Interpretation Code Neg-Tracemg/d L AH Auto Urine SS UA Leuk Est Negative (08/14/21 4:20 PM) Invalid Interpretation Code Negative AH Auto Urine SS UA Nitrite Negative (08/14/21 4:20 PM) Invalid Interpretation Code Negative Auto Urine SS UA pH 5.0 (08/14/21 4:20 PM) Invalid Interpretation Code 5.0 - 8.0 AH Auto Urine SS UA Protein Negative Invalid Interpretation Code Negativemg/dL Auto Urine SS UA Spec Grav 1.025 (08/14/21 4:20 PM) Invalid Interpretation Code Auto Urine SS UA Specimen Type Clean Catch (08/14/21 4:20 PM) Invalid Interpretation Code Auto Urine SS UA Urobilinogen 0.2 E.U./dL Invalid Interpretation Code AH Auto Urine SS LABORATORYOrdered By: Tiffany Camp on 08-14-2021 aPTT Coag (PPP) [Time] 30.0 s Invalid Interpretation Code 25.0 - 35.0 seconds AH Auto Coag SS Heparin dose (APTT) None Invalid Interpretation Code AH Auto Coag SS INR Coag (PPP) [Relative time] 0.9 {INR} Invalid Interpretation Code AH Auto Coag SS PT Coag (PPP) [Time] 10.8 s Invalid Interpretation Code 9.0 - 14.9 seconds AH Auto Coag SS CULTURE, URINE, ROUTINEon CULTURE, URINE, ROUTINE SEE NOTE Normal [facility] Comment on above: Result Comment: CULTURE, URINE, ROUTINE Micro Number: [id number] Test Status: Final Specimen Source: URINE Specimen Quality: Adequate Result: No Growth Performed By: #### 3 95 #### [facility]-[address], [address] [place] [id number] Supervisor Pipe Manufacture: Rober Kohli MD Vital Signs Date Time Vital Sign Value Performing Clinician Facility 12-13-2021 09:55-0400 Body temperature 98.01 [degF] Jonathan Mendoza DO Work Phone: [facility] 12-13-2021 09:55-0400 Body weight 98.66 kg Jonathan Mendoza DO Work Phone: [facility] 12-13-2021 09:55-0400 Diastolic blood pressure 53 mm[Hg] Jonathan Mendoza DO Work Phone: [facility] 12-13-2021 09:55-0400 Heart rate 65 /min Jonathan Mendoza DO Work Phone: [facility] 12-13-2021 09:55-0400 SaO2% (BldA) [Mass fraction] 96 % Jonathan Mendoza DO Work Phone: [facility] 12-13-2021 09:55-0400 Systolic blood pressure 109 mm[Hg] Jonathan Mendoza DO Work Phone: [facility] 08-16-2021 10:29-0500 Body temperature 98.06 [degF] RENA ARBAMS MD [facility] 08-16-2021 10:29-0500 Diastolic blood pressure 71 mm[Hg] RENA ABRAMS MD [facility] 08-16-2021 10:29-0500 Heart rate 64 /min RENA ABRAMS MD [facility] 08-16-2021 10:29-0500 Mean blood pressure 91 mm[Hg] RENA ABRAMS MD [facility] 08-16-2021 10:29-0500 Reason For Taking VItal Signs RENA ABRAMS MD [facility] 08-16-2021 10:29-0500 Respiratory rate 20 /min RENA ABRAMS MD [facility] 08-16-2021 10:29-0500 Systolic blood pressure 130 mm[Hg] RENA ABRAMS MD [facility] 08-16-2021 09:13-0500 Heart rate 66 /min RENA ABRAMS MD [facility] 08-16-2021 07:07-0500 Body temperature 97.7 [degF] RENA ABRAMS MD [facility] 08-16-2021 07:07-0500 Diastolic blood pressure 77 mm[Hg] RENA ABRAMS MD [facility] 08-16-2021 07:07-0500 Heart rate 65 /min RENA ABRAMS MD [facility] 08-16-2021 07:07-0500 Mean blood pressure 104 mm[Hg] RENA ABRAMS MD [facility] 08-16-2021 07:07-0500 Reason For Taking VItal Signs RENA ABRAMS MD [facility] 08-16-2021 07:07-0500 Respiratory rate 20 /min RENA ABRAMS MD [facility] 08-16-2021 07:07-0500 Systolic blood pressure 158 mm[Hg] RENA ABRAMS MD [facility] 08-16-2021 04:03-0500 Body temperature 98.06 [degF] RENA ABRAMS MD [facility] 08-16-2021 04:03-0500 Diastolic blood pressure 64 mm[Hg] RENA ABRAMS MD [facility] 08-16-2021 04:03-0500 Heart rate 66 /min RENA ABRAMS MD [facility] 08-16-2021 04:03-0500 Mean blood pressure 90 mm[Hg] RENA ABRAMS MD [address] [place] [address] 08-16-2021 04:03-0500 Reason For Taking VItal Signs RENA ABRAMS MD [facility] 08-16-2021 04:03-0500 Respiratory rate 20 /min RENA ABRAMS MD [facility] 08-16-2021 04:03-0500 Systolic blood pressure 142 mm[Hg] RENA ABRAMS MD [facility] 08-15-2021 23:45-0500 Heart rate 61 /min RENA ABRAMS MD [facility] 08-15-2021 18:52-0500 Heart rate 61 /min RENA ABRAMS MD [facility] 08-15-2021 17:11-0500 Heart rate 69 /min RENA ABRAMS MD [facility] 08-15-2021 08:15-0500 Heart rate 65 /min RENA ABRAMS MD [address] [place] [address] 08-15-2021 06:41-0500 Heart rate 65 /min RENA ABRAMS MD [facility] 08-14-2021 21:24-0500 Body height 172.7 cm RENA ABRAMS MD [facility] 08-14-2021 21:24-050 Body weight 109.3 kg RENA ABRAMS MD [facility] 08-14-2021 21:24-050 Body weight 36.65 kg/m2 RENA ABRAMS MD [facility] Encounters Encounter Date Encounter Type Care Provider Facility Start: 03-25-2022 Orders Only Jonathan Steven Work Phone: Hematology/Oncology Comment on above: Macrocytic anemia (P rimary Dx) Start: 03-01-2022 End: 03-01-2022 ambulatory RODOLFO GAMBOA [facility] Start: 01-25-[address] PAKO TAVERAS MD Facility:A Start: 01-23-2022 End: 03-10-[address] PAKO PERRY MD Facility:R Start: 01-18-2022 End: 01-22-2022 Evaluation and management of inpatient RODOLFO GAMBOA MD Facility:A Start: 12-27-2021 Telephone encounter Jonathan andino DO Work Phone: Hematology/Oncology Comment on above: Results (Bone marrow biopsy done at [facility]) Start: 12-15-2021 Telephone encounter Jonathan andino DO Work Phone: Hematology/Oncology Comment on above: Patient Question Start: 12-13-2021 End: 12-13-2021 ambulatory Jonathan Mendoza DO Work Phone: Hematology/Oncology Comment on above: Macrocytic anemia (P rimary Dx) Start: 12-13-2021 End: 12-13-2021 Patient encounter procedure Jonathan Mendoza DO Work Phone: [facility] Start: 12-10-2021 Orders Only Jonathan Steven Work Phone: Hematology/Oncology Comment on above: Anemia, unspecified type (Primary Dx) Start: 10-13-2021 Telephone encounter Jonathan andino DO Work Phone: Hematology/Oncology Comment on above: Results Start: 08-27-2021 End: 08-27-2021 ambulatory [facility] Start: 08-14-2021 End: 08-16-2021 Observation RENA ABRAMS MD [facility] Plan of Treatment Date Care Activity Detail Author Start: 03-29-2022 End: 05-29-2022 CBC W Auto Differential panel - Blood CBC + DIFF Lab STAT Macrocytic anemia Expected: 03/29/2022, Expires: 05/29/2022 [facility] Work Phone: Comment on above: Expected: 03/29/2022 , Expires: 05/29/2022 Start: 03-24-2022 Influenza vaccination INFLUENZA (#1) [facility] Start: 12-13-2021 End: 02-12-2022 CBC W Auto Differential panel - Blood CBC + DIFF Lab STAT Anemia, unspecified type Expected: 12/13/2021, Expires: 02/12/2022 [facility] Work Phone: Comment on above: Expected: 12/13/2021 , Expires: 02/12/2022 Start: 12-13-2021 End: 02-12-2022 Erythropoietin (EPO) [Units/volume] in Serum or Plasma [facility] Work Phone: Comment on above: Expected: 12/13/2021 , Expires: 02/12/2022 Start: 07-24-2021 ADVANCE DIRECTIVE DISCUSSION ADVANCE DIRECTIVE DISCUSSION [facility] Start: 2005 PNEUMOCOCCAL: 65+ (1 - PCV) PNEUMOCOCCAL: 65+ (1 - PCV) [facility] Start: 2005 PNEUMOVAX AGE 65 AND OVER WITH 5YR LOOKBACK (#1) PNEUMOVAX AGE 65 AND OVER WITH 5YR LOOKBACK (#1) [facility] Start: 1990 SHINGRIX VACCINE (1 of 2) SCHOFIELD GRIX VACCINE (1 of 2) [facility] Start: 1985 DIABETES SCREEN DIABETES SCREEN [facility] Start: 11-03-1959 Urine microalbumin profile DTAP,TDAP,TD (1 - Tdap) [facility] Start: 1952 Adult depression screening assessment DEPRESSION SCREENING [facility] Immunizations Immunization Date Immunization Notes Care Provider Fa cility 05-25-2021 SARS-CoV-2 (COVID-19 ) mRNA-1273 vaccine RENA ABRAMS MD [facility] Comment on above: Result Comment: 2021: [id number] 05-03-2021 influenza virus vaccine, unspecified formulation RENA ABRAMS MD [facility] 09-17-2020 SARS-CoV-2 (COVID-19 ) mRNA-1273 vaccine RENA ABRAMS MD [facility] 08-20-2020 SARS-CoV-2 (COVID-19 ) mRNA-1273 vaccine RENA ABRAMS MD [facility] 04-29-2020 influenza virus vaccine, unspecified formulation RENA ABRAMS MD [facility] 07-08-2019 tetanus and diphther ia toxoids, adsorbed, preservative free, for adult use (5 Lf of tetanus toxoid and 2 Lf of diphtheria toxoid) RENA ABRAMS MD [facility] 05-08-2019 influenza virus vaccine, unspecified formulation RENA ABRAMS MD [facility] 05-30-2018 influenza virus vaccine, unspecified formulation RENA ABRAMS MD [facility] 05-29-2017 influenza virus vaccine, unspecified formulation RENA ABRAMS MD [facility] 05-12-2016 influenza virus vaccine, unspecified formulation RENA ABRAMS MD [facility] 06-01-2015 influenza virus vaccine, unspecified formulation RENA ABRAMS MD [address] [place] [address] 08-14-2014 pneumococcal conjuga te vaccine, 13 valent RENA ABRAMS MD [facility] 05-22-2014 influenza virus vaccine, unspecified formulation RENA ABRAMS MD [facility] 06-10-2013 influenza virus vaccine, unspecified formulation RENA ABRAMS MD [facility] 05-17-2012 influenza virus vaccine, unspecified formulation RENA ABRAMS MD [facility] 06-10-2011 influenza virus vaccine, unspecified formulation RENA ABRAMS MD [facility] Payers Date Payer Category Payer Medicare [id number] 2022 Unknown [id number] 2021 Unknown PRIMETIME PRIMET BRANDO O POS [id number] 2021-Present [phone] [facility] [address] [place] [address] [facility] [place] [id number] 2021 Unknown [id number] 1940 Unknown [id number] 1940 Unknown [id number] 1940 Unknown [id number] 1940 Unknown [id number] Social History Date Type Detail Facility Start: 12-18-2018 End: 09-29-2021 Never smoked tobacco (finding) [facility] Sex Assigned At [facility] Start: 01-18-2011 End: 09-29-2021 Tobacco use and exposure Smokeless tobacco non-user [facility] Start: 09-29-2021 End: 12-13-2021 Alcohol intake Lifetime non-drinker (finding) [facility] Start: 09-29-2021 History SDOH Alcohol Frequency 1 [facility] Start: 1940 Sex Assigned At Not on file [facility] Start: 08-30-2021 End: 12-13-2021 Exposure to SARS-CoV-2 (event) Not sure [facility] Medical Equipment Procedure Code Equipment Code Equipment Origin al Text Equipment Identifier Dates FDA Start: 12-18-2018 FDA Start: 12-18-2018 FDA Start: 12-18-2018 FDA Start: 12-18-2018 FDA Start: 12-18-2018 FDA Start: 12-18-2018 Clinical Notes 08-14-2021 to 12-27-2021 Telephone Encounter - Margie Mcknight - 12/27/2021 8:53 AM EDTTelephone Encounter - Carlie Gaspar LPN - 12/27/2021 8:44 AM EDTTelephone Encounter - Christina Medrano LPN - 12/27/2021 8:25 AM EDT Note Date & Type Note Facility 12-27-2021 Miscellaneous Notes Patient scheduled, aware of time and date. Margie Mcknight Patient is aware of all information. Please schedule as directed. Carlie Gaspar LPN Attempted to contact pt, unable to leave message, voicemail is full. Christina Medrano LPN Can let him know the bone marrow biopsy done at [facility] yielded a suboptimal specimen but there [...] Jonathan Mendoza DO documented in this encounter [facility] 12-15-2021 Miscellaneous Notes Patient is aware [...] let her know. documented in this encounter [facility] 12-13-2021 Note HNO ID: [id number] Author: Jonathan Mendoza, DO Service: ? Author Type: Physician Type: Progress Notes Filed: 12/13/2021 10:31 AM Note Text: Hematologic problem(s): 1) Macrocytic anemia. 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 Recent CBC from 09/10/2021 revealed a total white count of 7000. Differential was normal. Hemoglobin was 12.5 g/dL with a hematocrit of 36.4% and an MCV of 102.5. Platelet count was 217,000. Review of CBCs available through [facility] reveal that the patient has had mild macrocytosis dating to November 2016. At that time the MCV was 99.7. In April 2021 it was 100.5. Hemoglobin was 12.3 g/dL in November 2016 and more recently in April 2021 it was 13.4 grams per deciliter on presentation with his ID 05/17/2021. He is fatigued but feels well [...] the elderly through his local hospital in [place]. No acute illnesses since last seen. PMH, [...] edema. SKIN: No jaundice or rash. 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 LABS: Component [...] Lymph 1.00 - 4.00 k/uL 1.22 1.11 [place]% % 11.5 11.0 Abs [place] <0.87 k/uL 0.79 0.67 Eosin% % 1.9 [...] bone marrow biopsy under CT guidance at [facility]. 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 -Check serum erythropoietin today. -OV after biopsy. Portions of this documentation were copied and pasted from p (more content not included)... [facility] 12-13-2021 History of Presen t illness Narrative Hematologic problem(s): 1) Macrocytic anemia. 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 Recent CBC from 09/10/2021 revealed a total white count of 7000. Differential was normal. Hemoglobin was 12.5 g/dL with a hematocrit of 36.4% and an MCV of 102.5. Platelet count was 217,000. Review of CBCs available through [facility] reveal that the patient has had mild macrocytosis dating to November 2016. At that time the MCV was 99.7. In April 2021 it was 100.5. Hemoglobin was 12.3 g/dL in November 2016 and more recently in April 2021 it was 13.4 grams per deciliter on presentation with his ID 05/17/2021. He is fatigued but feels well [...] the elderly through his local hospital in [place]. No acute illnesses since last seen. PMH, [...] edema. SKIN: No jaundice or rash. 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 LABS: Component [...] Lymph 1.00 - 4.00 k/uL 1.22 1.11 [place]% % 11.5 11.0 Abs [place] <0.87 k/uL 0.79 0.67 Eosin% % 1.9 [...] bone marrow biopsy under CT guidance at [facility]. 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 -Check serum erythropoietin today. -OV after biopsy. [...] Jonathan Mendoza DO documented in this encounter [facility] 10-19-2021 Miscellaneous Notes Scheduled, confirmed appt. Called pt's . Went to , left a message for her to return our call. If so please schedule patient for a follow up appointment with and a lab appointment for a CBC (mid-november), close this message when scheduled. Thank you. Margie Mcknight PSS I spoke with his and [...] is on dual antiplatelet therapy for an ID he had in April 2021 and I do not want to disrupt that therapy to perform a bone marrow biopsy at this juncture. So please call her tomorrow to arrange OV/CBC with me in mid November. Jonathan Mendoza DO Pts spouse is calling to get lab results for the 09/29/21 labs. documented in this encounter [facility] 09-30-2021 Note HNO ID: [id number] Author: Jonathan Mendoza DO Service: ? Author Type: Physician Type: Progress Notes Filed: 09/30/2021 4:38 PM Note Text: Patient referred by Thalia for macrocytic anemia. The impression and plan will be communicated by way of the shared electronic record or faxed under separate cover letter. HPI: The patient is an 80-year-old male who has a past medical history significant for prostate cancer treated with external beam radiation, non-ST elevation ID in April 2021 (2 stents) osteoarthritis, GERD, hypertension and insomnia. Recent CBC from 09/10/2021 revealed a total white count of 7000. Differential was normal. Hemoglobin was 12.5 g/dL with a hematocrit of 36.4% and an MCV of 102.5. Platelet count was 217,000. Review of CBCs available through [facility] reveal that the patient has had mild macrocytosis dating to November 2016. At that time the MCV was 99.7. In April 2021 it was 100.5. Hemoglobin was 12.3 g/dL in November 2016 and more recently in April 2021 it was 13.4 grams per deciliter on presentation with his ID 05/17/2021. He is fatigued but feels well [...] edema. SKIN: No jaundice or rash. 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 ASSESSMENT/PLAN: (D64.9) [...] which included preparing to see the patient, otsq-cd-nper patient care, obtaining and/or reviewing separately obtained history, performing a medically appropriate examination, counseling and educating the patient/family/caregiver, ordering medications, tests, or procedures and communicating results to the patient/family/caregiver. Jonathan Mendoza, [facility] 08-15-2021 [facility] Discharg e instructions Patient Education 08/14/2021 22:50:17 [...] right away. Call your local emergency services (911 in the [place] Do not drive yourself [...] your urine pale yellow. General instructions Take dgiw-ufi-dusegsk and prescription medicines only as told by [...] right away. Call your local emergency services (911 in the [place] Do not drive yourself [...] 07/10/2006 Document Revised: 06/22/2018 Document Reviewed: 06/18/2018 [employer] Patient Education 2020 [employer] Follow Up Care 08/14/2021 15:57:00 With:RODOLFO GAMBOA MD Address: [address] [place] [address] [place] [address]- When:08/23/2021 09:10:00 Comments:Follow up [facility] 08-14-2021 Evaluation + Plan note Extrac brandon from: Title:History and Physical Author:PATO AYALA MD Date:08/14/21 1. Syncope 2. Mechanical fall 3. Left [...] be ruled out. Medical records from patient's hazmat truck driver last office visit was requested. During H&P [...] CAREY MD on August 15, 2021 23:36:03 [facility] TEACHING SERVICE ATTENDING PHYSICIAN NOTE This note was transcribed via voice recognition software and may contain typographical errors. I was present for, and personally supervised, the pickett components of the patient's evaluation and management by the [facility] house staff today. I have examined the patient and reviewed all diagnostic data. I have reviewed the note of the resident documenting the interval history obtained, examination performed, and diagnostic testing results compiled by him/her. Additional comments, if any: Thank you for above documentation and care. I have personally seen and examined the patient today. Agree with above. [facility] Evaluation note* Diagnosis Anemia, unspecified type- Primary documented in this encounter [facility] note* Diagnosis Macrocytic anemia- Primary Unspecified deficiency anemia documented in this encounter [facility] note* Diagnosis Macrocytic anemia- Primary Unspecified deficiency anemia [facility] Narrative No data available for this section [facility] Summary Purpose Family History No Family [...] ized section and content) DATE CREATED AUTHOR 02/08/2020 [facility] DATE CREATED AUTHOR AUTHOR'S ORGANIZ ATION 03/02/2022 [facility] DATE CREATED AUTHOR AUTHOR'S ORGANIZ ATION 03/06/2022 [facility] DATE CREATED AUTHOR AUTHOR'S ORGANIZ ATION 10/04/2022 [facility] ([place]) Source Comments (unrecognize d section and content) In the event this informatio n is protected by the Federal Confidentiality of Alcohol and Drug Abuse Patient Records regulations: The Federal rules restrict any use of the information to criminally investigate or prosecute any alcohol or drug abuse patient.[facility] the event this information is protected by the Federal Confidentiality of Alcohol and Drug Abuse Patient Records regulations: The Federal rules restrict any use of the information to criminally investigate or prosecute any alcohol or drug abuse patient.[facility] the event this information is protected by the Federal Confidentiality of Alcohol and Drug Abuse Patient Records regulations: The Federal rules restrict any use of the information to criminally investigate or prosecute any alcohol or drug abuse patient.[facility] the event this information is protected by the Federal Confidentiality of Alcohol and Drug Abuse Patient Records regulations: The Federal rules restrict any use of the information to criminally investigate or prosecute any alcohol or drug abuse patient.[facility] the event this information is protected by the Federal Confidentiality of Alcohol and Drug Abuse Patient Records regulations: The Federal rules restrict any use of the information to criminally investigate or prosecute any alcohol or drug abuse patient.[facility] the event this information is protected by the Federal Confidentiality of Alcohol and Drug Abuse Patient Records regulations: The Federal rules restrict any use of the information to criminally investigate or prosecute any alcohol or drug abuse patient.[facility] Reason for Visit (unrecogniz ed section and content) Reason Comments Results Reason Comments Established Patient Reason Comments Patient Question Reason Comments Results Bone marrow biopsy d one at [facility] Care Teams (unrecognized sec tion and content) Director Patient Financial Services Relationship Specialty Start Date End Date Rodolfo Gamboa MD [address] [place], [place] [id number] [phone] PCP - General Family Practice 09/29/21 Director Patient Financial Services Relationship Specialty Start Date End Date Rodolfo Gamboa MD [address] [place] [address] PCP - General Family Practice 09/29/21 Director Patient Financial Services Relationship Specialty Start Date End Date Rodolfo Gamboa MD [address] [place] [address] PCP - General Family Practice 09/29/21 Director Patient Financial Services Relationship Specialty Start Date End Date Rodolfo Gamboa MD [address] [place] [place] [address] PCP - General Family Practice 09/29/21 Director Patient Financial Services Relationship Specialty Start Date End Date Rodolfo Gamboa MD [address] [place] [address] PCP - General Family Practice 09/29/21 Director Patient Financial Services Relationship Specialty Start Date End Date Rodolfo Gamboa MD [address] [place] [address] PCP - General Family Practice 09/29/21 FOR RECORDS PERTAINING TO PATIENTS [...] BE BASED ON THE PRIMARY CLINICAL RECORDS. [facility] Thename.is [facility]. provides no warranty or guarantee of the accuracy or completeness of information in this document.
[2024-05-19 15:55] LABS: ALB/GLOB Ratio 0.9 RATIO (0.9-2.4); AST(SGOT) 13 U/L (15-37); Alanine Aminotransfer ALT/SGPT 16 U/L (16-61); Albumin, Serum 3.5 g/dL (3.2-5.0); Alkaline Phosphatase 78 U/L (45-117); Anion Gap 4 (5-15); BUN 20 mg/dL (7-18); BUN/Creat Ratio 17.2 RATIO (10-20); Calcium,Total 8.9 mg/dL (8.5-10.1); Chloride 106 mmol/L (98-107); Creatinine, Serum 1.16 mg/dL (0.70-1.30); EST Glomerular Filtration Rate 64 mL/min (>60); Est Glom Filt Rate - Afr Amer 77 mL/min (>60); Estimated Creatinine Clearance 54.14 ml/min; Globulin 3.7 g/dL (2.2-4.2); Glucose 110 mg/dL (74-106); Lipase 12 U/L (13-75); Potassium 4.5 mmol/L (3.5-5.1); Protein, Total 7.2 g/dL (6.4-8.2); Sodium Level 136 mmol/L (136-145); Troponin-I HS (w/2H Reflex) 33 pg/mL (3.0-78.0)
[2024-05-19 17:03] LABS: Reflex Troponin-HS? (from REC) Y
[2024-05-19 17:35] LABS: Troponin-I HS 26 pg/mL (3.0-78.0)
--- NOTE | 2024-05-19 18:31 | ED.RN ---
the patients family had the patient at bedside for a urinal, this RN went in because the patients oxygen was reading 86%. Patient recovered within 1.5 mins without o2.
[2024-05-19] MEDS: Lidocaine 2% Viscous15 ML UDC 15 ML PO (18:57)
[2024-05-19] MEDS: Mag Hydrox/Al Hydrox/Simeth 30 ML UDC PO (18:57)
== END 2024-05-19 20:08 | disposition home or self-care (01) ==
PROVIDERS: Emergency Provider Emergency Medicine; PCP Family Medicine; Visit Provider Emergency Medicine
DX: R07.89 Other chest pain (principal); R10.13 Epigastric pain; I25.10 Atherosclerotic heart disease of native coronary artery without angina pectoris; R06.09 Other forms of dyspnea
CPT/HCPCS: 71275; 74174; 80053; 83690; 84484; 85025; 93005; 96374; 96375; 96376; 99282; Q9967; A4216; J2405

== ENCOUNTER → 2024-12-09 | Outpatient (CLI) | payer MEDICARE, SELFPAY ==
[2021-09-03 09:05] VITALS: BMI 33.9
[2024-12-09 13:25] LABS: PSA,Total- Diagnostic < 0.02 ng/mL (0.00-4.00)
== END | disposition home or self-care (01) ==
LOC: LAB 11:21
PROVIDERS: PCP Family Medicine; Referring Provider Nurse Practitioner; Visit Provider Nurse Practitioner
DX: C61 Malignant neoplasm of prostate (principal)
CPT/HCPCS: 36415; 84153

== ENCOUNTER → 2025-06-10 | Outpatient (CLI) | payer MEDICARE, SELFPAY ==
[2021-09-03 09:05] VITALS: BMI 33.9
--- NOTE | 2025-06-10 08:06 | ECHOCS_ITS ---
Reason For Study Reason For Study: AORTIC STENOSIS Procedure This was a 2D Doppler, Color Flow transthoracic echocardiogram. The study was technically difficult. Contrast injection was performed. Exam performed in department. Left Ventricle Normal LV size. Mild concentric left ventricular hypertrophy. The left ventricular ejection fraction is 65 %. Stage 1 diastolic dysfunction. No regional wall motion abnormalities noted. Right Ventricle Normal RV size. Normal systolic function. Atria The left atrium is moderately enlarged. Normal right atrium. Mitral Valve There is mild to moderate mitral annular calcification. Tricuspid Valve Normal tricuspid valve. Mild (1+) tricuspid valve insufficiency. Pulmonary artery systolic pressure is 42 mmHg. Aortic Valve Trisinus/trileaflet aortic valve. Moderate focal aortic valve calcification. Peak aortic valve gradient 71 mmHg. Mean aortic valve gradient 46 mmHg. Severe aortic stenosis. Mild (1+) aortic valve insufficiency. Pulmonic Valve Normal pulmonic valve. Great Vessels Mildly dilated ascending aorta. The pulmonary artery is normal size. Inferior vena cava collapse with respiration. Pericardium/Pleural No pericardial effusion. Medication 22 gauge I.V. with prn adaptor inserted into left arm. Diluted definity 1ml given slow IV push to enhance endocardial definition. MMode/2D Measurements & Calculations LVIDd: 4.7 cm IVSd: 1.3 cm LVOT diam: 2.0 cm LVIDs: 3.1 cm LVPWd: 1.4 cm RVDd: 5.0 cm FS: 33.4 % LVOT area: 3.2 cm2 Ao root diam: 4.0 cm asc Aorta Diam: 4.2 cm LAV(MOD- bp): 80.6 ml LAV(MOD- bp) Indexed: 39.2 ml/m2 LAV(MOD- sp2): 85.6 ml LAV(MOD- sp4): 75.6 ml SV(MOD- sp4): 72.4 ml LVAd ap4: 34.8 cm2 LVAd ap2: 33.3 cm2 LVLd ap4: 8.8 cm LVLd ap2: 8.6 cm SI(MOD- sp4): 35.2 ml/m2 EDV(MOD-sp4): 109.8 ml EDV(MOD-sp2): 106.4 ml EDV(sp4-el): 116.3 ml EDV(sp2-el): 109.8 ml LVAs ap4: 18.0 cm2 LVAs ap2: 19.6 cm2 LVLs ap4: 7.0 cm LVLs ap2: 7.7 cm ESV(MOD-sp4): 37.3 ml ESV(MOD-sp2): 43.8 ml ESV(sp4-el): 39.4 ml ESV(sp2-el): 42.3 ml EF(MOD-sp4): 66.0 % EF(MOD-sp2): 58.8 % EF(sp4-el): 66.1 % SV(MOD-sp2): 62.6 ml SV(sp4-el): 76.9 ml LA A4 area: 23.9 cm2 SI(MOD-sp2): 30.4 ml/m2 LA dimension(2D): 5.1 cm TAPSE: 1.9 cm RA A4 area: 17.8 cm2 Time Measurements MV dec time: 0.32 sec Doppler Measurements & Calculations MV E max percy: 101.7 cm/sec Lat Peak E' Percy: 9.0 cm/sec Med Peak E' Percy: 5.4 cm/sec MV A max percy: 113.5 cm/sec E/E' lat: 11.3 E/E' med: 18.8 MV E/A: 0.90 MV dec slope: 319.8 cm/sec2 Ao V2 max: 421.2 cm/sec AI max percy: 399.7 cm/sec Ao max P.0 mmHg AI max P.1 mmHg Ao V2 mean: 322.3 cm/sec AI dec slope: 188.6 cm/sec2 Ao mean P.8 mmHg AI P1/2t: 620.7 msec Ao V2 VTI: 98.6 cm AV (velocity ratio): 0.25 YESENIA(I,D): 0.82 cm2 YESENIA(V,D): 0.82 cm2 LV V1 max: 106.3 cm/sec SV(LVOT): 80.4 ml PA V2 max: 96.7 cm/sec LV V1 max P.5 mmHg LV V1 mean P.0 mmHg LV V1 mean: 83.8 cm/sec LV V1 VTI: 24.9 cm TR max percy: 310.9 cm/sec TR max P.7 mmHg ECHO/Echo Complete W/ Contrast Interpretation Summary Normal LV size. Mild concentric left ventricular hypertrophy. The left ventricular ejection fraction is 65 %. Stage 1 diastolic dysfunction. The left atrium is moderately enlarged. Mildly dilated ascending aorta. Moderate focal aortic valve calcification. Mean aortic valve gradient 46 mmHg. Severe aortic stenosis. Contrast injection was performed. Ordering Physician: Simone Hallman Referring Physician: Rodolfo Gambao Performed By: Aziza Vega RDCS
== END | disposition home or self-care (01) ==
PROVIDERS: PCP Family Medicine; Referring Provider Nurse Practitioner Family; Visit Provider Nurse Practitioner Family
DX: I35.0 Nonrheumatic aortic (valve) stenosis (principal)
CPT/HCPCS: 93306; Q9957; A4216; C8929